=== PATIENT | male | born 1955 | race Asian ===

== ENCOUNTER → 2021-11-09 14:43 | Outpatient (BNVA) | payer MEDICARE, OTHER, SELFPAY | PROVIDERS: PCP Internal Medicine; Visit Provider Psychiatry & Neurology Neurology | DX: G20 Parkinson's disease (principal); I95.1 Orthostatic hypotension; Z79.899 Other long term (current) drug therapy | CPT/HCPCS: 99212 ==

== ENCOUNTER → 2022-01-12 08:25 | Outpatient (BNVA) | payer MEDICARE, OTHER, SELFPAY | PROVIDERS: PCP Internal Medicine; Visit Provider Psychiatry & Neurology Neurology | DX: G20 Parkinson's disease (principal); I95.1 Orthostatic hypotension; G47.00 Insomnia, unspecified; Z79.899 Other long term (current) drug therapy | CPT/HCPCS: Q3014 ==

== ENCOUNTER → 2022-02-22 11:18 | Outpatient (BNVA) | payer MEDICARE, OTHER, SELFPAY | PROVIDERS: PCP Internal Medicine; Visit Provider Psychiatry & Neurology Neurology | DX: G20 Parkinson's disease (principal); I95.1 Orthostatic hypotension; G47.00 Insomnia, unspecified; Z79.899 Other long term (current) drug therapy | CPT/HCPCS: 99212 ==

== ENCOUNTER → 2022-04-19 11:23 | Outpatient (BNVA) | payer MEDICARE, OTHER, SELFPAY | PROVIDERS: PCP Internal Medicine; Visit Provider Psychiatry & Neurology Neurology | DX: G20 Parkinson's disease (principal); I95.1 Orthostatic hypotension; G47.00 Insomnia, unspecified; Z79.899 Other long term (current) drug therapy | CPT/HCPCS: Q3014 ==

== ENCOUNTER → 2022-06-15 09:03 | Outpatient (BNVA) | payer MEDICARE, OTHER, SELFPAY | PROVIDERS: PCP Internal Medicine; Visit Provider Psychiatry & Neurology Neurology | DX: G20 Parkinson's disease (principal); I95.1 Orthostatic hypotension; G47.00 Insomnia, unspecified | CPT/HCPCS: 99212 ==

== ENCOUNTER → 2022-12-13 10:56 | Outpatient (BNVA) | payer MEDICARE, OTHER, SELFPAY | PROVIDERS: PCP Internal Medicine; Visit Provider Psychiatry & Neurology Neurology | DX: G20 Parkinson's disease (principal); G47.00 Insomnia, unspecified; I95.1 Orthostatic hypotension; K59.00 Constipation, unspecified | CPT/HCPCS: 99212 ==

== ENCOUNTER 2023-06-12 11:19 | Outpatient (AMB) | payer MEDICARE, OTHER, SELFPAY ==
[2023-06-12 11:21] VITALS: BP 114/74; PULSE 90; O2SAT 96; BMI 22.5
--- NOTE | 2023-06-12 11:21 | MHC.OFFVIS ---
Intake Vital Signs 06/12/23 11:21 Height 5 ft 11 in Weight 161 lb 4 oz BMI 22.5 BP 114/74 Blood Pressure Location Rt brachial Position Sitting Pulse 90 Pulse Source Pulse Oximeter Pulse Oximetry (%) 96 Oxygen Delivery Method Room Air Intake Visit Reasons: 6m follow up parkinson's Intake Note: Pt presents to the office today for a 6 month follow up for parkinsons. Pt states some days are good and others are bad. Pt states he has started to get some tremors in his legs once or twice so far. Pt states he has had 2 falls since his last visit. Allergies Penicillins Adverse Reaction (Mild, Verified 06/12/23 11:21) Hives Medication List - Last Reconciled 06/12/23 by Lidya Umanzor MD albuterol sulfate 90 mcg/actuation 2 puffs inhalation Q4H PRN budesonide-formoterol 160-4.5 mcg/actuation (Symbicort) 2 puffs inhalation BID carbidopa-levodopa 25-100 mg 1 tab PO .6 times a day cetirizine 5 mg PO DAILY PRN droxidopa 200 mg PO TID 90 days finasteride 5 mg PO DAILY fluticasone furoate 27.5 mcg/actuation (Children's Flonase Sensimist) 1 spray intranasal DAILY lactulose 10 grams (15 mL) PO BEDTIME PRN lovastatin 20 mg PO DAILY mirabegron ER (Myrbetriq) 50 mg PO DAILY mirtazapine 7.5 mg PO BEDTIME rasagiline 1 mg PO DAILY ropinirole ER 2 mg PO DAILY tamsulosin 0.4 mg PO DAILY trospium 20 mg PO BID HPI HPI Comments History of Present Illness Details 67-year-old male calls for follow-up of his Parkinson's disease orthostatic hypotension and insomnia. He is doing better , with [id number] tid. The BP still drops but he does not feel dizzy. he is able to exercise better. his mental fogginess, headaches improved significantly His main concern is constipation. he still has some freezing .He had 2 falls . 1 at his gym he tripped , 2 nd fall was when he was trying to stand up from a office chair with wheels. His describes REM behavior disorder. His BP is 120/80- 90/70 he is less symptomatic . sleep is better. Mybetriq is helping with nocturia Dizziness is better with drop in mirtazepine. He has urgency frequent urination and he sees a urologist for it. he denies any hallucinations he exercises regularly he takes Metamucil and MiraLax to manage his constipation. He drinks about 6 glasses of water and Gatorade daily and checks his blood pressure often. The changing Sinemet to 1 tablets 6 times a day has significantly improved his exercise tolerance. He did not tolerate midodrine . [facility] Medical History (Updated 06/12/23 @ 11:46 by Lidya Umanzor MD) REM behavioral disorder Constipation Orthostatic hypotension Parkinson's disease Bronchitis Asthma Hyperlipidemia HTN (hypertension) Family History Family/Other HTN (hypertension) Diabetes Mother Diabetes HTN (hypertension) Social History Household Members: Spouse Alcohol intake: never Patient Tobacco Use Status: Never used Tobacco Physical Exam Vital Signs: Last Vital Signs Pulse 90 06/12/23 11:21 BP 114/74 06/12/23 11:21 Pulse Ox 96 06/12/23 11:21 Oxygen Delivery Method Room Air 06/12/23 11:21 BMI result Body Mass Index 22.5 Assessment & Plan Assessment & Plan (1) Parkinson's disease: Code(s): G20 - Parkinson's disease (2) Orthostatic hypotension: Code(s): I95.1 - Orthostatic hypotension (3) Insomnia: Code(s): G47.00 - Insomnia, unspecified (4) Constipation: Code(s): K59.00 - Constipation, unspecified (5) REM behavioral disorder: Code(s): G47.52 - REM sleep behavior disorder Plan Continue Sinemet 25/100 tablet 6 times a day. Continue rasagiline 1 mg q.d.. Continue Requip ER 2 mg q.d.. Continue Sinemet 25/100 CR 1 tablet q.a.m.. Remeron 7.5mg qhs [id number] tid ( patient did not tolerate midodrine) Continue lactulose as needed for constipation , with miralax, metamucil Melatonin 1-6mg qhs for RBD Coding Level of Care Code Est Pt Level 4 (72536) Diagnoses Parkinson's disease G20 Orthostatic hypotension I95.1 Insomnia G47.00 Constipation K59.00 REM behavioral disorder G47.52
== END 2023-06-12 11:58 | disposition home or self-care (01) ==
PROVIDERS: Visit Provider Psychiatry & Neurology Neurology
DX: G20 Parkinson's disease (principal); I95.1 Orthostatic hypotension; G47.00 Insomnia, unspecified; K59.00 Constipation, unspecified; G47.52 REM sleep behavior disorder
CPT/HCPCS: 99214

== ENCOUNTER → 2023-06-12 11:19 | Outpatient (BNVA) | payer MEDICARE, OTHER, SELFPAY | PROVIDERS: Visit Provider Psychiatry & Neurology Neurology | DX: G20.C Parkinsonism, unspecified (principal); R29.6 Repeated falls; I95.1 Orthostatic hypotension; G47.00 Insomnia, unspecified; G47.52 REM sleep behavior disorder; K59.00 Constipation, unspecified | CPT/HCPCS: 99212 ==

== ENCOUNTER → 2023-10-12 14:00 | Outpatient (BNVA) | payer MEDICARE, OTHER, SELFPAY | PROVIDERS: PCP Internal Medicine; Visit Provider Psychiatry & Neurology Neurology ==

== ENCOUNTER 2024-01-10 10:57 | Outpatient (AMB) | payer MEDICARE, OTHER, SELFPAY ==
--- NOTE | 2024-01-10 11:00 | MHC.OFFVIS ---
Vital Signs 01/10/24 11:01 Height 5 ft 11 in Weight 168 lb 4 oz BMI 23.5 BP 128/80 Blood Pressure Location Rt brachial Position Sitting Respiration 16 Pulse 76 Pulse Source Palpation Intake Visit Reasons: 4 mnts after TELE f/u appt per IDA Intake Note: Pt presents to the office for 4 month follow up for Parkinson's. 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 Allergies Penicillins Adverse Reaction (Mild, Verified 01/10/24 11:01) Hives Medication List - Last Reconciled 01/10/24 by Lidya Umanzor MD albuterol sulfate 90 mcg/actuation 2 puffs inhalation Q4H PRN budesonide-formoterol 160-4.5 mcg/actuation (Symbicort) 2 puffs inhalation BID carbidopa-levodopa 25-100 mg 1 tab at7am,1pm, 6pm , 10.30 1.5 tabs at 10am and 3pm cetirizine 5 mg PO DAILY PRN droxidopa 200 mg PO TID 90 days finasteride 5 mg PO DAILY fluticasone furoate 27.5 mcg/actuation (Children's Flonase Sensimist) 1 spray intranasal DAILY lactulose 10 grams (15 mL) PO BEDTIME PRN lovastatin 20 mg PO DAILY mirabegron ER (Myrbetriq) 50 mg PO DAILY mirtazapine 7.5 mg PO BEDTIME rasagiline 1 mg PO DAILY ropinirole ER 2 mg PO DAILY tamsulosin 0.4 mg PO DAILY trospium 20 mg PO BID HPI Comments Details: 68-year-old male comes for follow-up of his Parkinson's disease orthostatic hypotension and insomnia. He is worse, especially his balance . He had 6 falls in the past year. On Oct 05 he woke up with severe left knee pain .He is seeing ortho. He has mild hallucinations - mouse running or a smalll animal running around the bed . Does not bother him He is doing better , with northera 200mg tid. The BP still drops but he does not feel dizzy. he is able to exercise better. his mental fogginess, headaches improved significantly His main concern is constipation. His describes REM behavior disorder.melatonin did not help. His BP is 120/80- 90/70 he is less symptomatic . sleep is better. Mybetriq is helping with nocturia Dizziness is better with drop in mirtazepine. He exercises regularly he takes Metamucil and MiraLax to manage his constipation. He drinks about 6 glasses of water and Gatorade daily and checks his blood pressure often. The changing Sinemet to 1 tablets 6 times a day has significantly improved his exercise tolerance. He did not tolerate midodrine . [facility] Medical History (Updated 01/10/24 @ 11:21 by Lidya Umanzor MD) Parkinson's disease with dyskinesia REM behavioral disorder Constipation Orthostatic hypotension Parkinson's disease Bronchitis Asthma Hyperlipidemia HTN (hypertension) Family History Family/Other HTN (hypertension) Diabetes Mother Diabetes HTN (hypertension) Social History Household Members: Spouse Alcohol intake: never Patient Tobacco Use Status: Never used Tobacco Physical Exam Vital Signs: Last Vital Signs Pulse 76 01/10/24 11:01 Resp 16 01/10/24 11:01 BP 128/80 01/10/24 11:01 BMI result Body Mass Index 23.5 Const General: cooperative, healthy appearing and no acute distress Orientation/consciousness: patient oriented x3 HEENT Head: Yes normal to inspection Neck Other: mild antecollis and restricted range of motion Neuro Other: Mild decreased blink and facial expression Voice- hypophonia, stuttering , dysprosody No tremors, mild dyskinesia Fine Finger movements - mild decreased mehran R>L Alternating hand movements - decreased mehran Hand movements - decreased mehran Foot taps- decreased mehran No cog wheel rigidity gait - mild slowness and decreased arm swing R>L General: patient oriented x3 and no focal motor deficits Cranial nerves: Yes CN's II-XII intact bilaterally, Yes Bilaterally intact EOM present, Yes Normal facial strength present and Yes Midline tongue present Motor exam (neuro): 5/5 motor strength present throughout Coordination: [id number] test normal Assessment & Plan Assessment & Plan (1) Parkinson's disease with dyskinesia: Code(s): G20.B1 - Parkinson's disease with dyskinesia, without mention of fluctuations Category: Medical (2) Orthostatic hypotension: Code(s): I95.1 - Orthostatic hypotension Category: Medical (3) Insomnia: Code(s): G47.00 - Insomnia, unspecified Category: Medical (4) Constipation: Code(s): K59.00 - Constipation, unspecified Category: Medical (5) REM behavioral disorder: Code(s): G47.52 - REM sleep behavior disorder Category: Medical Plan Sinemet 25/100 tablet 1 tab at 7am 1pm,6pm,10.30 pm 1.5tabs 10am and 3 pm Continue rasagiline 1 mg q.d.. Continue Requip ER 2 mg q.d.. Remeron 7.5mg qhs [id number] tid ( patient did not tolerate midodrine) Continue lactulose as needed for constipation , with miralax, metamucil Coding Level of Care Code Est Pt Level 4 (36256) Diagnoses Parkinson's disease with dyskinesia G20.B1 Orthostatic hypotension I95.1 Insomnia G47.00 Constipation K59.00 REM behavioral disorder G47.52
[2024-01-10 11:01] VITALS: BP 128/80; PULSE 76; RESP 16; BMI 23.5
== END 2024-01-10 11:33 | disposition home or self-care (01) ==
PROVIDERS: PCP Internal Medicine; Visit Provider Psychiatry & Neurology Neurology
DX: G20.B1 Parkinson's disease with dyskinesia, without mention of fluctuations (principal); I95.1 Orthostatic hypotension; G47.00 Insomnia, unspecified; K59.00 Constipation, unspecified; G47.52 REM sleep behavior disorder
CPT/HCPCS: 99214

== ENCOUNTER → 2024-01-10 10:57 | Outpatient (BNVA) | payer MEDICARE, OTHER, SELFPAY | PROVIDERS: PCP Internal Medicine; Visit Provider Psychiatry & Neurology Neurology | DX: G20.B1 Parkinson's disease with dyskinesia, without mention of fluctuations (principal); I95.1 Orthostatic hypotension; G47.00 Insomnia, unspecified; G47.52 REM sleep behavior disorder; K59.00 Constipation, unspecified | CPT/HCPCS: 99212 ==

== ENCOUNTER 2024-05-01 10:56 | Outpatient (AMB) | payer MEDICARE, OTHER, SELFPAY ==
--- NOTE | 2024-05-01 11:05 | MHC.OFFVIS ---
Vital Signs 05/01/24 11:08 Height 5 ft 11 in Weight 161 lb BMI 22.5 BP 112/78 Blood Pressure Location Rt brachial Position Sitting Respiration 16 Pulse 85 Pulse Source Pulse Oximeter Pulse Oximetry (%) 100 Oxygen Delivery Method Room Air Intake Visit Reasons: Follow up - Conf Intake Note: Pt presents to the office for 3 month follow up for Parkinson's. 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 Allergies Penicillins Adverse Reaction (Mild, Verified 05/01/24 11:06) Hives Medication List - Last Reconciled 05/01/24 by Lidya Umanzor MD albuterol sulfate 90 mcg/actuation 2 puffs inhalation Q4H PRN carbidopa-levodopa 25-100 mg 1 tab at7am,1pm, 6pm , 10.30 1.5 tabs at 10am and 3pm cetirizine 5 mg PO DAILY PRN droxidopa 300 mg PO TID 90 days finasteride 5 mg PO DAILY fluticasone furoate 27.5 mcg/actuation (Children's Flonase Sensimist) 1 spray intranasal DAILY fluticasone propion-salmeterol 100-50 mcg/dose (Wixela Inhub) 1 inh inhalation BID lactulose 10 grams (15 mL) PO BEDTIME PRN lovastatin 20 mg PO DAILY mirabegron ER (Myrbetriq) 50 mg PO DAILY mirtazapine 7.5 mg PO BEDTIME rasagiline 1 mg PO DAILY ropinirole ER 2 mg PO DAILY tamsulosin 0.4 mg PO DAILY trospium 20 mg PO BID HPI Comments Details: 68-year-old male comes for follow-up of his Parkinson's disease orthostatic hypotension and insomnia. He is worse in the morning - wakes up between 4am and 10 am - misses his & am dose when he wakes up at 10am. After his first dose,he usually sleeps for 1-2 hrs.He is fatigued till 3 pm . He is worse, especially his balance . He had 6 falls in the past year. He has mild hallucinations - mouse running or a smalll animal running around the bed . Does not bother him He is doing better , with northera 200mg tid. The BP still drops but he does not feel dizzy. he is able to exercise better. his mental fogginess, headaches improved significantly His main concern is constipation. His describes REM behavior disorder.melatonin did not help. His BP is 120/80- 90/70 he is less symptomatic . sleep is better. Mybetriq is helping with nocturia Dizziness is better with drop in mirtazepine. He exercises regularly he takes Metamucil and MiraLax to manage his constipation. He drinks about 6 glasses of water and Gatorade daily and checks his blood pressure often. The changing Sinemet to 1 tablets 6 times a day has significantly improved his exercise tolerance. He did not tolerate midodrine . [facility] Medical History (Updated 05/01/24 @ 11:25 by Lidya Umanzor MD) Knee pain, right Parkinson's disease with dyskinesia REM behavioral disorder Constipation Orthostatic hypotension Parkinson's disease Bronchitis Asthma Hyperlipidemia HTN (hypertension) Family History Family/Other HTN (hypertension) Diabetes Mother Diabetes HTN (hypertension) Social History Household Members: Spouse Alcohol intake: never Patient Tobacco Use Status: Never used Tobacco Physical Exam Vital Signs: Last Vital Signs Pulse 85 05/01/24 11:08 Resp 16 05/01/24 11:08 BP 112/78 05/01/24 11:08 Pulse Ox 100 05/01/24 11:08 Oxygen Delivery Method Room Air 05/01/24 11:08 BMI result Body Mass Index 22.5 Const General: cooperative, healthy appearing and no acute distress Orientation/consciousness: patient oriented x3 HEENT Head: Yes normal to inspection Neck Other: mild antecollis and restricted range of motion Neuro Other: Mild decreased blink and facial expression Voice- hypophonia, stuttering , dysprosody No tremors, mild dyskinesia Fine Finger movements - mild decreased mehran R>L Alternating hand movements - decreased mehran Hand movements - decreased mehran Foot taps- decreased mehran No cog wheel rigidity gait - mild slowness and decreased arm swing R>L General: patient oriented x3 and no focal motor deficits Cranial nerves: Yes CN's II-XII intact bilaterally, Yes Bilaterally intact EOM present, Yes Normal facial strength present and Yes Midline tongue present Motor exam (neuro): 5/5 motor strength present throughout Coordination: [id number] test normal Assessment & Plan Assessment & Plan (1) Parkinson's disease with dyskinesia: Code(s): G20.B1 - Parkinson's disease with dyskinesia, without mention of fluctuations Category: Medical (2) Orthostatic hypotension: Code(s): I95.1 - Orthostatic hypotension Category: Medical (3) Insomnia: Code(s): G47.00 - Insomnia, unspecified Category: Medical (4) Constipation: Code(s): K59.00 - Constipation, unspecified Category: Medical (5) REM behavioral disorder: Code(s): G47.52 - REM sleep behavior disorder Category: Medical Plan Sinemet 25/100 tablet 1 tab at 7am 1pm,6pm,10.30 pm 1.5tabs 10am and 3 pm Continue rasagiline 1 mg q.d.. Continue Requip ER 2 mg q.d.. Remeron 7.5mg qhs [id number] tid ( patient did not tolerate midodrine) Continue lactulose as needed for constipation , with miralax, metamucil Orders: Referrals Pain Management Referral M25.561 - Pain in right knee Medications: Changed From droxidopa give consistently with OR without food, upon rising, at midday, late PM/at least 5 hrs before bedtime 200 mg PO TID 90 days 270 caps 2RF To droxidopa give consistently with OR without food, upon rising, at midday, late PM/at least 5 hrs before bedtime 300 mg PO TID 90 days 270 caps 2RF Coding Level of Care Code Est Pt Level 4 (31092) Complex EM visit Add On G2211 Diagnoses Parkinson's disease with dyskinesia G20.B1 Orthostatic hypotension I95.1 Insomnia G47.00 Constipation K59.00 REM behavioral disorder G47.52
[2024-05-01 11:08] VITALS: BP 112/78; PULSE 85; RESP 16; O2SAT 100; BMI 22.5
== END 2024-05-01 11:30 | disposition home or self-care (01) ==
PROVIDERS: PCP Internal Medicine; Visit Provider Psychiatry & Neurology Neurology
DX: G20.B1 Parkinson's disease with dyskinesia, without mention of fluctuations (principal); I95.1 Orthostatic hypotension; G47.00 Insomnia, unspecified; K59.00 Constipation, unspecified; G47.52 REM sleep behavior disorder
CPT/HCPCS: 99214; G2211

== ENCOUNTER → 2024-05-01 10:56 | Outpatient (BNVA) | payer MEDICARE, OTHER, SELFPAY | PROVIDERS: PCP Internal Medicine; Visit Provider Psychiatry & Neurology Neurology | DX: G20.B1 Parkinson's disease with dyskinesia, without mention of fluctuations (principal); I95.1 Orthostatic hypotension; G47.00 Insomnia, unspecified; G47.52 REM sleep behavior disorder; K59.00 Constipation, unspecified | CPT/HCPCS: 99212 ==

== ENCOUNTER 2024-07-24 11:22 | Outpatient (AMB) | payer MEDICARE, OTHER, SELFPAY ==
--- NOTE | 2024-07-24 11:23 | A.OFFVIS_ITS ---
Intake Visit Reasons: Follow up Intake Note: patient following up Allergies Penicillins Adverse Reaction (Mild, Verified 07/24/24 11:23) Hives Medication List - Last Reconciled 07/24/24 by Lidya Umanzor MD albuterol sulfate 90 mcg/actuation 2 puffs inhalation Q4H PRN carbidopa-levodopa 25-100 mg 1 tab at7am,1pm, 6pm , 10.30 1.5 tabs at 10am and 3pm cetirizine 5 mg PO DAILY PRN droxidopa 300 mg PO TID 90 days droxidopa 100 mg PO TID finasteride 5 mg PO DAILY fluticasone furoate 27.5 mcg/actuation (Children's Flonase Sensimist) 1 spray intranasal DAILY fluticasone propion-salmeterol 100-50 mcg/dose (Wixela Inhub) 1 inh inhalation BID lactulose 10 grams (15 mL) PO BEDTIME PRN lovastatin 20 mg PO DAILY mirabegron ER (Myrbetriq) 50 mg PO DAILY mirtazapine 7.5 mg PO BEDTIME rasagiline 1 mg PO DAILY ropinirole ER 2 mg PO DAILY tamsulosin 0.4 mg PO DAILY trospium 20 mg PO BID HPI Comments Details: 69 year-old male calls for follow-up of his Parkinson's disease orthostatic hypotension and insomnia. He had a fall 1 week ago - when he got up from the chair and fell. his thinks he lost balance when he turned.but she is not sure if he passed out or fell and then passed out after he hit his head.He was seen at [facility] and transferred to [facility] - was kept for observation and was discharged . He is at home now and is doing ok. History form last visit-He is worse in the morning - wakes up between 4am and 10 am - misses his & am dose when he wakes up at 10am. After his first dose,he usually sleeps for 1-2 hrs.He is fatigued till 3 pm . He is worse, especially his balance . He had 6 falls in the past year. He has mild hallucinations - mouse running or a smalll animal running around the bed . Does not bother him He is doing better , with northera 200mg tid. The BP still drops but he does not feel dizzy. he is able to exercise better. his mental fogginess, headaches improved significantly His main concern is constipation. His describes REM behavior disorder.melatonin did not help. His BP is 120/80- 90/70 he is less symptomatic . sleep is better. Mybetriq is helping with nocturia Dizziness is better with drop in mirtazepine. He exercises regularly he takes Metamucil and MiraLax to manage his constipation. He drinks about 6 glasses of water and Gatorade daily and checks his blood pressure often. The changing Sinemet to 1 tablets 6 times a day has significantly improved his exercise tolerance. He did not tolerate midodrine . [facility] Medical History Knee pain, right Parkinson's disease with dyskinesia REM behavioral disorder Constipation Orthostatic hypotension Parkinson's disease Bronchitis Asthma Hyperlipidemia HTN (hypertension) Family History Family/Other HTN (hypertension) Diabetes Mother Diabetes HTN (hypertension) Social History Household Members: Spouse Alcohol intake: never Patient Tobacco Use Status: Never used Tobacco Physical Exam Const General: cooperative, alert and awake Telehealth Telehealth Telehealth Platform: Telephone Location of provider rendering services: practice address Location of patient: address on file Patient Identification confirmed using: Name, : Yes Telehealth method: video Patient verbally consented to treatment: Yes Patient verbally consented to billing insurance company: Yes Patient informed of any privacy concerns related to visit: Yes Assessment & Plan Assessment & Plan (1) Parkinson's disease with dyskinesia: Code(s): G20.B1 - Parkinson's disease with dyskinesia, without mention of fluctuations Category: Medical Qualifiers: Fluctuating manifestations: without fluctuating manifestations Qualified Code(s): G20.B1 - Parkinson's disease with dyskinesia, without mention of fluctuations (2) Orthostatic hypotension: Code(s): I95.1 - Orthostatic hypotension Category: Medical (3) Insomnia: Code(s): G47.00 - Insomnia, unspecified Category: Medical (4) Constipation: Code(s): K59.00 - Constipation, unspecified Category: Medical Qualifiers: Constipation type: other constipation type Qualified Code(s): K59.09 - Other constipation (5) REM behavioral disorder: Code(s): G47.52 - REM sleep behavior disorder Category: Medical Plan Sinemet 25/100 tablet 1 tab at 7am 1pm,6pm,10.30 pm 1.5tabs 10am and 3 pm Continue rasagiline 1 mg q.d.. Continue Requip ER 2 mg q.d.. Remeron 7.5mg qhs [id number] tid ( patient did not tolerate midodrine) Continue lactulose as needed for constipation , with miralax, metamucil Medications: Refilled droxidopa give consistently with OR without food, upon rising, at midday, late PM/at least 5 hrs before bedtime 300 mg PO TID 270 caps 2RF 90 days droxidopa give consistently with OR without food, upon rising, at midday, late PM/at least 3hrs before bedtime 100 mg PO TID 270 caps 6RF Coding Level of Care Code Tele Est Pt Level 4 (37769) Complex EM visit Add On G2211 Diagnoses Parkinson's disease with dyskinesia without fluctuating manifestations G20.B1 Fluctuating manifestations: without fluctuating manifestations Orthostatic hypotension I95.1 Insomnia G47.00 Other constipation K59.09 Constipation type: other constipation type REM behavioral disorder G47.52
== END 2024-07-24 11:49 | disposition home or self-care (01) ==
LOC: HO.HSMS 11:22
PROVIDERS: PCP Internal Medicine; Visit Provider Psychiatry & Neurology Neurology
DX: G20.B1 Parkinson's disease with dyskinesia, without mention of fluctuations (principal); I95.1 Orthostatic hypotension; G47.00 Insomnia, unspecified; K59.09 Other constipation; G47.52 REM sleep behavior disorder
CPT/HCPCS: 99214; G2211

== ENCOUNTER → 2024-07-24 11:22 | Outpatient (BNVA) | payer MEDICARE, OTHER, SELFPAY | PROVIDERS: PCP Internal Medicine; Visit Provider Psychiatry & Neurology Neurology ==

== ENCOUNTER 2024-08-26 13:34 | Outpatient (AMB) | payer MEDICARE, OTHER, SELFPAY ==
--- NOTE | 2024-08-26 13:29 | MHC.OFFVIS ---
Vital Signs 08/26/24 13:32 Height 5 ft 11 in Weight 165 lb BMI 23.0 Intake Visit Reasons: 1 mo F/U Intake Note: BP is fluctuating a lot. Order Packer Required: No Accompanied by: Self / Same As Patient Allergies Penicillins Adverse Reaction (Mild, Verified 08/26/24 13:30) Hives Medication List - Last Reconciled 08/26/24 by Lidya Umanzor MD albuterol sulfate 90 mcg/actuation 2 puffs inhalation Q4H PRN carbidopa-levodopa 25-100 mg 1 tab at7am,1pm, 6pm , 10.30 1.5 tabs at 10am and 3pm cetirizine 5 mg PO DAILY PRN droxidopa 100 mg PO TID droxidopa 300 mg PO TID 90 days finasteride 5 mg PO DAILY fluticasone furoate 27.5 mcg/actuation (Children's Flonase Sensimist) 1 spray intranasal DAILY fluticasone propion-salmeterol 100-50 mcg/dose (Wixela Inhub) 1 inh inhalation BID lactulose 10 grams (15 mL) PO BEDTIME PRN lovastatin 20 mg PO DAILY midodrine 2.5 mg PO TID mirabegron ER (Myrbetriq) 50 mg PO DAILY mirtazapine 7.5 mg PO BEDTIME rasagiline 1 mg PO DAILY ropinirole ER 2 mg PO DAILY tamsulosin 0.4 mg PO DAILY trospium 20 mg PO BID Do you need a note to return to daycare/school/sports/work: No HPI Comments Details: 69 year-old male calls for follow-up of his Parkinson's disease orthostatic hypotension and insomnia. He had a fall 4 week ago - when he got up from the chair and fell. his thinks he lost balance when he turned.but she is not sure if he passed out or fell and then passed out after he hit his head.He was seen at [facility] and transferred to [facility] - was kept for observation and was discharged I increased his Droxidopa to 400mg tid He had another fall 1 week after at the Dentist after cleaning when he stood up and came to the toy painter he passed out . He was admitted at [facility]. History form last visit-He is worse in the morning - wakes up between 4am and 10 am - misses his & am dose when he wakes up at 10am. After his first dose,he usually sleeps for 1-2 hrs.He is fatigued till 3 pm . He is worse, especially his balance . He had 6 falls in the past year. He has mild hallucinations - mouse running or a smalll animal running around the bed . Does not bother him He is doing better , with northera 200mg tid. The BP still drops but he does not feel dizzy. he is able to exercise better. his mental fogginess, headaches improved significantly His main concern is constipation. His describes REM behavior disorder.melatonin did not help. His BP is 120/80- 90/70 he is less symptomatic . sleep is better. Mybetriq is helping with nocturia Dizziness is better with drop in mirtazepine. He exercises regularly he takes Metamucil and MiraLax to manage his constipation. He drinks about 6 glasses of water and Gatorade daily and checks his blood pressure often. The changing Sinemet to 1 tablets 6 times a day has significantly improved his exercise tolerance. He did not tolerate midodrine . [facility] Medical History Knee pain, right Parkinson's disease with dyskinesia REM behavioral disorder Constipation Orthostatic hypotension Parkinson's disease Bronchitis Asthma Hyperlipidemia HTN (hypertension) Family History Family/Other HTN (hypertension) Diabetes Mother Diabetes HTN (hypertension) Social History Household Members: Spouse Alcohol intake: never Patient Tobacco Use Status: Never used Tobacco Physical Exam Vital Signs: BMI result Body Mass Index 23.0 Const General: cooperative Orientation/consciousness: patient oriented x3 Neuro Other: speech- slurred and hypophonia General: patient oriented x3 Telehealth Telehealth Telehealth Platform: Telephone Location of provider rendering services: practice address Location of patient: address on file Patient Identification confirmed using: Name, : Yes Telehealth method: voice only Patient verbally consented to treatment: Yes Patient verbally consented to billing insurance company: Yes Patient informed of any privacy concerns related to visit: Yes Minutes spent on Phone/Video with Pt.: 23 Assessment & Plan Assessment & Plan (1) Parkinson's disease with dyskinesia: Code(s): G20.B1 - Parkinson's disease with dyskinesia, without mention of fluctuations Category: Medical Qualifiers: Fluctuating manifestations: without fluctuating manifestations Qualified Code(s): G20.B1 - Parkinson's disease with dyskinesia, without mention of fluctuations (2) Orthostatic hypotension: Code(s): I95.1 - Orthostatic hypotension Category: Medical (3) Constipation: Code(s): K59.00 - Constipation, unspecified Category: Medical Qualifiers: Constipation type: other constipation type Qualified Code(s): K59.09 - Other constipation (4) REM behavioral disorder: Code(s): G47.52 - REM sleep behavior disorder Category: Medical Plan Decrease Sinemet 25/100 tablet 1 tab at 6 times a day D/C rasagiline 1 mg q.d.. Continue Requip ER 2 mg q.d.. Remeron 7.5mg qhs northera 400mg tid Retrial midodrine 2.5 mg tid Continue lactulose as needed for constipation , with miralax, metamucil Medications: New midodrine do not give last dose of day after 6PM or within 4 hrs of bedtime 2.5 mg PO TID 90 tabs 1RF Coding Level of Care Code Tele Est Pt Level 4 (89653) Complex EM visit Add On G2211 Diagnoses Parkinson's disease with dyskinesia without fluctuating manifestations G20.B1 Fluctuating manifestations: without fluctuating manifestations Orthostatic hypotension I95.1 Other constipation K59.09 Constipation type: other constipation type REM behavioral disorder G47.52 Time Spent (min) 23
[2024-08-26 13:32] VITALS: BMI 23.0
== END 2024-08-26 16:21 | disposition home or self-care (01) ==
LOC: HO.HSMS 13:34
PROVIDERS: PCP Internal Medicine; Visit Provider Psychiatry & Neurology Neurology
DX: G20.B1 Parkinson's disease with dyskinesia, without mention of fluctuations (principal); I95.1 Orthostatic hypotension; K59.09 Other constipation; G47.52 REM sleep behavior disorder
CPT/HCPCS: 99443; G2211

== ENCOUNTER 2024-10-02 13:21 | Outpatient (AMB) | payer MEDICARE, OTHER, SELFPAY ==
--- NOTE | 2024-10-02 13:21 | A.OFFVIS_ITS ---
Intake Visit Reasons: 1mo F/U, 061-1630 Intake Note: Patient presents for follow up Allergies Penicillins Adverse Reaction (Mild, Verified 10/02/24 13:22) Hives Medication List - Last Reconciled 10/02/24 by Lidya Umanzor MD albuterol sulfate 90 mcg/actuation 2 puffs inhalation Q4H PRN carbidopa-levodopa 25-100 mg 1 tab PO .6 times a day cetirizine 5 mg PO DAILY PRN droxidopa 400 mg (2 x 200 mg) PO TID finasteride 5 mg PO DAILY fluticasone furoate 27.5 mcg/actuation (Children's Flonase Sensimist) 1 spray intranasal DAILY fluticasone propion-salmeterol 100-50 mcg/dose (Wixela Inhub) 1 inh inhalation BID lactulose 10 grams (15 mL) PO BEDTIME PRN lovastatin 20 mg PO DAILY midodrine 2.5 mg PO TID mirabegron ER (Myrbetriq) 50 mg PO DAILY mirtazapine 7.5 mg PO BEDTIME rasagiline 1 mg PO DAILY ropinirole ER 2 mg PO DAILY tamsulosin 0.4 mg PO DAILY trospium 20 mg PO BID HPI Comments Details: 69 year-old male calls for follow-up of his Parkinson's disease orthostatic hypotension and insomnia.He had 1 near fall. No passing out episodes. He wants to decrease the sinemet 25/100 1 tab 6-7 times a day. He is on Droxidopa to 400mg tid ropinirole XR 2mg qd Rasagiline 1mg qd History form last visit- He had a fall 4 week ago - when he got up from the chair and fell. 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 He was admitted at [facility].He is worse in the morning - wakes up between 4am and 10 am - misses his & am dose when he wakes up . [facility] Medical History Knee pain, right Parkinson's disease with dyskinesia REM behavioral disorder Constipation Orthostatic hypotension Parkinson's disease Bronchitis Asthma Hyperlipidemia HTN (hypertension) Family History Family/Other HTN (hypertension) Diabetes Mother Diabetes HTN (hypertension) Social History Household Members: Spouse Alcohol intake: never Patient Tobacco Use Status: Never used Tobacco Physical Exam Const General: cooperative Orientation/consciousness: patient oriented x3 Neuro Other: speech- slurred and hypophonia General: patient oriented x3 Telehealth Telehealth Telehealth Platform: Telephone Location of provider rendering services: practice address Location of patient: address on file Patient Identification confirmed using: Name, : Yes Telehealth method: voice only Patient verbally consented to treatment: Yes Patient verbally consented to billing insurance company: Yes Patient informed of any privacy concerns related to visit: Yes Minutes spent on Phone/Video with Pt.: 23 Assessment & Plan Assessment & Plan (1) Parkinson's disease with dyskinesia: Code(s): G20.B1 - Parkinson's disease with dyskinesia, without mention of fluctuations Category: Medical Qualifiers: Fluctuating manifestations: without fluctuating manifestations Qualified Code(s): G20.B1 - Parkinson's disease with dyskinesia, without mention of fluctuations (2) Orthostatic hypotension: Code(s): I95.1 - Orthostatic hypotension Category: Medical (3) Constipation: Code(s): K59.00 - Constipation, unspecified Category: Medical Qualifiers: Constipation type: other constipation type Qualified Code(s): K59.09 - Other constipation (4) REM behavioral disorder: Code(s): G47.52 - REM sleep behavior disorder Category: Medical Plan Decrease Sinemet 25/100 tablet 1 tab at 6 times a day D/C rasagiline 1 mg q.d.. Continue Requip ER 2 mg q.d.. Remeron 7.5mg qhs northera 400mg tid midodrine 2.5 mg tid Continue lactulose as needed for constipation , with miralax, metamucil Medications: Changed From carbidopa-levodopa 25-100 mg 1 tab at7am,1pm, 6pm , 10.30 1.5 tabs at 10am and 3pm 620 tabs 2RF To carbidopa-levodopa 25-100 mg 1 tab PO .6 times a day 620 tabs 2RF Coding Level of Care Code Tele Est Pt Level 4 (26170) Complex EM visit Add On G2211 Diagnoses Parkinson's disease with dyskinesia without fluctuating manifestations G20.B1 Fluctuating manifestations: without fluctuating manifestations Orthostatic hypotension I95.1 Other constipation K59.09 Constipation type: other constipation type REM behavioral disorder G47.52
--- OUTSIDE RECORDS SUMMARY | 2024-10-02 15:29 | XMS_ITS | Referral Summary ---
Author Organization [facility] Address [address] [place] [address] Care Team Providers Care Money Laundering Investigator Name Role Phone Rae Torres Primary Care Provider Allergies Active Allergy Reactions Criticality Noted Date Comments Montelukast Hives 03/04/2019 Penicillins Hives,Rash Low 04/12/2017 Medications albuterol (PROAIR HFA,VENTOLIN HFA) 90 mcg inhaler SMARTSI Puff(s) By Mouth Every 4 Hours PRN 12/03/2022 Active Symbicort 160-4.5 mcg/actuation inhaler Active carbidopa-levodo pa (SINEMET) 25-100 mg per tablet Active cetirizine (ZyrTEC) 10 mg tablet Take 1 tablet by mouth. Active droxidopa (NORTHERA) 200 mg capsule 05/09/2022 Active finasteride (PROSCAR) 5 mg tablet 08/15/2021 Active lactulose 10 gram/15 mL solution SMARTSI Milliliter( s) By Mouth Every Night PRN 01/27/2023 Active lovastatin (MEVACOR) 20 mg tablet SMARTSI Tablet(s) By Mouth Daily 12/03/2022 Active Myrbetriq 50 mg tablet 04/14/2020 Active mirtazapine (REMERON) 7.5 mg tablet SMARTSI Tablet(s) By Mouth Daily 02/05/2023 Active RASAGILINE MESYLATE, BULK, MISC Active rOPINIRole (REQUIP) 2 mg tablet Active tamsulosin (FLOMAX) 0.4 mg capsule Active trospium (SANCTURA) 20 mg tablet 11/19/2021 Active Active Problems Problem Noted Date Diagnosed Date Urgency incontinence 02/27/2023 Benign prostatic hyperplasia with incomplete bladder emptying 01/17/2022 Uninhibited neurogenic bladder 01/17/2022 Social History Tobacco Use Types Packs/Day Years Used Date Smoking Tobacco: Former Smokeless Tobacco: Never Alcohol Use Standard Drinks/Week Comments Not Currently 0 (1 standard drink = 0.6 oz pur e alcohol) Sex and Gender Information Value Date Recorded Sex Assigned at Male 01/16/2022 7:03 PM EDT Legal Sex Male 1:00 PM EDT Gender Identity Male 01/16/2022 7:03 PM EDT Sexual Orientation Straight 01/16/2022 7: 03 PM EDT Last Filed Vital Signs Vital Sign Reading Time Taken Comments Blood Pressure 142/84 02/27/2023 10:59 AM EDT Pulse 83 02/27/2023 10:59 AM EDT Temperature - - Respiratory Rate - - Oxygen Saturation - - Inhaled Oxygen Concentration - - Weight - - Height - - Body Mass Index - - Plan of Treatment Not on file Insurance MEDICARE [facility] Care Teams Money Laundering Investigator Relationship Specialty Start Date [place] [address] PCP - General Internal Medicine 11/24/21
--- OUTSIDE RECORDS SUMMARY | 2024-10-02 15:29 | XMS_ITS | Clinical Summary ---
Author Organization [facility] Address [address] [place] [address] Care Team Providers Care Pediatric Cns Name Role Phone Rae Torres Primary Care [...] bladder emptying 01/17/2022 Uninhibited neurogenic bladder 01/17/2022 Family History Medical History Relation Name Comments Diabetes Father Hypertension Father Diabetes Mother Hypertension Mother Relation Name Status Comments Father Mother Social History Tobacco Use Types Packs/Day Years [...] Mass Index - - Plan of Treatment Health Maintenance Due Date Last Done Comments Cologuard 1955 Colon Cancer Screening 1955 Colonoscopy 1955 FOBT / Fit Test 1955 Hepatitis C Screening 1955 Sigmoidoscopy 1955 RSV Vaccine (60+ years old and patients) (1 - Risk 60-74 years 1-dose series) 2013 Pneumococcal Vaccine: 65+ Years (3 of 3 - PPSV23 or PCV20) 09/16/2020 09/16/2019, 06/05/2014 CT Lung Cancer Screening (Baseline) 12/08/2023 12/07/2022 COVID-19 Vaccine ( season) 2024 06/30/2022, 07/08/2021, 12/01/2020, Additional history exists Influenza Vaccine (#1) 2024 , 07/16/2021, 05/07/2020, Additional history exists Alcohol/Substance Use Screening 09/11/2024 Depression Screening and Follow-Up 09/11/2024 Health Care Proxy Review 09/11/2024 Social Drivers of Health Annual Screening 09/11/2024 DTaP,Tdap,and Td Vaccines (3 - Td or Tdap) 05/20/2032 05/20/2022, 12/13/2013, 03/30/2005 Zoster Vaccines Completed 06/11/2021, 02/09, 07/08/2014 Hepatitis B Vaccines Aged Out No long er eligible based on patient's age to complete this topic Insurance MEDICARE [facility] Care Teams Pediatric Cns Relationship Specialty Start Date End Date Rae Torres [address] [facility] [place] [address] PCP - General Internal Medicine 11/24/21
== END 2024-10-02 15:51 | disposition home or self-care (01) ==
LOC: HO.HSMS 13:21
PROVIDERS: PCP Internal Medicine; Visit Provider Psychiatry & Neurology Neurology
DX: G20.B1 Parkinson's disease with dyskinesia, without mention of fluctuations (principal); I95.1 Orthostatic hypotension; K59.09 Other constipation; G47.52 REM sleep behavior disorder
CPT/HCPCS: 98016; G2211

== ENCOUNTER → 2024-10-02 13:21 | Outpatient (BNVA) | payer MEDICARE, OTHER, SELFPAY | PROVIDERS: PCP Internal Medicine; Visit Provider Psychiatry & Neurology Neurology ==

== ENCOUNTER 2024-10-17 12:40 | Outpatient (AMB) | payer MEDICARE, OTHER, SELFPAY ==
--- NOTE | 2024-10-17 12:40 | A.OFFVIS_ITS ---
Intake Visit Reasons: Follow up - He c/b to confirm Intake Note: patient presents for follow up Allergies Penicillins Adverse Reaction (Mild, Verified 10/17/24 12:41) Hives Medication List - Last Reconciled 10/17/24 by Lidya Umanzor MD albuterol sulfate 90 mcg/actuation 2 puffs inhalation Q4H PRN carbidopa-levodopa 25-100 mg 1 tab PO .6 times a day cetirizine 5 mg PO DAILY PRN droxidopa 400 mg (2 x 200 mg) PO TID finasteride 5 mg PO DAILY fluticasone furoate 27.5 mcg/actuation (Children's Flonase Sensimist) 1 spray intranasal DAILY fluticasone propion-salmeterol 100-50 mcg/dose (Wixela Inhub) 1 inh inhalation BID lactulose 10 grams (15 mL) PO BEDTIME PRN lovastatin 20 mg PO DAILY mirabegron ER (Myrbetriq) 50 mg PO DAILY mirtazapine 7.5 mg PO BEDTIME rasagiline 1 mg PO DAILY ropinirole ER 2 mg PO DAILY tamsulosin 0.4 mg PO DAILY trospium 20 mg PO BID HPI Comments Details: 69 year-old male calls for follow-up of his Parkinson's disease orthostatic hypotension and insomnia.He had 1 near fall. It was in the same place in his house, when he gets up form his computer chair and turns he falls.No passing out episodes. He is on sinemet 25/100 1 tab 6-7 times a day. He is on Droxidopa to 400mg tid ropinirole XR 2mg qd Rasagiline 1mg qd History form last visit- He had a fall 4 week ago - when he got up from the chair and fell. 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 He was admitted at [facility].He is worse in the morning - wakes up between 4am and 10 am - misses his & am dose when he wakes up . [facility] Medical History Knee pain, right Parkinson's disease with dyskinesia REM behavioral disorder Constipation Orthostatic hypotension Parkinson's disease Bronchitis Asthma Hyperlipidemia HTN (hypertension) Family History Family/Other HTN (hypertension) Diabetes Mother Diabetes HTN (hypertension) Social History Household Members: Spouse Alcohol intake: never Patient Tobacco Use Status: Never used Tobacco Physical Exam Const General: cooperative Orientation/consciousness: patient oriented x3 Neuro Other: speech- slurred and hypophonia General: patient oriented x3 Telehealth Telehealth Telehealth Platform: Telephone Location of provider rendering services: practice address Location of patient: address on file Patient Identification confirmed using: Name, : Yes Telehealth method: voice only Patient verbally consented to treatment: Yes Patient verbally consented to billing insurance company: Yes Patient informed of any privacy concerns related to visit: Yes Assessment & Plan Assessment & Plan (1) Parkinson's disease with dyskinesia: Code(s): G20.B1 - Parkinson's disease with dyskinesia, without mention of fluctuations Category: Medical Qualifiers: Fluctuating manifestations: without fluctuating manifestations Qualified Code(s): G20.B1 - Parkinson's disease with dyskinesia, without mention of fluctuations (2) Orthostatic hypotension: Code(s): I95.1 - Orthostatic hypotension Category: Medical (3) Constipation: Code(s): K59.00 - Constipation, unspecified Category: Medical Qualifiers: Constipation type: other constipation type Qualified Code(s): K59.09 - Other constipation (4) REM behavioral disorder: Code(s): G47.52 - REM sleep behavior disorder Category: Medical Plan Change his chair position in his home office to prevent falls. Sinemet 25/100 tablet 1 tab at 7 times a day rasagiline 1 mg q.d.. Continue Requip ER 2 mg q.d.. Remeron 7.5mg qhs northera 400mg tid Continue lactulose as needed for constipation , with miralax, metamucil Medications: Changed From carbidopa-levodopa 25-100 mg 1 tab PO .6 times a day 620 tabs 2RF To carbidopa-levodopa 25-100 mg extra 1 tab 1 tab PO .6 times a day 620 tabs 2RF Discontinued midodrine do not give last dose of day after 6PM or within 4 hrs of bedtime Discontinued Reason: Patient no longer taking 2.5 mg PO TID 90 tabs 1RF Coding Level of Care Code Tele Est Pt Level 4 (66924) Diagnoses Parkinson's disease with dyskinesia without fluctuating manifestations G20.B1 Fluctuating manifestations: without fluctuating manifestations Orthostatic hypotension I95.1 Other constipation K59.09 Constipation type: other constipation type REM behavioral disorder G47.52
--- OUTSIDE RECORDS SUMMARY | 2024-10-17 12:42 | XMS_ITS | Clinical Summary ---
Author Organization [facility] Address [address] [place] [address] Care Team Providers Care Computational Theory Scientist Name Role Phone Rae Torres Primary Care [...] age to complete this topic Insurance MEDICARE [facility] Care Teams Computational Theory Scientist Relationship Specialty Start Date End Date Rae Torres [address] [facility] [place] [address] PCP - General Internal Medicine 11/24/21
--- OUTSIDE RECORDS SUMMARY | 2024-10-17 12:42 | XMS_ITS | Referral Summary ---
Author Organization [facility] Address [address] [place] [address] Care Team Providers Care X Ray Service Technician Name Role Phone Rae Torres Primary Care [...] of Treatment Not on file Insurance MEDICARE [facility] Care Teams X Ray Service Technician Relationship Specialty Start [place] [address] PCP - General Internal Medicine 11/24/21
== END 2024-10-17 13:00 | disposition home or self-care (01) ==
LOC: HO.HSMS 12:40
PROVIDERS: PCP Internal Medicine; Visit Provider Psychiatry & Neurology Neurology
DX: G20.B1 Parkinson's disease with dyskinesia, without mention of fluctuations (principal); I95.1 Orthostatic hypotension; K59.09 Other constipation; G47.52 REM sleep behavior disorder
CPT/HCPCS: 98016

== ENCOUNTER → 2024-10-17 12:40 | Outpatient (BNVA) | payer MEDICARE, OTHER, SELFPAY | PROVIDERS: PCP Internal Medicine; Visit Provider Psychiatry & Neurology Neurology ==

== ENCOUNTER 2024-11-13 15:24 | Outpatient (AMB) | payer MEDICARE, OTHER, SELFPAY ==
[2024-11-13 15:25] VITALS: BP 128/78; PULSE 53; O2SAT 99; BMI 21.6
--- NOTE | 2024-11-13 15:25 | A.OFFVIS_ITS ---
Vital Signs 11/13/24 15:25 Height 5 ft 11 in Weight 155 lb BMI 21.6 BP 128/78 Blood Pressure Location Rt brachial Position Sitting Pulse 53 Pulse Source Pulse Oximeter Pulse Oximetry (%) 99 Oxygen Delivery Method Room Air Intake Visit Reasons: November f/u per MD Intake Note: Pt presents to the office today for a 1 month follow up for Parkinson's Disease. Allergies Penicillins Adverse Reaction (Mild, Verified 11/13/24 15:27) Hives Medication List - Last Reconciled 11/13/24 by Lidya Umanzor MD albuterol sulfate 90 mcg/actuation 2 puffs inhalation Q4H PRN carbidopa-levodopa 25-100 mg 1 tab PO .6 times a day cetirizine 5 mg PO DAILY PRN droxidopa 400 mg (2 x 200 mg) PO TID finasteride 5 mg PO DAILY fluticasone furoate 27.5 mcg/actuation (Children's Flonase Sensimist) 1 spray intranasal DAILY fluticasone propion-salmeterol 100-50 mcg/dose (Wixela Inhub) 1 inh inhalation BID lactulose 10 grams (15 mL) PO BEDTIME PRN lovastatin 20 mg PO DAILY mirtazapine 7.5 mg PO BEDTIME rasagiline 1 mg PO DAILY ropinirole ER 2 mg PO DAILY tamsulosin 0.4 mg PO DAILY trospium 20 mg PO BID HPI Comments Details: 69 year-old male comes for follow-up of his Parkinson's disease orthostatic hypotension and insomnia.He had 2 falls sicn elast visit. It. It was in the same place in his house, when he gets up form his computer chair and turns he falls.No passing out episodes. He is on sinemet 25/100 1 tab 6-7 times a day. He is on Droxidopa to 400mg tid ropinirole XR 2mg qd Rasagiline 1mg qd History form last visit- He had a fall 4 week ago - when he got up from the chair and fell. his thinks he lost balance when he turned.but she is not sure if he passed out or fell and then passed out after he hit his head.He was seen at [facility] and transferred to [facility] - was kept for observation and was discharged I increased his Droxidopa to 400mg tid He had another fall 1 week after at the Dentist after cleaning when he stood up and came to the law firm receptionist he passed out . He was admitted at [facility].He is worse in the morning - wakes up between 4am and 10 am - misses his & am dose when he wakes up . [facility] Medical History Knee pain, right Parkinson's disease with dyskinesia REM behavioral disorder Constipation Orthostatic hypotension Parkinson's disease Bronchitis Asthma Hyperlipidemia HTN (hypertension) Family History Family/Other HTN (hypertension) Diabetes Mother Diabetes HTN (hypertension) Social History Household Members: Spouse Alcohol intake: never Patient Tobacco Use Status: Never used Tobacco Physical Exam Vital Signs: Last Vital Signs Pulse 53 11/13/24 15:25 BP 128/78 11/13/24 15:25 Pulse Ox 99 11/13/24 15:25 Oxygen Delivery Method Room Air 11/13/24 15:25 BMI result Body Mass Index 21.6 Const General: cooperative, healthy appearing and no acute distress Orientation/consciousness: patient oriented x3 HEENT Head: Yes normal to inspection Neck Other: mild antecollis and restricted range of motion Neuro Other: Mild decreased blink and facial expression Voice- hypophonia, stuttering , dysprosody No tremors, mild dyskinesia Fine Finger movements - mild decreased mehran R>L Alternating hand movements - decreased mehran Hand movements - decreased mehran Foot taps- decreased mehran No cog wheel rigidity gait - mild slowness and decreased arm swing R>L General: patient oriented x3 and no focal motor deficits Cranial nerves: Yes CN's II-XII intact bilaterally, Yes Bilaterally intact EOM present, Yes Normal facial strength present and Yes Midline tongue present Motor exam (neuro): 5/5 motor strength present throughout Coordination: [id number] test normal Assessment & Plan Assessment & Plan (1) Parkinson's disease with dyskinesia: Code(s): G20.B1 - Parkinson's disease with dyskinesia, without mention of fluctuations Category: Medical Qualifiers: Fluctuating manifestations: without fluctuating manifestations Qualified Code(s): G20.B1 - Parkinson's disease with dyskinesia, without mention of fluctuations (2) Orthostatic hypotension: Code(s): I95.1 - Orthostatic hypotension Category: Medical (3) Constipation: Code(s): K59.00 - Constipation, unspecified Category: Medical Qualifiers: Constipation type: other constipation type Qualified Code(s): K59.09 - Other constipation (4) REM behavioral disorder: Code(s): G47.52 - REM sleep behavior disorder Category: Medical Plan Change his chair position in his home office to prevent falls. Sinemet 25/100 tablet 1 tab at 7 times a day rasagiline 1 mg q.d.. Requip ER 4 mg q.d.. Remeron 7.5mg qhs northera 600mg tid Florinef 0.1mg qam Home PT OT for home safety evaluation an dPT Continue lactulose as needed for constipation , with miralax, metamucil Orders: [facility]errals [facility] Referral G20.B1 - Parkinson's disease with dyskinesia, without mention of fluctuations, G47.52 - REM sleep behavior disorder, I95.1 - Orthostatic hypotension Medications: New fludrocortisone 0.1 mg PO DAILY 30 tabs 3RF Changed From droxidopa give consistently with OR without food, upon rising, at midday, late PM/at least 3hrs before bedtime 400 mg (2 x 200 mg) PO TID 180 caps 6RF To droxidopa give consistently with OR without food, upon rising, at midday, late PM/at least 3hrs before bedtime 600 mg (3 x 200 mg) PO TID 270 caps 6RF From ropinirole ER 2 mg PO DAILY 90 tabs 2RF To ropinirole ER 4 mg (2 x 2 mg) PO DAILY 180 tabs 2RF Coding Level of Care Code Est Pt Level 4 (14566) Complex EM visit Add On G2211 Diagnoses Parkinson's disease with dyskinesia without fluctuating manifestations G20.B1 Fluctuating manifestations: without fluctuating manifestations Orthostatic hypotension I95.1 Other constipation K59.09 Constipation type: other constipation type REM behavioral disorder G47.52
--- OUTSIDE RECORDS SUMMARY | 2024-11-13 18:39 | XMS_ITS | Clinical Summary ---
Author Organization [facility] Address [address] [place] [address] Care Team Providers Care Hoop Maker Helper Machine Name Role Phone Rae Torres Primary Care Provider [phone] Allergies Active Allergy Reactions Criticality Noted Date [...] - Risk 60-74 years 1-dose series) 2013 CT Lung Cancer Screening (Baseline) 12/08/2023 12/07/2022 COVID-19 Vaccine ( season) 2024 06/30/2022, 07/08/2021, 12/01/2020, Additional history exists Influenza Vaccine (#1) 2024 2, 07/16/2021, 05/07/2020, Additional history exists Alcohol/Substance Use Screening 09/11/2024 Depression Screening and Follow-Up 09/11/2024 Health Care Proxy Review 09/11/2024 Social Drivers of Health Annual Screening 09/11/2024 Pneumococcal Vaccine: 50+ Years (3 of 3 - PCV20 or PCV21) 09/16/2024 09/16/2019, 06/05/2014 DTaP,Tdap,and Td Vaccines (3 - Td or Tdap) 05/20/2032 05/20/2022, 12/13/2013, 03/30/2005 Zoster Vaccines Completed 06/11/2021, 02/09, 07/08/2014 Hepatitis B Vaccines Aged Out No long er eligible based on patient's age to complete this topic Insurance MEDICARE [facility] Care Teams Hoop Maker Helper Machine Relationship Specialty Start Date End Date Rae Torres [address] [place] [address] PCP - General Internal Medicine 11/24/21
--- OUTSIDE RECORDS SUMMARY | 2024-11-13 18:39 | XMS_ITS | Referral Summary ---
Author Organization [facility] Address [address] [place] [address] Care Team Providers Care Sports Umpire Name Role Phone Rae Torres Primary Care Provider [phone] Allergies Active Allergy Reactions Criticality Noted Date [...] [facility] Care Teams Sports Umpire Relationship Specialty Start Date End Date Rae Torres [address] [place] [address] PCP - General Internal Medicine 11/24/21
== END 2024-11-13 16:22 | disposition home or self-care (01) ==
PROVIDERS: PCP Internal Medicine; Visit Provider Psychiatry & Neurology Neurology
DX: G20.B1 Parkinson's disease with dyskinesia, without mention of fluctuations (principal); I95.1 Orthostatic hypotension; K59.09 Other constipation; G47.52 REM sleep behavior disorder
CPT/HCPCS: 99214; G2211

== ENCOUNTER → 2024-11-13 15:24 | Outpatient (BNVA) | payer MEDICARE, OTHER, SELFPAY | PROVIDERS: PCP Internal Medicine; Visit Provider Psychiatry & Neurology Neurology | DX: G20.B1 Parkinson's disease with dyskinesia, without mention of fluctuations (principal); G47.52 REM sleep behavior disorder; I95.1 Orthostatic hypotension; K59.09 Other constipation; Z91.81 History of falling | CPT/HCPCS: 99212 ==

== ENCOUNTER 2025-01-17 09:48 | Outpatient (AMB) | payer MEDICARE, OTHER, SELFPAY ==
[2025-01-17 09:49] VITALS: BP 118/74; PULSE 71; O2SAT 100; BMI 21.6
--- NOTE | 2025-01-17 09:49 | A.OFFVIS_ITS ---
Vital Signs 01/17/25 09:49 Height 5 ft 11 in Weight 155 lb BMI 21.6 BP 118/74 Blood Pressure Location Rt brachial Position Sitting Pulse 71 Pulse Source Pulse Oximeter Pulse Oximetry (%) 100 Oxygen Delivery Method Room Air Intake Visit Reasons: Follow up-LVM Intake Note: Patient presents for med adjustment called [facility] for PT notes Allergies Penicillins Adverse Reaction (Mild, Verified 01/17/25 09:53) Hives Medication List - Last Reconciled 01/17/25 by Lidya Umanzor MD albuterol sulfate 90 mcg/actuation 2 puffs inhalation Q4H PRN carbidopa-levodopa 25-100 mg 1 tab PO .6 times a day cetirizine 5 mg PO DAILY PRN droxidopa 600 mg (3 x 200 mg) PO TID finasteride 5 mg PO DAILY fludrocortisone 0.1 mg PO DAILY fluticasone furoate 27.5 mcg/actuation (Children's Flonase Sensimist) 1 spray intranasal DAILY fluticasone propion-salmeterol 100-50 mcg/dose (Wixela Inhub) 1 inh inhalation BID lactulose 10 grams (15 mL) PO BEDTIME PRN lovastatin 20 mg PO DAILY mirtazapine 7.5 mg PO BEDTIME rasagiline 1 mg PO DAILY ropinirole ER 4 mg (2 x 2 mg) PO DAILY tamsulosin 0.4 mg PO DAILY trospium 20 mg PO BID HPI Comments Details: 69 year-old male comes for follow-up of his Parkinson's disease orthostatic hypotension and insomnia.No major falls from last visit. .No passing out episodes. He is on sinemet 25/100 1 tab 6-7 times a day. He is on Droxidopa to 600mg tid ropinirole XR 2mg bid Rasagiline 1mg qd he is independent in most ADLs.His keeps an eye on him he reports cognitive issues- some confusion usually in the mornings.( he feels like he continues his dreams) The rest of the day he is good History form last visit- He had a fall 4 week ago - when he got up from the chair and fell. his thinks he lost balance when he turned.but she is not sure if he passed out or fell and then passed out after he hit his head.He was seen at [facility] and transferred to [facility] - was kept for observation and was discharged I increased his Droxidopa to 400mg tid He had another fall 1 week after at the Dentist after cleaning when he stood up and came to the executive receptionist he passed out . He was admitted at [facility].He is worse in the morning - wakes up between 4am and 10 am - misses his & am dose when he wakes up . [facility] Medical History Knee pain, right Parkinson's disease with dyskinesia REM behavioral disorder Constipation Orthostatic hypotension Parkinson's disease Bronchitis Asthma Hyperlipidemia HTN (hypertension) Family History Family/Other HTN (hypertension) Diabetes Mother Diabetes HTN (hypertension) Social History Household Members: Spouse Alcohol intake: never Patient Tobacco Use Status: Never used Tobacco Physical Exam Vital Signs: Last Vital Signs Pulse 71 01/17/25 09:49 BP 118/74 01/17/25 09:49 Pulse Ox 100 01/17/25 09:49 Oxygen Delivery Method Room Air 01/17/25 09:49 BMI result Body Mass Index 21.6 Const General: cooperative, healthy appearing and no acute distress Orientation/consciousness: patient oriented x3 HEENT Head: Yes normal to inspection Neck Other: mild antecollis and restricted range of motion Neuro Other: Mild decreased blink and facial expression Voice- hypophonia, stuttering , dysprosody No tremors, mild dyskinesia Fine Finger movements - mild decreased mehran R>L Alternating hand movements - decreased mehran Hand movements - decreased mehran Foot taps- decreased mehran No cog wheel rigidity gait - stooped, smaller stride , walks fast turns using 6 steps . General: patient oriented x3 and no focal motor deficits Cranial nerves: Yes CN's II-XII intact bilaterally, Yes Bilaterally intact EOM present, Yes Normal facial strength present and Yes Midline tongue present Motor exam (neuro): 5/5 motor strength present throughout Coordination: [id number] test normal Assessment & Plan Assessment & Plan (1) Parkinson's disease with dyskinesia: Code(s): G20.B1 - Parkinson's disease with dyskinesia, without mention of fluctuations Category: Medical Qualifiers: Fluctuating manifestations: without fluctuating manifestations Qualified Code(s): G20.B1 - Parkinson's disease with dyskinesia, without mention of fluctuations (2) Orthostatic hypotension: Code(s): I95.1 - Orthostatic hypotension Category: Medical (3) Constipation: Code(s): K59.00 - Constipation, unspecified Category: Medical Qualifiers: Constipation type: other constipation type Qualified Code(s): K59.09 - Other constipation (4) REM behavioral disorder: Code(s): G47.52 - REM sleep behavior disorder Category: Medical Plan Change his chair position in his home office to prevent falls. Sinemet 25/100 tablet 1 tab at 7 times a day rasagiline 1 mg q.d.. Requip ER 2 mg bid. Remeron 7.5mg qhs northera 600mg tid Florinef 0.1mg qam Home PT OT for home safety evaluation an dPT Continue lactulose as needed for constipation , with miralax, metamucil Discussed about DBS MRI guided ultarsound an ddopamine pump - he will discuss with family and send me a message suggested compression stockings Coding Level of Care Code Est Pt Level 4 (60938) Complex EM visit Add On G2211 Diagnoses Parkinson's disease with dyskinesia without fluctuating manifestations G20.B1 Fluctuating manifestations: without fluctuating manifestations Orthostatic hypotension I95.1 Other constipation K59.09 Constipation type: other constipation type REM behavioral disorder G47.52
--- OUTSIDE RECORDS SUMMARY | 2025-01-17 10:12 | XMS_ITS | Referral Summary ---
Author Organization [facility] Address [address] [place] [address] Care Team Providers Care Cdl Team Truck Driver Name Role Phone Rae Torres Primary Care [...] of Treatment Not on file Insurance MEDICARE [facility] Care Teams Cdl Team Truck Driver Relationship Specialty Start Date End Date Rae Torres [address] [place] [phone] PCP - General Internal Medicine 11/24/21
--- OUTSIDE RECORDS SUMMARY | 2025-01-17 10:12 | XMS_ITS | Clinical Summary ---
Author Organization [facility] Address [address] [place] [address] Care Team Providers Care Parking Attendant Name Role Phone Rae Torres Primary Care [...] 1955 Hepatitis C Screening 1955 Sigmoidoscopy 1955 Medicare AWV 1956 RSV Vaccine (60+ years old and patients) (1 - Risk 60-74 years 1-dose series) 2013 CT Lung Cancer Screening (Baseline) 12/08/2023 12/07/2022 COVID-19 Vaccine ( season) 2024 06/30/2022, 07/08/2021, 12/01/2020, Additional history exists Alcohol/Substance Use Screening 09/11/2024 Depression Screening and Follow-Up 09/11/2024 Health Care Proxy Review 09/11/2024 Social Drivers of Health Annual Screening 09/11/2024 Pneumococcal Vaccine: 50+ Years (3 of 3 - PCV20 or PCV21) 09/16/2024 09/16/2019, 06/05/2014 Influenza Vaccine (Season Ended) 2025 07/07/2022, 07/16/2021, 05/07/2020, Additional history exists DTaP,Tdap,and Td Vaccines (3 - Td or Tdap) 05/20/2032 05/20/2022, 12/13/2013, 03/30/2005 Zoster Vaccines Completed 06/11/2021, 02/09, 07/08/2014 Hepatitis B Vaccines Aged Out No long er eligible based on patient's age to complete this topic Insurance MEDICARE [facility] Care Teams Parking Attendant Relationship Specialty Start Date End Date Rae Torres [address] [place] [address] PCP - General Internal Medicine 11/24/21
--- OUTSIDE RECORDS SUMMARY | 2025-01-17 10:12 | XMS_ITS | Clinical Summary ---
Author Organization Unknown Care Team Providers Care Certified Green Building Engineer Name Role Phone KELLEN ALLEN, JAIME Unavailable Unavailable HUGHES PT, KRISTAL Unavailable Unavail able MICHAEL SECURITY INTELLIGENCE ANALYST, DAISY Unavailable Unavailable MALISSA OT, DEANNE Unavailable Unavailabl e Payers Payer Name Policy Type Policy Number Effective Date Expira tion Date MEDICARE.NGS.PDGM [id number] Problems Condition Name Condition Details Condition Category Status Onset Date Resolution Date Last Treatment Date Treating Clinician Comments PARKINSON'S DIS WITH DYSKINESIA, W/O MENTION OF FLUCTUATIONS Active 12-24 00:00: 00 ORTHOSTATIC HYPOTENSION Active 12-24 00:00: 00 REM SLEEP BEHAVIOR DISORDER Active 12-24 00:00: 00 INSOMNIA, UNSPECIFIED Active 12-24 00:00: 00 ESSENTIAL (PRIMARY) HYPERTENSION Active 12-24 00:00: 00 UNSPECIFIED ASTHMA, UNCOMPLICATE D Active 12-24 00:00: 00 CONSTIPATION , UNSPECIFIED Active 12-24 00:00: 00 HYPERLIPIDEM IA, UNSPECIFIED Active 12-24 00:00: 00 ASSISTED (CURRENT) USE OF INHALED STEROIDS Active 12-24 00:00: 00 HISTORY OF FALLING Active 12-24 00:00: 00 Allergies, Adverse Reactions, Alerts Allergy Name Allergy Type Status Severity Reaction(s) Onset Date Inactive Date Treating Clinician Comments NO KNOWN ALLERGIES Propensity to adverse reactions Active 12-25 13:44: 58 Medications Ordered Medication Name Filled Medication Name Start Date Stop Date Current Medication? Ordering Clinician Indication Dosage Frequency Signature (SIG) Comments Components droxidopa 200 mg capsule 12-18 00:00: 00 12-25 16:06 :50.4 7 No [id number] Per instruc tions Per instructio ns (route: oral) Med Classific ation: Cardiovas cular Therapy Agents Wixela Inhub 250 mcg-50 mcg/dose powder for inhalation 12-17 00:00: 00 12-25 16:07 :03.1 23 No [id number] Per instruc tions Per instructio ns (route: inhalation ) Med Classific ation: Respirato ry Therapy Agents finasteride 5 mg tablet -24 00:00: 00 12-25 16:07 :00.2 57 No [id number] Per instruc tions EVERY DAY Per instructio ns EVERY DAY (route: oral) Med Classific ation: Genitouri nary Therapy albuterol sulfate HFA 90 mcg/actuati on aerosol inhaler 12-25 00:00: 00 Yes [id number] sob/wheezin g 2 puff EVERY 4 HOURS 2 puff EVERY 4 HOURS (route: inhalation ) Med Classific ation: Respirato ry Therapy Agents carbidopa 25 mg-levodopa 100 mg tablet 12-25 00:00: 00 Yes [id number] parkinsons 1 tablet DIRECTED 1 tablet DIRECTED (route: oral) Med Classific ation: Central Nervous System Agents cetirizine 5 mg tablet 16 00:00: 00 Yes [id number] allergies 1 tablet DAILY 1 tablet DAILY (route: oral) Med Classific ation: Respirato ry Therapy Agents droxidopa 200 mg capsule -16 00:00: 00 Yes [id number] parkinsons 2 capsule 3 TIMES DAILY 2 capsule 3 TIMES DAILY (route: oral) Med Classific ation: Cardiovas cular Therapy Agents finasteride 5 mg tablet 16 00:00: 00 Yes [id number] enlarged prostate 1 tablet DAILY 1 tablet DAILY (route: oral) Med Classific ation: Genitouri nary Therapy Children's Flonase Sensimist 27.5 mcg/actuati on nasal spray,suspe nsion -16 00:00: 00 Yes [id number] allergies 1 spray DAILY 1 spray DAILY (route: nasal) Med Classific ation: Respirato ry Therapy Agents Wixela Inhub 100 mcg-50 mcg/dose powder for inhalation 12-25 00:00: 00 Yes [id number] asthma 1 inhalat ion 2 TIMES DAILY 1 inhalation 2 TIMES DAILY (route: inhalation ) Med Classific ation: Respirato ry Therapy Agents lactulose 10 gram/15 mL oral solution 12-25 00:00: 00 Yes [id number] constipatio n 15 mL DAILY 15 mL DAILY (route: oral) Med Classific ation: Gastroint estinal Therapy Agents lovastatin 20 mg tablet 12-25 00:00: 00 Yes [id number] cholesterol 1 tablet DAILY 1 tablet DAILY (route: oral) Med Classific ation: Cardiovas cular Therapy Agents mirtazapine 15 mg tablet 12-25 00:00: 00 Yes [id number] sleep 0.5 tablet BEDTIME 0.5 tablet BEDTIME (route: oral) Med Classific ation: Central Nervous System Agents rasagiline 1 mg tablet 12-25 00:00: 00 Yes [id number] parkinsons 1 tablet DAILY 1 tablet DAILY (route: oral) Med Classific ation: Central Nervous System Agents ropinirole 2 mg tablet 12-25 00:00: 00 Yes [id number] restless legs 1 tablet DAILY 1 tablet DAILY (route: oral) Med Classific ation: Central Nervous System Agents tamsulosin 0.4 mg capsule 12-25 00:00: 00 Yes [id number] bph 1 capsule DAILY 1 capsule DAILY (route: oral) Med Classific ation: Genitouri nary Therapy Vital Signs Vital Name Observation Time Observation Value Commen ts Temperature 2025-01-16 12:34:00.000 97 [degF] Temperature 2025-01-08 14:48:00.000 98.1 [degF] Temperature 2025-01-08 13:13:00.000 97 [degF] Temperature 2025-01-04 12:46:00.000 97.1 [degF] Temperature 2025-01-01 14:20:00.000 97.2 [degF] Temperature 2025-01-01 12:43:00.000 98.1 [degF] Temperature 2024-12-24 15:43:00.000 97.4 [degF] BMI (%) 2024-12-24 15:43:00.000 21 kg/m2 Height 2024-12-24 15:43:00.000 71 [in_us] Pulse 2025-01-16 12:34:00.000 80 /min Pulse 2025-01-08 14:48:00.000 72 /min Pulse 2025-01-08 13:13:00.000 80 /min Pulse 2025-01-04 12:46:00.000 75 /min Pulse 2025-01-01 14:20:00.000 65 /min Pulse 2025-01-01 12:43:00.000 92 /min Pulse 2024-12-24 15:43:00.000 80 /min O2 Saturation (%) 2025-01-08 14:48:00.000 98 % O2 Saturation (%) 2025-01-04 12:46:00.000 99 % O2 Saturation (%) 2025-01-01 14:20:00.000 98 % O2 Saturation (%) 2025-01-01 12:43:00.000 98 % O2 Saturation (%) 2024-12-24 15:43:00.000 94 % Respirations 2025-01-16 12:34:00.000 18 /min Respirations 2025-01-08 14:48:00.000 16 /min Respirations 2025-01-08 13:13:00.000 18 /min Respirations 2025-01-04 12:46:00.000 18 /min Respirations 2025-01-01 14:20:00.000 18 /min Respirations 2025-01-01 12:43:00.000 16 /min Respirations 2024-12-24 15:43:00.000 18 /min Weight (lbs) 2024-12-24 15:43:00.000 155 [lb_av] Systolic Blood Pressure 2025-01-16 12:34:00.000 102 mm [Hg] Systolic Blood Pressure 2025-01-08 14:48:00.000 150 mm [Hg] Systolic Blood Pressure 2025-01-08 13:13:00.000 130 mm [Hg] Systolic Blood Pressure 2025-01-04 12:46:00.000 142 mm [Hg] Systolic Blood Pressure 2025-01-01 14:20:00.000 126 mm [Hg] Systolic Blood Pressure 2025-01-01 12:43:00.000 140 mm [Hg] Systolic Blood Pressure 2024-12-24 15:43:00.000 138 mm [Hg] Diastolic Blood Pressure 2025-01-16 12:34:00.000 74 mm [Hg] Diastolic Blood Pressure 2025-01-08 14:48:00.000 95 mm [Hg] Diastolic Blood Pressure 2025-01-08 13:13:00.000 72 mm [Hg] Diastolic Blood Pressure 2025-01-04 12:46:00.000 90 mm [Hg] Diastolic Blood Pressure 2025-01-01 14:20:00.000 78 mm [Hg] Diastolic Blood Pressure 2025-01-01 12:43:00.000 72 mm [Hg] Diastolic Blood Pressure 2024-12-24 15:43:00.000 72 mm [Hg] Plan of Treatment Planned Activity Planned Date Details Comments Future Scheduled Test PT/SECURITY INTELLIGENCE ANALYST TO PROVIDE GAIT TRAINING FOR IMPROVED MOBILITY AND /OR TO NORMALIZE GAIT PATTERN [code = PT/SECURITY INTELLIGENCE ANALYST TO PROVIDE GAIT TRAINING FOR IMPROVED MOBILITY AND /OR TO NORMALIZE GAIT PATTERN] Future Scheduled Test THERAPEUTI C EXERCISES AND ESTABLISHING A HOME EXERCISE PROGRAM (PT/SECURITY INTELLIGENCE ANALYST) [code = THERAPEUTIC EXERCISES AND ESTABLISHING A HOME EXERCISE PROGRAM (PT/SECURITY INTELLIGENCE ANALYST)] Future Scheduled Test PT/SECURITY INTELLIGENCE ANALYST TO IDENTIFY FALL RISK FACTORS; EDUCATE THE PATIENT/CAREGIVER ON WAYS TO REDUCE FALL RISK FACTORS AND ESTABLISH HOME EXERCISE PROGRAM TO MINIMIZE FALL RISK. MAY TEACH THE PATIENT FLOOR RECOVERY WHEN CLINICALLY APPROPRIATE [code = PT/SECURITY INTELLIGENCE ANALYST TO IDENTIFY FALL RISK FACTORS; EDUCATE THE PATIENT/CAREGIVER ON WAYS TO REDUCE FALL RISK FACTORS AND ESTABLISH HOME EXERCISE PROGRAM TO MINIMIZE FALL RISK. MAY TEACH THE PATIENT FLOOR RECOVERY WHEN CLINICALLY APPROPRIATE] Future Scheduled Test PT/SECURITY INTELLIGENCE ANALYST TO PROVIDE STAIR TRAINING [code = PT/SECURITY INTELLIGENCE ANALYST TO PROVIDE STAIR TRAINING] Future Scheduled Test SIT TO/FRO M STAND TRANSFERS (PT/SECURITY INTELLIGENCE ANALYST) [code = SIT TO/FROM STAND TRANSFERS (PT/SECURITY INTELLIGENCE ANALYST)] Future Scheduled Test FLOOR FOIR VERY (PT/SECURITY INTELLIGENCE ANALYST) [code = FLOOR RECOVERY (PT/SECURITY INTELLIGENCE ANALYST)] Future Scheduled Test PT / SECURITY INTELLIGENCE ANALYST T O MONITOR AND EDUCATE ON OXYGEN SATURATION DURING ADLS/IADLS, NOTIFY PHYSICIAN AND/OR THE RN CLINICAL SOFT TILE SETTER FOR PHYSICIAN NOTIFICATION AND IF O2 SATS BELOW PHYSICIAN ORDERED PARAMETERS AFTER 10 MIN OF REST [code = PT / SECURITY INTELLIGENCE ANALYST TO MONITOR AND EDUCATE ON OXYGEN SATURATION DURING ADLS/IADLS, NOTIFY PHYSICIAN AND/OR THE RN CLINICAL SOFT TILE SETTER FOR PHYSICIAN NOTIFICATION AND IF O2 SATS BELOW PHYSICIAN ORDERED PARAMETERS AFTER 10 MIN OF REST] Future Scheduled Test PT / SECURITY INTELLIGENCE ANALYST M AY EDUCATE ON PAIN MANAGEMENT CLINICALLY INDICATED, INCLUDING NON-PHARMACOLOGICAL PAIN REDUCTION TECHNIQUES S APPROPRIATE. [code = PT / SECURITY INTELLIGENCE ANALYST MAY EDUCATE ON PAIN MANAGEMENT CLINICALLY INDICATED, INCLUDING NON-PHARMACOLOGICAL PAIN REDUCTION TECHNIQUES S APPROPRIATE.] Future Scheduled Test AGENCY MAY PERFORM A RESUMPTION OF CARE VISIT FOLLOWING ANY HOSPITAL ADMISSION. PT TO EVALUATE, OBSERVE / ASSESS, AND MONITOR, SECURITY INTELLIGENCE ANALYST TO OBSERVE AND MONITOR, PROVIDE SKILLED THERAPEUTIC INTERVENTION, ACTIVITY, EDUCATION, AND TRAINING TO ADDRESS; [code = AGENCY MAY PERFORM A RESUMPTION OF CARE VISIT FOLLOWING ANY HOSPITAL ADMISSION. PT TO EVALUATE, OBSERVE / ASSESS, AND MONITOR, SECURITY INTELLIGENCE ANALYST TO OBSERVE AND MONITOR, PROVIDE SKILLED THERAPEUTIC INTERVENTION, ACTIVITY, EDUCATION, AND TRAINING TO ADDRESS;] Future Scheduled Test NEUROMUSCU LAR RE-EDUCATION / BALANCE / POSTURAL CONTROL (PT) [code = NEUROMUSCULAR RE-EDUCATION / BALANCE / POSTURAL CONTROL (PT)] Future Scheduled Test PT / SECURITY INTELLIGENCE ANALYST T O EDUCATE ON PARKINSONS SELF-MANAGEMENT [code = PT / SECURITY INTELLIGENCE ANALYST TO EDUCATE ON PARKINSONS SELF-MANAGEMENT] Goal Patient Goal - D ECREASE RISK OF FALLING INCREASE INDEPNDENCE Goal Provider Goal - PT STG: PATIENT WILL DETERMINE MOST APPROPRIATE ASSISTIVE DEVICE FOR INDOOR/OUTDOOR AMBULATION IN ORDER TO DECREASE RISK FALLING WITHING 4 WEEKS PT STG: PATIENT WILL DEMONSTRATE IMPROVED POSTURE DEMONSTRATED BY LOOKING FORWARD 50% OF THE TIME WHEN WALKING WITH CUEING WITHING 4 WEEKS, IN ORDER TO DECREASE RISK OF FALLING. PT LTG: PATIENT WILL DEMONSTRATE REDUCED GAIT DEVIATIONS TO REDUCE THE RISK FOR FALLING AND MINIMIZE STRAIN ON KNEES/HIPS AND BACK EVIDENCED BY IMPROVED (HEEL STRIKE / STANCE PHASE / SWING PHASE ) USING LRAD TO WALK INDEPENDENTLY IN ORDER TO ACCESS ALL AREAS OF HOME AND TRANSPORTATION WITHIN 9 WEEKS Goal Provider Goal - PT LTG: PATIENT WILL DEMONSTRATE IMPROVED FUNCTIONAL STRENGTH EVIDENCED BY FIVE TIMES SIT TO STAND TEST (CUT SCORE >12 SECONDS INDICATES AN INCREASED FALL RISK) IMPROVING FROM NOT TESTED TO 15 SECONDS WITHIN 9 WEEKS. Goal Provider Goal - PT LTG: PATIENT/CAREGIVER WILL DEMONSTRATE ADHERENCE TO FALL REDUCTION SELF-MANAGEMENT AND REDUCING FALL RISK FACTORS TO MINIMIZE FALL RISK BY END OF EPISODE . Goal Provider Goal - PT LTG: PATIENT WILL DEMONSTRATE IMPROVED ABILITY TO SAFELY NEGOTIATE STAIRS FROM 1ST TO 2ND FLOOR INDEPENDENTLY USING RAILING(S) IN ORDER TO ACCESS BEDROOM WITHIN 9 WEEKS Goal Provider Goal - PT STG: PATIENT WILL DEMONSTRATE IMPROVED ABILITY TO PERFORM SIT TO/FROM STAND TRANSFERS TO REDUCE THE RISK OF SKIN BREAKDOWN AND REDUCE FALL RISK FROM CGA TO INDEPENDENT WITHIN 9 WEEKS Goal Provider Goal - PT LTG: PATIENT WILL DEMONSTRATE IMPROVED ABILITY TO PERFORM FLOOR RECOVERY TO DECREASE THE RISK OF SKIN BREAKDOWN AND ADVERSE HEALTH OUTCOMES FROM NOT TESTED TO INDEPENDENT WITHIN 9 WEEKS Goal Provider Goal - PT LTG: PATIENT WILL MAINTAIN OXYGEN SATURATION WITHIN PHYSICIAN ORDERED PARAMETERS THROUGHOUT EPISODE OF CARE. Goal Provider Goal - PT GOAL: PATIENT WILL DEMONSTRATE UNDERSTANDING OF PAIN MANAGEMENT TECHNIQUES EVIDENCED BY REDUCED PAIN WITHIN 30 MIN WHEN PRESENT. Goal Provider Goal - Goal Provider Goal - PT LTG: PATIENT WILL DEMONSTRATE REDUCED FALL RISK EVIDENCED BY TUG TEST (CUT SCORE >11 SECONDS INDICATES INCREASED FALL RISK) IMPROVING FROM NOT TESTED TO 15 SECONDS WITHIN 9 WEEKS Goal Provider Goal - PT GOAL: PATIENT/CAREGIVER WILL VERBALIZE UNDERSTANDING OF A PARKINSON'S SELF-MANAGEMENT AND LIFE-STYLE CHANGES BY END OF EPISODE. Encounters Start Date/Time End Date/Time Encounter Type Admission Type [facility] Department Encounter ID Discharge Date Discharge Status Discharge Condition Discharge Reason Percent Goals Met 2024-12-24 00:00:00 2025-02-21 00:00:00 Outpatient NEW ADMISSION KRISTAL HUGHES [facility] [id number] .00
== END 2025-01-17 10:26 | disposition home or self-care (01) ==
LOC: HO.HSMS 09:49
PROVIDERS: PCP Internal Medicine; Visit Provider Psychiatry & Neurology Neurology
DX: G20.B1 Parkinson's disease with dyskinesia, without mention of fluctuations (principal); I95.1 Orthostatic hypotension; K59.09 Other constipation; G47.52 REM sleep behavior disorder
CPT/HCPCS: 99214; G2211

== ENCOUNTER → 2025-01-17 09:48 | Outpatient (BNVA) | payer MEDICARE, OTHER, SELFPAY | PROVIDERS: PCP Internal Medicine; Visit Provider Psychiatry & Neurology Neurology | DX: G20.B1 Parkinson's disease with dyskinesia, without mention of fluctuations (principal); I95.1 Orthostatic hypotension; K59.09 Other constipation; G47.52 REM sleep behavior disorder | CPT/HCPCS: 99212 ==

== ENCOUNTER 2025-03-18 09:35 | Outpatient (AMB) | payer MEDICARE, OTHER, SELFPAY ==
[2025-03-18 09:36] VITALS: BP 122/84; PULSE 82; O2SAT 98
--- NOTE | 2025-03-18 09:36 | A.OFFVIS_ITS ---
Vital Signs 03/18/25 09:36 Height 5 ft 11 in BP 122/84 Blood Pressure Location Rt brachial Position Sitting Pulse 82 Pulse Source Pulse Oximeter Pulse Oximetry (%) 98 Oxygen Delivery Method Room Air Intake Visit Reasons: f/u appt Intake Note: Patient following up on Parkinson's disease with dyskinesia without fluctuating manifestations Allergies Penicillins Adverse Reaction (Mild, Verified 03/18/25 09:39) Hives HPI Comments Details: 69 year-old male comes for follow-up of his Parkinson's disease orthostatic hypotension and insomnia, halluicnations. He was started on nuplazid 34 mg qd 2 weeks ago . He still has hallucinations worse at night- unclear if it is RBD He also decreased the ropinirole to 2mg qd from 4mg qd He had an episode of passing out 1 week ago and was taken to ER. He is on sinemet 25/100 1 tab 6-7 times a day. He is on Droxidopa to 600mg tid ropinirole XR 2mg qd Rasagiline 1mg qd he is independent in most ADLs.His keeps an eye on him he reports cognitive issues- some confusion usually in the mornings.( he feels like he continues his dreams) History form last visit- He had a fall 4 week ago - when he got up from the chair and fell. his thinks he lost balance when he turned.but she is not sure if he passed out or fell and then passed out after he hit his head.He was seen at [facility] and transferred to [facility] - was kept for observation and was discharged I increased his Droxidopa to 400mg tid He had another fall 1 week after at the Dentist after cleaning when he stood up and came to the filler shredder machine he passed out . He was admitted at [facility].He is worse in the morning - wakes up between 4am and 10 am - misses his & am dose when he wakes up . [facility] Medical History Knee pain, right Parkinson's disease with dyskinesia REM behavioral disorder Constipation Orthostatic hypotension Parkinson's disease Bronchitis Asthma Hyperlipidemia HTN (hypertension) Family History Family/Other HTN (hypertension) Diabetes Mother Diabetes HTN (hypertension) Social History Household Members: Spouse Alcohol intake: never Patient Tobacco Use Status: Never used Tobacco Physical Exam Vital Signs: Last Vital Signs Pulse 82 03/18/25 09:36 BP 122/84 03/18/25 09:36 Pulse Ox 98 03/18/25 09:36 Oxygen Delivery Method Room Air 03/18/25 09:36 Const General: cooperative, healthy appearing and no acute distress Orientation/consciousness: patient oriented x3 HEENT Head: Yes normal to inspection Neck Other: mild antecollis and restricted range of motion Neuro Other: Mild decreased blink and facial expression Voice- hypophonia, stuttering , dysprosody No tremors, mild dyskinesia Fine Finger movements - mild decreased mehran R>L Alternating hand movements - decreased mehran Hand movements - decreased mehran Foot taps- decreased mehran No cog wheel rigidity gait - stooped, smaller stride General: patient oriented x3 and no focal motor deficits Cranial nerves: Yes CN's II-XII intact bilaterally, Yes Bilaterally intact EOM present, Yes Normal facial strength present and Yes Midline tongue present Motor exam (neuro): 5/5 motor strength present throughout Coordination: [id number] test normal Assessment & Plan Assessment & Plan (1) Parkinson's disease with dyskinesia: Code(s): G20.B1 - Parkinson's disease with dyskinesia, without mention of fluctuations Category: Medical Qualifiers: Fluctuating manifestations: without fluctuating manifestations Qualified Code(s): G20.B1 - Parkinson's disease with dyskinesia, without mention of fluctuations (2) Orthostatic hypotension: Code(s): I95.1 - Orthostatic hypotension Category: Medical (3) Constipation: Code(s): K59.00 - Constipation, unspecified Category: Medical Qualifiers: Constipation type: other constipation type Qualified Code(s): K59.09 - Other constipation (4) REM behavioral disorder: Code(s): G47.52 - REM sleep behavior disorder Category: Medical Plan Continue Nuplazid 34mg qd Change his chair position in his home office to prevent falls. Sinemet 25/100 tablet 1 tab at 7 times a day rasagiline 1 mg q.d.. D/c Requip ER 2 mg bid. Remeron 7.5mg qhs northera 600mg tid Florinef 0.1mg qam Continue lactulose as needed for constipation , with miralax, metamucil Bed side commode and hospital bed can help to prevent falls at night Medications: New commode (bedside commode) As directed 1 ea 0RF hospital bed (bed,hospital) As directed 1 ea 0RF Coding Level of Care Code Est Pt Level 4 (94987) Complex EM visit Add On G2211 Diagnoses Parkinson's disease with dyskinesia without fluctuating manifestations G20.B1 Fluctuating manifestations: without fluctuating manifestations Orthostatic hypotension I95.1 Other constipation K59.09 Constipation type: other constipation type REM behavioral disorder G47.52
--- OUTSIDE RECORDS SUMMARY | 2025-03-18 10:05 | XMS_ITS | Clinical Summary ---
Author Organization [facility] Address [address] [place] [address] Care Team Providers Care Breaker Engineer Name Role Phone Rae Torres Primary Care [...] or PCV21) 09/16/2024 09/16/2019, 06/05/2014 Influenza Vaccine (#1) 2025 2, 07/16/2021, 05/07/2020, Additional history exists DTaP,Tdap,and Td Vaccines (3 - Td or Tdap) 05/20/2032 05/20/2022, 12/13/2013, 03/30/2005 Zoster Vaccines Completed 06/11/2021, 02/09, 07/08/2014 Hepatitis B Vaccines Aged Out No long er eligible based on patient's age to complete this topic Insurance MEDICARE [facility] Care Teams Breaker Engineer Relationship Specialty Start Date End Date Rae Torres [address] [place] [address] PCP - General Internal Medicine 11/24/21
== END 2025-03-18 10:20 | disposition home or self-care (01) ==
LOC: HO.HSMS 09:35
PROVIDERS: PCP Internal Medicine; Visit Provider Psychiatry & Neurology Neurology
DX: G20.B1 Parkinson's disease with dyskinesia, without mention of fluctuations (principal); I95.1 Orthostatic hypotension; K59.09 Other constipation; G47.52 REM sleep behavior disorder
CPT/HCPCS: 99214; G2211

== ENCOUNTER → 2025-03-18 09:35 | Outpatient (BNVA) | payer MEDICARE, OTHER, SELFPAY | PROVIDERS: PCP Internal Medicine; Visit Provider Psychiatry & Neurology Neurology | DX: G20.B1 Parkinson's disease with dyskinesia, without mention of fluctuations (principal); I95.1 Orthostatic hypotension; K59.09 Other constipation; G47.52 REM sleep behavior disorder; Z79.899 Other long term (current) drug therapy | CPT/HCPCS: 99212 ==

== ENCOUNTER → 2025-03-18 23:59 | Outpatient (BNV) | payer MEDICARE, OTHER, SELFPAY | PROVIDERS: PCP Internal Medicine; Visit Provider Psychiatry & Neurology Neurology | DX: G20.B1 Parkinson's disease with dyskinesia, without mention of fluctuations (principal); I95.1 Orthostatic hypotension; G47.52 REM sleep behavior disorder | CPT/HCPCS: G0179 ==

== ENCOUNTER 2025-04-14 15:34 | Outpatient (AMB) | payer MEDICARE, OTHER, SELFPAY ==
--- OUTSIDE RECORDS SUMMARY | 2025-04-14 15:37 | XMS_ITS | Encounter Summary ---
Author Organization [facility] Address [address] [place] [address] Phone Care Team Providers Care Salon Coordinator Name Role Phone Anderson Rachel MD Unavailable [phone] Pat Almodovar MD Unavailable [phone] Christen Wheeler NP Unavailable Addie Correia DPM Unavailable Unavailable Michael Schofield MD Unavailable [phone] Mo Hernandez MD Unavailable [phone] Ryne Diaz MD Unavailable [phone] Sallie Uriostegui DO Primary Care Provider + [phone] Harrison Lew MD Primary Care Provider [phone] Rae Torres MD Primary Care Provider [phone] Reason for Referral * Physical Therapy (Elective) - Closed Specialty Diagnoses / Procedures Referred By Contac t Referred To Contact Physical Therapy Diagnoses Encounter for rehabilitation Parkinsons/ Low Back - Les Weakness Procedures Evaluate & Treat Lidya Umanzor MD Phone: tel: fax: [address] [address] Phone: tel: Referral ID Status Reason Start Date Expiration Date Visits Re quested Visits Authorized [id number] Closed 07/03/2019 09/10/2019 16 16 Encounter Details Date Type Department Care Team (Latest Contact Info) Description 06/27/2019 Transcribe Orders [facility] [address] [place] [address] Lidya Umanzor MD [address] [place] [id number] Encounter for rehabilitation (Primary Dx) Social History Tobacco Use Types Packs/Day Years Used Date Smoking Tobacco: Never Smokeless Tobacco: Never Alcohol Use Standard Drinks/Week Comments Yes 0 (1 standard drink = 0.6 oz pur e alcohol) socially Sex and Gender Information Value Date Recorded Sex Assigned at Male 03/16/2020 8:36 AM EDT Legal Sex Male 9:58 PM EDT Gender Identity Male 03/16/2020 8:36 AM EDT Sexual Orientation Straight 02/14/2025 5: 32 AM EDT documented as of this encounter Plan of Treatment Not on file documented as of this encounter Procedures Procedure Name Priority Date/Time Associated Diagnosis Comments AMB REFERRAL TO [facility] PHYSICAL THERAPY Routine 07/03/2019 5:23 PM EDT Encounter for rehabilitation documented in this encounter Results * Ambulatory referral to [facility] Physical Therapy (07/03/2019 5:23 PM EDT) Lidya Umanzor MD AMB [facility] REFERRALS Final Result documented in this encounter Visit Diagnoses Diagnosis Encounter for rehabilitation- Primary documented in this encounter Additional Health Concerns Infection Onset Date Last Indicated Resolved Time CoV-Risk 12/14/2021 12/15/2021 12/26/2021 1:21 AM EDT CoV-Risk 03/02/2022 03/02/2022 03/03/2022 8:22 AM EDT COVID-19 03/02/2022 03/02/2022 03/23/2022 1:23 AM EDT Assessment Noted Time PHQ-2 Depression Total Score: 0 08/31/20 18 1:35 PM EST documented as of this encounter Care Teams Salon Coordinator Relationship Specialty Start Date End Date Sallie Uriostegui DO [address] [place] [address] [email or web address] PCP - General 09/14/18 01/14/21 Harrison Lew MD [address] [place] [address], [address] [place] [address] [email or web address] PCP - General Internal Medicine 01/15/21 04/29/21 Rae Torres MD [address] [place] [id number] [email or web address] PCP - General Internal Medicine 04/30/21 Anderson Racehl MD [address] [place] [address], [address] [place] [address] [email or web address] Historical LMR Provider 07/02/17 09/18/21 Pat Almodovar MD [address] [place] [phone] [email or web address] Historical LMR Provider 07/02/17 09/18/21 Christen Wheeler NP [address] [place] [address] [address] [address] [email or web address] Historical LMR Provider 07/02/17 09/18/21 Addie Correia DPM [address] [place] [address] [place] [address] Historical LMR Provider 07/02/1709/18/21 Michael Schofield MD [address] [place] [address], [address] [place] [address] [email or web address] Historical LMR Provider 07/02/17 Mo Hernandez MD [address] [place] [address] [email or web address] Historical LMR Provider 07/02/17 Ryne Diaz MD [address] [place] [id number] Historical LMR Provider 07/02/17 2 documented as of this encounter Additional Source Comments The information contained in this document represents components of the legal health record. It is not the complete legal health record.[facility]
--- OUTSIDE RECORDS SUMMARY | 2025-04-14 15:38 | XMS_ITS | Clinical Summary ---
Author Organization [facility] Address [address] [place] [address] Care Team Providers Care Microsoft Exchange Administrator Name Role Phone Rae Torres Primary Care [...] age to complete this topic Insurance MEDICARE [facility] Care Teams Microsoft Exchange Administrator Relationship Specialty Start Date End Date Rae Torres [address] [place] [address] PCP - General Internal Medicine 11/24/21
--- NOTE | 2025-04-14 15:42 | MHC.OFFVIS ---
Vital Signs 04/14/25 15:44 Height 5 ft 11 in Weight 162 lb BMI 22.6 BP 140/100 H Blood Pressure Location Rt brachial Position Sitting Pulse 87 Pulse Source Pulse Oximeter Pulse Oximetry (%) 99 Oxygen Delivery Method Room Air Intake Visit Reasons: Follow up Clinic Nurse Required: No Accompanied by: Spouse Allergies Penicillins Adverse Reaction (Mild, Verified 04/14/25 15:44) Hives HPI Comments Details: 69 year-old male comes for follow-up of his Parkinson's disease orthostatic hypotension and insomnia, halluicnations. He still has hallucinations milder than before since nuplazid was started .He has insight and does not agitate him . He denies any syncope. He is on sinemet 25/100 1 tab 6- times a day. He is on Droxidopa to 600mg tid Rasagiline 1mg qd he is dependent in most ADLs.His keeps an eye on himHe has a HAND TAPPER - 3 hrs in the morning and 3 nights a week.No recent falls He has slowed down a lot now. he reports cognitive issues- some confusion usually in the mornings. History form last visit- He had a fall 4 week ago - when he got up from the chair and fell. his thinks he lost balance when he turned.but she is not sure if he passed out or fell and then passed out after he hit his head.He was seen at [facility] and transferred to [facility] - was kept for observation and was discharged I increased his Droxidopa to 400mg tid He had another fall 1 week after at the Dentist after cleaning when he stood up and came to the milk condenser he passed out . He was admitted at [facility].He is worse in the morning - wakes up between 4am and 10 am - misses his & am dose when he wakes up . [facility] Medical History Knee pain, right Parkinson's disease with dyskinesia REM behavioral disorder Constipation Orthostatic hypotension Parkinson's disease Bronchitis Asthma Hyperlipidemia HTN (hypertension) Family History Family/Other HTN (hypertension) Diabetes Mother Diabetes HTN (hypertension) Social History Household Members: Spouse Alcohol intake: never Patient Tobacco Use Status: Never used Tobacco Physical Exam Vital Signs: Last Vital Signs Pulse 87 04/14/25 15:44 BP 140/100 H 04/14/25 15:44 Pulse Ox 99 04/14/25 15:44 Oxygen Delivery Method Room Air 04/14/25 15:44 BMI result Body Mass Index 22.6 Const General: cooperative, healthy appearing and no acute distress Orientation/consciousness: patient oriented x3 HEENT Head: Yes normal to inspection Neck Other: mild antecollis and restricted range of motion Neuro Other: Mild decreased blink and facial expression Voice- hypophonia, stuttering , dysprosody No tremors, mild dyskinesia Fine Finger movements - mild decreased mehran R>L Alternating hand movements - decreased mehran Hand movements - decreased mehran Foot taps- decreased mehran No cog wheel rigidity gait - stooped, smaller stride General: patient oriented x3 and no focal motor deficits Cranial nerves: Yes CN's II-XII intact bilaterally, Yes Bilaterally intact EOM present, Yes Normal facial strength present and Yes Midline tongue present Motor exam (neuro): 5/5 motor strength present throughout Coordination: [id number] test normal Assessment & Plan Assessment & Plan (1) Parkinson's disease with dyskinesia: Code(s): G20.B1 - Parkinson's disease with dyskinesia, without mention of fluctuations Category: Medical Qualifiers: Fluctuating manifestations: without fluctuating manifestations Qualified Code(s): G20.B1 - Parkinson's disease with dyskinesia, without mention of fluctuations (2) Orthostatic hypotension: Code(s): I95.1 - Orthostatic hypotension Category: Medical (3) Constipation: Code(s): K59.00 - Constipation, unspecified Category: Medical Qualifiers: Constipation type: other constipation type Qualified Code(s): K59.09 - Other constipation (4) REM behavioral disorder: Code(s): G47.52 - REM sleep behavior disorder Category: Medical Plan Continue Nuplazid 34mg qd Change his chair position in his home office to prevent falls. Sinemet 25/100 tablet 1 tab at 6 times a day rasagiline 1 mg q.d.. Remeron 7.5mg qhs northera 600mg tid Florinef 0.1mg qam Continue lactulose as needed for constipation , with miralax, metamucil , dulcolax Bed side commode and hospital bed can help to prevent falls at night.- ashley Abreu - needs more info Coding Level of Care Code Est Pt Level 4 (79388) Complex EM visit Add On G2211 Diagnoses Parkinson's disease with dyskinesia without fluctuating manifestations G20.B1 Fluctuating manifestations: without fluctuating manifestations Orthostatic hypotension I95.1 Other constipation K59.09 Constipation type: other constipation type REM behavioral disorder G47.52
[2025-04-14 15:44] VITALS: BP 140/100; PULSE 87; O2SAT 99; BMI 22.6
--- OUTSIDE RECORDS SUMMARY | 2025-04-21 20:00 | XMS_ITS | Clinical Summary ---
Author Organization Unknown Care Team Providers Care Nuclear Spectroscopist Name Role Phone KELLEN ALLEN, JAIME Unavailable Unavailable STARSIAK OT, DEANNE Unavailable Unavailabl gabriela RODRIGUEZ POLICYHOLDER INFORMATION CLERK, DAISY Unavailable Unavailable SAUL PT, KRISTAL Unavailable Unavail able READING OT, FELICITA Unavailable Unavailable LUZ ELENA ARCHER ST, PILAR Unavailable Unavailable Payers Payer Name Policy Type Policy Number Effective Date Expira tion Date MEDICARE.NGS.PDGM [id number] Problems Condition Name Condition Details Condition Category [...] HYPERLIPIDEM IA, UNSPECIFIED Active 12-24 00:00: 00 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 .. Propensity to adverse reactions Active 02-21 16:20: 42 Medications Ordered Medication Name Filled Medication Name Start Date Stop Date Current Medication? Ordering Clinician Indication Dosage Frequency Signature (SIG) Comments Components droxidopa 200 mg capsule 12-18 00:00: 00 12-25 16:06 :50.4 7 No [id number] Per instruc tions Per instructio ns (route: oral) Med Classific ation: Cardiovas cular Therapy Agents Wixela Inhub 250 mcg-50 mcg/dose powder for inhalation 12-17 00:00: 00 12-25 16:07 :03.1 23 No [id number] Per instruc tions Per instructio ns (route: inhalation ) Med Classific ation: Respirato ry Therapy Agents finasteride 5 mg tablet 24 00:00: 00 12-25 16:07 :00.2 57 No [id number] Per instruc tions EVERY DAY Per instructio ns EVERY DAY (route: oral) Med Classific ation: Genitouri nary Therapy albuterol sulfate HFA 90 mcg/actuati on aerosol inhaler 12-25 00:00: 00 Yes [id number] sob/wheezin g 2 puff EVERY 4 HOURS 2 puff EVERY 4 HOURS (route: inhalation ) Med Classific ation: Respirato ry Therapy Agents carbidopa 25 mg-levodopa 100 mg tablet 12-25 00:00: 00 Yes [id number] parkinsons 1 tablet DIRECTED 1 tablet DIRECTED (route: oral) Med Classific ation: Central Nervous System Agents cetirizine 5 mg tablet 12-25 00:00: 00 Yes [id number] allergies 1 tablet DAILY 1 tablet DAILY (route: oral) Med Classific ation: Respirato ry Therapy Agents droxidopa 200 mg capsule 12-25 00:00: 00 Yes [id number] parkinsons 2 capsule 3 TIMES DAILY 2 capsule 3 TIMES DAILY (route: oral) Med Classific ation: Cardiovas cular Therapy Agents finasteride 5 mg tablet 16 00:00: 00 Yes [id number] enlarged prostate 1 tablet DAILY 1 tablet DAILY (route: oral) Med Classific ation: Genitouri nary Therapy Children's Flonase Sensimist 27.5 mcg/actuati on nasal spray,suspe nsion 12-25 00:00: 00 Yes [id number] allergies 1 spray DAILY 1 spray DAILY (route: nasal) Med Classific ation: Respirato ry Therapy Agents Wixela Inhub 100 mcg-50 mcg/dose powder for inhalation 12-25 00:00: 00 Yes [id number] asthma 1 inhalat ion 2 TIMES DAILY 1 inhalation 2 TIMES DAILY (route: inhalation ) Med Classific ation: Respirato ry Therapy Agents lactulose 10 gram/15 mL oral solution 12-25 00:00: 00 Yes [id number] constipatio n 15 mL DAILY 15 mL DAILY (route: oral) Med Classific ation: Gastroint estinal Therapy Agents lovastatin 20 mg tablet 12-25 00:00: 00 Yes [id number] cholesterol 1 tablet DAILY 1 tablet DAILY (route: oral) Med Classific ation: Cardiovas cular Therapy Agents mirtazapine 15 mg tablet 12-25 00:00: 00 Yes [id number] sleep 0.5 tablet BEDTIME 0.5 tablet BEDTIME (route: oral) Med Classific ation: Central Nervous System Agents rasagiline 1 mg tablet 12-25 00:00: 00 Yes [id number] parkinsons 1 tablet DAILY 1 tablet DAILY (route: oral) Med Classific ation: Central Nervous System Agents ropinirole 2 mg tablet 12-25 00:00: 00 03-20 23:59 :00 No [id number] restless legs 1 tablet DAILY 1 tablet DAILY (route: oral) Med Classific ation: Central Nervous System Agents tamsulosin 0.4 mg capsule 12-25 00:00: 00 Yes [id number] bph 1 capsule DAILY 1 capsule DAILY (route: oral) Med Classific ation: Genitouri nary Therapy clonazepam 0.125 mg disintegrat ing tablet 03-20 00:00: 00 Yes [id number] SLEEP 1 tablet BEDTIME 1 tablet BEDTIME (route: oral) Med Classific ation: Central Nervous System Agents Nuplazid 34 mg capsule 03-20 00:00: 00 Yes [id number] PD 1 mg DAILY 1 mg MICHELLE Y (route: oral) Med Classific ation: Central Nervous System Agents Vital Signs Vital Name Observation Time Observation Value Commen ts Temperature 2025-04-10 15:20:00.000 97.6 [degF] Temperature 2025-04-03 12:12:00.000 97.4 [degF] Temperature 2025-03-30 18:46:00.000 97 [degF] Temperature 2025-03-22 14:07:00.000 97.9 [degF] Temperature 2025-03-21 14:00:00.000 97.6 [degF] Temperature 2025-03-18 14:56:00.000 97.3 [degF] Temperature 2025-03-11 14:50:00.000 97.6 [degF] Temperature 2025-03-07 15:35:00.000 98.2 [degF] Temperature 2025-03-06 13:07:00.000 97.4 [degF] Pulse 2025-04-10 15:20:00.000 74 /min Pulse 2025-04-03 12:12:00.000 61 /min Pulse 2025-03-30 18:46:00.000 78 /min Pulse 2025-03-22 14:07:00.000 79 /min Pulse 2025-03-21 14:00:00.000 68 /min Pulse 2025-03-18 14:56:00.000 77 /min Pulse 2025-03-11 14:50:00.000 65 /min Pulse 2025-03-07 15:35:00.000 81 /min Pulse 2025-03-06 13:07:00.000 92 /min O2 Saturation (%) 2025-04-10 15:20:00.000 98 % O2 Saturation (%) 2025-04-03 12:17:00.000 98 % O2 Saturation (%) 2025-03-30 18:47:00.000 98 % O2 Saturation (%) 2025-03-22 14:07:00.000 100 % O2 Saturation (%) 2025-03-21 14:00:00.000 97 % O2 Saturation (%) 2025-03-18 14:56:00.000 98 % O2 Saturation (%) 2025-03-11 14:50:00.000 97 % O2 Saturation (%) 2025-03-07 15:35:00.000 96 % O2 Saturation (%) 2025-03-06 13:07:00.000 96 % Respirations 2025-04-10 15:20:00.000 18 /min Respirations 2025-04-03 12:12:00.000 18 /min Respirations 2025-03-30 18:46:00.000 18 /min Respirations 2025-03-22 14:07:00.000 18 /min Respirations 2025-03-21 14:00:00.000 18 /min Respirations 2025-03-18 14:56:00.000 18 /min Respirations 2025-03-11 14:50:00.000 18 /min Respirations 2025-03-07 15:35:00.000 19 /min Respirations 2025-03-06 13:07:00.000 18 /min Systolic Blood Pressure 2025-04-10 15:20:00.000 118 mm [Hg] Systolic Blood Pressure 2025-04-03 12:12:00.000 130 mm [Hg] Systolic Blood Pressure 2025-03-30 18:46:00.000 106 mm [Hg] Systolic Blood Pressure 2025-03-22 14:07:00.000 124 mm [Hg] Systolic Blood Pressure 2025-03-21 14:00:00.000 120 mm [Hg] Systolic Blood Pressure 2025-03-18 14:56:00.000 124 mm [Hg] Systolic Blood Pressure 2025-03-11 14:50:00.000 110 mm [Hg] Systolic Blood Pressure 2025-03-07 15:35:00.000 112 mm [Hg] Systolic Blood Pressure 2025-03-06 13:07:00.000 104 mm [Hg] Diastolic Blood Pressure 2025-04-10 15:20:00.000 74 mm [Hg] Diastolic Blood Pressure 2025-04-03 12:12:00.000 62 mm [Hg] Diastolic Blood Pressure 2025-03-30 18:46:00.000 62 mm [Hg] Diastolic Blood Pressure 2025-03-22 14:07:00.000 70 mm [Hg] Diastolic Blood Pressure 2025-03-21 14:00:00.000 78 mm [Hg] Diastolic Blood Pressure 2025-03-18 14:56:00.000 82 mm [Hg] Diastolic Blood Pressure 2025-03-11 14:50:00.000 74 mm [Hg] Diastolic Blood Pressure 2025-03-07 15:35:00.000 60 mm [Hg] Diastolic Blood Pressure 2025-03-06 13:07:00.000 58 mm [Hg] Plan of Treatment Planned Activity Planned Date Details Comments Future Scheduled Test AGENCY MAY PERFORM A RESUMPTION OF CARE VISIT FOLLOWING ANY HOSPITAL ADMISSION. PT TO EVALUATE, OBSERVE / ASSESS, AND MONITOR, POLICYHOLDER INFORMATION CLERK TO OBSERVE AND MONITOR, PROVIDE SKILLED THERAPEUTIC INTERVENTION, ACTIVITY, EDUCATION, AND TRAINING TO ADDRESS; [code = AGENCY MAY PERFORM A RESUMPTION OF CARE VISIT FOLLOWING ANY HOSPITAL ADMISSION. PT TO EVALUATE, OBSERVE / ASSESS, AND MONITOR, POLICYHOLDER INFORMATION CLERK TO OBSERVE AND MONITOR, PROVIDE SKILLED THERAPEUTIC INTERVENTION, ACTIVITY, EDUCATION, AND TRAINING TO ADDRESS;] Future Scheduled Test PT/POLICYHOLDER INFORMATION CLERK TO PROVIDE STAIR TRAINING [code = PT/POLICYHOLDER INFORMATION CLERK TO PROVIDE STAIR TRAINING] Future Scheduled Test NEUROMUSCU LAR RE-EDUCATION / BALANCE / POSTURAL CONTROL (PT) [code = NEUROMUSCULAR RE-EDUCATION / BALANCE / POSTURAL CONTROL (PT)] Future Scheduled Test THERAPEUTI C EXERCISES AND ESTABLISHING A HOME EXERCISE PROGRAM (PT/POLICYHOLDER INFORMATION CLERK) [code = THERAPEUTIC EXERCISES AND ESTABLISHING A HOME EXERCISE PROGRAM (PT/POLICYHOLDER INFORMATION CLERK)] Future Scheduled Test PT/POLICYHOLDER INFORMATION CLERK TO IDENTIFY FALL RISK FACTORS; EDUCATE THE PATIENT/CAREGIVER ON WAYS TO REDUCE FALL RISK FACTORS AND ESTABLISH HOME EXERCISE PROGRAM TO MINIMIZE FALL RISK. MAY TEACH THE PATIENT FLOOR RECOVERY WHEN CLINICALLY APPROPRIATE [code = PT/POLICYHOLDER INFORMATION CLERK TO IDENTIFY FALL RISK FACTORS; EDUCATE THE PATIENT/CAREGIVER ON WAYS TO REDUCE FALL RISK FACTORS AND ESTABLISH HOME EXERCISE PROGRAM TO MINIMIZE FALL RISK. MAY TEACH THE PATIENT FLOOR RECOVERY WHEN CLINICALLY APPROPRIATE] Future Scheduled Test PT / POLICYHOLDER INFORMATION CLERK T O MONITOR AND EDUCATE ON OXYGEN SATURATION DURING ADLS/IADLS, NOTIFY PHYSICIAN AND/OR THE RN CLINICAL RESTORATIVE AIDE FOR PHYSICIAN NOTIFICATION AND IF O2 SATS BELOW PHYSICIAN ORDERED PARAMETERS AFTER 10 MIN OF REST [code = PT / POLICYHOLDER INFORMATION CLERK TO MONITOR AND EDUCATE ON OXYGEN SATURATION DURING ADLS/IADLS, NOTIFY PHYSICIAN AND/OR THE RN CLINICAL RESTORATIVE AIDE FOR PHYSICIAN NOTIFICATION AND IF O2 SATS BELOW PHYSICIAN ORDERED PARAMETERS AFTER 10 MIN OF REST] Future Scheduled Test PT / POLICYHOLDER INFORMATION CLERK M AY EDUCATE ON PAIN MANAGEMENT CLINICALLY INDICATED, INCLUDING NON-PHARMACOLOGICAL PAIN REDUCTION TECHNIQUES AND USE OF CRYOTHERAPY, HEAT AND/OR FOAM-ROLLING UP TO 20 MIN AT A TIME FOR PAIN MANAGEMENT 3-5 TIMES PER DAY TO PAINFUL AREAS [code = PT / POLICYHOLDER INFORMATION CLERK MAY EDUCATE ON PAIN MANAGEMENT CLINICALLY INDICATED, INCLUDING NON-PHARMACOLOGICAL PAIN REDUCTION TECHNIQUES AND USE OF CRYOTHERAPY, HEAT AND/OR FOAM-ROLLING UP TO 20 MIN AT A TIME FOR PAIN MANAGEMENT 3-5 TIMES PER DAY TO PAINFUL AREAS] Future Scheduled Test SIT TO/FRO M STAND TRANSFERS (PT/POLICYHOLDER INFORMATION CLERK) [code = SIT TO/FROM STAND TRANSFERS (PT/POLICYHOLDER INFORMATION CLERK)] Future Scheduled Test AGENCY MAY PERFORM A RESUMPTION OF CARE VISIT FOLLOWING ANY HOSPITAL ADMISSION. OT TO EVALUATE, OBSERVE / ASSESS, AND MONITOR, BLANKET CUTTING MACHINE OPERATOR TO OBSERVE AND MONITOR, PROVIDE SKILLED THERAPEUTIC INTERVENTION, ACTIVITY, EDUCATION, AND TRAINING TO ADDRESS; HOME ACTIVITY / EXERCISE PROGRAM (OT/BLANKET CUTTING MACHINE OPERATOR) FINE MOTOR COORDINATION (OT/MAYRA) OT/MAYRA TO MONITOR AND EDUCATE ON OXYGEN SATURATION DURING ADLS/IADLS, NOTIFY PHYSICIAN AND/OR THE RN CLINICAL RESTORATIVE AIDE FOR PHYSICIAN NOTIFICATION AND IF O2 SATS BELOW 90% AFTER 10 MIN OF REST. OT/MAYRA MAY EDUCATE ON PAIN MANAGEMENT CLINICALLY INDICATED, INCLUDING NON-PHARMACOLOGICAL PAIN REDUCTION TECHNIQUES AND USE OF CRYOTHERAPY OR HEAT UP TO 20 MIN AT A TIME FOR PAIN MANAGEMENT GENERAL OT / MAYRA TO IDENTIFY FALL RISK FACTORS; EDUCATE THE PATIENT/CAREGIVER ON WAYS TO REDUCE FALL RISK FACTORS AND ESTABLISH HOME EXERCISE PROGRAM TO MINIMIZE FALL RISK. MAY TEACH THE PATIENT FLOOR RECOVERY WHEN CLINICALLY APPROPRIATE. [code = AGENCY MAY PERFORM A RESUMPTION OF CARE VISIT FOLLOWING ANY HOSPITAL ADMISSION. OT TO EVALUATE, OBSERVE / ASSESS, AND MONITOR, MAYRA TO OBSERVE AND MONITOR, PROVIDE SKILLED THERAPEUTIC INTERVENTION, ACTIVITY, EDUCATION, AND TRAINING TO ADDRESS; HOME ACTIVITY / EXERCISE PROGRAM (OT/MAYRA) FINE MOTOR COORDINATION (OT/BLANKET CUTTING MACHINE OPERATOR) OT/MAYRA TO MONITOR AND EDUCATE ON OXYGEN SATURATION DURING ADLS/IADLS, NOTIFY PHYSICIAN AND/OR THE RN CLINICAL RESTORATIVE AIDE FOR PHYSICIAN NOTIFICATION AND IF O2 SATS BELOW 90% AFTER 10 MIN OF REST. OT/MAYRA MAY EDUCATE ON PAIN MANAGEMENT CLINICALLY INDICATED, INCLUDING NON-PHARMACOLOGICAL PAIN REDUCTION TECHNIQUES AND USE OF CRYOTHERAPY OR HEAT UP TO 20 MIN AT A TIME FOR PAIN MANAGEMENT GENERAL OT / MAYRA TO IDENTIFY FALL RISK FACTORS; EDUCATE THE PATIENT/CAREGIVER ON WAYS TO REDUCE FALL RISK FACTORS AND ESTABLISH HOME EXERCISE PROGRAM TO MINIMIZE FALL RISK. MAY TEACH THE PATIENT FLOOR RECOVERY WHEN CLINICALLY APPROPRIATE.] Future Scheduled Test AGENCY MAY PERFORM A RESUMPTION OF CARE VISIT FOLLOWING ANY HOSPITAL ADMISSION. ST TO EVALUATE, ASSESS AND MONITOR, PROVIDE SKILLED THERAPEUTIC INTERVENTION, ACTIVITY, EDUCATION, AND TRAINING TO ADDRESS: ST TO ASSESS AND PROVIDE DIET MODIFICATION AND DIET TOLERANCE/TRIALS ST TO EDUCATE ON COMPENSATORY STRATEGIES FOR SAFE ORAL INTAKE ST TO EDUCATE ON ORAL HYGIENE ST TO PROVIDE EDUCATION FOR IMPAIRMENT OF VOICE ST TO EDUCATE ON PARKINSONS SELF-MANAGEMENT ST TO IDENTIFY FALL RISK FACTORS; EDUCATE THE PATIENT/CAREGIVER ON WAYS TO REDUCE FALL RISK FACTORS. ST MAY EDUCATE ON PAIN MANAGEMENT CLINICALLY INDICATED, INCLUDING NON-PHARMACOLOGICAL PAIN REDUCTION TECHNIQUES (RELAXATION/DISTRACTION/REPOSITIONING/BIO FEEDBACK) FOR PAIN MANAGEMENT [code = AGENCY MAY PERFORM A RESUMPTION OF CARE VISIT FOLLOWING ANY HOSPITAL ADMISSION. ST TO EVALUATE, ASSESS AND MONITOR, PROVIDE SKILLED THERAPEUTIC INTERVENTION, ACTIVITY, EDUCATION, AND TRAINING TO ADDRESS: ST TO ASSESS AND PROVIDE DIET MODIFICATION AND DIET TOLERANCE/TRIALS ST TO EDUCATE ON COMPENSATORY STRATEGIES FOR SAFE ORAL INTAKE ST TO EDUCATE ON ORAL HYGIENE ST TO PROVIDE EDUCATION FOR IMPAIRMENT OF VOICE ST TO EDUCATE ON PARKINSONS SELF-MANAGEMENT ST TO IDENTIFY FALL RISK FACTORS; EDUCATE THE PATIENT/CAREGIVER ON WAYS TO REDUCE FALL RISK FACTORS. ST MAY EDUCATE ON PAIN MANAGEMENT CLINICALLY INDICATED, INCLUDING NON-PHARMACOLOGICAL PAIN REDUCTION TECHNIQUES (RELAXATION/DISTRACTION/REPOSITIONING/BIO FEEDBACK) FOR PAIN MANAGEMENT] Goal 2025-02-21 Patient Goal - D ECREASE RISK OF FALLING INCREASE INDEPNDENCE Goal Patient Goal - D ECREASE RISK OF FALLING INCREASE INDEPNDENCE Goal Provider Goal - Goal Provider Goal - PT LTG: PATIENT WILL DEMONSTRATE IMPROVED ABILITY TO SAFELY NEGOTIATE STAIRS FROM INSIDE TO OUTSIDE WITH SUPERVISION USING RAILINGS IN ORDER TO EXIT HOME WITHIN 9 WEEKS Goal Provider Goal - PT LTG: PATIENT WILL DEMONSTRATE IMPROVED POSTURAL CONTROL AND SENSORY INTEGRATION OF THEIR BALANCE SYSTEMS EVIDENCED BY MCTSIB IMPROVING FROM NOT TESTED TO 30 SEC/30 SEC/30 SEC/30 SEC WITHIN 9 WEEKS. Goal Provider Goal - PT STG: PT LTG: PATIENT WILL DEMONSTRATE IMPROVED FUNCTIONAL STRENGTH EVIDENCED BY FIVE TIMES SIT TO STAND TEST (CUT SCORE >12 SECONDS INDICATES AN INCREASED FALL RISK) IMPROVING FROM O Goal Provider Goal - PT LTG: PATIENT/CAREGIVER WILL DEMONSTRATE ADHERENCE TO FALL REDUCTION SELF-MANAGEMENT AND REDUCING FALL RISK FACTORS TO MINIMIZE FALL RISK BY END OF EPISODE . Goal Provider Goal - PT LTG: PATIENT WILL MAINTAIN OXYGEN SATURATION WITHIN PHYSICIAN ORDERED PARAMETERS THROUGHOUT EPISODE OF CARE. Goal Provider Goal - PT GOAL: PATIENT WILL DEMONSTRATE UNDERSTANDING OF PAIN MANAGEMENT TECHNIQUES EVIDENCED BY DECREASE IN PAIN BY 50% WITHIN 30 MINUTES OF ONSET. Goal Provider Goal - PT STG: PATIENT WILL DEMONSTRATE IMPROVED ABILITY TO PERFORM SIT TO/FROM STAND TRANSFERS TO REDUCE THE RISK OF SKIN BREAKDOWN AND REDUCE FALL RISK FROM SUPERVISION TO INDEPENDENT WITHIN 9 WEEKS Goal Provider Goal - OT STG: PATIENT WILL DEMONSTRATE BUE HEP TO SUPERVISION WITHIN 4 WEEKS OT LTG: PATIENT WILL DEMONSTRATE IMPROVED STRENGTH/COORDINATION AND/OR DEXTERITY BUE FOR IMPROVED PARTICIPATION IN ADLS EVIDENCED BY IMPROVED INDEPENDENCE FROM CGA TO INDEPENDENT WITHIN 8 WEEKS OT LTG: FINE MOTOR COORDINATION WILL IMPROVE EVIDENCED BY UTENSILS MANIPULATION/MANAGEMENT IMPROVING FROM MIN A TO INDEPENDENT WITHIN 4 WEEKS OT LTG: PATIENT WILL MAINTAIN OXYGEN SATURATION WITHIN PHYSICIAN ORDERED PARAMETERS THROUGHOUT THE EPISODE OF CARE. OT LTG: PATIENT WILL DEMONSTRATE UNDERSTANDING OF PAIN MANAGEMENT TECHNIQUES EVIDENCED BY REDUCED 0/10 GENERAL PAIN WITHIN 8 WEEKS OT LTG: PATIENT/CAREGIVER WILL BE ABLE TO IMPLEMENT RECOMMENDATIONS SPECIFIC TO FALL REDUCTION FOR IMPROVED ADL/IADL COMPLETION AND HOME SAFETY BY END OF EPISODE. Goal Provider Goal - ST LTG: PATIENT WILL HAVE IMPROVED SAFE ORAL INTAKE EVIDENCED BY INCREASE IDDSI FOOD LEVEL FROM SB6 TO EC7 WITHIN [address] LTG: PATIENT WILL DEMONSTRATE INCREASED USE OF COMPENSATORY STRATEGIES FROM 0% TO 50% IN ORDER TO IMPROVE SWALLOW SAFETY WITHIN [address] LTG: PATIENT WILL DEMONSTRATE INCREASED USE OF COMPENSATORY STRATEGIES FROM 0% TO 100% IN ORDER TO IMPROVE SWALLOW SAFETY WITHIN [address] LTG: PATIENT/CAREGIVER WILL BE ABLE TO RETURN DEMONSTRATE ABILITY TO PERFORM ORAL HYGIENE TO MINIMIZE THE RISK OF ASPIRATION PNEUMONIA / HEART DISEASE / DM FROM MOD TO MIN WITHIN [address] STG: PT WILL DEMONSTRATE IMPROVED LOUDNESS AND IMPROVED INTELLIGIBILITY IN ORDER TO IMPROVE COMMUNICATION AND MAKE THEIR NEEDS KNOW DURING CONVERSATIONAL SPEECH EVIDENCED BY DECIBEL READING (NORMAL CONVERSATION 60D DB) IMPROVING FROM 40DB TO 50DB WIWITHIN [address] LTG: PT WILL DEMONSTRATE IMPROVED LOUDNESS AND IMPROVED INTELLIGIBILITY IN ORDER TO IMPROVE COMMUNICATION AND MAKE THEIR NEEDS KNOW DURING CONVERSATIONAL SPEECH EVIDENCED BY DECIBEL READING (NORMAL CONVERSATION 60D DB) IMPROVING FROM 40DB TO 60DB WITHIN [address] GOAL: PATIENT/CAREGIVER WILL BE VERBALIZE UNDERSTANDING OF PARKINSON'S AND SELF-MANAGEMENT AND LIFE-STYLE CHANGES BY END OF EPISODE. ST LTG: PATIENT/CAREGIVER WILL DEMONSTRATE ADHERENCE TO FALL REDUCTION SELF-MANAGEMENT AND REDUCING FALL RISK FACTORS TO MINIMIZE FALL RISK BY END OF EPISODE. ST LTG: PATIENT WILL DEMONSTRATE UNDERSTANDING OF PAIN MANAGEMENT TECHNIQUES EVIDENCED BY REDUCED PAIN. Encounters Start Date/Time End Date/Time Encounter Type Admission Type Attending Clinicians Care Facility Care Department Encounter ID Discharge Date Discharge Status Discharge Condition Discharge Reason Percent Goals Met 2025-02-22 00:00:00 2025-04-22 00:00:00 Outpatient RECERTIFIC KRISTAL [facility] [id number] 20.59
== END 2025-04-14 16:20 | disposition home or self-care (01) ==
LOC: HO.HSMS 15:34
PROVIDERS: PCP Internal Medicine; Visit Provider Psychiatry & Neurology Neurology
DX: G20.B1 Parkinson's disease with dyskinesia, without mention of fluctuations (principal); I95.1 Orthostatic hypotension; K59.09 Other constipation; G47.52 REM sleep behavior disorder
CPT/HCPCS: 99214; G2211

== ENCOUNTER → 2025-04-14 15:34 | Outpatient (BNVA) | payer MEDICARE, OTHER, SELFPAY | PROVIDERS: PCP Internal Medicine; Visit Provider Psychiatry & Neurology Neurology | DX: G20.B1 Parkinson's disease with dyskinesia, without mention of fluctuations (principal); G47.52 REM sleep behavior disorder; K59.09 Other constipation; I95.1 Orthostatic hypotension; Z79.899 Other long term (current) drug therapy | CPT/HCPCS: 99212 ==

== ENCOUNTER 2025-05-27 10:34 | Outpatient (AMB) | payer MEDICARE, OTHER, SELFPAY ==
--- NOTE | 2025-05-27 10:26 | A.OFFVIS_ITS ---
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: No Accompanied by: Spouse Allergies Penicillins Adverse Reaction (Mild, Verified 04/14/25 15:44) Hives Medication List - Last Reconciled 05/27/25 by Lidya Umanzor MD albuterol sulfate 90 mcg/actuation 2 puffs inhalation Q4H PRN carbidopa-levodopa 25-100 mg 1 tab PO .6 times a day cetirizine 5 mg PO DAILY PRN clonazepam 0.125 mg PO BEDTIME [commode As directed] droxidopa 600 mg (3 x 200 mg) PO TID finasteride 5 mg PO DAILY fludrocortisone 0.1 mg PO DAILY fluticasone furoate 27.5 mcg/actuation (Children's Flonase Sensimist) 1 spray intranasal DAILY fluticasone propion-salmeterol 100-50 mcg/dose (Wixela Inhub) 1 inh inhalation BID hospital bed (bed,hospital) As directed lactulose 10 grams (15 mL) PO BEDTIME PRN lovastatin 20 mg PO DAILY mirtazapine 7.5 mg PO BEDTIME pimavanserin (Nuplazid) 34 mg PO DAILY rasagiline 1 mg PO DAILY tamsulosin 0.4 mg PO DAILY trospium 20 mg PO BID vibegron (Gemtesa) 75 mg PO DAILY HPI Comments Details: 69 year-old male calls for follow-up of his Parkinson's disease orthostatic hypotension and insomnia, halluicnations. He still has hallucinations when he wakes up at night milder than before since nuplazid was started .He has insight and does not agitate him His urologist has started on med to help with urinary frequency and urgency. He denies any syncope. He is on sinemet 25/100 1 tab 6- times a day. He is on Droxidopa to 600mg tid Rasagiline 1mg qd he is dependent in most ADLs.His keeps an eye on himHe has a CAREER CENTER ADVISOR - 3 hrs in the morning and 3 nights a week.No recent falls He has slowed down a lot now. he reports cognitive issues- some confusion usually in the mornings. History form last visit- He had a fall 4 week ago - when he got up from the chair and fell. his thinks he lost balance when he turned.but she is not sure if he passed out or fell and then passed out after he hit his head.He was seen at [facility] and transferred to [facility] - was kept for observation and was discharged I increased his Droxidopa to 400mg tid He had another fall 1 week after at the Dentist after cleaning when he stood up and came to the telecom assistant he passed out . He was admitted at [facility].He is worse in the morning - wakes up between 4am and 10 am - misses his & am dose when he wakes up . REPLACED BY [facility] Medical History Knee pain, right Parkinson's disease with dyskinesia REM behavioral disorder Constipation Orthostatic hypotension Parkinson's disease Bronchitis Asthma Hyperlipidemia HTN (hypertension) Family History Family/Other HTN (hypertension) Diabetes Mother Diabetes HTN (hypertension) Social History Household Members: Spouse Alcohol intake: never Patient Tobacco Use Status: Never used Tobacco Telehealth Telehealth Telehealth Platform: [employer] Location of provider rendering services: practice address Location of patient: address on file Patient Identification confirmed using: Name, : Yes Telehealth method: video Patient verbally consented to treatment: Yes Patient verbally consented to billing insurance company: Yes Patient informed of any privacy concerns related to visit: Yes Assessment & Plan Assessment & Plan (1) Parkinson's disease with dyskinesia: Code(s): G20.B1 - Parkinson's disease with dyskinesia, without mention of fluctuations Category: Medical Qualifiers: Fluctuating manifestations: without fluctuating manifestations Qualified Code(s): G20.B1 - Parkinson's disease with dyskinesia, without mention of fluctuations (2) Orthostatic hypotension: Code(s): I95.1 - Orthostatic hypotension Category: Medical (3) Constipation: Code(s): K59.00 - Constipation, unspecified Category: Medical Qualifiers: Constipation type: other constipation type Qualified Code(s): K59.09 - Other constipation (4) REM behavioral disorder: Code(s): G47.52 - REM sleep behavior disorder Category: Medical Plan Continue Nuplazid 34mg qd Sinemet 25/100 tablet 1 tab at 6 times a day rasagiline 1 mg q.d.. Remeron 7.5mg qhs northera 600mg tid Florinef 0.1mg qam Continue lactulose as needed for constipation , with miralax, metamucil , dulcolax consider adding quetiapine Coding Level of Care Code Tele Est Pt Level 4 (85026) Diagnoses Parkinson's disease with dyskinesia without fluctuating manifestations G20.B1 Fluctuating manifestations: without fluctuating manifestations Orthostatic hypotension I95.1 Other constipation K59.09 Constipation type: other constipation type REM behavioral disorder G47.52
--- OUTSIDE RECORDS SUMMARY | 2025-05-27 13:58 | XMS_ITS | Encounter Summary ---
Author Organization [facility] Address [address] [place] [address] Phone Care Team Providers Care Color Drum Worker Name Role Phone Michael Schofield MD Unavailable [phone] Mo Hernandez MD Unavailable Rae Torres MD Primary Care Provider Encounter Details Date Type Department Care Team (Late st Contact Info) Description 05/28/2024 Procedure Pass [facility], Ct Scan - [address] [address] Social History Tobacco Use Types Packs/Day Years Used Date Smoking Tobacco: Former Cigarettes Q uit: 1980 Smokeless Tobacco: Never Alcohol Use Standard Drinks/Week Comments Yes 1 (1 standard drink = 0.6 oz pur e alcohol) socially Education Answer Date Recorded Are you interested in more education? Not on edel e 01/06/2023 Are you concerned about learning? Not on file 01/06/2023 No 01/06/2023 No 01/06/2023 Digital Access Answer Date Recorded No 02/04/2023 No 02/04/2023 Reliable internet access at home? Not on file 02/04/2023 Device with a working camera? Not on file Sex and Gender Information Value Date Recorded Sex Assigned at Male 03/16/2020 8:36 AM EDT Legal Sex Male 9:58 PM EDT Gender Identity Male 03/16/2020 8:36 AM EDT Sexual Orientation Straight 02/14/2025 5: 32 AM EDT documented as of this encounter Plan of Treatment Not on file documented as of this encounter Visit Diagnoses Not on filedocumented in this encounter Additional Health Concerns Assessment Noted Time PHQ-2 Depression Total Score: 0 09/21/19 21 9:01 AM EST documented as of this encounter Care Teams Color Drum Worker Relationship Specialty Start Date End Date Rae Torres MD [address] [place] [address] [email or web address] PCP - General Internal Medicine 04/30/21 Michael Schofield MD [address] [facility] [place] [address] [email or web address] Historical LMR Provider 07/02/17 Mo Hernandez MD [address] [facility] Floor 1 [place] [address] [email or web address] Historical LMR Provider 07/02/17 documented as of this encounter Additional Source Comments The information contained in this document represents components of the legal health record. It is not the complete legal health record.[facility]
--- OUTSIDE RECORDS SUMMARY | 2025-05-27 13:58 | XMS_ITS | Encounter Summary ---
Author Organization [facility] Address [address] [place] [address] Phone Care Team Providers Care Fuse Cup Expander Name Role Phone Anderson Rachel MD Unavailable [phone] Pat Almodovar MD Unavailable [phone] Christen Wheeler NP Unavailable Addie Correia DPM Unavailable Unavailable Michael Schofield MD Unavailable [phone] Mo Hernandez MD Unavailable [phone] Ryne Diaz MD Unavailable [phone] Sallie Uriostegui DO Primary Care Provider [phone] Harrison Lew MD Primary Care Provider [phone] Rae Torres MD Primary Care Provider [phone] Reason for Referral * Physical Therapy (Elective) - Closed Specialty Diagnoses / Procedures Referred By Contac t Referred To Contact Physical Therapy Diagnoses Encounter for rehabilitation Parkinsons/ Low Back - Les Weakness Procedures Evaluate & Treat Lidya Umanzor MD Phone: tel: fax: [address] [address] Phone: tel: Referral ID Status Reason Start Date Expiration Date Visits Re quested Visits Authorized [id number] Closed 07/03/2019 09/10/2019 16 16 Encounter Details Date Type Department Care Team (Latest Contact Info) Description 06/27/2019 Transcribe Orders [facility] [address] [place] [address] Lidya Umanzor MD [address] [place] [address] Encounter for rehabilitation (Primary Dx) Social History [...] Date/Time Associated Diagnosis Comments AMB REFERRAL TO [facility] PHYSICAL THERAPY Routine 07/03/2019 5:23 PM EDT Encounter for rehabilitation documented in this encounter Results * Ambulatory referral to [facility] Physical Therapy (07/03/2019 5:23 PM EDT) Lidya Umanzor MD AMB [facility] REFERRALS Final Result documented in [...] documented as of this encounter Care Teams Fuse Cup Expander Relationship Specialty Start Date End Date Sallie Uriostegui DO [address] [place] [address] [email or web address] PCP - General 09/14/18 01/14/21 Hrarison Lew MD [address] [place] [address], [address] [place] [address] [email or web address] PCP - General Internal Medicine 01/15/21 04/29/21 Rae Torres MD [address] [place] [email or web address] PCP - General Internal Medicine 04/30/21 Anderson Rachel MD [address] [place] [address], [address] [place] [address] [email or web address] Historical LMR Provider 07/02/17 09/18/21 Pat Almodovar MD [address] [place] [address] [email or web address] Historical LMR Provider 07/02/17 09/18/21 Christen Wheeler NP [address] [place] [address] [facility] [address] Historical LMR Provider 07/02/17 09/18/21 Addie Correia DPM [address] [place] [address] [place] [address] Historical LMR Provider 07/02/1709/18/21 Michael Schofield MD [address] [place] [address], [address] [place] [address] [email or web address] Historical LMR Provider 07/02/17 Mo Hernandez MD [address] [facility] 1 [place] [address] [email or web address] Historical LMR Provider 07/02/17 Ryne Diaz MD [address] [place] [address] Historical LMR Provider 07/02/17 2 documented as of this encounter Additional Source Comments The information contained in this document represents components of the legal health record. It is not the complete legal health record.[facility]
--- OUTSIDE RECORDS SUMMARY | 2025-05-27 13:59 | XMS_ITS | Encounter Summary ---
Author Organization [facility] Address [address] [place] [address] Phone Care Team Providers Care Hot Mill Operator Name Role Phone Michael Schofield MD Unavailable [phone] Mo Hernandez MD Unavailable [phone] Rae Torres MD Primary Care Provider Encounter Details Date Type Department Care Team (Late st Contact Info) Description 03/12/2025 Procedure Pass [facility], Ct Scan - [address] [address] Social History Tobacco Use Types Packs/Day Years [...] on file 01/06/2023 No 01/06/2023 No 01/06/2023 Food Answer Date Recorded Within the past 6 months we worried whether our food would run out before we got money to buy more. Unable to assess 025 Within the past 6 months the food we bought just didn't last and we didn't have enough money to get more. Unable to assess 03/12/2025 Residential Stability Answer Date Recor ded What is your housing situation today? Unable to assess 03/12/2025 How many times have you moved in the past 12 mon ths? Unable to assess 03/12/2025 Paying for Meds Answer Date Recorded Do you have trouble paying for medicines? Unable to assess 03/12/2025 Paying Utility Bills Answer Date Record ed Do you have trouble paying y our heating or electricity bill? Unable to assess 03/12/2025 Transportation Answer Date Recorded Has the lack of transportati on kept you from medical appointments or from getting medications? Unable to assess 03/12/2025 Digital Access Answer Date Recorded No 03/12/2025 No 03/12/2025 Do you have reliable internet access at home? Un able to assess 03/12/2025 Do you have a device (e.g., phone, tablet, computer) with a working camera? Unable to assess 03/12/2025 Intimate Partner Violence Answer Date R ecorded Are you denied basic needs s uch as food, clothing, or medical care? Patient unable to respond 03/12/2025 In the past 12 months have y ou been in a relationship with a person who hurts, threatens, or tries to control you? Patient unable to respond 03/12/2025 Are you denied basic needs s uch as food, clothing, or medical care? Patient unable to respond 03/12/2025 In the past 12 months have y ou been in a relationship with a person who hurts, threatens, or tries to control you? Patient unable to respond 03/12/2025 Sex and Gender Information Value Date Recorded Sex Assigned at Male 03/16/2020 8:36 AM EDT Legal Sex Male 9:58 PM EDT Gender Identity Male 03/16/2020 8:36 AM EDT Sexual Orientation Straight 02/14/2025 5: 32 AM EDT documented as of this encounter Functional Status * Calculated C-SSRS Risk Score (Lifetime/Recent) Answer Date of Assessment Author No Risk Indicated 03/12/2025 4:31 PM EDT Venus Anne RN * [place] Suicide Severity Rating Scale (Screener/Recent Self-Report) Question Answer Date of Assessment Author 1. Wish to be (Past 1 Month) No 03/12/2025 4:31 PM EDT Azul Austin RN 2. Non-Specific Active Suici santiago Thoughts (Past 1 Month) No 03/12/2025 4:31 PM EDT Ruby Austin RN 6. Suicidal Behavior (Lifetime) No 4:31 PM EDT Venus Austin RN documented as of this encounter Plan of Treatment Not on file documented as of this encounter Visit Diagnoses Not on filedocumented in this encounter Additional Health Concerns Assessment Noted Time PHQ-2 Depression Total Score: 0 09/21/19 21 9:01 AM EST documented as of this encounter Care Teams Hot Mill Operator Relationship Specialty Start Date End Date Rae Torres MD [address] [place] [address] [email or web address] PCP - General Internal Medicine 04/30/21 Michael Schofield MD [address] [facility] [place] [address] [email or web address] Historical LMR Provider 07/02/17 Mo Hernandez MD [address] [facility] Floor 1 [place] [address] [email or web address] Historical LMR Provider 07/02/17 documented as of this encounter Additional Source Comments The information contained in this document represents components of the legal health record. It is not the complete legal health record.[facility]
--- OUTSIDE RECORDS SUMMARY | 2025-05-27 13:59 | XMS_ITS | Encounter Summary ---
Author Organization [facility] Address [address] [place] [address] Phone Care Team Providers Care Strawberry Grower Name Role Phone Michael Schofield MD Unavailable [phone] Mo Hernandez MD Unavailable Rae Torres MD Primary Care Provider Encounter Details Date Type Department Care Team (Late st Contact Info) Description 11/15/2022 Ancillary Orders [facility], -[place] - [address] [address] Samantha Galarza PA [address] [place] [address] [email or web address] Acute cough Social History Tobacco Use Types Packs/Day Years [...] on file documented as of this encounter Results * XR CHEST PA AND LATERAL 2 VIEWS (11/15/2022 12:03 PM EST) Anatomical Region Laterality Modality Chest Computed Radiogr aphy 11/15/2022 12:0 8 PM EST Impressions 11/15/2022 12:08 PM EST No pneumonia or pulmonary edema. 4 mm nodular density in the left lung base could be a vessel on end or a pulmonary nodule. RECOMMENDATIONS: Consider a follow-up radiograph in 6-8 weeks as the initial examination. Narrative 11/15/2022 12:08 PM EST XR CHEST PA AND LATERAL 2 VIEWS COMPARISON: None FINDINGS: Lungs: No pneumonia or pulmonary edema. 4 mm nodular density in the left lung base could be a vessel on end or a pulmonary nodule. Pleura: No pleural effusion. No pneumothorax Heart/Mediastinum: Heart size normal. Atherosclerotic calcifications in aorta. Bones/Soft Tissues: No acute finding Procedure Note Paddy Giron MD, JANEY - 11/15/2022 XR CHEST PA AND LATERAL 2 VIEWS COMPARISON: None FINDINGS: Lungs: No pneumonia or pulmonary edema. 4 mm nodular density in the leftlung base could be a vessel on end or a pulmonary nodule. Pleura: No pleural effusion. No pneumothorax Heart/Mediastinum: Heart size normal. Atherosclerotic calcifications inaorta. Bones/Soft Tissues: No acute finding IMPRESSION: No pneumonia or pulmonary edema. 4 mm nodular density in the left lungbase could be a vessel on end or a pulmonary nodule. RECOMMENDATIONS: Consider a follow-up radiograph in 6-8 weeks as the initial examination. Samantha WATERS IMG XR CHEST Final Result documented in this encounter Visit Diagnoses Diagnosis Acute cough Acute cough documented in this encounter Additional Health Concerns Assessment Noted Time PHQ-2 Depression Total Score: 0 09/21/19 21 9:01 AM EST documented as of this encounter Care Teams Strawberry Grower Relationship Specialty Start Date End Date Rae Torres MD [address] [place] [id number] [email or web address] PCP - General Internal Medicine 04/30/21 Michael Schofield MD [address] [place] [address], [address] [place] [address] [email or web address] Historical LMR Provider 07/02/17 Mo Hernandez MD [address] [facility] Floor 1 [place] [address] [email or web address] Historical LMR Provider 07/02/17 documented as of this encounter Additional Source Comments The information contained in this document represents components of the legal health record. It is not the complete legal health record.[facility]
--- OUTSIDE RECORDS SUMMARY | 2025-05-27 13:59 | XMS_ITS | Encounter Summary ---
Author Organization [facility] Address [address] [address] [place] [address] Phone Care Team Providers Care Media Supervisor Name Role Phone Michael Schofield MD Unavailable [phone] Mo Hernandez MD Unavailable Rae Torres MD Primary Care Provider [phone] Encounter Details Date Type Department Care Team (Late st Contact Info) Description 07/18/2023 Procedure Pass [facility] Endoscopy Admitting Dept Virtual Department [address] [place], [place] [id number] Social History Tobacco Use Types Packs/Day Years [...] Time PHQ-2 Depression Total Score: 0 09/21/19 9:01 AM EST documented as of this encounter Care Teams Media Supervisor Relationship Specialty Start Date End Date Rae Torres MD [address] [place] [email or web address] PCP - General Internal Medicine 04/30/21 Michael Schofield MD [address] [facility] [place] [address] [email or web address] Historical LMR Provider 07/02/17 Mo Hernandez MD [address] [facility] Floor 1 [place] [address] [email or web address] Historical LMR Provider 07/02/17 documented as of this encounter Additional Source Comments The information contained in this document represents components of the legal health record. It is not the complete legal health record.[facility]
--- OUTSIDE RECORDS SUMMARY | 2025-05-27 13:59 | XMS_ITS | Encounter Summary ---
Author Organization [facility] Address [address] [facility] [address] [place] [address] Phone Care Team Providers Care Direct Casting Operator Name Role Phone Michael Schofield MD Unavailable [phone] Mo Hernandez MD Unavailable Rae Torres MD Primary Care Provider Encounter Details Date Type Department Care Team (Late st Contact Info) Description 11/09/2024 Procedure Pass [facility], Ct Scan - [address] [address] Social History Tobacco Use Types Packs/Day Years [...] with a working camera? Not on file Intimate Partner Violence Answer Date R ecorded Are you denied basic needs s uch as food, clothing, or medical care? No 11/09/2024 In the past 12 months have y ou been in a relationship with a person who hurts, threatens, or tries to control you? No 11/09/2024 Are you denied basic needs s uch as food, clothing, or medical care? No 11/09/2024 In the past 12 months have y ou been in a relationship with a person who hurts, threatens, or tries to control you? No 11/09/2024 Sex and Gender Information Value Date Recorded Sex Assigned at Male 03/16/2020 8:36 AM EDT Legal Sex Male 9:58 PM EDT Gender Identity Male 03/16/2020 8:36 AM EDT Sexual Orientation Straight 02/14/2025 5: 32 AM EDT documented as of this encounter Functional Status * Calculated C-SSRS Risk Score (Lifetime/Recent) Answer Date of Assessment Author No Risk Indicated 11/09/2024 8:23 PM Samira Sanchez RN * [place] Suicide Severity Rating Scale (Screener/Recent Self-Report) Question Answer Date of Assessment Author 1. Wish to be (Past 1 Month) No 025 8:23 PM Samira Sanchez RN 2. Non-Specific Active Suici santiago Thoughts (Past 1 Month) No 11/09/2024 8:23 PM Rona Sanchez RN 6. Suicidal Behavior (Lifetime) No 8:23 PM Samira Sanchez RN documented as of this encounter Plan of Treatment Not on file documented as of this encounter Visit Diagnoses Not on filedocumented in this encounter Additional Health Concerns Assessment Noted Time PHQ-2 Depression Total Score: 0 09/21/19 9:01 AM EST documented as of this encounter Care Teams Direct Casting Operator Relationship Specialty Start Date End Date Rae Torres MD [address] [place] [address] PCP - General Internal Medicine 04/30/21 Michael Schofield MD [address] [place] [address], [address] [place] [address] Historical LMR Provider 07/02/17 Mo Hernandez MD [address] [facility] 1 [place] [address] [email or web address] Historical LMR Provider 07/02/17 documented as of this encounter Additional Source Comments The information contained in this document represents components of the legal health record. It is not the complete legal health record.[facility]
--- OUTSIDE RECORDS SUMMARY | 2025-05-27 13:59 | XMS_ITS | Encounter Summary ---
Author Organization [facility] Address [address] [place] [address] Phone Care Team Providers Care Real Estate Manager Name Role Phone Michael Schofield MD Unavailable [phone] Mo Hernandez MD Unavailable [phone] Rae Torres MD Primary Care Provider Encounter Details Date Type Department Care Team (Late st Contact Info) Description 12/14/2021 Transcribe Orders Virtual Department 30 [place], [place] [phone] Rae Torres MD [address] [place] [address] [id number] [email or web address] Cough (Primary Dx) Social History Tobacco Use Types [...] documented as of this encounter Results * COVID-19 PCR Order (12/15/2021 12:38 PM EDT) COVID Testing Status Specimen received in analyzing lab. Results should be available within 24 to 48 hrs. [facility] Symptomatic? YES [facility] Other 12/15/2021 12:3 8 PM EDT 12/15/2021 2:07 PM EDT us Rae Torres MD BODY FLUIDS AND STOOLS GLENN LEVINE Final Result [facility] [address] [place] [address] [facility] [address] [place] [address] documented in this encounter Visit Diagnoses Diagnosis Cough- Primary documented in this encounter Additional Health Concerns Infection Onset Date Last Indicated Resolved Time CoV-Risk 12/14/2021 12/15/2021 12/26/2021 1:21 AM EDT CoV-Risk 03/02/2022 03/02/2022 03/03/2022 8:22 AM EDT COVID-19 03/02/2022 03/02/2022 03/23/2022 1:23 AM EDT Assessment Noted Time PHQ-2 Depression Total Score: 0 09/21/19 21 9:01 AM EST documented as of this encounter Care Teams Real Estate Manager Relationship Specialty Start Date End Date Rae Torres MD [address] [place] [address] [email or web address] PCP - General Internal Medicine 04/30/21 Michael Schofield MD [address] [facility] [place] [address] [email or web address] Historical LMR Provider 07/02/17 Mo Hernandez MD [address] [facility] Floor 1 [place] [address] [email or web address] Historical LMR Provider 07/02/17 documented as of this encounter Additional Source Comments The information contained in this document represents components of the legal health record. It is not the complete legal health record.[facility]
--- OUTSIDE RECORDS SUMMARY | 2025-05-27 13:59 | XMS_ITS | Encounter Summary ---
Author Organization [facility] Address [address] [place] [address] Phone Care Team Providers Care Credit Assessment Analyst Name Role Phone Michael Schofield MD Unavailable [phone] Mo Hernandez MD Unavailable Rae Torres MD Primary Care Provider Encounter Details Date Type Department Care Team (Late st Contact Info) Description 11/09/2024 Procedure Pass [facility], Ct Scan - [address] [address] Social History Tobacco Use Types Packs/Day Years [...] 11/09/2024 8:23 PM Samira Sanchez RN * [place] Suicide Severity Rating Scale (Screener/Recent Self-Report) Question [...] documented as of this encounter Care Teams Credit Assessment Analyst Relationship Specialty Start Date End Date Rae Torres MD [address] [place] [address] PCP - General Internal Medicine 04/30/21 Michael Schofield MD [address] [place] [address], [address] [place] [address] Historical LMR Provider 07/02/17 Mo Hernandez MD [address] [facility] 1 [place] [address] [email or web address] Historical LMR Provider 07/02/17 documented as of this encounter Additional Source Comments The information contained in this document represents components of the legal health record. It is not the complete legal health record.[facility]
--- OUTSIDE RECORDS SUMMARY | 2025-05-27 13:59 | XMS_ITS | Encounter Summary ---
Author Organization [facility] Address [address] [facility] [address] [place] [address] Phone Care Team Providers Care Explosive Expert Name Role Phone Michael Schofield MD Unavailable [phone] Mo Hernandez MD Unavailable Rae Torres MD Primary Care Provider [phone] Encounter Details Date Type Department Care Team (Late st Contact Info) Description 11/15/2022 Ancillary Orders [facility] [address] [place] [address] Samantha Galarza PA [address] [place] [address] [email or web address] Social History Tobacco Use Types Packs/Day Years [...] Noted Time PHQ-2 Depression Total Score: 0 01/11/20 21 9:01 AM EST documented as of this encounter Care Teams Explosive Expert Relationship Specialty Start Date End Date Rae Torres MD [address] [place] [address] [email or web address] PCP - General Internal Medicine 04/30/21 Michael Schofield MD [address] [facility] [place] [address] [email or web address] Historical LMR Provider 07/02/17 Mo Hernandez MD [address] [facility] Floor 1 [place] [address] [email or web address] Historical LMR Provider 07/02/17 documented as of this encounter Additional Source Comments The information contained in this document represents components of the legal health record. It is not the complete legal health record.[facility]
--- OUTSIDE RECORDS SUMMARY | 2025-05-27 13:59 | XMS_ITS | Encounter Summary ---
Author Organization [facility] Address [address] [place] [address] Phone Care Team Providers Care Predictive Maintenance Technician Name Role Phone Anderson Rachel MD Unavailable [phone] Pat Almodovar MD Unavailable [phone] Christen Wheeler NP Unavailable Addie Correia DPM Unavailable Unavailable Michael Schofield MD Unavailable [phone] Mo Hernandez MD Unavailable [phone] Ryne Diaz MD Unavailable [phone] Sallie Uriostegui DO Primary Care Provider + [phone] Harrison Lew MD Primary Care Provider [phone] Rae Torres MD Primary Care Provider [phone] Encounter Details Date Type Department Care Team (Late st Contact Info) Description 03/26/2020 Procedure Pass [facility] Admitting Dept Virtual Department 30 [place], [place] [phone] Social History Tobacco Use Types Packs/Day Years Used Date Smoking Tobacco: Former Cigarettes Q uit: 1979 Smokeless Tobacco: Never Alcohol Use Standard Drinks/Week [...] filedocumented in this encounter Additional Health Concerns Infection Onset Date Last Indicated Resolved Time CoV-Risk 12/14/2021 12/15/2021 12/26/2021 1:21 AM EDT CoV-Risk 03/02/2022 03/02/2022 03/03/2022 8:22 AM EDT COVID-19 03/02/2022 03/02/2022 03/23/2022 1:23 AM EDT Assessment Noted Time PHQ-2 Depression Total Score: 0 09/16/19 11:11 AM EST documented as of this encounter Care Teams Predictive Maintenance Technician Relationship Specialty Start Date End Date Sallie Uriostegui DO [address] [place] [address] [email or web address] PCP - General 09/14/18 01/14/21 Harrison Lew MD [address] [place] [address], [address] [address] PCP - General Internal Medicine 01/15/21 04/29/21 Rae Torres MD [address] [place] [email or web address] PCP - General Internal Medicine 04/30/21 Anderson Rachel MD [address] [place] [address], [address] [address] [email or web address] Historical LMR Provider 07/02/17 09/18/21 Pat Almodovar MD [address] [place] [address] Historical LMR Provider 07/02/17 09/18/21 Christen Wheeler NP [address] [place] [address] [address] [address] [email or web address] Historical LMR Provider 07/02/17 09/18/21 Addie Correia DPM [address] [place] [address] Historical LMR Provider 07/02/1709/18/21 Michael Schofield MD [address] [place] [address], [address] [place] [address] [email or web address] Historical LMR Provider 07/02/17 Mo Hernandez MD [address] [facility] Floor 1 [place] [address] [email or web address] Historical LMR Provider 07/02/17 Ryne Diaz MD [address] [place] [address] Historical LMR Provider 07/02/17 2 documented as of this encounter Additional Source Comments The information contained in this document represents components of the legal health record. It is not the complete legal health record.[facility]
--- OUTSIDE RECORDS SUMMARY | 2025-05-27 13:59 | XMS_ITS | Encounter Summary ---
Author Organization [facility] Address [address] [facility] [address] [place] [address] Phone Care Team Providers Care Groundskeeping Maintenance Name Role Phone Michael Schofield MD Unavailable [phone] Mo Hernandez MD Unavailable Rae Torres MD Primary Care Provider Encounter Details Date Type Department Care Team (Late st Contact Info) Description 08/01/2024 Procedure Pass [facility], Ct Scan - [address] [address] Social History Tobacco Use Types Packs/Day Years [...] as food, clothing, or medical care? No 08/01/2024 In the past 12 months have y ou been in a relationship with a person who hurts, threatens, or tries to control you? No 08/01/2024 Are you denied basic needs s uch as food, clothing, or medical care? No 08/01/2024 In the past 12 months have y ou been in a relationship with a person who hurts, threatens, or tries to control you? No 08/01/2024 Sex and Gender Information Value Date Recorded Sex Assigned at Male 03/16/2020 8:36 AM EDT Legal Sex Male 9:58 PM EDT Gender Identity Male 03/16/2020 8:36 AM EDT Sexual Orientation Straight 02/14/2025 5: 32 AM EDT documented as of this encounter Functional Status * Calculated C-SSRS Risk Score (Lifetime/Recent) Answer Date of Assessment Author No Risk Indicated 08/01/2024 12:36 PM Ashlie Salazar RN * [place] Suicide Severity Rating Scale (Screener/Recent Self-Report) Question Answer Date of Assessment Author 1. Wish to be (Past 1 Month) No 024 12:36 PM Ashlie Salazar RN 2. Non-Specific Active Suici santiago Thoughts (Past 1 Month) No 08/01/2024 12:36 PM Claudia Salazar RN 6. Suicidal Behavior (Lifetime) No 12:36 PM Ashlie Salazar RN documented as of this encounter Plan of Treatment Not on file documented as of this encounter Visit Diagnoses Not on filedocumented in this encounter Additional Health Concerns Assessment Noted Time PHQ-2 Depression Total Score: 0 09/21/19 9:01 AM EST documented as of this encounter Care Teams Groundskeeping Maintenance Relationship Specialty Start Date End Date Rae Torres MD [address] [place] [address] PCP - General Internal Medicine 04/30/21 Michael Schofield MD [address] [place] [address], [address] [place] [address] Historical LMR Provider 07/02/17 Mo Hernandez MD [address] [facility] Floor 1 [place] [address] [email or web address] Historical LMR Provider 07/02/17 documented as of this encounter Additional Source Comments The information contained in this document represents components of the legal health record. It is not the complete legal health record.[facility]
--- OUTSIDE RECORDS SUMMARY | 2025-05-27 13:59 | XMS_ITS | Encounter Summary ---
Author Organization [facility] Address [address] [facility] [address] [place] [address] Phone Care Team Providers Care General Magistrate Name Role Phone Michael Schofield MD Unavailable [phone] Mo Hernandez MD Unavailable Rae Torres MD Primary Care Provider [phone] Encounter Details Date Type Department Care Team (Latest Contact Info) Description 03/02/2022 Transcribe Orders Virtual Department 30 [place] [address] Samantha Galarza PA [address] [place] [address] [email or web address] Encounter for laboratory testing for COVID-19 virus (Primary Dx) Social History Tobacco Use Types [...] this encounter Results * COVID-19 PCR Order (03/02/2022 1:02 PM EDT) COVID Testing Status Specimen received in analyzing lab. Results should be available within 24 to 48 hrs. [facility] Symptomatic? YES [facility] Other 03/02/2022 1:02 PM EDT 03/02/2022 1:53 PM EDT us Samantha WATERS BODY FLUIDS AND STOOLS ORDERABL ES Final Result [facility] [address] [place] [address] [facility] [address] [place] [address] documented in this encounter Visit Diagnoses Diagnosis Encounter for laboratory testing for COVID-19 virus- Primary documented in this encounter Additional Health Concerns Infection Onset Date Last Indicated Resolved Time CoV-Risk 03/02/2022 03/02/2022 03/03/2022 8:22 AM EDT COVID-19 03/02/2022 03/02/2022 03/23/2022 1:23 AM EDT Assessment Noted Time PHQ-2 Depression Total Score: 0 09/21/19 21 9:01 AM EST documented as of this encounter Care Teams General Magistrate Relationship Specialty Start Date End Date Rae Torres MD [address] [place] [address] [email or web address] PCP - General Internal Medicine 04/30/21 Michael Schofield MD [address] [facility] [place] [address] [email or web address] Historical LMR Provider 07/02/17 Mo Hernandez MD [address] [facility] Floor 1 [place] [address] [email or web address] Historical LMR Provider 07/02/17 documented as of this encounter Additional Source Comments The information contained in this document represents components of the legal health record. It is not the complete legal health record.[facility]
--- OUTSIDE RECORDS SUMMARY | 2025-05-27 13:59 | XMS_ITS | Clinical Summary ---
Author Organization [facility] Address [address] [place] [address] Phone Care Team Providers Care Plastic Technician Name Role Phone Michael Schofield MD Unavailable [phone] Mo Hernandez MD Unavailable Rae Torres MD Primary Care Provider Allergies Active Allergy Reactions Criticality Noted Date Comments Montelukast Hives 03/04/2019 Penicillin Rash Low 04/12/2017 Medications rOPINIRole (REQUIP XL) 2 MG 24 hr tablet 1 tablet 7 Active cetirizine (ZYRTEC) 10 MG tablet 1 tablet Active rasagiline (AZILECT) 1 mg Take 1 mg by mouth daily. Active carbidopa-levodo pa (SINEMET CR) 25-100 mg per CR tablet Take 2 tablets by mouth 3 (three) times a day. Active assist device for inhaler DeviIndications: Mild intermittent asthma with acute exacerbation Use as directed with inhaler for asthma 1 Device 9 Active traZODone (DESYREL) 50 MG tablet Take 25 mg by mouth nightly at bedtime. Active tamsulosin (FLOMAX) 0.4 mg Cap TAKE 1 CAPSULE BY MOUTH EVERY DAY 90 capsule 3 0 Active MYRBETRIQ 50 mg Tb24 Take 50 mg by mouth daily. 0 Active psyllium (KONSYL-D) powder Take by mouth daily as needed. Active mirtazapine (REMERON) 7.5 MG tablet Take 7.5 mg by mouth nightly at bedtime. 0 Active SYMBICORT 160-4.5 mcg/actuation inhalerIndicatio ns:Mild intermittent asthma without complication Inhale 2 puffs into the lungs 2 (two) times a day. 3 Inhaler 6 1 Active Additional Information Patient not taking.Reported on 03/10/2025 lovastatin (MEVACOR) 20 MG tabletIndication s:Hyperlipidemia Take 1 tablet (20 mg total) by mouth daily with breakfast. 90 tablet 1 1 Active ID-droxidopa ([id number]) 200 mg Cap capsule Take 200 mg by mouth. Active fludrocortisone (FLORINEF) 0.1 mg tablet Take 0.1 mg by mouth daily. Active pimavanserin (NUPLAZID) 34 mg capsule Take 34 mg by mouth daily. Active finasteride (PROSCAR) 5 mg tablet Take 5 mg by mouth daily. Active trospium (SANCTURA) 20 mg tablet Take 20 mg by mouth 2 (two) times a day. Active Active Problems Problem Noted Date Diagnosed Date Primary insomnia 03/16/2020 Overview (03/16/2020): Currently on trazodone 25 mg at bedtime which does help him however he is getting approximately 4 to 5 hours of sleep per night. He has concerns about increasing the trazodone to 50 mg at bedtime as many medications can make him dizzy. Will trial at bedtime if he has dizziness to go back to the 25 mg dose. Hyperlipidemia 08/07/2017 Overview (03/16/2020): Chronic. Stable. Well-controlled on lovastatin 20 mg daily. Denies any myalgias. LFTs within normal limits. Sleep deprivation 08/07/2017 Chronic hypertension 08/07/2017 Overview (05/12/2020): Initially was on valsartan 80 mg daily however due to orthostatic dizziness and low BP secondary to intentional 10 pound weight loss we recently discontinued the valsartan completely. Dizziness is now resolved blood pressure is well controlled is 118/84 today. Patient to monitor blood pressure daily and report back. If consistently greater than 140/85 we will put him back on the valsartan. Hyperglycemia 08/07/2017 Intermittent asthma 08/07/2017 Overweight 08/07/2017 Parkinson disease 08/07/2017 Chronic fatigue 08/07/2017 BPH (benign prostatic hyperplasia) 08/07/2017 Allergic rhinitis 08/07/2017 Encounters Date Type Department Care Team Description 03/12/2025 5:39 AM EDT - 03/12/2025 9:43 PM EDT Emergency [facility] Emergency [address] [place] [id number] Michael Espinosa MD Discharge Disposition: Home or Self Care 03/12/[address] [address] 03/12/[address] [address] 03/11/2025 4:35 PM EDT - 03/11/2025 9:30 PM EDT Emergency [facility] Emergency [address] [place] [id number] Discharge Disposition: Home or Self Care 03/11/[address] [address] 03/10/2025 3:48 AM EDT - 03/10/2025 10:25 AM EDT Emergency [facility] Emergency [address] [place] [id number] Arnol Mesa, Jadiel Leon MD Discharge Disposition: Home or Self Care from Last 3 Months Immunizations Immunization Administration Dates Next Due COVID-19 (Pre-07/03) Pfizer Vaccine, mRNA, PF 12/01/2020,11/10/2020 Hepatitis A, Adult 09/19/2005 INFLUENZA, SPLIT VIRUS, TRIV ALENT W/ PRESERVATIVE IM 07/12/2016,06/05/2014,05/19/2013,06/10 Influenza High-Dose Quadriva lent Preservative Free IM 05/07/2020 Influenza High-Dose Trivalen t Preservative Free IM 06/14/2019 Influenza Quadrivalent Prese rvative Free IM 06/09/2015 Influenza Recombinant Annmarie valent Preservative Free IM 05/29/2018 Influenza, Intradermal, Quad rivalent, Preservative Free 08/10/2012 Influenza, Unspecified Formulation 06/22/2010 Pneumococcal conjugate PCV13 09/16/2019 Pneumococcal polysaccharide PPSV23 06/05/2014 Td, unspecified formulation 03/30/2005 Tdap 12/13/2013 Zoster live 07/08/2014 Zoster recombinant 02/20/2021 Family History Medical History Relation Comments Diabetes mellitus Father 2 Relation Status Comments Father 1 Father 2 Social History Tobacco Use Types Packs/Day Years [...] Orientation Straight 02/14/2025 5: 32 AM EDT Last Filed Vital Signs Vital Sign Reading Time Taken Comments Blood Pressure 143/81 03/12/2025 5:02 PM EDT Pulse 93 03/12/2025 5:02 PM EDT Temperature 36.6 C (97.9 F) 03/12/2025 7:28 AM EDT Respiratory Rate 14 03/12/2025 5:02 PM EDT Oxygen Saturation 100% 03/12/2025 5:02 PM EDT Inhaled Oxygen Concentration - - Weight 70.3 kg (155 lb) 03/11/2025 4:32 PM EDT Height 180.3 cm (5' 11 ) 03/11/2025 4:32 PM EDT Body Mass Index 21.62 03/11/2025 4:32 PM EDT Plan of Treatment Health Maintenance Due Date Last Done Comments BLOOD PRESSURE 1953 HEPATITIS C SCREENING 1971 COLOGUARD 1998 FIT TEST 1998 FOBT 1998 SIGMOIDOSCOPY 1998 VIRTUAL COLONOSCOPY 1998 ABDOMINAL AORTIC ANEURYSM (AAA) SCREENING 2018 DEPRESSION SCREENING 09/21/2021 09/21/2020 PNEUMOCOCCAL VACCINES (50+ years) (3 of 3 - PCV20 or PCV21) 09/16/2024 09/16/2019, 06/05/2014 INFLUENZA VACCINE (#1) 2025 , 07/07/2022, 07/16/2021, Additional history exists COVID-19 VACCINE ( season) 2025 06/23/2023, 06/30/2022, 07/08/2021, Additional history exists SMOKING Hx and SMOKELESS TOBACCO SCREENING 03/10/2026 03/10/2025 LIPID PANEL 05/21/2029 05/21/2024, 04/0 10/2023, 05/22/2023, Additional history exists COLONOSCOPY 03/26/2030 03/26/2020 COLORECTAL CANCER SCREENING 03/26/2030 Adult Td,Tdap Booster 05/20/2032 05/20/2022 , 12/13/2013, 03/30/2005 HEPATITIS A VACCINES Aged Out 09/19/2005 No long er eligible based on patient's age to complete this topic ZOSTER VACCINES Completed 06/11/2021, 02/09, 07/08/2014 RSV VACCINE Completed 07/28/2023 HIB VACCINES Aged Out No longer eligi ble based on patient's age to complete this topic MENINGOCOCCAL VACCINES (ACWY) Aged Out No longer eligible based on patient's age to complete this topic MENINGOCOCCAL VACCINES (B) Aged Out N o longer eligible based on patient's age to complete this topic Medical Devices Not on file Procedures Procedure Name Priority Date/Time Associated Diagnosis Comments URINE SEDIMENT STAT 03/12/2025 6:30 AM EDT URINALYSIS W/REFLEX URINE CULTURE STAT 03/12/2025 6:30 AM EDT POCT GLUCOSE Routine 03/12/2025 6:11 AM EDT MAGNESIUM STAT 03/12/2025 6:02 AM EDT LFTS (HEPATIC PANEL) STAT 03/12/2025 6:02 AM EDT BASIC METABOLIC PANEL STAT 03/12/2025 6:02 AM EDT CBC AND DIFFERENTIAL STAT 03/12/2025 6:02 AM EDT ECG 12-LEAD STAT 03/12/2025 5:54 AM EDT POCT GLUCOSE Routine 03/12/2025 5:[address] HEAD WITHOUT CONTRAST Routine 03/12/2025 5:[address] CERVICAL SPINE WITHOUT CONTRAST Routine 03/12/2025 5:[address] HEAD WITHOUT CONTRAST Routine 03/11/2025 7:35 PM EDT ECG 12-LEAD STAT 03/10/2025 5:05 AM EDT URINALYSIS W/REFLEX URINE CULTURE STAT 03/10/2025 4:49 AM EDT MAGNESIUM STAT 03/10/2025 4:27 AM EDT LFTS (HEPATIC PANEL) STAT 03/10/2025 4:27 AM EDT BASIC METABOLIC PANEL STAT 03/10/2025 4:27 AM EDT CBC AND DIFFERENTIAL STAT 03/10/2025 4:27 AM EDT LIPID PANEL Routine 05/21/2024 7:24 AM EDT Hyperlipidemia, unspecified hyperlipidemia type ENDOSCOPY, COLON 03/26/2020 7:20 AM EDT from Last 3 Months or Most Recently Relevant to Health Maintenance Results * (ABNORMAL) Urinalysis w/reflex Urine Culture (03/12/2025 6:30 AM EDT) Only the most recent of2 resultswithin the time period is included. COLOR Yellow Yellow [facility] CLARITY Clear [facility] GLUCOSE 1+(A) Negative [facility] BILI Negative Negative [facility] KETONES Negative Negative [facility] SPECIFIC GRAVITY <1.005 1.005 - 1.030 [facility] BLOOD 2+(A) Negative [facility] PH 6.0 5.0 - 8.0 [facility] Protein-UA Negative Negative [facility] NITRITE Negative Negative [facility] Leukocyte esterase, ur Negative Negative [facility] Urine (Urine) 03/12/2025 6:3 0 AM EDT 03/12/2025 6:48 AM EDT us Ivett Lin MD URINE ORDERABLES Final Re sult Performing Organization Address City/[facility]/ZIP Co de Phone Number [address] [address] * (ABNORMAL) Urine sediment (03/12/2025 6:30 AM EDT) WBC 0-4(A) NONE SEEN /hpf [facility] RBC 11-20(A) NONE SEEN /hpf [facility] URINE EPITHELIAL 0-4(A) NONE SEEN [facility] MUCUS NONE SEEN NONE SEEN /hpf [facility] BACTERIA Trace(A) NONE SEEN /hpf [facility] 03/12/2025 6:30 AM EDT 03/12/2025 6:48 AM EDT us Ivett Lin MD URINE ORDERABLES Final Re sult Performing Organization Address City/[facility]/ZIP Co de Phone Number [address] [address] * (ABNORMAL) POCT Glucose (03/12/2025 6:11 AM EDT) Only the most recent of2 resultswithin the time period is included. Glucose, POCT 150(H) 70 - 100 mg/dL [facility] 03/12/2025 6:11 AM EDT 03/12/2025 6:14 AM EDT us Unknown Unknown POINT OF CARE TEST ORDERABLES Final Result Performing Organization Address [facility] Co de Phone Number [address] [address] * (ABNORMAL) LFTs (hepatic panel) (03/12/2025 6:02 AM EDT) Only the most recent of2 resultswithin the time period is included. ALKALINE PHOSPHATASE 99 39 - 117 U/L [facility] TOTAL BILIRUBIN 1.1 0.0 - 1.2 mg/dL [facility] DIRECT BILIRUBIN 0.3(H) 0.0 - 0.2 mg/dL [facility] Bilirubin (Indirect) 0.8 0 - 1.5 mg/dL [facility] AST 16 0 - 37 U/L [facility] ALT 7 0 - 40 U/L [facility] TOTAL PROTEIN 6.6 6.5 - 8.0 g/dL [facility] ALBUMIN 4.0 3.9 - 4.8 g/dL [facility] GLOBULIN 2.6 1 - 4.8 g/dL [facility] A/G Ratio 1.54 1.00 - 4.80 RATIO [facility] Blood 03/12/2025 6:02 AM EDT 03/12/2025 6:06 AM EDT us Ivett Lin MD LAB BLOOD ORDERABLES Marie l Result Performing Organization Address [facility] Co de Phone Number [address] [address] * (ABNORMAL) CBC and differential (03/12/2025 6:02 AM EDT) Only the most recent of2 resultswithin the time period is included. WBC 5.42 4.00 - 11.00 K/uL [facility] RBC 4.89 4.50 - 5.90 M/uL [facility] HGB 14.2 13.5 - 17.5 g/dL [facility] HCT 42.9 41.0 - 53.0 % [facility] PLT 226 150 - 450 K/uL [facility] MCV 87.7 80.0 - 100.0 fL [facility] MCH 29.0 27.0 - 31.0 pg [facility] MCHC 33.1 32.0 - 36.0 g/dL [facility] RDW 12.5 11.5 - 14.5 % [facility] MPV 9.4 8.4 - 12.0 fL [facility] NRBC 0.00 0.00 /100 WBCs [facility] ABSOLUTE NRBC 0.00 0.00 K/uL [facility] DIFF METHOD Auto [facility] NEUTS 61.4 48.0 - 76.0 % [facility] LYMPHS 23.4 18.0 - 41.0 % [facility] MONOS 12.2(H) 4.0 - 11.0 % [facility] EOS 2.0 0.0 - 5.0 % [facility] BASOS 0.6 0.0 - 1.5 % [facility] Granulocytes, immature (%) 0.4 0.0 - 0.9 % [facility] ABSOLUTE NEUTS 3.33 1.92 - 7.60 K/uL [facility] ABSOLUTE LYMPHS 1.27 0.72 - 4.10 K/uL [facility] ABSOLUTE MONOS 0.66 0.16 - 1.10 K/uL [facility] ABSOLUTE EOS 0.11 0.00 - 0.50 K/uL [facility] ABSOLUTE BASOS 0.03 0.00 - 0.15 K/uL [facility] Granulocytes, immature 0.02 0.00 - 0.09 K/uL [facility] Blood 03/12/2025 6:02 AM EDT 03/12/2025 6:06 AM EDT us Ivett Lin MD LAB BLOOD ORDERABLES Marie manriquez Result [address] [address] * Magnesium (03/12/2025 6:02 AM EDT) Only the most recent of2 resultswithin the time period is included. MAGNESIUM 2.1 1.6 - 2.6 mg/dL [facility] Blood 03/12/2025 6:02 AM EDT 03/12/2025 6:06 AM EDT Ivett Lin MD LAB BLOOD ORDERABLES Marie l Result Performing Organization Address [facility]/ZIP Co de Phone Number [address] [address] * (ABNORMAL) Basic metabolic panel (03/12/2025 6:02 AM EDT) Only the most recent of2 resultswithin the time period is included. SODIUM 140 133 - 146 mmol/L [facility] CHLORIDE 102 96 - 108 mmol/L [facility] POTASSIUM 3.6 3.3 - 5.1 mmol/L [facility] CO2 31 21 - 35 mmol/L [facility] BUN 14 6 - 19 mg/dL [facility] CREATININE 0.70 0.5 - 1.5 mg/dL [facility] GLUCOSE 174(H) 70 - 99 mg/dL [facility] CALCIUM 8.8 8.4 - 10.3 mg/dL [facility] EGFR 99 >59 mL/min/1.7 3m2 [facility] Comment:Estimated glomerular filtration rate calculated using the CKD-EPI refit equation. ANION GAP 11 10 - 20 mmol/L [facility] Blood 03/12/2025 6:02 AM EDT 03/12/2025 6:06 AM EDT us Ivett Lin MD LAB BLOOD ORDERABLES Marie l Result Performing Organization Address City/[facility]/ZIP Co de Phone Number [address] [address] * ECG 12-LEAD (03/12/2025 5:54 AM EDT) Only the most recent of2 resultswithin the time period is included. Ventricular Rate EKG/MIN 76 BPM [facility] Atrial Rate 76 BPM [facility] NH Interval 168 ms [facility] QRS Duration 82 ms [facility] QT Interval 390 ms [facility] QTC Interval 438 ms [facility] P Anthon 48 degrees [facility] R Wave Anthon -8 degrees [facility] T Wave Anthon 41 degrees [facility] 03/12/2025 5:54 AM EDT 03/12/2025 10:12 AM EDT Narrative [facility] - 03/12/2025 10:12 AM EDT Sinus rhythm with Premature atrial complexes Otherwise normal ECG When compared with ECG of 10-Mar-2025 05:05, No significant change was found Confirmed by Jonathan FERRER ([id number]) on 03/12/2025 10:12:36 AM us Joey Lebron MD ECG ORDERABLES Final Result [facility] * CT HEAD WITHOUT CONTRAST (03/12/2025 5:47 AM EDT) Anatomical Region Laterality Modality Head Computed Tomogra phy 03/12/2025 7:04 AM EDT Impressions 03/12/2025 7:35 AM EDT 1. No acute intracranial findings. 2. No acute fracture or traumatic malalignment of the cervical spine. Narrative 03/12/2025 7:[address] CERVICAL SPINE WITHOUT CONTRAST, CT HEAD WITHOUT CONTRAST Referring clinician's provided indication for this examination in Epic: * Neck trauma (Age >= 65y); fall this morning TECHNIQUE: CTs of the head and cervical spine were performed without intravenous contrast using tailored dose modulation techniques. Images were reconstructed in the axial, coronal, and sagittal planes. COMPARISON: 02/14/2025 FINDINGS: HEAD: Brain Parenchyma: No midline shift, mass effect, parenchymal hemorrhage, or evidence of acute territorial infarct. Hypodensities in the periventricular white matter, likely a manifestation of chronic small vessel disease. Ventricular System and Extra-Axial Spaces: Normal. No extra-axial fluid collections. Basal cisterns are patent. No hydrocephalus. Osseous and Extracranial Structures: No calvarial fracture. Right soft tissue hematoma. No significant paranasal sinus disease. No orbital abnormality. CERVICAL SPINE: Alignment and Vertebrae: Alignment is normal. Vertebral bodies and posterior elements are intact. Discs and Endplates: Multilevel degenerative changes. Other Findings: Heterogeneous thyroid. Vascular calcifications. Degenerative changes hilar complaining of the abdomen adjacent worse with a 03/11/2025 multiplanar, abdomen and blunting of the evaluation. The teaching GI CT Proc Adrenal Bx: In the lateral Procedure Note Eileen Beasley MD, JANEY - 03/12/2025 CT CERVICAL SPINE WITHOUT CONTRAST, CT HEAD WITHOUT CONTRAST Referring clinician's provided indication for this examination in Epic: *Neck trauma (Age >= 65y); fall this morning TECHNIQUE: CTs of the head and cervical spine were performed withoutintravenous contrast using tailored dose modulation techniques. Imageswere reconstructed in the axial, coronal, and sagittal planes. COMPARISON: 02/14/2025 FINDINGS: HEAD: Brain Parenchyma: No midline shift, mass effect, parenchymal hemorrhage,or evidence of acute territorial infarct. Hypodensities in theperiventricular white matter, likely a manifestation of chronic smallvessel disease. Ventricular System and Extra-Axial Spaces: Normal. No extra-axial fluidcollections. Basal cisterns are patent. No hydrocephalus. Osseous and Extracranial Structures: No calvarial fracture. Right softtissue hematoma. No significant paranasal sinus disease. No orbitalabnormality. CERVICAL SPINE: Alignment and Vertebrae: Alignment is normal. Vertebral bodies andposterior elements are intact. Discs and Endplates: Multilevel degenerative changes. Other Findings: Heterogeneous thyroid. Vascular calcifications.Degenerative changes hilar complaining of the abdomen adjacent worse witha 03/11/2025 multiplanar, abdomen and blunting of the evaluation. Theteaching GI CT Proc Adrenal Bx: In the lateral IMPRESSION: 1. No acute intracranial findings. 2. No acute fracture or traumatic malalignment of the cervical spine. Ivett Lin MD IMG CT HEAD/NECK Final Re sult * CT CERVICAL SPINE WITHOUT CONTRAST (03/12/2025 5:47 AM EDT) Anatomical Region Laterality Modality C-spine Computed Tomogra phy 03/12/2025 7:04 AM EDT Impressions 03/12/2025 7:35 AM EDT 1. No acute intracranial findings. 2. No acute fracture or traumatic malalignment of the cervical spine. Narrative 03/12/2025 7:[address] CERVICAL SPINE WITHOUT CONTRAST, CT HEAD WITHOUT CONTRAST Referring clinician's provided indication for this examination in [facility]: * Neck trauma (Age >= 65y); fall this morning TECHNIQUE: CTs of the head and cervical spine were performed without intravenous contrast using tailored dose modulation techniques. Images were reconstructed in the axial, coronal, and sagittal planes. COMPARISON: 02/14/2025 FINDINGS: HEAD: Brain Parenchyma: No midline shift, mass effect, parenchymal hemorrhage, or evidence of acute territorial infarct. Hypodensities in the periventricular white matter, likely a manifestation of chronic small vessel disease. Ventricular System and Extra-Axial Spaces: Normal. No extra-axial fluid collections. Basal cisterns are patent. No hydrocephalus. Osseous and Extracranial Structures: No calvarial fracture. Right soft tissue hematoma. No significant paranasal sinus disease. No orbital abnormality. CERVICAL SPINE: Alignment and Vertebrae: Alignment is normal. Vertebral bodies and posterior elements are intact. Discs and Endplates: Multilevel degenerative changes. Other Findings: Heterogeneous thyroid. Vascular calcifications. Degenerative changes hilar complaining of the abdomen adjacent worse with a 03/11/2025 multiplanar, abdomen and blunting of the evaluation. The teaching GI CT Proc Adrenal Bx: In the lateral Procedure Note Eileen Beasley MD, JANEY - 03/12/2025 CT CERVICAL SPINE WITHOUT CONTRAST, CT HEAD WITHOUT CONTRAST Referring clinician's provided indication for this examination in [facility]: *Neck trauma (Age >= 65y); fall this morning TECHNIQUE: CTs of the head and cervical spine were performed withoutintravenous contrast using tailored dose modulation techniques. Imageswere reconstructed in the axial, coronal, and sagittal planes. COMPARISON: 02/14/2025 FINDINGS: HEAD: Brain Parenchyma: No midline shift, mass effect, parenchymal hemorrhage,or evidence of acute territorial infarct. Hypodensities in theperiventricular white matter, likely a manifestation of chronic smallvessel disease. Ventricular System and Extra-Axial Spaces: Normal. No extra-axial fluidcollections. Basal cisterns are patent. No hydrocephalus. Osseous and Extracranial Structures: No calvarial fracture. Right softtissue hematoma. No significant paranasal sinus disease. No orbitalabnormality. CERVICAL SPINE: Alignment and Vertebrae: Alignment is normal. Vertebral bodies andposterior elements are intact. Discs and Endplates: Multilevel degenerative changes. Other Findings: Heterogeneous thyroid. Vascular calcifications.Degenerative changes hilar complaining of the abdomen adjacent worse witha 03/11/2025 multiplanar, abdomen and blunting of the evaluation. Theteaching GI CT Proc Adrenal Bx: In the lateral IMPRESSION: 1. No acute intracranial findings. 2. No acute fracture or traumatic malalignment of the cervical spine. Ivett Lin MD IMG CT XSPECIALTY ORDERAB LES Final Result * CT HEAD WITHOUT CONTRAST (03/11/2025 7:35 PM EDT) Anatomical Region Laterality Modality Head Computed Tomogra phy 03/11/2025 8:47 PM EDT Impressions 03/11/2025 9:16 PM EDT 1. No acute intracranial findings. 2. Left periorbital swelling/small hematoma without underlying fracture. ATTESTATION: I, Memo Martins as teaching physician, have reviewed the images for this case and if necessary edited the report originally created by Aparna Hall MD. Narrative 03/11/2025 9:[address] HEAD WITHOUT CONTRAST Referring clinician's provided indication for this examination in Epic: * Head trauma, minor (Age >= 65y) TECHNIQUE: CT of the head was performed without intravenous contrast using tailored dose modulation techniques. Images were reconstructed in the axial, coronal, and sagittal planes. COMPARISON: CT HEAD WITHOUT CONTRAST FINDINGS: Brain Parenchyma: No midline shift, mass effect, parenchymal hemorrhage, or evidence of acute territorial infarct. Ventricular System and Extra-Axial Spaces: Similar prominent ventricles. No extra-axial fluid collections. Basal cisterns are patent. No hydrocephalus. Osseous and Extracranial Structures: No calvarial fracture. No significant paranasal sinus disease. Right supraorbital/palpebral swelling without underlying fracture. No intraorbital hematoma. Procedure Note Memo Martins MD - 03/11/2025 CT HEAD WITHOUT CONTRAST Referring clinician's provided indication for this examination in Epic: *Head trauma, minor (Age >= 65y) TECHNIQUE: CT of the head was performed without intravenous contrast usingtailored dose modulation techniques. Images were reconstructed in theaxial, coronal, and sagittal planes. COMPARISON: CT HEAD WITHOUT CONTRAST FINDINGS: Brain Parenchyma: No midline shift, mass effect, parenchymal hemorrhage,or evidence of acute territorial infarct. Ventricular System and Extra-Axial Spaces: Similar prominent ventricles.No extra-axial fluid collections. Basal cisterns are patent. Nohydrocephalus. Osseous and Extracranial Structures: No calvarial fracture. No significantparanasal sinus disease. Right supraorbital/palpebral swelling withoutunderlying fracture. No intraorbital hematoma. IMPRESSION: 1. No acute intracranial findings. 2. Left periorbital swelling/small hematoma without underlying fracture. ATTESTATION: I, Memo Martins as teaching physician, have reviewed theimages for this case and if necessary edited the report originally createdby Aparna Hall MD. Ashlie Barron PA-C IMG CT HEAD/NECK Final Resul t * (ABNORMAL) Lipid panel (05/21/2024 7:24 AM EDT) HDL 55 mg/dL [facility] Comment: Interpretation <40 mg/dL: Low HDL cholesterol (major risk factor for CHD) Greater than or equal to 60 mg/dL: High HDL cholesterol ( negative risk factor for CHD) HDL - cholesterol is affected by a number of factors, e.g. smoking, excerise, hormones, sex and age. CHOLESTEROL 134 0 - 240 mg/dL [facility] TRIGLYCERIDES 46 30 - 160 mg/dL [facility] LDL 70 50 - 129 mg/dL [facility] Comment: LDL levels in terms of risk for coronary heart disease: <100 mg/dL: Optimal 100-129 mg/dL: Near or above optimal 130-159 mg/dL: Borderline high 160-189 mg/dL: High >190 mg/dL: Very High CARDIAC RISK RATIO 2.4(L) 3.4 - 5.0 C [facility] Blood 05/21/2024 7:24 AM EDT 05/21/2024 7:27 AM EDT us Rae Torres MD LAB BLOOD ORDERABLES Final Result [address] [address] * ENDOSCOPY, COLON (03/26/2020 7:20 AM EDT) Narrative Transcriptions Daisy Zabala MD - 03/26/2020 7:20 AM EDT Patient Name: Travis Pedraza Attending MD:: DAISY ZABALA MD Procedure Date: 03/26/2020 7:20 AM Date of : 1955 Age: 64 Admit Type: Outpatient Gender: Male Room: [place] [address] Referring MD: Sallie Uriostegui Exam Type: Colonoscopy Indications: High risk colon cancer surveillance: Personalhistory of colonic polyps, Last colonoscopy: February 2016 Medications: Propofol per Anesthesia Procedure: Informed consent was obtained from the patient after discussion of the indications, limitations, alternatives, benefits, and risks of the procedure. Risks specifically discussed include but are not limited to medication reactions, missed lesions, bleeding, perforation, or the need for emergentsurgery. Throughout the procedure, the patient's bloodpressure, pulse, end-tidal CO2, and oxygen saturations were monitored continuously. The Olympus adult variable colonoscope CF-[id number] #1was introduced through the anus and advanced to thececum, identified by appendiceal orifice and ileocecalvalve. The ileocecal valve, appendiceal orifice, and rectum were photographed. The colonoscopy was performed without difficulty. The patient tolerated theprocedure well. The quality of the bowel preparation was good. The bowel preparation used was GoLYTELY via splitdose instruction. Complications: No immediate complications. Estimated blood loss:None. Findings: The perianal and digital rectal examinations were normal. Pertinent negatives include normal prostate (size, shape, and consistency). The retroflexed view of the distal rectum and anal verge was normal and showed no anal or rectal abnormalities. A 12 mm polyp was found in the distal transversecolon. The polyp was pedunculated, very short stalk. Thepolyp was removed with a hot snare. Resection andretrieval were complete, fragmented polyp. The exam was otherwise without abnormality. Retroflexion in the right colon was performed. Impression: - The distal rectum and anal verge are normal on retroflexion view. - One 12 mm polyp in the distal transverse colon, removed with a hot snare. Resected and retrieved. - The examination was otherwise normal. Recommendation: - No aspirin, ibuprofen, naproxen, or other non-steroidal anti-inflammatory drugs for 2 weeksafter polyp removal. - Repeat colonoscopy in 3 years for surveillance. DAISY ZABALA MD 03/26/2020 8:04:32 AM This report has been signed electronically. Number of Addenda: 0 Note Initiated On: 03/26/2020 7:20 AM Procedure Code(s): --- Professional --- 14060, Colonoscopy, flexible; with removal of tumor(s), polyp(s), or other lesion(s) by snare technique --- Technical --- 89788, Colonoscopy, flexible; with removal of tumor(s), polyp(s), or other lesion(s) by snare technique Diagnosis Code(s): --- Professional --- Z86.010, Personal history of colonic polyps D12.3, Benign neoplasm of transverse colon (hepatic flexure or splenic flexure) --- Technical --- Z86.010, Personal history of colonic polyps D12.3, Benign neoplasm of transverse colon (hepatic flexure or splenic flexure) CPT copyright 2018 [employer]. All rights reserved. The codes documented in this report are preliminary and upon sales host reviewmay be revised to meet current compliance requirements. Procedure Date: 03/26/2020 7:20:[address] [place] [address] Sallie Uriostegui DO GI PROCEDURE ORDERABLES Fi nal Result from Last 3 Months or Most Recently Relevant to Health Maintenance Insurance Exchange [employer] MEDICARE SUPPLEMENT MEDICARE PART A & B [facility] EXTENSION MEDICARE SUPPLEMENT MEDICARE PART A & [facility]ION MEDICARE SUPPLEMENT MEDICARE PART A & [place] [id number] [facility] MEDICARE SUPPLEMENT MEDICARE PART A & B [facility] MEDICARE SUPPLEMENT MEDICARE PART A & B [facility] MEDICARE SUPPLEMENT MEDICARE PART A & B [facility] EXTENSION MEDICARE SUPPLEMENT MEDICARE PART A & B [facility] SUPPLEMENT MEDICARE PART A & B [employer] [facility] MEDICARE SUPPLEMENT MEDICARE PART A & B Care Teams Plastic Technician Relationship Specialty Start Date End Date Rae Torres MD [address] [place] [address] [email or web address] PCP - General Internal Medicine 04/30/21 Michael Schofield MD [address] [facility] [place] [address] [email or web address] Historical LMR Provider 07/02/17 Mo Hernandez MD [address] [facility] Floor 1 [place] [address] [email or web address] Historical LMR Provider 07/02/17 Additional Source Comments The information contained in this document represents components of the legal health record. It is not the complete legal health record.[facility]
--- OUTSIDE RECORDS SUMMARY | 2025-05-27 13:59 | XMS_ITS | Encounter Summary ---
Author Organization [facility] Address [address] [facility] [address] [place] [address] Phone Care Team Providers Care Advertising Teacher Name Role Phone Michael Schofield MD Unavailable [phone] Mo Hernandez MD Unavailable [phone] Rae Torres MD Primary Care Provider Encounter Details Date Type Department Care Team (Late st Contact Info) Description 02/14/2025 Procedure Pass [facility], Ct Scan - [address] [address] Social History Tobacco Use Types Packs/Day Years [...] before we got money to buy more. Never True 02/14/2025 Within the past 6 months the food we bought just didn't last and we didn't have enough money to get more. Never True Residential Stability Answer Date Recor ded What is your housing situation today? I have dimitri murillo 02/14/2025 How many times have you move d in the past 12 months? Zero (I did not move) 02/14/2025 Paying for Meds Answer Date Recorded Do you have trouble paying for medicines? No 02/14/2025 Paying Utility Bills Answer Date Record ed Do you have trouble paying your heating or elect ricity bill? No 02/14/2025 Transportation Answer Date Recorded Has the lack of transportati on kept you from medical appointments or from getting medications? No 02/14/2025 Digital Access Answer Date Recorded No 02/14/2025 Yes 02/14/2025 Do you have reliable internet access at home? Ye s 02/14/2025 Do you have a device (e.g., phone, tablet, computer) with a working camera? Yes 02/14/2025 Intimate Partner Violence Answer Date R ecorded Are you denied basic needs s uch as food, clothing, or medical care? No 02/14/2025 In the past 12 months have y ou been in a relationship with a person who hurts, threatens, or tries to control you? No 02/14/2025 Are you denied basic needs s uch as food, clothing, or medical care? No 02/14/2025 In the past 12 months have y ou been in a relationship with a person who hurts, threatens, or tries to control you? No 02/14/2025 Sex and Gender Information Value Date Recorded Sex Assigned at Male 03/16/2020 8:36 AM EDT Legal Sex Male 9:58 PM EDT Gender Identity Male 03/16/2020 8:36 AM EDT Sexual Orientation Straight 02/14/2025 5: 32 AM EDT documented as of this encounter Functional Status * Calculated C-SSRS Risk Score (Lifetime/Recent) Answer Date of Assessment Author No Risk Indicated 02/14/2025 4:29 AM EDT Angelic Mckinnon RN * [place] Suicide Severity Rating Scale (Screener/Recent Self-Report) Question Answer Date of Assessment Author 1. Wish to be (Past 1 Month) No 025 4:29 AM EDT Angelic Mckinnon RN 2. Non-Specific Active Suici santiago Thoughts (Past 1 Month) No 02/14/2025 4:29 AM EDT Angelic Mckinnon RN 6. Suicidal Behavior (Lifetime) No 5 4:29 AM EDT Angelic Mckinnon RN documented as of this encounter Plan of Treatment Not on file documented as of this encounter Visit Diagnoses Not on filedocumented in this encounter Additional Health Concerns Assessment Noted Time PHQ-2 Depression Total Score: 0 09/21/19 21 9:01 AM EST documented as of this encounter Care Teams Advertising Teacher Relationship Specialty Start Date End Date Rae Torres MD [address] [place] [address] [email or web address] PCP - General Internal Medicine 04/30/21 Michael Schofield MD [address] [facility] [place] [address] [email or web address] Historical LMR Provider 07/02/17 Mo Hernandez MD [address] [facility] Floor 1 [place] [address] [email or web address] Historical LMR Provider 07/02/17 documented as of this encounter Additional Source Comments The information contained in this document represents components of the legal health record. It is not the complete legal health record.[facility]
--- OUTSIDE RECORDS SUMMARY | 2025-05-27 13:59 | XMS_ITS | Encounter Summary ---
Author Organization [facility] Address [address] [facility] [address] [place] [address] Phone Care Team Providers Care Wall And Floor Tiler Name Role Phone Michael Schofield MD Unavailable [phone] Mo Hernandez MD Unavailable Rae Torres MD Primary Care Provider Encounter Details Date Type Department Care Team (Late st Contact Info) Description 08/01/2024 Procedure Pass [facility], Ct Scan - [address] [address] Social History Tobacco Use Types Packs/Day Years [...] 08/01/2024 12:36 PM Ashlie Salazar RN * [place] Suicide Severity Rating Scale (Screener/Recent Self-Report) Question [...] documented as of this encounter Care Teams Wall And Floor Tiler Relationship Specialty Start Date End Date Rae Torres MD [address] [place] [address] PCP - General Internal Medicine 04/30/21 Michael Schofield MD [address] [place] [address], [address] [place] [address] Historical LMR Provider 07/02/17 Mo Hernandez MD [address] [facility] Floor 1 [place] [address] [email or web address] Historical LMR Provider 07/02/17 documented as of this encounter Additional Source Comments The information contained in this document represents components of the legal health record. It is not the complete legal health record.[facility]
--- OUTSIDE RECORDS SUMMARY | 2025-05-27 13:59 | XMS_ITS | Encounter Summary ---
Author Organization [facility] Address [address] [facility] [address] [place] [address] Phone Care Team Providers Care Welt Insole Channeler Name Role Phone Mo Hernandez MD Primary Care Provide r Anderson Rachel MD Unavailable [phone] Pat Almodovar MD Unavailable [phone] Christen Wheeler NP Unavailable Addie Correia DPM Unavailable Unavailable Michael Schofield MD Unavailable [phone] Mo Hernandez MD Unavailable [phone] Ryne Diaz MD Unavailable [phone] Sallie Uriostegui DO Primary Care Provider + [phone] Harrison Lew MD Primary Care Provider [phone] Rae Torres MD Primary Care Provider [phone] Reason for Referral * Physical Therapy (Routine) - Closed Specialty Diagnoses / Procedures Referred By Mame t Referred To Contact Physical Therapy Diagnoses Encounter for rehabilitation Back Pain/Parkinsons Procedures Evaluate & Treat System, Provider Not In, PhD [facility] [id number] [place] [address] Phone: tel: Referral ID Status Reason Start Date Expiration Date Visits Re quested Visits Authorized [id number] Closed 10/11/2017 12/08/2017 13 13 Encounter Details Date Type Department Care Team (Latest Contact Info) Description 10/05/2017 Transcribe Orders [facility] 4 [place] [address] Lidya Umanzor MD [address] [place] [address] Encounter for rehabilitation (Primary Dx) Social History Tobacco Use Types Packs/Day Years Used Date Smoking Tobacco: Never Smokeless Tobacco: Never Sex and Gender Information Value Date Recorded Sex Assigned at Male 03/16/2020 8:36 AM EDT Legal Sex Male 9:58 PM EDT Gender Identity Male 03/16/2020 8:36 AM EDT Sexual Orientation Straight 02/14/2025 5: 32 AM EDT documented as of this encounter Plan of Treatment Not on file documented as of this encounter Procedures Procedure Name Priority Date/Time Associated Diagnosis Comments AMB REFERRAL TO [facility] PHYSICAL THERAPY Routine 10/11/2017 9:24 PM EST Encounter for rehabilitation documented in this encounter Results * Ambulatory referral to [facility] Physical Therapy (10/11/2017 9:24 PM EST) us Provider Not In System PhD AMB [facility] REFERRALS Fin al Result documented in this encounter Visit Diagnoses Diagnosis Encounter for rehabilitation- Primary documented in this encounter Additional Health Concerns Infection Onset Date Last Indicated Resolved Time CoV-Risk 12/14/2021 12/15/2021 12/26/2021 1:21 AM EDT CoV-Risk 03/02/2022 03/02/2022 03/03/2022 8:22 AM EDT COVID-19 03/02/2022 03/02/2022 03/23/2022 1:23 AM EDT Assessment Noted Time PHQ-2 Depression Total Score: 0 08/29/20 9:02 AM EST documented as of this encounter Care Teams Welt Insole Channeler Relationship Specialty Start Date End Date Mo Hernandez MD [email or web address] PCP - General 10/19/17 1/3/19 Sallie Uriostegui DO [address] [place] [address] [email or web address] PCP - General 09/14/18 01/14/21 Harrison Lew MD [address] [place] [address], [address] [place] [address] [email or web address] PCP - General Internal Medicine 01/15/21 04/29/21 Rae Torres MD [address] [place] [address] [email or web address] PCP - General Internal Medicine 04/30/21 Anderson Rachel MD [address] [place] [address], [address] [place] [address] [email or web address] Historical LMR Provider 07/02/17 09/18/21 Pat Almodovar MD [address] [place] [address] [email or web address] Historical LMR Provider 07/02/17 09/18/21 Christen Wheeler NP [address] [place] [address] 2_[place] [address] [email or web address] Historical LMR Provider 07/02/17 09/18/21 Addie Correia DPM [address] [place] [address] Historical LMR Provider 07/02/1709/18/21 Michael Schofield MD [address] [place] [address] [address] [place] [address] [email or web address] Historical LMR Provider 07/02/17 Mo Hernandez MD [address] [facility] Floor 1 [place] [address] [email or web address] Historical LMR Provider 07/02/17 Ryne Diaz MD [address] [place] [address] Historical LMR Provider 07/02/17 2 documented as of this encounter Additional Source Comments The information contained in this document represents components of the legal health record. It is not the complete legal health record.[facility]
--- OUTSIDE RECORDS SUMMARY | 2025-05-27 13:59 | XMS_ITS | Encounter Summary ---
Author Organization [facility] Address [address] [facility] [address] [place] [address] Phone Care Team Providers Care Community Development Planner Name Role Phone Michael Schofield MD Unavailable [phone] Mo Hernandez MD Unavailable Rae Torres MD Primary Care Provider Encounter Details Date Type Department Care Team (Latest Contact Info) Description 07/18/2024 Transcribe Orders Virtual Department [address] [place] [address] Christa Vaughn, TANK CALIBRATOR [address] [place] [phone] [email or web address] Cervicalgia (Primary Dx) Social History Tobacco Use Types [...] documented as of this encounter Visit Diagnoses Diagnosis Cervicalgia- Primary documented in this encounter Additional Health Concerns Assessment Noted Time PHQ-2 Depression Total Score: 0 09/21/19 21 9:01 AM EST documented as of this encounter Care Teams Community Development Planner Relationship Specialty Start Date End Date Rae Torres MD [address] [place] [address] [email or web address] PCP - General Internal Medicine 04/30/21 Michael Schofield MD [address] [facility] [place] [address] [email or web address] Historical LMR Provider 07/02/17 Mo Hernandez MD [address] [facility] Floor 1 [place] [address] [email or web address] Historical LMR Provider 07/02/17 documented as of this encounter Additional Source Comments The information contained in this document represents components of the legal health record. It is not the complete legal health record.[facility]
--- OUTSIDE RECORDS SUMMARY | 2025-05-27 13:59 | XMS_ITS | Encounter Summary ---
Author Organization [facility] Address [address] [facility] [address] [place] [address] Phone Care Team Providers Care Securities Supervisor Name Role Phone Michael Schofield MD Unavailable [phone] Mo Hernandez MD Unavailable [phone] Rae Torres MD Primary Care Provider [phone] Encounter Details Date Type Department Care Team (Late st Contact Info) Description 03/11/2025 Procedure Pass [facility], Ct Scan - [address] [address] Social History Tobacco Use Types Packs/Day Years [...] 4:31 PM EDT Venus Anne RN * [place] Suicide Severity Rating Scale (Screener/Recent Self-Report) Question [...] documented as of this encounter Care Teams Securities Supervisor Relationship Specialty Start Date End Date Rae Torres MD [address] [place] [address] [email or web address] PCP - General Internal Medicine 04/30/21 Michael Schofield MD [address] [facility] [place] [address] [email or web address] Historical LMR Provider 07/02/17 Mo Hernandez MD [address] [facility] Floor 1 [place] [address] [email or web address] Historical LMR Provider 07/02/17 documented as of this encounter Additional Source Comments The information contained in this document represents components of the legal health record. It is not the complete legal health record.[facility]
--- OUTSIDE RECORDS SUMMARY | 2025-05-27 13:59 | XMS_ITS | Encounter Summary ---
Author Organization [facility] Address [address] [facility] [address] [place] [address] Phone Care Team Providers Care Broadcast Director Operations Name Role Phone Michael Schofield MD Unavailable [phone] Mo Hernandez MD Unavailable [phone] Rae Torres MD Primary Care Provider Encounter Details Date Type Department Care Team (Late st Contact Info) Description 02/14/2025 Procedure Pass [facility], Ct Scan - [address] [address] Social History Tobacco Use Types Packs/Day Years [...] 4:29 AM EDT Angelic Mckinnon RN * [place] Suicide Severity Rating Scale (Screener/Recent Self-Report) Question [...] documented as of this encounter Care Teams Broadcast Director Operations Relationship Specialty Start Date End Date Rae Torres MD [address] [place] [address] [email or web address] PCP - General Internal Medicine 04/30/21 Michael Schofield MD [address] [facility] [place] [address] [email or web address] Historical LMR Provider 07/02/17 Mo Hernandez MD [address] [facility] Floor 1 [place] [address] [email or web address] Historical LMR Provider 07/02/17 documented as of this encounter Additional Source Comments The information contained in this document represents components of the legal health record. It is not the complete legal health record.[facility]
--- OUTSIDE RECORDS SUMMARY | 2025-05-27 13:59 | XMS_ITS | Encounter Summary ---
Author Organization [facility] Address [address] [facility] [address] [place] [address] Phone Care Team Providers Care Economic Analyst Name Role Phone Mo Hernandez MD Primary Care Provide r Anderson Rachel MD Unavailable [phone] Pat Almodovar MD Unavailable [phone] Christen Wheeler NP Unavailable Addie Correia DPM Unavailable Unavailable Michael Schofield MD Unavailable [phone] Mo Hernandez MD Unavailable [phone] Ryne Diaz MD Unavailable [phone] Sallie Uriostegui DO Primary Care Provider + [phone] Harrison Lew MD Primary Care Provider [phone] Rae Torres MD Primary Care Provider [phone] Reason for Referral * Physical Therapy (Elective) - Closed Specialty Diagnoses / Procedures Referred By Mame santiago Referred To Contact Physical Therapy Diagnoses Encounter for rehabilitation Back Pain Procedures Evaluate & Treat System, Provider Not In, PhD [id number] [place] [address] Phone: tel: Referral ID Status Reason Start Date Expiration Date Visits Re quested Visits Authorized [id number] Closed 09/25/2018 03/25/2019 16 16 Encounter Details Date Type Department Care Team (Latest Contact Info) Description 08/20/2018 Transcribe Orders [facility] Rehabilitation Services 4 [place] [address] Liyda Umanzor MD [address] [place] [address] Encounter for rehabilitation (Primary Dx) Social History [...] Date/Time Associated Diagnosis Comments AMB REFERRAL TO [facility] PHYSICAL THERAPY Routine 09/25/2018 6:02 PM EST Encounter for rehabilitation documented in this encounter Results * Ambulatory referral to [facility] Physical Therapy (09/25/2018 6:02 PM EST) Provider Not In System PhD AMB [facility] REFERRALS Fin al Result documented in this [...] documented as of this encounter Care Teams Economic Analyst Relationship Specialty Start Date End Date Mo Hernandez MD [email or web address] PCP - General 06/29/17 09/13/18 Sallie Uriostegui DO [address] [place] [address] [email or web address] PCP - General 09/14/18 01/14/21 Harrison Lew MD [address] [place] [address], [address] [place] [address] [email or web address] PCP - General Internal Medicine 01/15/21 04/29/21 Rae Torres MD [address] [place] [address] [email or web address] PCP - General Internal Medicine 04/30/21 Anderson Rachel MD [address] [place] [address], [address] [place] [address] [email or web address] Historical LMR Provider 07/02/17 09/18/21 Pat Almodovar MD [address] [place] [address] [email or web address] Historical LMR Provider 07/02/17 09/18/21 Christen Wheeler NP [address] [place] [address] 2_[place] [address] [email or web address] Historical LMR Provider 07/02/17 09/18/21 Addie Correia DPM [address] [place] [address] Historical LMR Provider 07/02/1709/18/21 Michael Schofield MD [address] [place] [address], [address] [place] [address] [email or web address] Historical LMR Provider 07/02/17 Mo Hernandez MD [address] [facility] Floor 1 [place] [address] [email or web address] Historical LMR Provider 07/02/17 Ryne Diaz MD [address] [place] [address] Historical LMR Provider 07/02/17 2 documented as of this encounter Additional Source Comments The information contained in this document represents components of the legal health record. It is not the complete legal health record.[facility]
--- OUTSIDE RECORDS SUMMARY | 2025-05-27 13:59 | XMS_ITS | Encounter Summary ---
Author Organization [facility] Address [address] [facility] [address] [place] [address] Phone Care Team Providers Care Rock Wool Insulator Name Role Phone Michael Schofield MD Unavailable [phone] Mo Hernandez MD Unavailable [phone] Rae Torres MD Primary Care Provider Encounter Details Date Type Department Care Team (Late st Contact Info) Description 03/12/2025 Procedure Pass [facility], Ct Scan - [address] [address] Social History Tobacco Use Types Packs/Day Years [...] 4:31 PM EDT Venus Anne RN * [place] Suicide Severity Rating Scale (Screener/Recent Self-Report) Question Answer Date of Assessment Author 1. Wish to be (Past 1 Month) No 03/12/2025 4:31 PM EDT Azul Austin RN 2. Non-Specific Active Suici santiago Thoughts (Past 1 Month) No 03/12/2025 4:31 PM EDT Ruby Austni RN 6. Suicidal Behavior (Lifetime) No 4:31 PM EDT Venus Austin RN documented as of this encounter Plan of Treatment Not on file documented as of this encounter Visit Diagnoses Not on filedocumented in this encounter Additional Health Concerns Assessment Noted Time PHQ-2 Depression Total Score: 0 09/21/19 21 9:01 AM EST documented as of this encounter Care Teams Rock Wool Insulator Relationship Specialty Start Date End Date Rae Torres MD 15 [place] [address] [email or web address] PCP - General Internal Medicine 04/30/21 Michael Schofield MD [address] [facility], [address] [place] [address] [email or web address] Historical LMR Provider 07/02/17 Mo Hernandez MD 22 [facility] Floor 1 [place] [address] [email or web address] Historical LMR Provider 07/02/17 documented as of this encounter Additional Source Comments The information contained in this document represents components of the legal health record. It is not the complete legal health record.[facility]
--- OUTSIDE RECORDS SUMMARY | 2025-05-27 13:59 | XMS_ITS | Encounter Summary ---
Author Organization [facility] Address [address] [facility] [address] [place] [address] Phone Care Team Providers Care Dining Room Attendant Name Role Phone Michael Schofield MD Unavailable [phone] Mo Hernandez MD Unavailable Rae Torres MD Primary Care Provider Encounter Details Date Type Department Care Team (Late st Contact Info) Description 05/26/2023 Procedure Pass [facility] [address] [place], [place] [id number] Social History Tobacco Use Types Packs/Day Years [...] documented as of this encounter Care Teams Dining Room Attendant Relationship Specialty Start Date End Date Rae Torres MD 15 [place] [address] [email or web address] PCP - General Internal Medicine 04/30/21 Michael Schofield MD [address] [facility], [address] [place] [address] [email or web address] Historical LMR Provider 07/02/17 Mo Hernandez MD [address] [facility] Floor 1 [place] [address] [email or web address] Historical LMR Provider 07/02/17 documented as of this encounter Additional Source Comments The information contained in this document represents components of the legal health record. It is not the complete legal health record.[facility]
--- OUTSIDE RECORDS SUMMARY | 2025-05-27 13:59 | XMS_ITS | Encounter Summary ---
Author Organization [facility] Address [address] [facility] [address] [place] [address] Phone Care Team Providers Care Doctor'S Assistant Name Role Phone Michael Schofield MD Unavailable [phone] Mo Hernandez MD Unavailable Rae Torres MD Primary Care Provider Reason for Referral * MRI/CAT Scan - Closed Specialty Diagnoses / Procedures Referred By Contac t Referred To Contact Radiology Diagnoses Persistent cough Procedures CT Chest Rae Torres MD 15 [place] [address] Phone: tel: fax: [email or web address] Referral ID Status Reason Start Date Expiration Date Visits Re quested Visits Authorized [id number] Closed 11/25/2022 11/25/2023 1 1 Encounter Details Date Type Department Care Team (Late st Contact Info) Description 11/25/2022 Transcribe Orders Virtual Department 30 [place] [address] Rae Torres MD [address] [place] [address] [email or web address] Persistent cough (Primary Dx) Social History Tobacco Use Types [...] documented as of this encounter Results * CT CHEST WITHOUT CONTRAST (12/07/2022 8:18 AM EDT) Anatomical Region Laterality Modality Chest Computed Tomogra phy 12/08/2022 11:4 7 AM EDT Impressions 12/08/2022 12:53 PM EDT 1. Scattered lung nodules measuring up to [address] follow-up in 12 months if the patient is at high risk for lung cancer. Narrative 12/08/2022 12:[address] CHEST WITHOUT CONTRAST TECHNIQUE: Multidetector CT of the chest was performed without intravenous contrast using tailored dose modulation. COMPARISON: None FINDINGS: Devices/Tubes/Lines: None. Lungs: 4 mm ill-defined nodule in the right lower lobe (4:169) and 2 mm right lower lobe nodule (4:163). Scattered tiny calcified granulomas. No definite nodule corresponding to 4 mm nodular opacity visualized on prior radiograph, likely summation artifact. Pleura: No pleural effusion or pneumothorax. Mediastinum: No thyroid nodules. Heart and pericardium are normal. Severe amount of coronary calcifications. Lymph Nodes: No enlarged supraclavicular, axillary, mediastinal, or hilar lymph nodes. Upper Abdomen: No abnormality detected in the visualized upper abdomen. Absence of intravenous contrast limits sensitivity for detecting solid organ findings. Chest Wall: No chest wall mass. Bones: No suspicious lytic or blastic lesions. Procedure Note Yudi Quevedo MD - 12/08/2022 CT CHEST WITHOUT CONTRAST TECHNIQUE: Multidetector CT of the chest was performed without intravenouscontrast using tailored dose modulation. COMPARISON: None FINDINGS: Devices/Tubes/Lines: None. Lungs: 4 mm ill-defined nodule in the right lower lobe (4:169) and 2 mmright lower lobe nodule (4:163). Scattered tiny calcified granulomas. Nodefinite nodule corresponding to 4 mm nodular opacity visualized on priorradiograph, likely summation artifact. Pleura: No pleural effusion or pneumothorax. Mediastinum: No thyroid nodules. Heart and pericardium are normal. Severeamount of coronary calcifications. Lymph Nodes: No enlarged supraclavicular, axillary, mediastinal, or hilarlymph nodes. Upper Abdomen: No abnormality detected in the visualized upper abdomen.Absence of intravenous contrast limits sensitivity for detecting solidorgan findings. Chest Wall: No chest wall mass. Bones: No suspicious lytic or blastic lesions. IMPRESSION: 1. Scattered lung nodules measuring up to 4 mm. Recommend Chest CTfollow-up in 12 months if the patient is at high risk for lung cancer. Rae Torres MD IMG CT CHEST Final Resul t documented in this encounter Visit Diagnoses Diagnosis Persistent cough- Primary Persistent cough documented in this encounter Additional Health Concerns Assessment Noted Time PHQ-2 Depression Total Score: 0 09/21/19 21 9:01 AM EST documented as of this encounter Care Teams Doctor'S Assistant Relationship Specialty Start Date End Date Rae Torres MD [address] [place] [address] [email or web address] PCP - General Internal Medicine 04/30/21 Michael Schofield MD [address] [facility], [address] [place] [address] Historical LMR Provider 07/02/17 Mo Hernandez MD [address] [facility] Floor 1 [place] [address] [email or web address] Historical LMR Provider 07/02/17 documented as of this encounter Additional Source Comments The information contained in this document represents components of the legal health record. It is not the complete legal health record.[facility]
--- OUTSIDE RECORDS SUMMARY | 2025-05-27 13:59 | XMS_ITS | Encounter Summary ---
Author Organization [facility] Address [address] [facility] [address] [place] [address] Phone Care Team Providers Care Asset Coordinator Name Role Phone Michael Schofield MD Unavailable [phone] Mo Hernandez MD Unavailable [phone] Rae Torres MD Primary Care Provider Encounter Details Date Type Department Care Team (Late st Contact Info) Description 11/25/2022 Procedure Pass [facility], Ct Scan - [address] [address] Social History Tobacco Use Types Packs/Day Years [...] documented as of this encounter Care Teams Asset Coordinator Relationship Specialty Start Date End Date Rae Torres MD [address] [place] [address] [email or web address] PCP - General Internal Medicine 04/30/21 Michael Schofield MD [address] [place] [address], [address] [place] [address] [email or web address] Historical LMR Provider 07/02/17 Mo Hernandez MD [address] [facility] Floor 1 [place] [address] [email or web address] Historical LMR Provider 07/02/17 documented as of this encounter Additional Source Comments The information contained in this document represents components of the legal health record. It is not the complete legal health record.[facility]
--- OUTSIDE RECORDS SUMMARY | 2025-05-27 13:59 | XMS_ITS | Encounter Summary ---
Author Organization [facility] Address [address] [facility] [address] [place] [address] Phone Care Team Providers Care Douper Name Role Phone Michael Schofield MD Unavailable [phone] Mo Hernandez MD Unavailable Rae Torres MD Primary Care Provider Encounter Details Date Type Department Care Team (Latest Contact Info) Description 11/21/2022 Transcribe Orders Virtual Department 30 [place] [address] Samantha Galarza PA [address] [facility] [place] [address] [email or web address] Pulmonary nodule (Primary Dx) Social History Tobacco Use Types [...] as of this encounter Plan of Treatment Scheduled Orders Name Type Priority Associated Diagnoses Orde r Schedule XR Chest Imaging Routine Pulmonary nodule Expected: 11/21/2022, Expires: 11/22/2023 documented as of this encounter Visit Diagnoses Diagnosis Pulmonary nodule- Primary Other diseases of lung, not elsewhere classified documented in this encounter Additional Health Concerns Assessment Noted Time PHQ-2 Depression Total Score: 0 09/21/19 21 9:01 AM EST documented as of this encounter Care Teams Douper Relationship Specialty Start Date End Date Rae Torres MD 15 [place] [address] [email or web address] PCP - General Internal Medicine 04/30/21 Michael Schofield MD [address] [facility], [address] [place] [address] [email or web address] Historical LMR Provider 07/02/17 Mo Hernandez MD 22 [facility] Floor 1 [place] [address] [email or web address] Historical LMR Provider 07/02/17 documented as of this encounter Additional Source Comments The information contained in this document represents components of the legal health record. It is not the complete legal health record.[facility]
--- OUTSIDE RECORDS SUMMARY | 2025-05-27 13:59 | XMS_ITS | Encounter Summary ---
Author Organization [facility] Address [address] [facility] [address] [place] [address] Phone Care Team Providers Care Events Assistant Name Role Phone Michael Schofield MD Unavailable [phone] Mo Hernandez MD Unavailable [phone] Rae Torres MD Primary Care Provider Encounter Details Date Type Department Care Team (Late st Contact Info) Description 07/17/2024 Procedure Pass [facility], Ct Scan - [address] [address] Social History Tobacco Use Types Packs/Day Years [...] Date of Assessment Author No Risk Indicated 07/17/2024 3:51 PM Jazmyn Hobbs RN * [place] Suicide Severity Rating Scale (Screener/Recent Self-Report) Question Answer Date of Assessment Author 1. Wish to be (Past 1 Month) No 024 3:51 PM Jazmyn Hobbs RN 2. Non-Specific Active Suici santiago Thoughts (Past 1 Month) No 07/17/2024 3:51 PM Jazmyn Hobbs RN 6. Suicidal Behavior (Lifetime) No 3:51 PM Jazmyn Hobbs RN documented as of this encounter Plan of Treatment Not on file documented as of this encounter Visit Diagnoses Not on filedocumented in this encounter Additional Health Concerns Assessment Noted Time PHQ-2 Depression Total Score: 0 09/21/19 21 9:01 AM EST documented as of this encounter Care Teams Events Assistant Relationship Specialty Start Date End Date Rae Torres MD [address] [place] [address] [email or web address] PCP - General Internal Medicine 04/30/21 Michael Schofield MD [address] [facility] [place] [address] [email or web address] Historical LMR Provider 07/02/17 Mo Hernandez MD [address] [facility] Floor 1 [place] [address] [email or web address] Historical LMR Provider 07/02/17 documented as of this encounter Additional Source Comments The information contained in this document represents components of the legal health record. It is not the complete legal health record.[facility]
--- OUTSIDE RECORDS SUMMARY | 2025-05-27 14:00 | XMS_ITS | Encounter Summary ---
Author Organization [facility] Address [address] [facility] [address] [place] [address] Phone Care Team Providers Care Animal Keeper Name Role Phone Anderson Rachel MD Unavailable [phone] Pat Almodovar MD Unavailable [phone] Christen Wheeler NP Unavailable Addie Correia DPM Unavailable Unavailable Michael Schofield MD Unavailable [phone] Mo Hernandez MD Unavailable [phone] Ryne Diaz MD Unavailable [phone] Sallie Uriostegui DO Primary Care Provider + [phone] Harrison Lew MD Primary Care Provider [phone] Rae Torres MD Primary Care Provider [phone] Encounter Details Date Type Department Care Team (Latest Contact Info) Description 02/26/2019 Transcribe Orders [facility] Laboratory [address] [place] [address] Sallie Uriostegui, [address] [place] [address] [email or web address] Hyperglycemia; Hyperlipidemia, unspecified hyperlipidemia type; Chronic fatigue Social History Tobacco Use Types Packs/Day Years [...] Procedure Name Priority Date/Time Associated Diagnosis Comments COMPREHENSIVE METABOLIC PANEL Routine 02/26/2019 7:05 AM EDT Chronic fatigue CBC Routine 02/26/2019 7:05 AM EDT Chronic fatigue HEMOGLOBIN A1C Routine 02/26/2019 7:05 AM EDT Hyperglycemia LIPID PANEL Routine 02/26/2019 7:05 AM EDT Hyperlipidemia, unspecified hyperlipidemia type documented in this encounter Results * CBC (02/26/2019 7:05 AM EDT) WBC 7.45 3.40 - 11.20 K/uL [facility] RBC 5.46 4.50 - 5.50 M/uL [facility] HGB 15.9 13.0 - 17.0 g/dL [facility] HCT 47.5 40.0 - 51.0 % [facility] PLT 263 130 - 400 K/uL [facility] MCV 87.0 79.0 - 98.0 fL [facility] MCH 29.1 27.0 - 34.8 pg [facility] MCHC 33.5 31.5 - 36.0 g/dL [facility] RDW 12.7 10.8 - 14.6 % [facility] MPV 9.7 9.4 - 12.4 [facility] NRBC 0.00 0.00 /100 WBCs [facility] ABSOLUTE NRBC 0.00 0.00 K/uL [facility] Blood 02/26/2019 7:05 AM EDT 02/26/2019 7:07 AM EDT Sallie Uriostegui DO LAB BLOOD ORDERABLES Final Result [address] [address] * (ABNORMAL) Comprehensive metabolic panel (02/26/2019 7:05 AM EDT) SODIUM 137 133 - 146 mmol/L [facility] POTASSIUM 4.6 3.3 - 5.1 mmol/L [facility] CHLORIDE 98 96 - 108 mmol/L [facility] CO2 30 21 - 35 mmol/L [facility] BUN 17 6 - 19 mg/dL [facility] CREATININE 0.90 0.5 - 1.5 mg/dL [facility] GLUCOSE 108(H) 70 - 99 mg/dL [facility] ALBUMIN 4.3 3.9 - 4.8 g/dL [facility] TOTAL PROTEIN 7.6 6.5 - 8.0 g/dL [facility] CALCIUM 9.7 8.4 - 10.3 mg/dL [facility] ALKALINE PHOSPHATASE 97 39 - 117 U/L [facility] TOTAL BILIRUBIN 1.0 0.0 - 1.2 mg/dL [facility] AST 17 0 - 37 U/L [facility] ALT 15 0 - 40 U/L [facility] GLOBULIN 3.3 1 - 4.8 g/dL [facility] EGFR 89 >59 mL/min/1.7 3m2 [facility] Comment:If patient is black, multiply result by 1.159. Estimated glomerular filtration rate calculated using the CKD-EPI equation. ANION GAP 14 10 - 20 mmol/L [facility] Blood 02/26/2019 7:05 AM EDT 02/26/2019 7:07 AM EDT Sallie Uriostegui DO LAB BLOOD ORDERABLES Final Result [address] [address] * (ABNORMAL) Lipid panel (02/26/2019 7:05 AM EDT) HDL 48 mg/dL [facility] Comment: Interpretation <40 mg/dL: Low HDL cholesterol (major risk factor for CHD) Greater than or equal to 60 mg/dL: High HDL cholesterol ( negative risk factor for CHD) HDL - cholesterol is affected by a number of factors, e.g. smoking, excerise, hormones, sex and age. CHOLESTEROL 137 0 - 240 mg/dL [facility] TRIGLYCERIDES 71 30 - 160 mg/dL [facility] LDL 75 50 - 129 mg/dL [facility] Comment: LDL levels in terms of risk for coronary heart disease: <100 mg/dL: Optimal 100-129 mg/dL: Near or above optimal 130-159 mg/dL: Borderline high 160-189 mg/dL: High >190 mg/dL: Very High CARDIAC RISK RATIO 2.9(L) 3.4 - 5.0 C [facility] Blood 02/26/2019 7:05 AM EDT 02/26/2019 7:07 AM EDT Sallie Uriostegui DO LAB BLOOD ORDERABLES Final Result Performing Organization Address [facility] Co de Phone Number [address] [address] * Hemoglobin A1c (02/26/2019 7:05 AM EDT) HEMOGLOBIN A1C 5.8 4.3 - 5.8 % [facility] Blood 02/26/2019 7:05 AM EDT 02/26/2019 7:07 AM EDT Sallie Uriostegui DO LAB BLOOD ORDERABLES Final Result Performing Organization Address [facility] Co de Phone Number [address] [address] documented in this encounter Visit Diagnoses Diagnosis Hyperglycemia Other abnormal glucose Hyperlipidemia, unspecified hyperlipidemia type Chronic fatigue Other malaise and fatigue documented in this encounter Additional Health Concerns Infection Onset Date Last Indicated Resolved Time CoV-Risk 12/14/2021 12/15/2021 12/26/2021 1:21 AM EDT CoV-Risk 03/02/2022 03/02/2022 03/03/2022 8:22 AM EDT COVID-19 03/02/2022 03/02/2022 03/23/2022 1:23 AM EDT Assessment Noted Time PHQ-2 Depression Total Score: 0 08/31/20 18 1:35 PM EST documented as of this encounter Care Teams Animal Keeper Relationship Specialty Start Date End Date Sallie Uriostegui DO [address] [place] [address] [email or web address] PCP - General 09/14/18 01/14/21 Harrison Lew MD [address] [place] [address], [address] [place] [address] [email or web address] PCP - General Internal Medicine 01/15/21 04/29/21 Rae Torres MD [address] [place] [address] [email or web address] PCP - General Internal Medicine 04/30/21 Anderson Rachel MD [address] [place] [address] [address] [place] [address] [email or web address] Historical LMR Provider 07/02/17 09/18/21 Pat Almodovar MD [address] [place] [address] [email or web address] Historical LMR Provider 07/02/17 09/18/21 Christen Wheeler NP [address] [place] [address] 2_[place] [address] [email or web address] Historical LMR Provider 07/02/17 09/18/21 CorreiaAddie DPM [address] [place] [address] Historical LMR Provider 07/02/1709/18/21 Michael Schofield MD [address] [facility] [place] [address] [email or web address] Historical LMR Provider 07/02/17 Mo Hernandez MD [address] [facility] Floor 1 [place] [address] [email or web address] Historical LMR Provider 07/02/17 Ryne Diaz MD [address] [place] [address] Historical LMR Provider 07/02/17 2 documented as of this encounter Additional Source Comments The information contained in this document represents components of the legal health record. It is not the complete legal health record.[facility]
--- OUTSIDE RECORDS SUMMARY | 2025-05-27 14:00 | XMS_ITS | Encounter Summary ---
Author Organization [facility] Address [address] [facility] [address] [place] [address] Phone Care Team Providers Care Bush Hog Operator Name Role Phone Michael Schofield MD Unavailable [phone] Mo Hernandez MD Unavailable Rae Torres MD Primary Care Provider Encounter Details Date Type Department Care Team (Late st Contact Info) Description 10/16/2023 Ancillary Orders [facility], X-Ray - [address] [id number] Rae Torres MD [address] [place] [address] [id number] [email or web address] Right knee pain, unspecified chronicity (Primary Dx); Left knee pain, unspecified chronicity Social History Tobacco Use Types Packs/Day Years [...] as of this encounter Results * XR KNEE 4 OR MORE VIEWS (BILATERAL) (10/16/2023 4:36 PM EST) Anatomical Region Laterality Modality Knee Bilateral, Knee Right, Knee Left Computed Radiography 10/17/2023 11:3 5 AM EST Impressions 10/17/2023 11:37 AM EST Mild quadriceps enthesopathy. No significant arthritic change apparent. Narrative 10/17/2023 11:37 AM EST XR KNEE 4 OR MORE VIEWS (BILATERAL) Referring clinician's provided indication for this examination in Epic: Pain COMPARISON: None FINDINGS: Left Knee: No acute fracture or subluxation. Joint spaces preserved in width. Articular surfaces smooth. No opaque loose joint body. No gross suprapatellar effusion. Upper pole patellar spurring at the quadriceps insertion point. Right Knee: No acute fracture or subluxation. Joint spaces preserved in width. Articular surfaces are smooth. No gross suprapatellar effusion. No opaque loose joint body. Upper pole patellar spurring at the quadriceps insertion point. Procedure Note Reji Villalta MD - 10/17/2023 XR KNEE 4 OR MORE VIEWS (BILATERAL) Referring clinician's provided indication for this examination in Epic:Pain COMPARISON: None FINDINGS: Left Knee: No acute fracture or subluxation. Joint spaces preserved inwidth. Articular surfaces smooth. No opaque loose joint body. No grosssuprapatellar effusion. Upper pole patellar spurring at the quadricepsinsertion point. Right Knee: No acute fracture or subluxation. Joint spaces preserved inwidth. Articular surfaces are smooth. No gross suprapatellar effusion. Noopaque loose joint body. Upper pole patellar spurring at the quadricepsinsertion point. IMPRESSION: Mild quadriceps enthesopathy. No significant arthritic change apparent. us Rae Torres MD IMG XR LOWER EXTREMITY Marie l Result documented in this encounter Visit Diagnoses Diagnosis Right knee pain, unspecified chronicity Right knee pain, unspecified chronicity- Primary Left knee pain, unspecified chronicity documented in this encounter Additional Health Concerns Assessment Noted Time PHQ-2 Depression Total Score: 0 09/21/19 9:01 AM EST documented as of this encounter Care Teams Bush Hog Operator Relationship Specialty Start Date End Date Rae Torres MD [address] [place] [address] [email or web address] PCP - General Internal Medicine 04/30/21 Michael Schofield MD [address] [facility] [place] [address] [email or web address] Historical LMR Provider 07/02/17 Mo Hernandez MD [address] [facility] Floor 1 [place] [address] [email or web address] Historical LMR Provider 07/02/17 documented as of this encounter Additional Source Comments The information contained in this document represents components of the legal health record. It is not the complete legal health record.[facility]
--- OUTSIDE RECORDS SUMMARY | 2025-05-27 14:00 | XMS_ITS | Clinical Summary ---
Author Organization [facility] Address [address] [place] [address] Care Team Providers Care Is Technician Name Role Phone Rae Torres Primary [...] CT Lung Cancer Screening (Baseline) 12/08/2023 12/07/2022 Alcohol/Substance Use Screening 09/11/2024 Depression Screening and Follow-Up 09/11/2024 Health Care Proxy Review 09/11/2024 Social Drivers of Health Annual Screening 09/11/2024 Pneumococcal Vaccine: 50+ Years (3 of 3 - PCV20 or PCV21) 09/16/2024 09/16/2019, 06/05/2014 COVID-19 Vaccine (5 - season) 2025 06/30/2022, 07/08/2021, 12/01/2020, Additional history exists Influenza Vaccine (#1) 2025 2, 07/16/2021, 05/07/2020, Additional history exists DTaP,Tdap,and Td Vaccines (3 - Td or Tdap) 05/20/2032 05/20/2022, 12/13/2013, 03/30/2005 Zoster Vaccines Completed 06/11/2021, 02/09, 07/08/2014 Hepatitis B Vaccines Aged Out No long er eligible based on patient's age to complete this topic Insurance MEDICARE [facility] Care Teams Is Technician Relationship Specialty Start Date End Date Rae Torres [address] [place] [address] PCP - General Internal Medicine 11/24/21
--- OUTSIDE RECORDS SUMMARY | 2025-05-27 14:00 | XMS_ITS | Encounter Summary ---
Author Organization [facility] Address [address] [facility] [address] [place] [address] Phone Care Team Providers Care Dump Motor Operator Name Role Phone Anderson Rachel MD Unavailable [phone] Pat Almodovar MD Unavailable [phone] Christen Wheeler NP Unavailable Addie Correia DPM Unavailable Unavailable Michael Schofield MD Unavailable [phone] Mo Hernandez MD Unavailable [phone] Ryne Diaz MD Unavailable Sallie Uriostegui DO Primary Care Provider Harrison Lew MD Primary Care Provider [phone] Rae Torres MD Primary Care Provider [phone] Encounter Details Date Type Department Care Team (Late st Contact Info) Description 06/27/2019 Transcribe Orders [facility] [address] [place] [address] Lidya Umanzor MD [address] [place] [address] Social History Tobacco Use Types Packs/Day Years [...] documented as of this encounter Care Teams Dump Motor Operator Relationship Specialty Start Date End Date Sallie Uriostegui DO [address] [place] [address] [email or web address] PCP - General 09/14/18 01/14/21 Harrison Lew MD [address] [place] [address], [address] [place] [address] PCP - General Internal Medicine 01/15/21 04/29/21 Rae Torres MD [address] [place] [address] PCP - General Internal Medicine 04/30/21 Anderson Rachel MD [address] [place] [address], [address] [place] [address] Historical LMR Provider 07/02/17 09/18/21 Pat Almodovar MD [address] [place] [address] [email or web address] Historical LMR Provider 07/02/17 09/18/21 Christen Wheeler, KANCHAN [address] [place] [address] 2_[place] [address] [email or web address] Historical LMR Provider 07/02/17 09/18/21 Addie Correia DPM [address] [place] [address] Historical LMR Provider 07/02/1709/18/21 Michael Schofield MD [address] [facility] [place] [address] [email or web address] Historical LMR Provider 07/02/17 Mo Hernandez MD [address] [facility] Floor 1 [place] [address] [email or web address] Historical LMR Provider 07/02/17 Ryne Diaz MD [address] [place] [address] Historical LMR Provider 07/02/17 2 documented as of this encounter Additional Source Comments The information contained in this document represents components of the legal health record. It is not the complete legal health record.[facility]
--- OUTSIDE RECORDS SUMMARY | 2025-05-27 14:00 | XMS_ITS | Encounter Summary ---
Author Organization [facility] Address [address] [facility] [address] [place] [address] Phone Care Team Providers Care Modeling Teacher Name Role Phone Michael Schofield MD Unavailable [phone] Mo Hernandez MD Unavailable [phone] Rae Torres MD Primary Care Provider [phone] Reason for Referral * MRI/CAT Scan - Closed Specialty Diagnoses / Procedures Referred By Contkori t Referred To Contact Radiology Diagnoses Pulmonary nodule Procedures CT Chest Rae Torres MD [address] [place] [address] Phone: tel: fax: [email or web address] Referral ID Status Reason Start Date Expiration Date Visits Re quested Visits Authorized [id number] Closed 05/28/2024 05/28/2025 1 1 Encounter Details Date Type Department Care Team (Late st Contact Info) Description 05/28/2024 Transcribe Orders Virtual Department [address] [place] [address] Rae Torres MD [address] [place] [address] [email or web address] Pulmonary nodule (Primary Dx) Social History Tobacco [...] encounter Results * CT CHEST WITHOUT CONTRAST (07/16/2024 2:35 PM EST) Anatomical Region Laterality Modality Chest Computed Tomogra phy 07/18/2024 8:01 AM EST Impressions 07/18/2024 8:07 AM EST Similar scattered sub-5 mm pulmonary nodules. No definite new pulmonary nodules demonstrated. No further imaging follow-up recommended per Fleischner Society guidelines given greater than 12 month stability. Narrative 07/18/2024 8:[address] CHEST WITHOUT CONTRAST Referring clinician's provided indication for this examination in Epic: Outside Radiology Order; pulmonary nodule TECHNIQUE: Multidetector CT of the chest was performed without intravenous contrast using tailored dose modulation. COMPARISON: CT CHEST WITHOUT CONTRAST FINDINGS: Devices/Tubes/Lines: None. Lungs: There is a similar thin-walled cyst at the left upper lobe. There is a similar 4 mm ill-defined right lower lobe pulmonary nodule and 5:200). A 2 mm right lower lobe nodule is also similar (5:192). Additional scattered 1 to 2 mm nodules are also unchanged (5:129 and 250). No definite new pulmonary nodules demonstrated. No focal consolidation. The central airways are clear. Pleura: No pleural effusion or pneumothorax. Mediastinum: Mild atherosclerotic calcification of the aorta. No thyroid nodules. The heart is similar in size. There is no pericardial effusion. Moderate amount of coronary calcifications. Lymph Nodes: No enlarged supraclavicular, axillary, mediastinal, or hilar lymph nodes within limitations in the absence of intravenous contrast. Upper Abdomen: No abnormality detected in the visualized upper abdomen. Absence of intravenous contrast limits sensitivity for detecting solid organ findings. Chest Wall: No chest wall mass. Bones: Multilevel degenerative changes of the spine. No destructive osseous lesions. Procedure Note Pamela Saenz MD - 07/18/2024 CT CHEST WITHOUT CONTRAST Referring clinician's provided indication for this examination in Epic:Outside Radiology Order; pulmonary nodule TECHNIQUE: Multidetector CT of the chest was performed without intravenouscontrast using tailored dose modulation. COMPARISON: CT CHEST WITHOUT CONTRAST FINDINGS: Devices/Tubes/Lines: None. Lungs: There is a similar thin-walled cyst at the left upper lobe. Thereis a similar 4 mm ill-defined right lower lobe pulmonary nodule and5:200). A 2 mm right lower lobe nodule is also similar (5:192). Additionalscattered 1 to 2 mm nodules are also unchanged (5:129 and 250). Nodefinite new pulmonary nodules demonstrated. No focal consolidation. Thecentral airways are clear. Pleura: No pleural effusion or pneumothorax. Mediastinum: Mild atherosclerotic calcification of the aorta. No thyroidnodules. The heart is similar in size. There is no pericardial effusion.Moderate amount of coronary calcifications. Lymph Nodes: No enlarged supraclavicular, axillary, mediastinal, or hilarlymph nodes within limitations in the absence of intravenous contrast. Upper Abdomen: No abnormality detected in the visualized upper abdomen.Absence of intravenous contrast limits sensitivity for detecting solidorgan findings. Chest Wall: No chest wall mass. Bones: Multilevel degenerative changes of the spine. No destructiveosseous lesions. IMPRESSION: Similar scattered sub-5 mm pulmonary nodules. No definite new pulmonarynodules demonstrated. No further imaging follow-up recommended perFleischner Society guidelines given greater than 12 month stability. Rae Torres MD IMG CT CHEST Final Resul t documented in this encounter Visit Diagnoses Diagnosis Pulmonary nodule- Primary Other diseases of lung, not elsewhere classified Pulmonary nodule Other diseases of lung, not elsewhere classified documented in this encounter Additional Health Concerns Assessment Noted Time PHQ-2 Depression Total Score: 0 09/21/19 21 9:01 AM EST documented as of this encounter Care Teams Modeling Teacher Relationship Specialty Start Date End Date Rae Torres MD [address] [place] [address] [email or web address] PCP - General Internal Medicine 04/30/21 Michael Schofield MD [address] [facility] [place] [address] [email or web address] Historical LMR Provider 07/02/17 Mo Hernandez MD [address] [facility] Floor 1 [place] [address] [email or web address] Historical LMR Provider 07/02/17 documented as of this encounter Additional Source Comments The information contained in this document represents components of the legal health record. It is not the complete legal health record.[facility]
--- OUTSIDE RECORDS SUMMARY | 2025-05-27 14:00 | XMS_ITS | Encounter Summary ---
Author Organization [facility] Address [address] [facility] [address] [place] [address] Phone Care Team Providers Care Round Boner Name Role Phone Michael Schofield MD Unavailable [phone] Mo Hernandez MD Unavailable Rae Torres MD Primary Care Provider Encounter Details Date Type Department Care Team (Late st Contact Info) Description 10/16/2023 Ancillary Orders [facility], X-Ray - [address] [id number] Rae Torres MD [address] [place] [address] [phone] [email or web address] Right knee pain, unspecified chronicity (Primary Dx); [...] as of this encounter Visit Diagnoses Diagnosis Right knee pain, unspecified chronicity- Primary Left knee pain, unspecified chronicity documented in this encounter Additional Health Concerns Assessment Noted Time PHQ-2 Depression Total Score: 0 09/21/19 21 9:01 AM EST documented as of this encounter Care Teams Round Boner Relationship Specialty Start Date End Date Rae Torres MD [address] [place] [address] [email or web address] PCP - General Internal Medicine 04/30/21 Michael Schofield MD [address] [facility] [place] [address] [email or web address] Historical LMR Provider 07/02/17 Mo Hernandez MD [address] [facility] Floor 1 [place] [address] [email or web address] Historical LMR Provider 07/02/17 documented as of this encounter Additional Source Comments The information contained in this document represents components of the legal health record. It is not the complete legal health record.[facility]
== END 2025-05-27 11:31 | disposition home or self-care (01) ==
LOC: HO.HSMS 10:35
PROVIDERS: PCP Internal Medicine; Visit Provider Psychiatry & Neurology Neurology
DX: G20.B1 Parkinson's disease with dyskinesia, without mention of fluctuations (principal); I95.1 Orthostatic hypotension; K59.09 Other constipation; G47.52 REM sleep behavior disorder
CPT/HCPCS: 99214

== ENCOUNTER 2025-06-16 10:52 | Outpatient (AMB) | payer MEDICARE, OTHER, SELFPAY ==
[2025-06-16 10:55] VITALS: O2SAT 97
--- NOTE | 2025-06-16 10:55 | MHC.OFFVIS ---
Vital Signs 06/16/25 10:55 Pulse Oximetry (%) 97 Oxygen Delivery Method Room Air Intake Visit Reasons: Follow up Intake Note: Follow up Parkinson's disease with dyskinesia, orthostatic HTN and constipation Principal Archaeologist Required: No Accompanied by: sister and daughter Allergies Penicillins Adverse Reaction (Mild, Verified 06/16/25 11:00) Hives HPI Comments Details: 69 year-old male calls for follow-up of his Parkinson's disease orthostatic hypotension and insomnia, halluicnations. He is sleeping better with less nocturia sinc eh started gemteza. He still has hallucinations when he wakes up at night milder than before since nuplazid was started .He has insight and does not agitate him His urologist has started on med to help with urinary frequency and urgency. He has a family member caretaker 3 nights a week, who helps with shower. No major falls.Minor falls when tired and during transfer, No dizziness. He denies any syncope. He is on sinemet 25/100 1 tab 6- times a day. 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 he reports cognitive issues- some confusion usually in the mornings. History form last visit- He had a fall 4 week ago - when he got up from the chair and fell. his thinks he lost balance when he turned.but she is not sure if he passed out or fell and then passed out after he hit his head.He was seen at [facility] and transferred to [facility] - was kept for observation and was discharged I increased his Droxidopa to 400mg tid He had another fall 1 week after at the Dentist after cleaning when he stood up and came to the office manager receptionist he passed out . He was admitted at [facility].He is worse in the morning - wakes up between 4am and 10 am - misses his & am dose when he wakes up . [facility] Medical History Knee pain, right Parkinson's disease with dyskinesia REM behavioral disorder Constipation Orthostatic hypotension Parkinson's disease Bronchitis Asthma Hyperlipidemia HTN (hypertension) Family History Family/Other HTN (hypertension) Diabetes Mother Diabetes HTN (hypertension) Social History Household Members: Spouse Alcohol intake: never Patient Tobacco Use Status: Never used Tobacco Physical Exam Vital Signs: Last Vital Signs Pulse Ox 97 06/16/25 10:55 Oxygen Delivery Method Room Air 06/16/25 10:55 Const General: cooperative, healthy appearing and no acute distress Orientation/consciousness: patient oriented x3 HEENT Head: Yes normal to inspection Neck Other: mild antecollis and restricted range of motion Neuro Other: Mild decreased blink and facial expression Voice- hypophonia, stuttering , dysprosody No tremors, mild dyskinesia Fine Finger movements - mild decreased mehran R>L Alternating hand movements - decreased mehran Hand movements - decreased mehran Foot taps- decreased mehran No cog wheel rigidity gait - stooped, smaller stride General: patient oriented x3 and no focal motor deficits Cranial nerves: Yes CN's II-XII intact bilaterally, Yes Bilaterally intact EOM present, Yes Normal facial strength present and Yes Midline tongue present Motor exam (neuro): 5/5 motor strength present throughout Coordination: edygeg-qk-cyhl test normal Assessment & Plan Assessment & Plan (1) Parkinson's disease with dyskinesia: Code(s): G20.B1 - Parkinson's disease with dyskinesia, without mention of fluctuations Category: Medical Qualifiers: Fluctuating manifestations: without fluctuating manifestations Qualified Code(s): G20.B1 - Parkinson's disease with dyskinesia, without mention of fluctuations (2) Orthostatic hypotension: Code(s): I95.1 - Orthostatic hypotension Category: Medical (3) Constipation: Code(s): K59.00 - Constipation, unspecified Category: Medical Qualifiers: Constipation type: other constipation type Qualified Code(s): K59.09 - Other constipation (4) REM behavioral disorder: Code(s): G47.52 - REM sleep behavior disorder Category: Medical Plan Continue Nuplazid 34mg qd Sinemet 25/100 tablet 1 tab at 6 times a day rasagiline 1 mg q.d.. northera 600mg tid Florinef 0.1mg qam Continue lactulose as needed for constipation , with miralax, metamucil , dulcolax consider adding quetiapine Hold Mirtazapine Transport wheel chair Medications: New [Transport Wheel Chair] As directed 1 ea 0RF G20.B1 - Parkinson's disease with dyskinesia, without mention of fluctuations Coding Level of Care Code Est Pt Level 4 (31390) Complex EM visit Add On G2211 Diagnoses Parkinson's disease with dyskinesia without fluctuating manifestations G20.B1 Fluctuating manifestations: without fluctuating manifestations Orthostatic hypotension I95.1 Other constipation K59.09 Constipation type: other constipation type REM behavioral disorder G47.52
--- OUTSIDE RECORDS SUMMARY | 2025-06-16 13:10 | XMS_ITS | Encounter Summary ---
Author Organization [facility] Address [address] [facility] [address] [place] [address] Phone Care Team Providers Care Tool Tender Name Role Phone Anderson Rachel MD Unavailable [phone] Pat Almodovar MD Unavailable [phone] Christen Wheeler NP Unavailable [phone] Addie Correia DPM Unavailable Unavailable Michael Schofield MD Unavailable [phone] Mo Hernandez MD Unavailable [phone] Ryne Diaz MD Unavailable [phone] Sallie Uriostegui DO Primary Care Provider [phone] Harrison Lew MD Primary Care Provider [phone] Rae Torres MD Primary Care Provider [phone] Reason for Referral * Physical Therapy (Elective) - Closed Specialty Diagnoses / Procedures Referred By Contac t Referred To Contact Physical Therapy Diagnoses Encounter for rehabilitation Parkinsons/ Low Back - Les Weakness Procedures Evaluate & Treat Lidya Umanzor MD Phone: tel: fax: [address] [address] Phone: tel: Referral ID Status Reason Start Date Expiration Date Visits Re quested Visits Authorized [id number] Closed 07/03/2019 09/10/2019 16 16 Encounter Details Date Type Department Care Team (Latest Contact Info) Description 06/27/2019 Transcribe Orders [facility] [address] [place] [address] Lidya Umanzor MD [address] [place] [address] Encounter for rehabilitation (Primary Dx) Social History [...] Date/Time Associated Diagnosis Comments AMB REFERRAL TO [facility] PHYSICAL THERAPY Routine 07/03/2019 5:23 PM EDT Encounter for rehabilitation documented in this encounter Results * Ambulatory referral to [facility] Physical Therapy (07/03/2019 5:23 PM EDT) Lidya Umanzor MD AMB [facility] REFERRALS Final Result documented in [...] documented as of this encounter Care Teams Tool Tender Relationship Specialty Start Date End Date Sallie Uriostegui DO [address] [place] [address] [email or web address] PCP - General 09/14/18 01/14/21 Harrison Lew MD [address] [place] [address], [address] [place] [address] [email or web address] PCP - General Internal Medicine 01/15/21 04/29/21 Rae Torres MD [address] [place] [email or web address] PCP - General Internal Medicine 04/30/21 Anderson Rachel MD [address] [place] [address], [address] [place] [address] [email or web address] Historical LMR Provider 07/02/17 09/18/21 Pat Almodovar MD [address] [place] [address] [email or web address] Historical LMR Provider 07/02/17 09/18/21 Christen Wheeler NP [address] [place] [address] 2_[place] [address] [email or web address] Historical LMR Provider 07/02/17 09/18/21 Addie Correia DPM [address] [place] [address] [place] [address] Historical LMR Provider 07/02/1709/18/21 Michael Schofield MD [address] [place] [address], [address] [place] [address] [email or web address] Historical LMR Provider 07/02/17 Mo Hernandez MD [address] [facility] 1 [place] [address] [email or web address] Historical LMR Provider 07/02/17 Ryne Diaz MD [address] [place] [address] Historical LMR Provider 07/02/17 2 documented as of this encounter Additional Source Comments The information contained in this document represents components of the legal health record. It is not the complete legal health record.[facility]
--- OUTSIDE RECORDS SUMMARY | 2025-06-16 13:11 | XMS_ITS | Encounter Summary ---
Author Organization [facility] Address [address] [facility] [address] [place] [address] Phone Care Team Providers Care Starch And Prosize Mixer Name Role Phone Michael Schofield MD Unavailable [phone] Mo Hernandez MD Unavailable Rae Torres MD Primary Care Provider Encounter Details Date Type Department Care Team (Late st Contact Info) Description 07/17/2024 Procedure Pass [facility], Ct Scan - [address] [address] Social History Tobacco Use Types Packs/Day Years [...] 07/17/2024 3:51 PM Jazmyn Hobbs RN * [place] Suicide Severity Rating Scale (Screener/Recent Self-Report) Question [...] documented as of this encounter Care Teams Starch And Prosize Mixer Relationship Specialty Start Date End Date Rae Torres MD [address] [place] [address] [email or web address] PCP - General Internal Medicine 04/30/21 Michael Schofield MD [address] [facility], [address] [place] [address] [email or web address] Historical LMR Provider 07/02/17 Mo Hernandez MD [address] [facility] Floor 1 [place] [address] [email or web address] Historical LMR Provider 07/02/17 documented as of this encounter Additional Source Comments The information contained in this document represents components of the legal health record. It is not the complete legal health record.[facility]
--- OUTSIDE RECORDS SUMMARY | 2025-06-16 13:11 | XMS_ITS | Encounter Summary ---
Author Organization [facility] Address [address] [facility] [address] [place] [address] Phone Care Team Providers Care Retail Stocker Name Role Phone Michael Schofield MD Unavailable [phone] Mo Hernandez MD Unavailable [phone] Rae Torres MD Primary Care Provider Encounter Details Date Type Department Care Team (Late st Contact Info) Description 11/09/2024 Procedure Pass [facility], Ct Scan - [address] [address] Social History Tobacco Use Types Packs/Day Years [...] 11/09/2024 8:23 PM Samira Sanchez RN * [place] Suicide Severity Rating Scale (Screener/Recent Self-Report) Question [...] documented as of this encounter Care Teams Retail Stocker Relationship Specialty Start Date End Date Rae Torres MD [address] [place] [address] PCP - General Internal Medicine 04/30/21 Michael Schofield MD [address] [place] [address], [address] [place] [address] Historical LMR Provider 07/02/17 Mo Hernandez MD 22 [facility] 1 [place] [address] [email or web address] Historical LMR Provider 07/02/17 documented as of this encounter Additional Source Comments The information contained in this document represents components of the legal health record. It is not the complete legal health record.[facility]
--- OUTSIDE RECORDS SUMMARY | 2025-06-16 13:11 | XMS_ITS | Encounter Summary ---
Author Organization [facility] Address [address] [facility] [address] [place] [address] Phone Care Team Providers Care Indoor Landscape Architect Name Role Phone Michael Schofield MD Unavailable [phone] Mo Hernandez MD Unavailable [phone] Rae Torres MD Primary Care Provider [phone] Encounter Details Date Type Department Care Team (Late st Contact Info) Description 11/09/2024 Procedure Pass [facility], Ct Scan - [address] [address] Social History Tobacco Use Types Packs/Day Years [...] 11/09/2024 8:23 PM Samira Sanchez RN * [place] Suicide Severity Rating Scale (Screener/Recent Self-Report) Question [...] documented as of this encounter Care Teams Indoor Landscape Architect Relationship Specialty Start Date End Date Rae Torres MD [address] [place] [address] PCP - General Internal Medicine 04/30/21 Michael Schofield MD [address] [place] [address], [address] [place] [address] Historical LMR Provider 07/02/17 Mo Hernandez MD 22 [facility] 1 [place] [address] [email or web address] Historical LMR Provider 07/02/17 documented as of this encounter Additional Source Comments The information contained in this document represents components of the legal health record. It is not the complete legal health record.[facility]
--- OUTSIDE RECORDS SUMMARY | 2025-06-16 13:11 | XMS_ITS | Encounter Summary ---
Author Organization [facility] Address [address] [facility] [address] [place] [address] Phone Care Team Providers Care Investigation Manager Name Role Phone Michael Schofield MD Unavailable [phone] Mo Hernandez MD Unavailable [phone] Rae Torres MD Primary Care Provider [phone] Encounter Details Date Type Department Care Team (Late st Contact Info) Description 03/11/2025 Procedure Pass [facility], Ct Scan - [address] [address] Social History Tobacco Use Types Packs/Day Years [...] 4:31 PM EDT Venus Anne RN * [place] Suicide Severity Rating Scale (Screener/Recent Self-Report) Question Answer Date of Assessment Author 1. Wish to be (Past 1 Month) No 03/12/2025 4:31 PM EDT zAul [place] RN 2. Non-Specific Active Suici santiago [...] documented as of this encounter Care Teams Investigation Manager Relationship Specialty Start Date End Date Rae Torres MD 15 [place] [address] [email or web address] PCP - General Internal Medicine 04/30/21 Michael Schofield MD [address] [facility], [address] [place] [address] [email or web address] Historical LMR Provider 07/02/17 Mo Hernandez MD 22 [facility] Floor 1 [place] [address] [email or web address] Historical LMR Provider 07/02/17 documented as of this encounter Additional Source Comments The information contained in this document represents components of the legal health record. It is not the complete legal health record.[facility]
--- OUTSIDE RECORDS SUMMARY | 2025-06-16 13:11 | XMS_ITS | Encounter Summary ---
Author Organization [facility] Address [address] [facility] [address] [place] [address] Phone Care Team Providers Care Gas Shovel Operator Name Role Phone Michael Schofield MD Unavailable [phone] Mo Hernandez MD Unavailable Rae Torres MD Primary Care Provider Encounter Details Date Type Department Care Team (Late st Contact Info) Description 12/14/2021 Transcribe Orders Virtual Department 30 [place], [place] [id number] Rae Torres MD [address] [place] [phone] [email or web address] Cough (Primary Dx) Social History Tobacco Use [...] be available within 24 to 48 hrs. [facility] Symptomatic? YES [facility] Other 12/15/2021 12:3 8 PM EDT 12/15/2021 2:07 PM EDT us Rae Torres MD BODY FLUIDS AND STOOLS GLENN LEVINE Final Result [facility] [address] [place] [address] [facility] [address] [place] [address] documented in this encounter Visit Diagnoses Diagnosis [...] documented as of this encounter Care Teams Gas Shovel Operator Relationship Specialty Start Date End Date Rae Torres MD [address] [place] [address] [email or web address] PCP - General Internal Medicine 04/30/21 Michael Schofield MD 22 [facility], [address] [place] [address] [email or web address] Historical LMR Provider 07/02/17 Mo Hernandez MD 22 [facility] Floor 1 [place] [address] [email or web address] Historical LMR Provider 07/02/17 documented as of this encounter Additional Source Comments The information contained in this document represents components of the legal health record. It is not the complete legal health record.[facility]
--- OUTSIDE RECORDS SUMMARY | 2025-06-16 13:11 | XMS_ITS | Encounter Summary ---
Author Organization [facility] Address [address] [facility] [address] [place] [address] Phone Care Team Providers Care Store Manager Name Role Phone Mo Hernandez MD Primary Care Provide r Anderson Rachel MD Unavailable [phone] Pat Almodovar MD Unavailable [phone] Christen Wheeler NP Unavailable Addie Correia DPM Unavailable Unavailable Michael Schofield MD Unavailable [phone] Mo Hernandez MD Unavailable [phone] Ryne Diaz MD Unavailable [phone] Sallie Uriostegui DO Primary Care Provider [phone] Harrison Lew MD Primary Care Provider [phone] Rae Torres MD Primary Care Provider [phone] Reason for Referral * Physical Therapy (Routine) - Closed Specialty Diagnoses / Procedures Referred By Mame t Referred To Contact Physical Therapy Diagnoses Encounter for rehabilitation Back Pain/Parkinsons Procedures Evaluate & Treat System, Provider Not In, [facility] [id number] [place] [address] Phone: tel: Referral ID Status Reason Start Date Expiration Date Visits Re quested Visits Authorized [id number] Closed 10/11/2017 12/08/2017 13 13 Encounter Details Date Type Department Care Team (Latest Contact Info) Description 10/05/2017 Transcribe Orders [facility] 4 [place] [address] Lidya Umanzor MD [address] [place] [address] Encounter for rehabilitation (Primary Dx) Social History [...] Date/Time Associated Diagnosis Comments AMB REFERRAL TO [facility] PHYSICAL THERAPY Routine 10/11/2017 9:24 PM EST Encounter for rehabilitation documented in this encounter Results * Ambulatory referral to [facility] Physical Therapy (10/11/2017 9:24 PM EST) us Provider Not In System PhD AMB [facility] REFERRALS Fin al Result documented in [...] documented as of this encounter Care Teams Store Manager Relationship Specialty Start Date End Date Mo Hernandez MD [email or web address] PCP - General 10/19/17 1/3/19 Sallie Uriostegui DO [address] [place] [address] [email or web address] PCP - General 09/14/18 01/14/21 Harrison Lew MD [address] [place] [address], [address] [place] [address] [email or web address] PCP - General Internal Medicine 01/15/21 04/29/21 Rae Torres MD [address] [place] [address] [email or web address] PCP - General Internal Medicine 04/30/21 Anderson Rachel MD [address] [place] [address], [address] [place] [address] [email or web address] Historical LMR Provider 07/02/17 09/18/21 Pat Almodovar MD [address] [place] [address] [email or web address] Historical LMR Provider 07/02/17 09/18/21 Christen [place] NP [address] [place] [address] 2_[place] [address] [email or web address] Historical LMR Provider 07/02/17 09/18/21 Addie Correia DPM [address] [place] [address] Historical LMR Provider 07/02/1709/18/21 Michael Schofield MD [address] [place] [address] [address] [place] [address] [email or web address] Historical LMR Provider 07/02/17 Mo Hernandez MD [address] [facility] Floor 1 [place] [address] [email or web address] Historical LMR Provider 07/02/17 Ryne [place] MD [address] [place] [address] Historical LMR Provider 07/02/17 2 documented as of this encounter Additional Source Comments The information contained in this document represents components of the legal health record. It is not the complete legal health record.[facility]
--- OUTSIDE RECORDS SUMMARY | 2025-06-16 13:11 | XMS_ITS | Encounter Summary ---
Author Organization [facility] Address [address] [facility] [address] [place] [address] Phone Care Team Providers Care Qa Automation Architect Name Role Phone Michael Schofield MD Unavailable [phone] Mo Hernandez MD Unavailable Rae Torres MD Primary Care Provider Encounter Details Date Type Department Care Team (Late st Contact Info) Description 05/28/2024 Procedure Pass [facility], Ct Scan - [address] [address] Social History Tobacco Use Types Packs/Day Years [...] documented as of this encounter Care Teams Qa Automation Architect Relationship Specialty Start Date End Date Rae Torres MD [address] [place] [email or web address] PCP - General Internal Medicine 04/30/21 Michael Schofield MD 22 [facility], [address] [place] [address] [email or web address] Historical LMR Provider 07/02/17 Mo Hernandez MD 22 [facility] Floor 1 [place] [address] [email or web address] Historical LMR Provider 07/02/17 documented as of this encounter Additional Source Comments The information contained in this document represents components of the legal health record. It is not the complete legal health record.[facility]
--- OUTSIDE RECORDS SUMMARY | 2025-06-16 13:11 | XMS_ITS | Encounter Summary ---
Author Organization [facility] Address [address] [facility] [address] [place] [address] Phone Care Team Providers Care Cane Flume Watchman Name Role Phone Michael Schofield MD Unavailable [phone] Mo Hernandez MD Unavailable [phone] Rae Torres MD Primary Care Provider Encounter Details Date Type Department Care Team (Late st Contact Info) Description 11/09/2024 Procedure Pass [facility], Ct Scan - [address] [address] Social History Tobacco Use Types Packs/Day Years [...] 11/09/2024 8:23 PM Samira Sanchez RN * [place] Suicide Severity Rating Scale (Screener/Recent Self-Report) Question [...] documented as of this encounter Care Teams Cane Flume Watchman Relationship Specialty Start Date End Date Rae Torres MD [address] [place] [address] PCP - General Internal Medicine 04/30/21 Michael Schofield MD [address] [place] [address], [address] [place] [address] Historical LMR Provider 07/02/17 Mo Hernandez MD 22 [facility] 1 [place] [address] [email or web address] Historical LMR Provider 07/02/17 documented as of this encounter Additional Source Comments The information contained in this document represents components of the legal health record. It is not the complete legal health record.[facility]
--- OUTSIDE RECORDS SUMMARY | 2025-06-16 13:11 | XMS_ITS | Encounter Summary ---
Author Organization [facility] Address [address] [facility] [address] [place] [address] Phone Care Team Providers Care Lotus Notes Administrator Name Role Phone Michael Schofield MD Unavailable [phone] Mo Hernandez MD Unavailable Rae Torres MD Primary Care Provider Encounter Details Date Type Department Care Team (Latest Contact Info) Description 07/18/2024 Transcribe Orders Virtual Department 30 [place] [address] Christa Vaughn, PLANNING INTERN [address] [place] [phone] [email or web address] Cervicalgia (Primary Dx) Social History Tobacco Use [...] documented as of this encounter Care Teams Lotus Notes Administrator Relationship Specialty Start Date End Date Rae Torres MD 15 [place] [address] [email or web address] PCP - General Internal Medicine 04/30/21 Michael Schofield MD [address] [facility], [address] [place] [address] [email or web address] Historical LMR Provider 07/02/17 Mo Hernandez MD 22 [facility] Floor 1 [place] [address] [email or web address] Historical LMR Provider 07/02/17 documented as of this encounter Additional Source Comments The information contained in this document represents components of the legal health record. It is not the complete legal health record.[facility]
--- OUTSIDE RECORDS SUMMARY | 2025-06-16 13:11 | XMS_ITS | Encounter Summary ---
Author Organization [facility] Address [address] [facility] [address] [place] [address] Phone Care Team Providers Care Sanitation Engineer Name Role Phone Michael Schofield MD Unavailable [phone] Mo Hernandez MD Unavailable [phone] Rae Torres MD Primary Care Provider Encounter Details Date Type Department Care Team (Late st Contact Info) Description 02/14/2025 Procedure Pass [facility], Ct Scan - [address] [address] Social History Tobacco Use Types Packs/Day Years [...] 4:29 AM EDT Angelic Mckinnon RN * [place] Suicide Severity Rating Scale (Screener/Recent Self-Report) Question [...] documented as of this encounter Care Teams Sanitation Engineer Relationship Specialty Start Date End Date Rae Torres MD [address] [place] [address] [email or web address] PCP - General Internal Medicine 04/30/21 Michael Schofield MD [address] [facility], [address] [place] [address] [email or web address] Historical LMR Provider 07/02/17 Mo Hernandez MD 22 [facility] Floor 1 [place] [address] [email or web address] Historical LMR Provider 07/02/17 documented as of this encounter Additional Source Comments The information contained in this document represents components of the legal health record. It is not the complete legal health record.[facility]
--- OUTSIDE RECORDS SUMMARY | 2025-06-16 13:11 | XMS_ITS | Encounter Summary ---
Author Organization [facility] Address [address] [facility] [address] [place] [address] Phone Care Team Providers Care Porcelain Enamel Installer Name Role Phone Michael Schofield MD Unavailable [phone] Mo Hernandez MD Unavailable [phone] Rae Torres MD Primary Care Provider Encounter Details Date Type Department Care Team (Late st Contact Info) Description 03/12/2025 Procedure Pass [facility], Ct Scan - [address] [address] Social History Tobacco Use Types Packs/Day Years [...] 4:31 PM EDT Venus Anne RN * [place] Suicide Severity Rating Scale (Screener/Recent Self-Report) Question [...] documented as of this encounter Care Teams Porcelain Enamel Installer Relationship Specialty Start Date End Date Rae Torres MD 15 [place] [address] [email or web address] PCP - General Internal Medicine 04/30/21 Michael Schofield MD [address] [facility] [place] [address] [email or web address] Historical LMR Provider 07/02/17 Mo Hernandez MD [address] [facility] Floor 1 [place] [address] [email or web address] Historical LMR Provider 07/02/17 documented as of this encounter Additional Source Comments The information contained in this document represents components of the legal health record. It is not the complete legal health record.[facility]
--- OUTSIDE RECORDS SUMMARY | 2025-06-16 13:11 | XMS_ITS | Encounter Summary ---
Author Organization [facility] Address [address] [facility] [address] [place] [address] Phone Care Team Providers Care Jute Bag Clipper Name Role Phone Michael Schofield MD Unavailable [phone] Mo Hernandez MD Unavailable [phone] Rae Torres MD Primary Care Provider Encounter Details Date Type Department Care Team (Late st Contact Info) Description 03/12/2025 Procedure Pass [facility], Ct Scan - [address] [address] Social History Tobacco Use Types Packs/Day Years [...] 4:31 PM EDT Venus Anne RN * [place] Suicide Severity Rating Scale (Screener/Recent Self-Report) Question [...] documented as of this encounter Care Teams Jute Bag Clipper Relationship Specialty Start Date End Date Rae Torres MD 15 [place] [address] [email or web address] PCP - General Internal Medicine 04/30/21 Michael Schofield MD 22 [facility], [address] [place] [address] [email or web address] Historical LMR Provider 07/02/17 Mo Hernandez MD 22 [facility] Floor 1 [place] [address] [email or web address] Historical LMR Provider 07/02/17 documented as of this encounter Additional Source Comments The information contained in this document represents components of the legal health record. It is not the complete legal health record.[facility]
--- OUTSIDE RECORDS SUMMARY | 2025-06-16 13:11 | XMS_ITS | Encounter Summary ---
Author Organization [facility] Address [address] [facility] [address] [place] [address] Phone Care Team Providers Care Data Lead Name Role Phone Michael Schofield MD Unavailable [phone] Mo Hernandez MD Unavailable Rae Torres MD Primary Care Provider Encounter Details Date Type Department Care Team (Late st Contact Info) Description 08/01/2024 Procedure Pass [facility], Ct Scan - [address] [address] Social History Tobacco Use Types Packs/Day Years [...] 08/01/2024 12:36 PM Ashlie Salazar RN * [place] Suicide Severity Rating Scale (Screener/Recent Self-Report) Question [...] documented as of this encounter Care Teams Data Lead Relationship Specialty Start Date End Date Rae Torres MD [address] [place] [address] PCP - General Internal Medicine 04/30/21 Michael Schofield MD [address] [place] [address], [address] [place] [address] Historical LMR Provider 07/02/17 Mo Hernandez MD 22 [facility] Floor 1 [place] [address] [email or web address] Historical LMR Provider 07/02/17 documented as of this encounter Additional Source Comments The information contained in this document represents components of the legal health record. It is not the complete legal health record.[facility]
--- OUTSIDE RECORDS SUMMARY | 2025-06-16 13:11 | XMS_ITS | Encounter Summary ---
Author Organization [facility] Address [address] [facility] [address] [place] [address] Phone Care Team Providers Care Supervisor [place] Name Role Phone Michael Schofield MD Unavailable [phone] Mo Hernandez MD Unavailable [phone] Rae Torres MD Primary Care Provider [phone] Encounter Details Date Type Department Care Team (Late st Contact Info) Description 02/14/2025 Procedure Pass [facility], Ct Scan - [address] [address] Social History Tobacco Use Types Packs/Day Years [...] 4:29 AM EDT Angelic Mckinnon RN * [place] Suicide Severity Rating Scale (Screener/Recent Self-Report) Question [...] documented as of this encounter Care Teams Supervisor [place] Relationship Specialty Start Date End Date Rae Torres MD [address] [place] [email or web address] PCP - General Internal Medicine 04/30/21 Michael Schofield MD [address] [facility] [place] [address] [email or web address] Historical LMR Provider 07/02/17 Mo Hernandez MD [address] [facility] Floor 1 [place] [address] [email or web address] Historical LMR Provider 07/02/17 documented as of this encounter Additional Source Comments The information contained in this document represents components of the legal health record. It is not the complete legal health record.[facility]
--- OUTSIDE RECORDS SUMMARY | 2025-06-16 13:11 | XMS_ITS | Encounter Summary ---
Author Organization [facility] Address [address] [facility] [address] [place] [address] Phone Care Team Providers Care Digital Marketing Associate Name Role Phone Michael Schofield MD Unavailable [phone] Mo Hernandez MD Unavailable Rae Torres MD Primary Care Provider Encounter Details Date Type Department Care Team (Late st Contact Info) Description 08/01/2024 Procedure Pass [facility], Ct Scan - [address] [address] Social History Tobacco Use Types Packs/Day Years [...] 08/01/2024 12:36 PM Ashlie Salazar RN * [place] Suicide Severity Rating Scale (Screener/Recent Self-Report) Question [...] documented as of this encounter Care Teams Digital Marketing Associate Relationship Specialty Start Date End Date Rae Torres MD [address] [place] [address] PCP - General Internal Medicine 04/30/21 Michael Schofield MD [address] [place] [address], [address] [place] [address] Historical LMR Provider 07/02/17 Mo Hernandez MD 22 [facility] Floor 1 [place] [address] [email or web address] Historical LMR Provider 07/02/17 documented as of this encounter Additional Source Comments The information contained in this document represents components of the legal health record. It is not the complete legal health record.[facility]
--- OUTSIDE RECORDS SUMMARY | 2025-06-16 13:11 | XMS_ITS | Encounter Summary ---
Author Organization [facility] Address [address] [facility] [address] [place] [address] Phone Care Team Providers Care Mat Cleaning Machine Operator Name Role Phone Anderson Rachel MD Unavailable [phone] Pat Almodovar MD Unavailable [phone] Christen Wheeler NP Unavailable [phone] Addie Correia DPM Unavailable Unavailable Michael Schofield MD Unavailable [phone] oM Hernandez MD Unavailable [phone] Ryne Diaz MD Unavailable [phone] Sallie Uriostegui DO Primary Care Provider + [phone] Harrison Lew MD Primary Care Provider [phone] Rae Torres MD Primary Care Provider [phone] Encounter Details Date Type Department Care Team (Late st Contact Info) Description 03/26/2020 Procedure Pass [facility]oscopy Admitting Dept Virtual Department 30 [place], [place] [id number] Social History Tobacco Use Types Packs/Day Years [...] documented as of this encounter Care Teams Mat Cleaning Machine Operator Relationship Specialty Start Date End Date Sallie Uriostegui DO [address] [place] [address] [email or web address] PCP - General 09/14/18 01/14/21 Harrison Lew MD [address] [place] [address], [address] [address] PCP - General Internal Medicine 01/15/21 04/29/21 Rae Torres MD [address] [place] [address] PCP - General Internal Medicine 04/30/21 Anderson Rachel MD [address] [place] [address], [address] [address] [email or web address] Historical LMR Provider 07/02/17 09/18/21 Pat Almodovar MD [address] [place] [address] [email or web address] Historical LMR Provider 07/02/17 09/18/21 Christen Wheeler NP [address] [place] [address] [facility] [address] [email or web address] Historical LMR Provider 07/02/17 09/18/21 Addie Correia DPM [address] [place] [address] Historical LMR Provider 07/02/1709/18/21 Michael Schofield MD [address] [place] [address], [address] [place] [address] [email or web address] Historical LMR Provider 07/02/17 Mo Hernandez MD 22 [facility] Floor 1 [place] [address] [email or web address] Historical LMR Provider 07/02/17 Ryne Diaz MD [address] [place] [address] Historical LMR Provider 07/02/17 2 documented as of this encounter Additional Source Comments The information contained in this document represents components of the legal health record. It is not the complete legal health record.[facility]
--- OUTSIDE RECORDS SUMMARY | 2025-06-16 13:12 | XMS_ITS | Encounter Summary ---
Author Organization [facility] Address [address] [facility] [address] [place] [address] Phone Care Team Providers Care Screening Representative Name Role Phone Michael Schofield MD Unavailable [phone] Mo Hernandez MD Unavailable Rae Torres MD Primary Care Provider Encounter Details Date Type Department Care Team (Late st Contact Info) Description 10/16/2023 Ancillary Orders [facility], X-Ray - [address] [id number] Rae Torres MD [address] [place] [id number] [email or web address] Right knee pain, unspecified chronicity (Primary Dx); [...] documented as of this encounter Care Teams Screening Representative Relationship Specialty Start Date End Date Rae Torres MD 15 [place] [address] [email or web address] PCP - General Internal Medicine 04/30/21 Michael Schofield MD [address] [facility], [address] [place] [address] [email or web address] Historical LMR Provider 07/02/17 Mo Hernandez MD [address] [facility] Floor 1 [place] [address] [email or web address] Historical LMR Provider 07/02/17 documented as of this encounter Additional Source Comments The information contained in this document represents components of the legal health record. It is not the complete legal health record.[facility]
--- OUTSIDE RECORDS SUMMARY | 2025-06-16 13:12 | XMS_ITS | Encounter Summary ---
Author Organization [facility] Address [address] [facility] [address] [place] [address] Phone Care Team Providers Care Dye Room Helper Name Role Phone Michael Schofield MD Unavailable [phone] Mo Hernandez MD Unavailable Rae Torres MD Primary Care Provider Encounter Details Date Type Department Care Team (Latest Contact Info) Description 03/02/2022 Transcribe Orders Virtual Department 30 [place] [address] Samantha Galarza PA [address] [place] [address] [email or web address] Encounter for laboratory testing for COVID-19 virus [...] be available within 24 to 48 hrs. [facility] Symptomatic? YES [facility] Other 03/02/2022 1:02 PM EDT 03/02/2022 1:53 PM EDT us Samantha WATERS BODY FLUIDS AND STOOLS ORDERABL ES Final Result [facility] [address] [place] [address] [facility] [address] [place] [address] documented in this encounter Visit Diagnoses Diagnosis Encounter for laboratory testing for COVID-19 virus- Primary documented in this encounter Additional Health Concerns Infection Onset Date Last Indicated Resolved Time CoV-Risk 03/02/2022 03/02/2022 03/03/2022 8:22 AM EDT COVID-19 03/02/2022 03/02/2022 03/23/2022 1:23 AM EDT Assessment Noted Time PHQ-2 Depression Total Score: 0 09/21/19 21 9:01 AM EST documented as of this encounter Care Teams Dye Room Helper Relationship Specialty Start Date End Date Rae Torres MD [address] [place] [address] [email or web address] PCP - General Internal Medicine 04/30/21 Michael Schofield MD [address] [facility], [address] [place] [address] [email or web address] Historical LMR Provider 07/02/17 Mo Hernandez MD 22 [facility] Floor 1 [place] [address] [email or web address] Historical LMR Provider 07/02/17 documented as of this encounter Additional Source Comments The information contained in this document represents components of the legal health record. It is not the complete legal health record.[facility]
--- OUTSIDE RECORDS SUMMARY | 2025-06-16 13:12 | XMS_ITS | Encounter Summary ---
Author Organization [facility] Address [address] [facility] [address] [place] [address] Phone Care Team Providers Care Typesetter Apprentice Name Role Phone Michael Schofield MD Unavailable [phone] Mo Hernandez MD Unavailable Rae Torres MD Primary Care Provider Encounter Details Date Type Department Care Team (Late st Contact Info) Description 11/25/2022 Procedure Pass [facility], Ct Scan - [address] [address] Social History Tobacco Use Types Packs/Day Years [...] documented as of this encounter Care Teams Typesetter Apprentice Relationship Specialty Start Date End Date Rae Torres MD [address] [place] [address] [email or web address] PCP - General Internal Medicine 04/30/21 Michael Schofield MD [address] [place] [address], [address] [place] [address] [email or web address] Historical LMR Provider 07/02/17 Mo Hernandez MD 22 [facility] Floor 1 [place] [address] [email or web address] Historical LMR Provider 07/02/17 documented as of this encounter Additional Source Comments The information contained in this document represents components of the legal health record. It is not the complete legal health record.[facility]
--- OUTSIDE RECORDS SUMMARY | 2025-06-16 13:12 | XMS_ITS | Encounter Summary ---
Author Organization [facility] Address [address] [facility] [address] [place] [address] Phone Care Team Providers Care Therapist Speech Name Role Phone Michael Schofield MD Unavailable [phone] Mo Hernandez MD Unavailable [phone] Rae Torres MD Primary Care Provider [phone] Reason for Referral * MRI/CAT Scan - Closed Specialty Diagnoses / Procedures Referred By Contkori t Referred To Contact Radiology Diagnoses Pulmonary nodule Procedures CT Chest Rae Torres MD [address] [place] [address] Phone: tel: fax: [email or web address] Referral ID Status Reason Start Date Expiration Date Visits Re quested Visits Authorized [id number] Closed 05/28/2024 05/28/2025 1 1 Encounter Details Date Type Department Care Team (Late st Contact Info) Description 05/28/2024 Transcribe Orders Virtual Department 30 [place] [address] Rae Torres MD [address] [place] [address] [email or web address] Pulmonary nodule (Primary Dx) Social History Tobacco [...] No destructive osseous lesions. Procedure Note Pamela Sanez MD - 07/18/2024 CT CHEST WITHOUT CONTRAST [...] documented as of this encounter Care Teams Therapist Speech Relationship Specialty Start Date End Date Rae Torres MD [address] [place] [address] [email or web address] PCP - General Internal Medicine 04/30/21 Michael Schofield MD 22 [facility] [place] [address] [email or web address] Historical LMR Provider 07/02/17 Mo Hernandez MD 22 [facility] Floor 1 [place] [address] [email or web address] Historical LMR Provider 07/02/17 documented as of this encounter Additional Source Comments The information contained in this document represents components of the legal health record. It is not the complete legal health record.[facility]
--- OUTSIDE RECORDS SUMMARY | 2025-06-16 13:12 | XMS_ITS | Encounter Summary ---
Author Organization [facility] Address [address] [facility] [address] [place] [address] Phone Care Team Providers Care Fabricator Artificial Breast Name Role Phone Michael Schofield MD Unavailable [phone] Mo Hernandez MD Unavailable [phone] Rae Torres MD Primary Care Provider [phone] Encounter Details Date Type Department Care Team (Latest Contact Info) Description 11/21/2022 Transcribe Orders Virtual Department 30 [place] [address] Samantha Galarza PA [address] [facility] [place] [address] [email or web address] Pulmonary nodule (Primary Dx) Social History Tobacco [...] documented as of this encounter Care Teams Fabricator Artificial Breast Relationship Specialty Start Date End Date Rae Torres MD 15 [place] [address] [email or web address] PCP - General Internal Medicine 04/30/21 Michael Schofield MD 22 [facility], [address] [place] [address] [email or web address] Historical LMR Provider 07/02/17 Mo Hernandez MD [address] [facility] Floor 1 [place] [address] [email or web address] Historical LMR Provider 07/02/17 documented as of this encounter Additional Source Comments The information contained in this document represents components of the legal health record. It is not the complete legal health record.[facility]
--- OUTSIDE RECORDS SUMMARY | 2025-06-16 13:12 | XMS_ITS | Encounter Summary ---
Author Organization [facility] Address [address] [facility] [address] [place] [address] Phone Care Team Providers Care Fagot Heater Helper Name Role Phone Michael Schofield MD Unavailable [phone] Mo Hernandez MD Unavailable Rae Torres MD Primary Care Provider Encounter Details Date Type Department Care Team (Late st Contact Info) Description 07/18/2023 Procedure Pass [facility] Endoscopy Admitting Dept Virtual Department 30 [place], [place] [phone] Social History Tobacco Use Types Packs/Day Years [...] documented as of this encounter Care Teams Fagot Heater Helper Relationship Specialty Start Date End Date Rae Torres MD [address] [place] [address] [email or web address] PCP - General Internal Medicine 04/30/21 Michael Schofield MD [address] [facility] [place] [address] [email or web address] Historical LMR Provider 07/02/17 Mo Hernandez MD [address] [facility] Floor 1 [place] [address] [email or web address] Historical LMR Provider 07/02/17 documented as of this encounter Additional Source Comments The information contained in this document represents components of the legal health record. It is not the complete legal health record.[facility]
--- OUTSIDE RECORDS SUMMARY | 2025-06-16 13:12 | XMS_ITS | Clinical Summary ---
Author Organization [facility] Address [address] [place] [address] Phone Care Team Providers Care Director Title Name Role Phone Michael Schofield MD Unavailable [phone] Mo Hernandez MD Unavailable Rae Torres MD [...] breakfast. 90 tablet 1 1 Active ID-droxidopa ([id number]) 200 mg Cap capsule Take 200 mg [...] Encounters Date Type Department Care Team Description 05/29/2025 12:52 PM EDT - 05/29/2025 11:59 PM EDT Hospital Encounter [facility] [address] [place] [address] Rae Torres MD Discharge Disposition: Home or Self Care 05/29/2025 Transcribe Orders [facility] [address] [place] [address] Rae Torres MD Mixed hyperlipidemia (Primary Dx); Parkinson's disease, unspecified whether dyskinesia present, unspecified whether manifestations fluctuate from Last 3 Months Immunizations Immunization Administration [...] Hx and SMOKELESS TOBACCO SCREENING 03/10/2026 03/10/2025 COLONOSCOPY 03/26/2030 03/26/2020 COLORECTAL CANCER SCREENING 03/26/2030 LIPID PANEL 05/29/2030 05/29/2025, 05/12, 12/12/2023, Additional history exists Adult Td,Tdap Booster 05/20/2032 05/20/2022 , 12/13/2013, [...] Procedure Name Priority Date/Time Associated Diagnosis Comments URINALYSIS WITH SEDIMENT Routine 05/29/2025 1:15 PM EDT Mixed hyperlipidemia Parkinson's disease, unspecified whether dyskinesia present, unspecified whether manifestations fluctuate COMPREHENSIVE METABOLIC PANEL Routine 05/29/2025 1:02 PM EDT Mixed hyperlipidemia Parkinson's disease, unspecified whether dyskinesia present, unspecified whether manifestations fluctuate LIPID PANEL Routine 05/29/2025 1:02 PM EDT Mixed hyperlipidemia TSH WITH REFLEX Routine 05/29/2025 1:02 PM EDT Mixed hyperlipidemia Parkinson's disease, unspecified whether dyskinesia present, unspecified whether manifestations fluctuate CBC Routine 05/29/2025 1:02 PM EDT Mixed hyperlipidemia Parkinson's disease, unspecified whether dyskinesia present, unspecified whether manifestations fluctuate VITAMIN B12 Routine 05/29/2025 1:02 PM EDT Mixed hyperlipidemia Parkinson's disease, unspecified whether dyskinesia present, unspecified whether manifestations fluctuate 25-OH VITAMIN D Routine 05/29/2025 1:02 PM EDT Mixed hyperlipidemia Parkinson's disease, unspecified whether dyskinesia present, unspecified whether manifestations fluctuate ENDOSCOPY, COLON 03/26/2020 7:20 AM EDT from Last 3 Months or Most Recently Relevant to Health Maintenance Results * (ABNORMAL) URINALYSIS WITH SEDIMENT (05/29/2025 1:15 PM EDT) WBC 0-4(A) NONE SEEN /hpf [facility] RBC 0-2(A) NONE SEEN /hpf [facility] URINE EPITHELIAL NONE SEEN NONE SEEN [facility] MUCUS Trace(A) NONE SEEN /hpf [facility] BACTERIA NONE SEEN NONE SEEN /hpf [facility] CRYSTALS 1+ [facility] Comment: Calcium Oxalate Trace AMORPHOUS COLOR Yellow Yellow [facility] CLARITY Clear [facility] GLUCOSE Negative Negative [facility] BILI Negative Negative [facility] KETONES Trace(A) Negative [facility] SPECIFIC GRAVITY 1.015 1.005 - 1.030 [facility] BLOOD Negative Negative [facility] PH 7.0 5.0 - 8.0 [facility] Protein-UA Negative Negative [facility] NITRITE Negative Negative [facility] Leukocyte esterase, ur Negative Negative [facility] Urine (Urine) 05/29/2025 1:1 5 PM EDT 05/29/2025 1:30 PM EDT us Rae Torres MD URINE ORDERABLES Final Resu lt Performing Organization Address City/State/[facility] Co de Phone Number [address] [address] * (ABNORMAL) Comprehensive metabolic panel (05/29/2025 1:02 PM EDT) SODIUM 139 133 - 146 mmol/L [facility] POTASSIUM 3.7 3.3 - 5.1 mmol/L [facility] CHLORIDE 100 96 - 108 mmol/L [facility] CO2 27 21 - 35 mmol/L [facility] BUN 15 6 - 19 mg/dL [facility] CREATININE 0.70 0.5 - 1.5 mg/dL [facility] GLUCOSE 116(H) 70 - 99 mg/dL [facility] ALBUMIN 4.6 3.9 - 4.8 g/dL [facility] TOTAL PROTEIN 7.2 6.5 - 8.0 g/dL [facility] CALCIUM 9.3 8.4 - 10.3 mg/dL [facility] ALKALINE PHOSPHATASE 114 39 - 117 U/L [facility] TOTAL BILIRUBIN 0.7 0.0 - 1.2 mg/dL [facility] AST 15 0 - 37 U/L [facility] ALT 6 0 - 40 U/L [facility] GLOBULIN 2.6 1 - 4.8 g/dL [facility] EGFR 99 >59 mL/min/1.7 3m2 [facility] Comment:Estimated glomerular filtration rate calculated using the CKD-EPI refit equation. ANION GAP 16 10 - 20 mmol/L [facility] Blood 05/29/2025 1:02 PM EDT 05/29/2025 1:07 PM EDT us Rae Torres MD LAB BLOOD ORDERABLES Final Result Performing Organization Address [facility]/ZIP Co de Phone Number [address] [address] * TSH with reflex (05/29/2025 1:02 PM EDT) TSH 1.66 0.27 - 4.20 uIU/mL [facility] Blood 05/29/2025 1:02 PM EDT 05/29/2025 1:07 PM EDT us Rae Torres MD LAB BLOOD ORDERABLES Final Result Performing Organization Address [facility]/ZIP Co de Phone Number [address] [address] * (ABNORMAL) 25-OH vitamin D (05/29/2025 1:02 PM EDT) 25 OH VIT D (TOTAL) 25(L) 30 - 60 ng/mL [facility] Blood 05/29/2025 1:02 PM EDT 05/29/2025 1:07 PM EDT us Rae Torres MD LAB BLOOD ORDERABLES Final Result Performing Organization Address City/[facility]/ZIP Co de Phone Number [address] [place] [address] * CBC (05/29/2025 1:02 PM EDT) WBC 5.16 4.00 - 11.00 K/uL [facility] RBC 5.19 4.50 - 5.90 M/uL [facility] HGB 14.6 13.5 - 17.5 g/dL [facility] HCT 43.8 41.0 - 53.0 % [facility] PLT 243 150 - 450 K/uL [facility] MCV 84.4 80.0 - 100.0 fL [facility] MCH 28.1 27.0 - 31.0 pg [facility] MCHC 33.3 32.0 - 36.0 g/dL [facility] RDW 12.4 11.5 - 14.5 % [facility] MPV 9.8 8.4 - 12.0 fL [facility] NRBC 0.00 0.00 /100 WBCs [facility] ABSOLUTE NRBC 0.00 0.00 K/uL [facility] Blood 05/29/2025 1:02 PM EDT 05/29/2025 1:07 PM EDT Rae Torres MD LAB BLOOD ORDERABLES Final Result [address] [address] * (ABNORMAL) Vitamin B12 (05/29/2025 1:02 PM EDT) VITAMIN B12 <150(L) 232 - 1245 pg/mL [facility] Blood 05/29/2025 1:02 PM EDT 05/29/2025 1:07 PM EDT Rae Torres MD LAB BLOOD ORDERABLES Final Result [address] [address] * (ABNORMAL) Lipid panel (05/29/2025 1:02 PM EDT) HDL 56 mg/dL [facility] Comment: Interpretation <40 mg/dL: Low HDL cholesterol (major risk factor for CHD) Greater than or equal to 60 mg/dL: High HDL cholesterol ( negative risk factor for CHD) HDL - cholesterol is affected by a number of factors, e.g. smoking, excerise, hormones, sex and age. CHOLESTEROL 132 0 - 240 mg/dL [facility] TRIGLYCERIDES 75 30 - 160 mg/dL [facility] LDL 61 50 - 129 mg/dL [facility] Comment: LDL levels in terms of risk for coronary heart disease: <100 mg/dL: Optimal 100-129 mg/dL: Near or above optimal 130-159 mg/dL: Borderline high 160-189 mg/dL: High >190 mg/dL: Very High CARDIAC RISK RATIO 2.4(L) 3.4 - 5.0 C [facility] Blood 05/29/2025 1:02 PM EDT 05/29/2025 1:07 PM EDT us Rae Torres MD LAB BLOOD ORDERABLES Final Result [address] [phone] * ENDOSCOPY, COLON (03/26/2020 7:20 AM EDT) Narrative Transcriptions Daisy Calvo MD - 03/26/2020 7:20 AM EDT Patient Name: Travis Johnson MD:: DAISY CALVO MD Procedure Date: 03/26/2020 7:20 AM Date of : 1955 Age: 64 Admit Type: Outpatient Gender: Male Room: [facility] Referring MD: Sallie Uriostegui Exam Type: Colonoscopy [...] monitored continuously. The Olympus adult variable colonoscope [id number] #1was introduced through the anus and advanced [...] colonoscopy in 3 years for surveillance. DAISY CALVO MD 03/26/2020 8:04:32 AM This report has been signed electronically. Number of Addenda: 0 Note Initiated On: 03/26/2020 7:20 AM Procedure Code(s): --- Professional --- 39515, Colonoscopy, flexible; with removal of tumor(s), polyp(s), or other lesion(s) by snare technique --- Technical --- 47792, Colonoscopy, flexible; with removal of tumor(s), polyp(s), or other lesion(s) by snare technique Diagnosis Code(s): --- Professional --- Z86.010, Personal history of colonic polyps D12.3, Benign neoplasm of transverse colon (hepatic flexure or splenic flexure) --- Technical --- Z86.010, Personal history of colonic polyps D12.3, Benign neoplasm of transverse colon (hepatic flexure or splenic flexure) CPT copyright 2018 [employer]. All rights reserved. The codes documented in this report are preliminary and upon risk reduction counselor reviewmay be revised to meet current compliance requirements. Procedure Date: 03/26/2020 7:20:[address] [place] [address] Sallie Uriostegui DO GI PROCEDURE ORDERABLES Fi nal Result from Last 3 Months or Most Recently Relevant to Health Maintenance Insurance [employer] MEDICARE SUPPLEMENT MEDICARE PART A & B [facility] [place] [id number] MEDICARE PART A & B Member Subscriber Plan / Payer (Ef fective 2021-Present) Name:MiloTravis Member ID:[id number] Relation to Subscriber:Self Name:MiloTravis Subscriber ID:[id number] Payer ID:[id number] Group ID:Not on file Type:Medicare Address: [employer] [address] [place] [id number] [employer] [facility] EXTENSION MEDICARE SUPPLEMENT MEDICARE PART A & B [email or web address] MEDICARE SUPPLEMENT MEDICARE PART A & B [facility] [employer] MEDICARE SUPPLEMENT MEDICARE PART A & B [facility] EXTENSION MEDICARE SUPPLEMENT MEDICARE PART A & B [facility] MEDICARE SUPPLEMENT MEDICARE PART A & B [facility] MEDICARE SUPPLEMENT MEDICARE PART A & B [facility] EXTENSION MEDICARE SUPPLEMENT MEDICARE PART A & B Care Teams Director Title Relationship Specialty Start Date End Date Rae Torres MD [address] [place] [address] [email or web address] PCP - General Internal Medicine 04/30/21 Michael Schofield MD [address] [facility] [place] [address] [email or web address] Historical LMR Provider 07/02/17 Mo Hernandez MD [address] [facility] Floor 1 [place] [address] [email or web address] Historical LMR Provider 07/02/17 Additional Source Comments The information contained in this document represents components of the legal health record. It is not the complete legal health record.[facility]
--- OUTSIDE RECORDS SUMMARY | 2025-06-16 13:12 | XMS_ITS | Encounter Summary ---
Author Organization [facility] Address [address] [place] [address] Phone Care Team Providers Care Visitor Services Technician Name Role Phone Michael Schofield MD Unavailable [phone] Mo Hernandez MD Unavailable [phone] Rae Torres MD Primary Care Provider [phone] Encounter Details Date Type Department Care Team (Late st Contact Info) Description 10/16/2023 Ancillary Orders [facility], X-Ray - [address] [phone] Rae Torres MD [address] [place] [phone] [email or web address] Right knee pain, unspecified chronicity (Primary Dx); [...] documented as of this encounter Care Teams Visitor Services Technician Relationship Specialty Start Date End Date Rae Torres MD [address] [place] [address] [email or web address] PCP - General Internal Medicine 04/30/21 Michael Schofield MD [address] [facility] [place] [address] [email or web address] Historical LMR Provider 07/02/17 Mo Hernandez MD [address] [facility] Floor 1 [place] [address] [email or web address] Historical LMR Provider 07/02/17 documented as of this encounter Additional Source Comments The information contained in this document represents components of the legal health record. It is not the complete legal health record.[facility]
--- OUTSIDE RECORDS SUMMARY | 2025-06-16 13:12 | XMS_ITS | Encounter Summary ---
Author Organization [facility] Address [address] [place] [address] Phone Care Team Providers Care Formulation Scientist Name Role Phone Michael Schofield MD Unavailable [phone] Mo Hernandez MD Unavailable Rae Torres MD Primary Care Provider Encounter Details Date Type Department Care Team (Late st Contact Info) Description 11/15/2022 Ancillary Orders [facility] [address] [place] [address] Samantha Galarza PA [address] [place] [address] [email or web address] Social History Tobacco Use Types Packs/Day Years [...] documented as of this encounter Care Teams Formulation Scientist Relationship Specialty Start Date End Date Rae Torres MD [address] [place] [address] [email or web address] PCP - General Internal Medicine 04/30/21 Michael Schofield MD [address] [facility] [place] [address] [email or web address] Historical LMR Provider 07/02/17 Mo Hernandez MD [address] [facility] [address] 1 [place] [address] [email or web address] Historical LMR Provider 07/02/17 documented as of this encounter Additional Source Comments The information contained in this document represents components of the legal health record. It is not the complete legal health record.[facility]
--- OUTSIDE RECORDS SUMMARY | 2025-06-16 13:12 | XMS_ITS | Encounter Summary ---
Author Organization [facility] Address [address] [place] [address] Phone Care Team Providers Care Naumkeag Operator Name Role Phone Michael Schofield MD Unavailable [phone] Mo Hernandez MD Unavailable [phone] Rae Torres MD Primary Care Provider Reason for Referral * MRI/CAT Scan - Closed Specialty Diagnoses / Procedures Referred By Contac t Referred To Contact Radiology Diagnoses Persistent cough Procedures CT Chest Rae Torres MD [address] [place] [address] Phone: tel: fax: [email or web address] Referral ID Status Reason Start Date Expiration Date Visits Re quested Visits Authorized [id number] Closed 11/25/2022 11/25/2023 1 1 Encounter Details Date Type Department Care Team (Late st Contact Info) Description 11/25/2022 Transcribe Orders Virtual Department [address] [place] [address] Rae Torres MD [address] [place] [address] [email or web address] Persistent cough (Primary Dx) Social History Tobacco [...] documented as of this encounter Care Teams Naumkeag Operator Relationship Specialty Start Date End Date Rae Torres MD [address] [place] [address] [email or web address] PCP - General Internal Medicine 04/30/21 Michael Schofield MD [address] [facility] [place] [address] Historical LMR Provider 07/02/17 Mo Hernandez MD [address] [facility] Floor 1 [place] [address] [email or web address] Historical LMR Provider 07/02/17 documented as of this encounter Additional Source Comments The information contained in this document represents components of the legal health record. It is not the complete legal health record.[facility]
--- OUTSIDE RECORDS SUMMARY | 2025-06-16 13:12 | XMS_ITS | Encounter Summary ---
Author Organization [facility] Address [address] [place] [address] Phone Care Team Providers Care Thai Masseur Name Role Phone Michael Schofield MD Unavailable [phone] Mo Hernandez MD Unavailable Rae Torres MD Primary Care Provider [phone] Encounter Details Date Type Department Care Team (Late st Contact Info) Description 11/15/2022 Ancillary Orders [facility] - [address] [address] Samantha Galarza PA [address] [place] [address] [email or web address] Social History Tobacco Use Types [...] documented as of this encounter Care Teams Thai Masseur Relationship Specialty Start Date End Date Rae Torres MD [address] [place] [phone] [email or web address] PCP - General Internal Medicine 04/30/21 Michael Schofield MD [address] [place] [address], [address] [place] [address] [email or web address] Historical LMR Provider 07/02/17 Mo Hernandez MD [address] [facility] Floor 1 [place] [address] [email or web address] Historical LMR Provider 07/02/17 documented as of this encounter Additional Source Comments The information contained in this document represents components of the legal health record. It is not the complete legal health record.[facility]
--- OUTSIDE RECORDS SUMMARY | 2025-06-16 13:12 | XMS_ITS | Clinical Summary ---
Author Organization [facility] Address [address] [place] [address] Care Team Providers Care Shredder Operator Name Role Phone Rae Torres Primary Care [...] age to complete this topic Insurance MEDICARE [facility] Care Teams Shredder Operator Relationship Specialty Start Date End Date Rae Torres [address] [place] [address] PCP - General Internal Medicine 11/24/21
--- OUTSIDE RECORDS SUMMARY | 2025-06-16 13:12 | XMS_ITS | Encounter Summary ---
Author Organization [facility] Address [address] [place] [address] Phone Care Team Providers Care Nurse Special Name Role Phone Michael Schofield MD Unavailable [phone] Mo Hernandez MD Unavailable Rae Torres MD Primary Care Provider [phone] Encounter Details Date Type Department Care Team (Late st Contact Info) Description 05/26/2023 Procedure Pass Non-Invasive Cardiology [address] [place], [place] [phone] Social History Tobacco Use Types Packs/Day Years [...] documented as of this encounter Care Teams Nurse Special Relationship Specialty Start Date End Date Rae Torres MD [address] [place] [address] [email or web address] PCP - General Internal Medicine 04/30/21 Michael Schofield MD [address] [facility] [place] [address] [email or web address] Historical LMR Provider 07/02/17 Mo Hernandez MD [address] [facility] Floor 1 [place] [address] [email or web address] Historical LMR Provider 07/02/17 documented as of this encounter Additional Source Comments The information contained in this document represents components of the legal health record. It is not the complete legal health record.[facility]
--- OUTSIDE RECORDS SUMMARY | 2025-06-16 13:13 | XMS_ITS | Encounter Summary ---
Author Organization [facility] Address [address] [facility] [address] [place] [address] Phone Care Team Providers Care Chess Instructor Name Role Phone Anderson Rachel MD Unavailable [phone] Pat Almodovar MD Unavailable [phone] Christen Wheeler NP Unavailable Addie Correia DPM Unavailable Unavailable Michael Schofield MD Unavailable [phone] Mo Hernandez MD Unavailable [phone] Ryne Diaz MD Unavailable Sallie Uriostegui DO Primary Care Provider Harrison Lew MD Primary Care Provider [phone] Rae Torres MD Primary Care Provider [phone] Encounter Details Date Type Department Care Team (Late st Contact Info) Description 06/27/2019 Transcribe Orders [facility] [address] [place] [address] Lidya Umanzor MD [address] [place] [address] Social History Tobacco Use Types Packs/Day Years [...] documented as of this encounter Care Teams Chess Instructor Relationship Specialty Start Date End Date Sallie Uriostegui DO [address] [place] [address] [email or web address] PCP - General 09/14/18 01/14/21 Harrison Lew MD [address] [place] [address], [address] [place] [address] PCP - General Internal Medicine 01/15/21 04/29/21 Rae Torres MD [address] [place] [address] PCP - General Internal Medicine 04/30/21 Anderson Rachel MD [address] [place] [address], [address] [place] [address] Historical LMR Provider 07/02/17 09/18/21 Pat Almodovar MD [address] [place] [address] [email or web address] Historical LMR Provider 07/02/17 09/18/21 Christen Wheeler, KANCHAN [address] [place] [address] 2[address] [address] [email or web address] Historical LMR Provider 07/02/17 09/18/21 Addie Correia DPM [address] [place] [address] Historical LMR Provider 07/02/1709/18/21 Michael Schofield MD [address] [facility] [place] [address] [email or web address] Historical LMR Provider 07/02/17 Mo Hernandez MD [address] [facility] Floor 1 [place] [address] [email or web address] Historical LMR Provider 07/02/17 Ryne Diaz MD [address] [place] [address] Historical LMR Provider 07/02/17 2 documented as of this encounter Additional Source Comments The information contained in this document represents components of the legal health record. It is not the complete legal health record.[facility]
--- OUTSIDE RECORDS SUMMARY | 2025-06-16 13:13 | XMS_ITS | Encounter Summary ---
Author Organization [facility] Address [address] [place] [address] Phone Care Team Providers Care Veterinary Pathologist Name Role Phone Anderson Rachel MD Unavailable [phone] Pat Almodovar MD Unavailable [phone] Christen Wheeler NP Unavailable Addie Correia DPM Unavailable Unavailable Michael Schofield MD Unavailable [phone] Mo Hernandez MD Unavailable [phone] Ryne Diaz MD Unavailable [phone] Sallie Uriostegui DO Primary Care Provider [phone] Harrison Lew MD Primary Care Provider [phone] Rae Torres MD Primary Care Provider [phone] Encounter Details Date Type Department Care Team (Latest Contact Info) Description 02/26/2019 Transcribe Orders [facility] Laboratory [address] [place] [address] Sallie Uriostegui, [address] [place] [address] [email or web address] Hyperglycemia; Hyperlipidemia, unspecified hyperlipidemia type; Chronic fatigue [...] EDT) WBC 7.45 3.40 - 11.20 K/uL [facility] RBC 5.46 4.50 - 5.50 M/uL [facility] HGB 15.9 13.0 - 17.0 g/dL [facility] HCT 47.5 40.0 - 51.0 % [facility] PLT 263 130 - 400 K/uL [facility] MCV 87.0 79.0 - 98.0 fL [facility] MCH 29.1 27.0 - 34.8 pg [facility] MCHC 33.5 31.5 - 36.0 g/dL [facility] RDW 12.7 10.8 - 14.6 % [facility] MPV 9.7 9.4 - 12.4 [facility] NRBC 0.00 0.00 /100 WBCs [facility] ABSOLUTE NRBC 0.00 0.00 K/uL [facility] Blood 02/26/2019 7:05 AM EDT 02/26/2019 7:07 AM EDT Sallie Uriostegui DO LAB BLOOD ORDERABLES Final Result [address] [address] * (ABNORMAL) Comprehensive metabolic panel (02/26/2019 7:05 AM EDT) SODIUM 137 133 - 146 mmol/L [facility] POTASSIUM 4.6 3.3 - 5.1 mmol/L [facility] CHLORIDE 98 96 - 108 mmol/L [facility] CO2 30 21 - 35 mmol/L [facility] BUN 17 6 - 19 mg/dL [facility] CREATININE 0.90 0.5 - 1.5 mg/dL [facility] GLUCOSE 108(H) 70 - 99 mg/dL [facility] ALBUMIN 4.3 3.9 - 4.8 g/dL [facility] TOTAL PROTEIN 7.6 6.5 - 8.0 g/dL [facility] CALCIUM 9.7 8.4 - 10.3 mg/dL [facility] ALKALINE PHOSPHATASE 97 39 - 117 U/L [facility] TOTAL BILIRUBIN 1.0 0.0 - 1.2 mg/dL [facility] AST 17 0 - 37 U/L [facility] ALT 15 0 - 40 U/L [facility] GLOBULIN 3.3 1 - 4.8 g/dL [facility] EGFR 89 >59 mL/min/1.7 3m2 [facility] Comment:If patient is black, multiply result by 1.159. Estimated glomerular filtration rate calculated using the CKD-EPI equation. ANION GAP 14 10 - 20 mmol/L [facility] Blood 02/26/2019 7:05 AM EDT 02/26/2019 7:07 AM EDT Sallie Uriostegui DO LAB BLOOD ORDERABLES Final Result [address] [address] * (ABNORMAL) Lipid panel (02/26/2019 7:05 AM [...] age. CHOLESTEROL 137 0 - 240 mg/dL [facility] TRIGLYCERIDES 71 30 - 160 mg/dL [facility] LDL 75 50 - 129 mg/dL [facility] Comment: LDL levels in terms of risk for coronary heart disease: <100 mg/dL: Optimal 100-129 mg/dL: Near or above optimal 130-159 mg/dL: Borderline high 160-189 mg/dL: High >190 mg/dL: Very High CARDIAC RISK RATIO 2.9(L) 3.4 - 5.0 C [facility] Blood 02/26/2019 7:05 AM EDT 02/26/2019 7:07 AM EDT Sallie Uriostegui DO LAB BLOOD ORDERABLES Final Result Performing Organization Address [facility] Co de Phone Number [address] [address] * Hemoglobin A1c (02/26/2019 7:05 AM EDT) HEMOGLOBIN A1C 5.8 4.3 - 5.8 % [facility] Blood 02/26/2019 7:05 AM EDT 02/26/2019 7:07 AM EDT Sallie Uriostegui DO LAB BLOOD ORDERABLES Final Result Performing Organization Address [facility] Co de Phone Number [address] [address] documented in this encounter Visit Diagnoses Diagnosis [...] documented as of this encounter Care Teams Veterinary Pathologist Relationship Specialty Start Date End Date Sallie Uriostegui DO [address] [place] [address] [email or web address] PCP - General 09/14/18 01/14/21 Harrison Lew MD [address] [place] [address], [address] [place] [address] [email or web address] PCP - General Internal Medicine 01/15/21 04/29/21 Rae Torres MD [address] [place] [address] [email or web address] PCP - General Internal Medicine 04/30/21 Anderson Rachel MD [address] [place] [address] [address] [place] [address] [email or web address] Historical LMR Provider 07/02/17 09/18/21 Pat Almodovar MD [address] [place] [address] [email or web address] Historical LMR Provider 07/02/17 09/18/21 Christen Wheeler NP [address] [place] [address] 2[facility] [address] [email or web address] Historical LMR Provider 07/02/17 09/18/21 CorreiaAddie DPM [address] [place] [address] Historical LMR Provider 07/02/1709/18/21 Michael Schofield MD [address] [facility] [place] [address] [email or web address] Historical LMR Provider 07/02/17 Mo Hernandez MD [address] Floor 1 [place] [address] [email or web address] Historical LMR Provider 07/02/17 Ryne Diaz MD [address] [place] [address] Historical LMR Provider 07/02/17 2 documented as of this encounter Additional Source Comments The information contained in this document represents components of the legal health record. It is not the complete legal health record.[facility]
== END 2025-06-16 11:35 | disposition home or self-care (01) ==
LOC: HO.HSMS 10:53
PROVIDERS: PCP Internal Medicine; Visit Provider Psychiatry & Neurology Neurology
DX: G20.B1 Parkinson's disease with dyskinesia, without mention of fluctuations (principal); I95.1 Orthostatic hypotension; K59.09 Other constipation; G47.52 REM sleep behavior disorder
CPT/HCPCS: 99214; G2211

== ENCOUNTER → 2025-06-16 10:52 | Outpatient (BNVA) | payer MEDICARE, OTHER, SELFPAY | PROVIDERS: PCP Internal Medicine; Visit Provider Psychiatry & Neurology Neurology | DX: G20.B1 Parkinson's disease with dyskinesia, without mention of fluctuations (principal); I95.1 Orthostatic hypotension; K59.09 Other constipation; G47.52 REM sleep behavior disorder | CPT/HCPCS: 99212 ==

== ENCOUNTER 2025-08-05 15:41 | Outpatient (AMB) | payer MEDICARE, OTHER, SELFPAY ==
[2025-08-05 15:41] VITALS: BP 140/94; PULSE 90; O2SAT 98; BMI 22.6
--- NOTE | 2025-08-05 15:41 | A.OFFVIS_ITS ---
Vital Signs 08/05/25 15:41 Height 5 ft 11 in Weight 162 lb 2 oz BMI 22.6 BP 140/94 H Blood Pressure Location Rt brachial Position Sitting Pulse 90 Pulse Source Pulse Oximeter Pulse Oximetry (%) 98 Oxygen Delivery Method Room Air Intake Visit Reasons: Follow up OK PER MD Intake Note: Follow up Parkinson's disease with dyskinesia, without mention of fluctuations, orthostatic hypotension, constipation, REM behavioral and sleep disorder Immigration Case Manager Required: No Accompanied by: Spouse and daughter Allergies Penicillins Adverse Reaction (Mild, Verified 08/05/25 15:41) Hives HPI Comments Details: 70 year-old male calls for follow-up of his Parkinson's disease orthostatic hypotension and insomnia, hallucinations. He is sleeping better with less nocturia since he started gemteza. He had 1 bad fall and fractured his left orbit .Surgery was not needed. He still has falls even with a walker . He is not sure if it is more in AM He forgets to use the walker and usually the falls are when he terry snot use his walker. He has lot of freezing episodes and he falls. He feels dizzy before falling. He is confused at nights and thinks he is not at home. He stopped clonazepam because of bed wetting. He still has hallucinations when he wakes up at night milder. .He has insight and does not agitate him His urologist has started on med to help with urinary frequency and urgency. He has a jig bore operator 3 nights a week, who helps with shower. He denies any syncope. He is on sinemet 25/100 1 tab 6- times a day. He is on Droxidopa to 600mg tid Rasagiline 1mg qd he is dependent in most ADLs.His keeps an eye on him He has a MACHINE TOOL TECHNICIAN INSTRUCTOR - 3 hrs in the morning and 3 nights a week.No recent falls He has slowed down a lot now. he reports cognitive issues- some confusion usually in the mornings. History form last visit- He had a fall 4 week ago - when he got up from the chair and fell. his thinks he lost balance when he turned.but she is not sure if he passed out or fell and then passed out after he hit his head.He was seen at [facility] and transferred to [facility] - was kept for observation and was discharged I increased his Droxidopa to 400mg tid He had another fall 1 week after at the Dentist after cleaning when he stood up and came to the airline lounge receptionist he passed out . He was admitted at [facility].He is worse in the morning - wakes up between 4am and 10 am - misses his & am dose when he wakes up . [facility] Medical History Knee pain, right Parkinson's disease with dyskinesia REM behavioral disorder Constipation Orthostatic hypotension Parkinson's disease Bronchitis Asthma Hyperlipidemia HTN (hypertension) Family History Family/Other HTN (hypertension) Diabetes Mother Diabetes HTN (hypertension) Social History Household Members: Spouse Alcohol intake: never Patient Tobacco Use Status: Never used Tobacco Physical Exam Vital Signs: Last Vital Signs Pulse 90 08/05/25 15:41 BP 140/94 H 08/05/25 15:41 Pulse Ox 98 08/05/25 15:41 Oxygen Delivery Method Room Air 08/05/25 15:41 BMI result Body Mass Index 22.6 Const General: cooperative, healthy appearing and no acute distress Orientation/consciousness: patient oriented x3 HEENT Head: Yes normal to inspection Neck Other: mild antecollis and restricted range of motion Neuro Other: Mild decreased blink and facial expression Voice- hypophonia, stuttering , dysprosody No tremors, mild dyskinesia Fine Finger movements - mild decreased mehran R>L Alternating hand movements - decreased mehran Hand movements - decreased mehran Foot taps- decreased mehran No cog wheel rigidity gait - stooped, smaller stride General: patient oriented x3 and no focal motor deficits Cranial nerves: Yes CN's II-XII intact bilaterally, Yes Bilaterally intact EOM present, Yes Normal facial strength present and Yes Midline tongue present Motor exam (neuro): 5/5 motor strength present throughout Coordination: [id number] test normal Assessment & Plan Assessment & Plan (1) Parkinson's disease with dyskinesia: Comment: ? DLBD Code(s): G20.B1 - Parkinson's disease with dyskinesia, without mention of fluctuations Category: Medical Qualifiers: Fluctuating manifestations: without fluctuating manifestations Qualified Code(s): G20.B1 - Parkinson's disease with dyskinesia, without mention of fluctuations (2) Orthostatic hypotension: Code(s): I95.1 - Orthostatic hypotension Category: Medical (3) Constipation: Code(s): K59.00 - Constipation, unspecified Category: Medical Qualifiers: Constipation type: other constipation type Qualified Code(s): K59.09 - Other constipation (4) REM behavioral disorder: Code(s): G47.52 - REM sleep behavior disorder Category: Medical Plan Continue Nuplazid 34mg qd Sinemet 25/100 tablet 1 tab at 6 times a day rasagiline 1 mg q.d.. northera 600mg tid Florinef 0.1mg qam Continue lactulose as needed for constipation , with miralax, metamucil , dulcolax consider adding quetiapine Hold Mirtazapine Transport wheel chair restart clonazepam 0.125mg qhs will consider adding quetiapine 12.5- 25 mg qhs he is on a waiting list for Assisted Living facility Coding Level of Care Code Complex visit Add On G2211 Diagnoses Parkinson's disease with dyskinesia without fluctuating manifestations G20.B1 Fluctuating manifestations: without fluctuating manifestations Orthostatic hypotension I95.1 Other constipation K59.09 Constipation type: other constipation type REM behavioral disorder G47.52
--- OUTSIDE RECORDS SUMMARY | 2025-08-05 19:09 | XMS_ITS | Encounter Summary ---
Author Organization [facility] Address [address] [place] [address] Phone Care Team Providers Care Station Chief Name Role Phone Michael Schofield MD Unavailable [phone] Mo Hernandez MD Unavailable Rae Torres MD Primary Care Provider [phone] Encounter Details Date Type Department Care Team (Late st Contact Info) Description 05/28/2024 Procedure Pass [facility], Ct Scan - [address] [address] Social History Tobacco Use Types Packs/Day Years [...] documented as of this encounter Care Teams Station Chief Relationship Specialty Start Date End Date Rae Torres MD [address] [place] [address] [email or web address] PCP - General Internal Medicine 04/30/21 Michael Schofield MD [address] [facility] [address] [facility] [place] [address] [email or web address] Historical LMR Provider 07/02/17 Mo Hernandez MD [address] [address] [facility] [address] 1 [place] [address] [email or web address] Historical LMR Provider 07/02/17 documented as of this encounter Additional Source Comments The information contained in this document represents components of the legal health record. It is not the complete legal health record.[facility]
--- OUTSIDE RECORDS SUMMARY | 2025-08-05 19:09 | XMS_ITS | Encounter Summary ---
Author Organization [facility] Address [address] [place] [address] Phone Care Team Providers Care Sugar House Supervisor Name Role Phone Michael Schofield MD Unavailable [phone] Mo Hernandez MD Unavailable [phone] Rae Torres MD Primary Care Provider [phone] Encounter Details Date Type Department Care Team (Late st Contact Info) Description 03/12/2025 Procedure Pass [facility], Ct Scan - [address] [address] Social History Tobacco Use Types Packs/Day Years [...] 4:31 PM EDT Venus Anne RN * [place] Suicide Severity Rating Scale (Screener/Recent Self-Report) Question Answer Date of Assessment Author 1. Wish to be (Past 1 Month) No 03/12/2025 4:31 PM EDT Azul Austin RN 2. Non-Specific Active Suici santiago Thoughts (Past 1 Month) No 03/12/2025 4:31 PM EDT Ruby Austin RN 6. Suicidal Behavior (Lifetime) No 4:31 PM EDT Vensu Austin RN documented as of this encounter Plan of Treatment Not on file documented as of this encounter Visit Diagnoses Not on filedocumented in this encounter Additional Health Concerns Assessment Noted Time PHQ-2 Depression Total Score: 0 09/21/19 21 9:01 AM EST documented as of this encounter Care Teams Sugar House Supervisor Relationship Specialty Start Date End Date Rae Torres MD [address] [place] [address] [email or web address] PCP - General Internal Medicine 04/30/21 Michael Schofield MD [address] [facility] [place] [address] [email or web address] Historical LMR Provider 07/02/17 Mo Hernandez MD [address] [facility] [address] 1 [place] [address] [email or web address] Historical LMR Provider 07/02/17 documented as of this encounter Additional Source Comments The information contained in this document represents components of the legal health record. It is not the complete legal health record.[facility]
--- OUTSIDE RECORDS SUMMARY | 2025-08-05 19:09 | XMS_ITS | Encounter Summary ---
Author Organization [facility] Address [address] [place] [address] Phone Care Team Providers Care Experimental Machinist Name Role Phone Michael Schofield MD Unavailable [phone] Mo Hernandez MD Unavailable [phone] Rae Torres MD Primary Care Provider Encounter Details Date Type Department Care Team (Late st Contact Info) Description 11/09/2024 Procedure Pass [facility], Ct Scan - [address] [address] Social History Tobacco Use Types Packs/Day Years [...] 11/09/2024 8:23 PM Samira Sanchez RN * [place] Suicide Severity Rating Scale (Screener/Recent Self-Report) Question [...] documented as of this encounter Care Teams Experimental Machinist Relationship Specialty Start Date End Date Rae Torres MD [address] [place] [address] PCP - General Internal Medicine 04/30/21 Michael Schofield MD [address] [place] [address], [address] [place] [address] Historical LMR Provider 07/02/17 Mo Hernandez MD [address] [facility] 1 [place] [address] [email or web address] Historical LMR Provider 07/02/17 documented as of this encounter Additional Source Comments The information contained in this document represents components of the legal health record. It is not the complete legal health record.[facility]
--- OUTSIDE RECORDS SUMMARY | 2025-08-05 19:09 | XMS_ITS | Encounter Summary ---
Author Organization [facility] Address [address] [place] [address] Phone Care Team Providers Care Yeast Stacker Name Role Phone Michael Schofield MD Unavailable [phone] Mo Hernandez MD Unavailable Rae Torres MD Primary Care Provider Encounter Details Date Type Department Care Team (Latest Contact Info) Description 07/18/2024 Transcribe Orders Virtual Department [address] [place] [address] Christa Vaughn, STRADDLE CARRIER OPERATOR [address] [place] [phone] [email or web address] Cervicalgia (Primary Dx) Social History Tobacco Use [...] documented as of this encounter Care Teams Yeast Stacker Relationship Specialty Start Date End Date Rae Torres MD [address] [place] [address] [email or web address] PCP - General Internal Medicine 04/30/21 Michael Schofield MD [address] [facility] [place] [address] [email or web address] Historical LMR Provider 07/02/17 Mo Hernandez MD [address] [facility] [address] 1 [place] [address] [email or web address] Historical LMR Provider 07/02/17 documented as of this encounter Additional Source Comments The information contained in this document represents components of the legal health record. It is not the complete legal health record.[facility]
--- OUTSIDE RECORDS SUMMARY | 2025-08-05 19:09 | XMS_ITS | Encounter Summary ---
Author Organization [facility] Address [address] [place] [address] Phone Care Team Providers Care Kennel Staff Member Name Role Phone Michael Schofield MD Unavailable [phone] Mo Hernandez MD Unavailable [phone] Rae Torres MD Primary Care Provider Encounter Details Date Type Department Care Team (Late st Contact Info) Description 02/14/2025 Procedure Pass [facility], Ct Scan - [address] [address] Social History Tobacco Use Types Packs/Day Years [...] 4:29 AM EDT Angelic Mckinnon RN * [place] Suicide Severity Rating Scale (Screener/Recent Self-Report) Question [...] documented as of this encounter Care Teams Kennel Staff Member Relationship Specialty Start Date End Date Rae Torres MD [address] [place] [address] [email or web address] PCP - General Internal Medicine 04/30/21 Michael Schofield MD [address] [facility] [place] [address] [email or web address] Historical LMR Provider 07/02/17 Mo Hernandez MD [address] [facility] [address] 1 [place] [address] [email or web address] Historical LMR Provider 07/02/17 documented as of this encounter Additional Source Comments The information contained in this document represents components of the legal health record. It is not the complete legal health record.[facility]
--- OUTSIDE RECORDS SUMMARY | 2025-08-05 19:09 | XMS_ITS | Encounter Summary ---
Author Organization [facility] Address [address] [facility] [address] [place] [address] Phone Care Team Providers Care Golf Range Attendant Name Role Phone Michael Schofield MD Unavailable [phone] Mo Hernandez MD Unavailable [phone] Rae Torres MD Primary Care Provider Encounter Details Date Type Department Care Team (Late st Contact Info) Description 11/09/2024 Procedure Pass [facility], Ct Scan - [address] [address] Social History Tobacco Use Types Packs/Day Years [...] 11/09/2024 8:23 PM Samira Sanchez RN * [place] Suicide Severity Rating Scale (Screener/Recent Self-Report) Question [...] documented as of this encounter Care Teams Golf Range Attendant Relationship Specialty Start Date End Date Rae Torres MD [address] [place] [address] PCP - General Internal Medicine 04/30/21 Michael Schofield MD [address] [place] [address], [address] [place] [address] Historical LMR Provider 07/02/17 Mo Hernandez MD [address] [facility] 1 [place] [address] [email or web address] Historical LMR Provider 07/02/17 documented as of this encounter Additional Source Comments The information contained in this document represents components of the legal health record. It is not the complete legal health record.[facility]
--- OUTSIDE RECORDS SUMMARY | 2025-08-05 19:09 | XMS_ITS | Encounter Summary ---
Author Organization [facility] Address [address] [address] [place] [address] Phone Care Team Providers Care Manager Hair Name Role Phone Michael Schofield MD Unavailable [phone] Mo Hernandez MD Unavailable [phone] Rae Torres MD Primary Care Provider Encounter Details Date Type Department Care Team (Late st Contact Info) Description 03/12/2025 Procedure Pass [facility], Ct Scan - [address] [address] Social History Tobacco Use Types Packs/Day Years [...] 4:31 PM EDT Venus Anne RN * [place] Suicide Severity Rating Scale (Screener/Recent Self-Report) Question [...] documented as of this encounter Care Teams Manager Hair Relationship Specialty Start Date End Date Rae Torres MD [address] [place] [address] [email or web address] PCP - General Internal Medicine 04/30/21 Michael Schofield MD [address] [facility] [place] [address] [email or web address] Historical LMR Provider 07/02/17 Mo Hernandez MD [address] [facility] [address] 1 [place] [address] [email or web address] Historical LMR Provider 07/02/17 documented as of this encounter Additional Source Comments The information contained in this document represents components of the legal health record. It is not the complete legal health record.[facility]
--- OUTSIDE RECORDS SUMMARY | 2025-08-05 19:09 | XMS_ITS | Encounter Summary ---
Author Organization [facility] Address [address] [place] [address] Phone Care Team Providers Care Early Years Teacher Name Role Phone Michael Schofield MD Unavailable [phone] Mo Hernandez MD Unavailable [phone] Rae Torres MD Primary Care Provider Encounter Details Date Type Department Care Team (Late st Contact Info) Description 11/09/2024 Procedure Pass [facility], Ct Scan - [address] [address] Social History Tobacco Use Types Packs/Day Years [...] 11/09/2024 8:23 PM Samira Sanchez RN * [place] Suicide Severity Rating Scale (Screener/Recent Self-Report) Question [...] documented as of this encounter Care Teams Early Years Teacher Relationship Specialty Start Date End Date Rae Torres MD [address] [place] [address] PCP - General Internal Medicine 04/30/21 Michael Schofield MD [address] [place] [address], [address] [place] [address] Historical LMR Provider 07/02/17 Mo Hernandez MD 22 [facility] 1 [place] [address] [email or web address] Historical LMR Provider 07/02/17 documented as of this encounter Additional Source Comments The information contained in this document represents components of the legal health record. It is not the complete legal health record.[facility]
--- OUTSIDE RECORDS SUMMARY | 2025-08-05 19:09 | XMS_ITS | Encounter Summary ---
Author Organization [facility] Address [address] [place] [address] Phone Care Team Providers Care Photographic Intelligence Officer Name Role Phone Michael Schofield MD Unavailable [phone] Mo Hernandez MD Unavailable Rae Torres MD Primary Care Provider Encounter Details Date Type Department Care Team (Late st Contact Info) Description 07/17/2024 Procedure Pass [facility], Ct Scan - [address] [address] Social History Tobacco Use Types Packs/Day Years Used Date Smoking Tobacco: Former Cigarettes Q uit: 1980 Smokeless Tobacco: Never Alcohol Use Standard Drinks/Week Comments Yes 1 (1 standard drink = 0.6 oz pur e alcohol) socially Education Answer Date Recorded Are you interested in more education? Not on edle e 01/06/2023 Are you concerned about learning? [...] 07/17/2024 3:51 PM Jazmyn Hobbs RN * [place] Suicide Severity Rating Scale (Screener/Recent Self-Report) Question [...] documented as of this encounter Care Teams Photographic Intelligence Officer Relationship Specialty Start Date End Date Rae Torres MD [address] [place] [address] [email or web address] PCP - General Internal Medicine 04/30/21 Michael Schofield MD [address] [facility], [address] [place] [address] [email or web address] Historical LMR Provider 07/02/17 Mo Hernandez MD 22 [facility] Floor 1 [place] [address] [email or web address] Historical LMR Provider 07/02/17 documented as of this encounter Additional Source Comments The information contained in this document represents components of the legal health record. It is not the complete legal health record.[facility]
--- OUTSIDE RECORDS SUMMARY | 2025-08-05 19:09 | XMS_ITS | Encounter Summary ---
Author Organization [facility] Address [address] [place] [address] Phone Care Team Providers Care Career Development Associate Name Role Phone Michael Schofield MD Unavailable [phone] Mo Hernandez MD Unavailable [phone] Rae Torres MD Primary Care Provider Encounter Details Date Type Department Care Team (Late st Contact Info) Description 08/01/2024 Procedure Pass [facility], Ct Scan - [address] [address] Social History Tobacco Use Types Packs/Day Years [...] 08/01/2024 12:36 PM Ashlie Salazar RN * [place] Suicide Severity Rating Scale (Screener/Recent Self-Report) Question [...] documented as of this encounter Care Teams Career Development Associate Relationship Specialty Start Date End Date Rae Torres MD [address] [place] [address] PCP - General Internal Medicine 04/30/21 Michael Schofield MD [address] [place] [address], [address] [place] [address] Historical LMR Provider 07/02/17 Mo Hernandez MD 22 [facility] Floor 1 [place] [address] [email or web address] Historical LMR Provider 07/02/17 documented as of this encounter Additional Source Comments The information contained in this document represents components of the legal health record. It is not the complete legal health record.[facility]
--- OUTSIDE RECORDS SUMMARY | 2025-08-05 19:09 | XMS_ITS | Encounter Summary ---
Author Organization [facility] Address [address] [place] [address] Phone Care Team Providers Care Integration Manager Name Role Phone Michael Schofield MD Unavailable [phone] Mo Hernandez MD Unavailable [phone] Rae Torres MD Primary Care Provider Encounter Details Date Type Department Care Team (Late st Contact Info) Description 02/14/2025 Procedure Pass [facility], Ct Scan - [address] [address] Social History Tobacco Use Types Packs/Day Years [...] 4:29 AM EDT Angelic Mckinnon RN * [place] Suicide Severity Rating Scale (Screener/Recent Self-Report) Question [...] documented as of this encounter Care Teams Integration Manager Relationship Specialty Start Date End Date Rae Torres MD [address] [place] [email or web address] PCP - General Internal Medicine 04/30/21 Michael Schofield MD [address] [facility], [address] [place] [address] [email or web address] Historical LMR Provider 07/02/17 Mo Hernandez MD 22 [facility] Floor 1 [place] [address] [email or web address] Historical LMR Provider 07/02/17 documented as of this encounter Additional Source Comments The information contained in this document represents components of the legal health record. It is not the complete legal health record.[facility]
--- OUTSIDE RECORDS SUMMARY | 2025-08-05 19:09 | XMS_ITS | Encounter Summary ---
Author Organization [facility] Address [address] [place] [address] Phone Care Team Providers Care Practice Support Specialist Name Role Phone Michael Schofield MD Unavailable [phone] Mo Hernandez MD Unavailable Rae Torres MD Primary Care Provider Encounter Details Date Type Department Care Team (Late st Contact Info) Description 08/01/2024 Procedure Pass [facility], Ct Scan - [address] [address] Social History Tobacco Use Types Packs/Day Years [...] 08/01/2024 12:36 PM Ashlie Salazar RN * [place] Suicide Severity Rating Scale (Screener/Recent Self-Report) Question [...] documented as of this encounter Care Teams Practice Support Specialist Relationship Specialty Start Date End Date Rae Torres MD [address] [place] [address] PCP - General Internal Medicine 04/30/21 Michael Schofield MD [address] [place] [address], [address] [place] [address] Historical LMR Provider 07/02/17 Mo Hernandez MD [address] [facility] Floor 1 [place] [address] [email or web address] Historical LMR Provider 07/02/17 documented as of this encounter Additional Source Comments The information contained in this document represents components of the legal health record. It is not the complete legal health record.[facility]
--- OUTSIDE RECORDS SUMMARY | 2025-08-05 19:09 | XMS_ITS | Encounter Summary ---
Author Organization [facility] Address [address] [place] [address] Phone Care Team Providers Care Electric Motor Tester Name Role Phone Anderson Rachel MD Unavailable [phone] Pat Almodovar MD Unavailable [phone] Christen Wheeler NP Unavailable Addie Correia DPM Unavailable Unavailable Michael Schofield MD Unavailable [phone] Mo Hernandez MD Unavailable [phone] Ryne Diaz MD Unavailable [phone] Sallie Uriostegui DO Primary Care Provider [phone] Harrison Lew MD Primary Care Provider [phone] Rae Torres MD Primary Care Provider [phone] Encounter Details Date Type Department Care Team (Late st Contact Info) Description 03/26/2020 Procedure Pass [facility] Admitting Dept Virtual Department 30 [place], [place] [id number] Social History Tobacco Use Types Packs/Day Years [...] documented as of this encounter Care Teams Electric Motor Tester Relationship Specialty Start Date End Date Sallie Uriostegui DO [address] [place] [address] [email or web address] PCP - General 09/14/18 01/14/21 Harrison Lew MD [address] [place] [address], [address] [address] PCP - General Internal Medicine 01/15/21 04/29/21 Rae Torres MD [address] [place] [address] PCP - General Internal Medicine 04/30/21 Anderson Rachel MD [address] [place] [address], [address] [address] [email or web address] Historical LMR Provider 07/02/17 09/18/21 Pat Almodovar MD [address] [place] [address] Historical LMR Provider 07/02/17 09/18/21 Christen Wheeler NP [address] [place] [address] 2[facility] [address] [email or web address] Historical LMR Provider 07/02/17 09/18/21 Addie Correia DPM [address] [place] [address] Historical LMR Provider 07/02/1709/18/21 Michael Schofield MD [address] [place] [address], [address] [place] [address] [email or web address] Historical LMR Provider 07/02/17 Mo Hernandez MD [address] [facility] Floor 1 [place] [address] [email or web address] Historical LMR Provider 07/02/17 Ryne Diaz MD [address] [place] [address] Historical LMR Provider 07/02/17 2 documented as of this encounter Additional Source Comments The information contained in this document represents components of the legal health record. It is not the complete legal health record.[facility]
--- OUTSIDE RECORDS SUMMARY | 2025-08-05 19:09 | XMS_ITS | Encounter Summary ---
Author Organization [facility] Address [address] [place] [address] Phone Care Team Providers Care Gasoline Tester Name Role Phone Anderson Rachel MD Unavailable [phone] Pat Almodovar MD Unavailable [phone] Christen Wheeler NP Unavailable Addie Correia DPM Unavailable Unavailable Michael Schofield MD Unavailable [phone] Mo Hernandez MD Unavailable [phone] Ryne Diaz MD Unavailable [phone] Sallie Uriostegui DO Primary Care Provider + [phone] Harrison Lew MD Primary Care Provider [phone] Rae Torres MD Primary Care Provider [phone] Reason for Referral * Physical Therapy (Elective) - Closed Specialty Diagnoses / Procedures Referred By Contac t Referred To Contact Physical Therapy Diagnoses Encounter for rehabilitation Parkinsons/ Low Back - Les Weakness Procedures Evaluate & Treat Lidya Umanzor MD Phone: tel: fax: [address] [address] Phone: tel: Referral ID Status Reason Start Date Expiration Date Visits Re quested Visits Authorized [id number] Closed 07/03/2019 09/10/2019 16 16 Encounter Details Date Type Department Care Team (Latest Contact Info) Description 06/27/2019 Transcribe Orders [facility] 4 [place] [address] Lidya Umanzor MD [address] [place] [address] Encounter for rehabilitation (Primary Dx) Social History [...] Date/Time Associated Diagnosis Comments AMB REFERRAL TO [facility] PHYSICAL THERAPY Routine 07/03/2019 5:23 PM EDT Encounter for rehabilitation documented in this encounter Results * Ambulatory referral to [facility] Physical Therapy (07/03/2019 5:23 PM EDT) Lidya Umanzor MD AMB [facility] REFERRALS Final Result documented in this encounter [...] documented as of this encounter Care Teams Gasoline Tester Relationship Specialty Start Date End Date Sallie Uriostegui DO 9 [place] [address] [email or web address] PCP - General 09/14/18 01/14/21 Harrison Lew MD [address] [place] [address], [address] [place] [address] [email or web address] PCP - General Internal Medicine 01/15/21 04/29/21 Rae Torres MD [address] [place] [address] [email or web address] PCP - General Internal Medicine 04/30/21 Anderson Rachel MD [address] [place] [address], [address] [place] [address] [email or web address] Historical LMR Provider 07/02/17 09/18/21 Pat Almodovar MD [address] [place] [address] [email or web address] Historical LMR Provider 07/02/17 09/18/21 Christen Wheeler NP [address] [place] [address] 2[place] [address] [email or web address] Historical LMR Provider 07/02/17 09/18/21 Addie Correia DPM [address] [place] [address] [place] [address] Historical LMR Provider 07/02/1709/18/21 Michael Schofield MD [address] [place] [address], [address] [place] [address] [email or web address] Historical LMR Provider 07/02/17 Mo Hernandez MD 22 [facility] 1 [place] [address] [email or web address] Historical LMR Provider 07/02/17 Ryne Diaz MD [address] [place] [address] Historical LMR Provider 07/02/17 2 documented as of this encounter Additional Source Comments The information contained in this document represents components of the legal health record. It is not the complete legal health record.[facility]
--- OUTSIDE RECORDS SUMMARY | 2025-08-05 19:10 | XMS_ITS | Encounter Summary ---
Author Organization [facility] Address [address] [place] [address] Phone Care Team Providers Care Hospital Chaplain Name Role Phone Michael Schofield MD Unavailable [phone] Mo Hernandez MD Unavailable Rae Torres MD Primary Care Provider [phone] Encounter Details Date Type Department Care Team (Late st Contact Info) Description 11/25/2022 Procedure Pass [facility], Ct Scan - [address] [address] Social History Tobacco Use Types Packs/Day Years [...] documented as of this encounter Care Teams Hospital Chaplain Relationship Specialty Start Date End Date Rae Torres MD [address] [place] [address] [email or web address] PCP - General Internal Medicine 04/30/21 Michael Schofield MD [address] [place] [address], [address] [place] [address] [email or web address] Historical LMR Provider 07/02/17 Mo Hernandez MD 22 [facility] Floor 1 [place] [address] [email or web address] Historical LMR Provider 07/02/17 documented as of this encounter Additional Source Comments The information contained in this document represents components of the legal health record. It is not the complete legal health record.[facility]
--- OUTSIDE RECORDS SUMMARY | 2025-08-05 19:10 | XMS_ITS | Encounter Summary ---
Author Organization [facility] Address [address] [place] [address] Phone Care Team Providers Care Wire Taper Name Role Phone Michael Schofield MD Unavailable [phone] Mo Hernandez MD Unavailable Rae Torres MD Primary Care Provider Reason for Referral * MRI/CAT Scan - Closed Specialty Diagnoses / Procedures Referred By Contkori t Referred To Contact Radiology Diagnoses Pulmonary nodule Procedures CT Chest Rae Torres MD 15 [place] [address] Phone: tel: fax: [email or web address] Referral ID Status Reason Start Date Expiration Date Visits Re quested Visits Authorized [id number] Closed 05/28/2024 05/28/2025 1 1 Encounter Details Date Type Department Care Team (Late st Contact Info) Description 05/28/2024 Transcribe Orders Virtual Department 30 [place] [address] Rae Torres MD 15 [place] [address] [email or web address] Pulmonary nodule (Primary Dx) Social History Tobacco [...] No destructive osseous lesions. Procedure Note Pamela Saezn MD - 07/18/2024 CT CHEST WITHOUT CONTRAST [...] documented as of this encounter Care Teams Wire Taper Relationship Specialty Start Date End Date Rae Torres MD 15 [place] [address] [email or web address] PCP - General Internal Medicine 04/30/21 Michael Schofield MD [address] [facility], [address] [place] [address] [email or web address] Historical LMR Provider 07/02/17 Mo Hernandez MD [address] [facility] Floor 1 [place] [address] [email or web address] Historical LMR Provider 07/02/17 documented as of this encounter Additional Source Comments The information contained in this document represents components of the legal health record. It is not the complete legal health record.[facility]
--- OUTSIDE RECORDS SUMMARY | 2025-08-05 19:10 | XMS_ITS | Clinical Summary ---
Author Organization [facility] Address [address] [place] [address] Phone Care Team Providers Care Plate [place] Hand Name Role Phone Michael Schofield MD Unavailable [phone] Mo Hernandez MD Unavailable Rae Torres [...] breakfast. 90 tablet 1 1 Active ID-droxidopa ([id number]) 200 mg Cap capsule Take 200 mg [...] Encounters Date Type Department Care Team Description 07/10/2025 8:06 PM EDT - 07/11/2025 1:06 AM EDT Emergency [facility] [address] [place] [id number] Discharge Disposition: Short Term Hospital 07/10/2025 Procedure [facility], Ct Scan - [address] [address] 07/10/2025 Procedure [facility], Ct Scan - [address] [address] 05/29/2025 12:52 PM EDT - 05/29/2025 11:59 PM EDT Hospital Encounter [facility] [address] [place] [id number] Rae Torres MD Discharge Disposition: Home or Self Care 05/29/2025 Transcribe Orders [facility] [address] [place] [id number] Rae oTrres MD Mixed hyperlipidemia (Primary Dx); Parkinson's disease, [...] money to get more. Unable to assess 07/11/2025 Residential Stability Answer Date Recor ded What is your housing situation today? Unable to assess 07/11/2025 How many times have you moved in the past 12 mon ths? Unable to assess 07/11/2025 Paying for Meds Answer Date Recorded Do you have trouble paying for medicines? Unable to assess 07/11/2025 Paying Utility Bills Answer Date Record ed Do you have trouble paying y our heating or electricity bill? Unable to assess 07/11/2025 Transportation Answer Date Recorded Has the lack of transportati on kept you from medical appointments or from getting medications? Unable to assess 07/11/2025 Digital Access Answer Date Recorded No 07/11/2025 No 07/11/2025 Do you have reliable internet access at home? Un able to assess 07/11/2025 Do you have a device (e.g., phone, tablet, computer) with a working camera? Unable to assess 07/11/2025 Intimate Partner Violence Answer Date R ecorded Are you denied basic needs s uch as food, clothing, or medical care? No 07/10/2025 In the past 12 months have y ou been in a relationship with a person who hurts, threatens, or tries to control you? No 07/10/2025 Are you denied basic needs s uch as food, clothing, or medical care? No 07/10/2025 In the past 12 months have y ou been in a relationship with a person who hurts, threatens, or tries to control you? No 07/10/2025 Sex and Gender Information Value Date Recorded Sex Assigned at Male 03/16/2020 8:36 AM EDT Legal Sex Male 9:58 PM EDT Gender Identity Male 03/16/2020 8:36 AM EDT Sexual Orientation Straight 02/14/2025 5: 32 AM EDT Last Filed Vital Signs Vital Sign Reading Time Taken Comments Blood Pressure 153/97 07/10/2025 11:53 PM EDT Pulse 92 07/10/2025 11:53 PM EDT Temperature 36.5 C (97.7 F) 07/10/2025 11:53 PM EDT Respiratory Rate 16 07/10/2025 11:53 PM EDT Oxygen Saturation 100% 07/10/2025 11:53 PM EDT Inhaled Oxygen Concentration - - Weight 74.8 kg (165 lb) 07/10/2025 8:21 PM EDT Height 180.3 cm (5' 11 ) 07/10/2025 8:21 PM EDT Body Mass Index 23.01 07/10/2025 8:21 PM EDT Plan of Treatment Health Maintenance [...] Procedure Name Priority Date/Time Associated Diagnosis Comments BASIC METABOLIC PANEL (BMP) STAT 07/10/2025 8:41 PM EDT CBC AND DIFFERENTIAL STAT 07/10/2025 8:41 PM EDT POCT GLUCOSE Routine 07/10/2025 8:21 PM EDT ECG 12-LEAD STAT 07/10/2025 8:[address] CERVICAL SPINE WITHOUT CONTRAST Routine 07/10/2025 8:[address] HEAD WITHOUT CONTRAST Routine 07/10/2025 8:12 PM EDT URINALYSIS WITH SEDIMENT Routine 05/29/2025 1:15 PM EDT Mixed hyperlipidemia Parkinson's disease, unspecified whether dyskinesia present, unspecified whether manifestations fluctuate COMPREHENSIVE METABOLIC PANEL (CMP) Routine 05/29/2025 1:02 PM EDT Mixed hyperlipidemia [...] Relevant to Health Maintenance Results * (ABNORMAL) CBC and differential (07/10/2025 8:41 PM EDT) WBC 10.15 4.00 - 11.00 K/uL [facility] RBC 4.99 4.50 - 5.90 M/uL [facility] HGB 14.2 13.5 - 17.5 g/dL [facility] HCT 41.4 41.0 - 53.0 % [facility] PLT 238 150 - 450 K/uL [facility] MCV 83.0 80.0 - 100.0 fL [facility] MCH 28.5 27.0 - 31.0 pg [facility] MCHC 34.3 32.0 - 36.0 g/dL [facility] RDW 12.8 11.5 - 14.5 % [facility] MPV 9.0 8.4 - 12.0 fL [facility] NRBC 0.00 0.00 /100 WBCs [facility] ABSOLUTE NRBC 0.00 0.00 K/uL [facility] DIFF METHOD Auto [facility] NEUTS 77.2(H) 48.0 - 76.0 % [facility] LYMPHS 10.7(L) 18.0 - 41.0 % [facility] MONOS 10.1 4.0 - 11.0 % [facility] EOS 1.2 0.0 - 5.0 % [facility] BASOS 0.4 0.0 - 1.5 % [facility] Granulocytes, immature (%) 0.4 0.0 - 0.9 % [facility] ABSOLUTE NEUTS 7.83(H) 1.92 - 7.60 K/uL [facility] ABSOLUTE LYMPHS 1.09 0.72 - 4.10 K/uL [facility] ABSOLUTE MONOS 1.03 0.16 - 1.10 K/uL [facility] ABSOLUTE EOS 0.12 0.00 - 0.50 K/uL [facility] ABSOLUTE BASOS 0.04 0.00 - 0.15 K/uL [facility] Granulocytes, immature 0.04 0.00 - 0.09 K/uL [facility] Blood 07/10/2025 8:41 PM EDT 07/10/2025 8:44 PM EDT us Anil Mustafa PA-C LAB BLOOD BKR ORDERABLES Fin al Result Performing Organization Address City/State/[facility] Co de Phone Number [address] [address] * (ABNORMAL) Basic metabolic panel (07/10/2025 8:41 PM EDT) SODIUM 137 133 - 146 mmol/L [facility] CHLORIDE 99 96 - 108 mmol/L [facility] POTASSIUM 3.8 3.3 - 5.1 mmol/L [facility] CO2 27 21 - 35 mmol/L [facility] BUN 20(H) 6 - 19 mg/dL [facility] CREATININE 0.70 0.5 - 1.5 mg/dL [facility] GLUCOSE 131(H) 70 - 99 mg/dL [facility] CALCIUM 9.2 8.4 - 10.3 mg/dL [facility] EGFR 99 >59 mL/min/1.7 3m2 [facility] Comment:Estimated glomerular filtration rate calculated using the CKD-EPI refit equation. ANION GAP 15 10 - 20 mmol/L [facility] Blood 07/10/2025 8:41 PM EDT 07/10/2025 8:44 PM EDT us Anil Mustafa PA-C LAB BLOOD BKR ORDERABLES Fin al Result Performing Organization Address City/[facility]/ZIP Co de Phone Number [address] [address] * (ABNORMAL) POCT Glucose (07/10/2025 8:21 PM EDT) Glucose, POCT 112(H) 70 - 100 mg/dL [facility] 07/10/2025 8:21 PM EDT 07/10/2025 8:23 PM EDT us Unknown Unknown MD POINT OF CARE TEST ORDERABLES Final Result Performing Organization Address [facility] Co de Phone Number [address] [address] * ECG 12-LEAD (07/10/2025 8:20 PM EDT) Ventricular Rate EKG/MIN 91 BPM [facility] Atrial Rate 91 BPM [facility] NM Interval 164 ms [facility] QRS Duration 84 ms [facility] QT Interval 368 ms [facility] QTC Interval 452 ms [facility] P Mobile 79 degrees [facility] R Wave Mobile -4 degrees [facility] T Wave Mobile 30 degrees [facility] 07/10/2025 8:20 PM EDT 07/11/2025 2:16 PM EDT Narrative [facility] - 07/11/2025 2:16 PM EDT Sinus rhythm with Premature atrial complexes Otherwise normal ECG When compared with ECG of 12-Mar-2025 05:54, No significant change was found Confirmed by Chele Jaime ([id number]) on 07/11/2025 2:16:02 PM us Jose Hou MD ECG ORDERABLES Final Re sult [facility] * CT CERVICAL SPINE WITHOUT CONTRAST (07/10/2025 8:12 PM EDT) MGB IMG LEGAL STENOGRAPHER COMMENT Multiple acute right facial fractures [facility] Anatomical Region Laterality Modality C-spine Computed Tomogra phy 07/10/2025 9:55 PM EDT Impressions 07/10/2025 10:34 PM EDT 1. No acute intracranial findings. 2. Acute comminuted fractures of the lateral and anterior west of the right maxillary sinus extending into the orbital floor with involvement of the infraorbital canal. Additional age-indeterminate lobe possibly acute nondisplaced fracture of the lateral right orbital wall. 3. Posttraumatic right maxillary hemosinus and right periorbital hematoma. 4. No acute fracture or traumatic malalignment of the cervical spine. A clinically significant result was initiated on 07/10/2025 10:01 PM, Message ID [id number]. ATTESTATION: I, Dr. Eder Watt as teaching physician, have reviewed the images for this case and if necessary edited the report originally created by Quinn Mann. Narrative 07/10/2025 10:[address] CERVICAL SPINE WITHOUT CONTRAST, CT HEAD WITHOUT CONTRAST Referring clinician's provided indication for this examination in Epic: * Neck trauma (Age >= 65y) TECHNIQUE: CTs of the head and cervical spine were performed without intravenous contrast using tailored dose modulation techniques. Images were reconstructed in the axial, coronal, and sagittal planes. COMPARISON: CT head and cervical spine from March 12, 2025 FINDINGS: HEAD: Brain Parenchyma: No midline shift, mass effect, parenchymal hemorrhage, or evidence of acute territorial infarct. Hypodensities in the periventricular white matter, likely a manifestation of chronic small vessel disease. Ventricular System and Extra-Axial Spaces: No extra-axial fluid collections. Basal cisterns are patent. No hydrocephalus. Osseous and Extracranial Structures: Acute comminuted fracture of the lateral and anterior west of the right maxillary sinus extending into the right orbital floor involving the right infraorbital canal. Additional age-indeterminate though possibly acute nondisplaced fracture of the right lateral orbital wall. No CT evidence of extraocular muscle entrapment. There is partial opacification of the right maxillary sinus with air-fluid level, likely hemosinus. Right periorbital/infraorbital hematoma without postseptal extension. CERVICAL SPINE: Alignment and Vertebrae: No traumatic malalignment. Vertebral bodies and posterior elements are intact. Mild multilevel facet arthropathy. Discs and Endplates: Multilevel intervertebral disc space narrowing with reactive endplate changes and osteophytic spurring. Multilevel calcifications along the anterior longitudinal ligament. Other Findings: No prevertebral soft tissue thickening. Heterogeneous appearance of the thyroid with subcentimeter nodularity. Bilateral lung apices are clear. Procedure Note Eder Watt MD - 07/10/2025 CT CERVICAL SPINE WITHOUT CONTRAST, CT HEAD WITHOUT CONTRAST Referring clinician's provided indication for this examination in Epic: *Neck trauma (Age >= 65y) TECHNIQUE: CTs of the head and cervical spine were performed withoutintravenous contrast using tailored dose modulation techniques. Imageswere reconstructed in the axial, coronal, and sagittal planes. COMPARISON: CT head and cervical spine from March 12, 2025 FINDINGS: HEAD: Brain Parenchyma: No midline shift, mass effect, parenchymal hemorrhage,or evidence of acute territorial infarct. Hypodensities in theperiventricular white matter, likely a manifestation of chronic smallvessel disease. Ventricular System and Extra-Axial Spaces: No extra-axial fluidcollections. Basal cisterns are patent. No hydrocephalus. Osseous and Extracranial Structures: Acute comminuted fracture of thelateral and anterior west of the right maxillary sinus extending into theright orbital floor involving the right infraorbital canal. Additionalage-indeterminate though possibly acute nondisplaced fracture of the rightlateral orbital wall. No CT evidence of extraocular muscle entrapment.There is partial opacification of the right maxillary sinus with air-fluidlevel, likely hemosinus. Right periorbital/infraorbital hematoma withoutpostseptal extension. CERVICAL SPINE: Alignment and Vertebrae: No traumatic malalignment. Vertebral bodies andposterior elements are intact. Mild multilevel facet arthropathy. Discs and Endplates: Multilevel intervertebral disc space narrowing withreactive endplate changes and osteophytic spurring. Multilevelcalcifications along the anterior longitudinal ligament. Other Findings: No prevertebral soft tissue thickening. Heterogeneousappearance of the thyroid with subcentimeter nodularity. Bilateral lungapices are clear. IMPRESSION: 1. No acute intracranial findings. 2. Acute comminuted fractures of the lateral and anterior west of theright maxillary sinus extending into the orbital floor with involvement ofthe infraorbital canal. Additional age-indeterminate lobe possibly acutenondisplaced fracture of the lateral right orbital wall. 3. Posttraumatic right maxillary hemosinus and right periorbitalhematoma. 4. No acute fracture or traumatic malalignment of the cervical spine. A clinically significant result was initiated on 07/10/2025 10:01 PM,Message ID [id number]. ATTESTATION: I, Dr. Eder Watt as teaching physician, have reviewed theimages for this case and if necessary edited the report originally createdby Quinn Mann. Anil Mustafa PA-C [facility] CT XSPECIALTY ORDERABLES Final Result * CT HEAD WITHOUT CONTRAST (07/10/2025 8:12 PM EDT) [facility] IM LEGAL STENOGRAPHER COMMENT Multiple acute right facial fractures [facility] Anatomical Region Laterality Modality Head Computed Tomogra phy 07/10/2025 9:55 PM EDT Impressions 07/10/2025 10:34 PM EDT 1. No acute intracranial findings. 2. Acute comminuted fractures of the lateral and anterior west of the right maxillary sinus extending into the orbital floor with involvement of the infraorbital canal. Additional age-indeterminate lobe possibly acute nondisplaced fracture of the lateral right orbital wall. 3. Posttraumatic right maxillary hemosinus and right periorbital hematoma. 4. No acute fracture or traumatic malalignment of the cervical spine. A clinically significant result was initiated on 07/10/2025 10:01 PM, Message ID [id number]. ATTESTATION: I, Dr. Eder Watt as teaching physician, have reviewed the images for this case and if necessary edited the report originally created by Quinn Mann. Narrative 07/10/2025 10:[address] CERVICAL SPINE WITHOUT CONTRAST, CT HEAD WITHOUT CONTRAST Referring clinician's provided indication for this examination in [facility]: * Neck trauma (Age >= 65y) TECHNIQUE: CTs of the head and cervical spine were performed without intravenous contrast using tailored dose modulation techniques. Images were reconstructed in the axial, coronal, and sagittal planes. COMPARISON: CT head and cervical spine from March 12, 2025 FINDINGS: HEAD: Brain Parenchyma: No midline shift, mass effect, parenchymal hemorrhage, or evidence of acute territorial infarct. Hypodensities in the periventricular white matter, likely a manifestation of chronic small vessel disease. Ventricular System and Extra-Axial Spaces: No extra-axial fluid collections. Basal cisterns are patent. No hydrocephalus. Osseous and Extracranial Structures: Acute comminuted fracture of the lateral and anterior west of the right maxillary sinus extending into the right orbital floor involving the right infraorbital canal. Additional age-indeterminate though possibly acute nondisplaced fracture of the right lateral orbital wall. No CT evidence of extraocular muscle entrapment. There is partial opacification of the right maxillary sinus with air-fluid level, likely hemosinus. Right periorbital/infraorbital hematoma without postseptal extension. CERVICAL SPINE: Alignment and Vertebrae: No traumatic malalignment. Vertebral bodies and posterior elements are intact. Mild multilevel facet arthropathy. Discs and Endplates: Multilevel intervertebral disc space narrowing with reactive endplate changes and osteophytic spurring. Multilevel calcifications along the anterior longitudinal ligament. Other Findings: No prevertebral soft tissue thickening. Heterogeneous appearance of the thyroid with subcentimeter nodularity. Bilateral lung apices are clear. Procedure Note Eder Watt MD - 07/10/2025 CT CERVICAL SPINE WITHOUT CONTRAST, CT HEAD WITHOUT CONTRAST Referring clinician's provided indication for this examination in [facility]: *Neck trauma (Age >= 65y) TECHNIQUE: CTs of the head and cervical spine were performed withoutintravenous contrast using tailored dose modulation techniques. Imageswere reconstructed in the axial, coronal, and sagittal planes. COMPARISON: CT head and cervical spine from March 12, 2025 FINDINGS: HEAD: Brain Parenchyma: No midline shift, mass effect, parenchymal hemorrhage,or evidence of acute territorial infarct. Hypodensities in theperiventricular white matter, likely a manifestation of chronic smallvessel disease. Ventricular System and Extra-Axial Spaces: No extra-axial fluidcollections. Basal cisterns are patent. No hydrocephalus. Osseous and Extracranial Structures: Acute comminuted fracture of thelateral and anterior west of the right maxillary sinus extending into theright orbital floor involving the right infraorbital canal. Additionalage-indeterminate though possibly acute nondisplaced fracture of the rightlateral orbital wall. No CT evidence of extraocular muscle entrapment.There is partial opacification of the right maxillary sinus with air-fluidlevel, likely hemosinus. Right periorbital/infraorbital hematoma withoutpostseptal extension. CERVICAL SPINE: Alignment and Vertebrae: No traumatic malalignment. Vertebral bodies andposterior elements are intact. Mild multilevel facet arthropathy. Discs and Endplates: Multilevel intervertebral disc space narrowing withreactive endplate changes and osteophytic spurring. Multilevelcalcifications along the anterior longitudinal ligament. Other Findings: No prevertebral soft tissue thickening. Heterogeneousappearance of the thyroid with subcentimeter nodularity. Bilateral lungapices are clear. IMPRESSION: 1. No acute intracranial findings. 2. Acute comminuted fractures of the lateral and anterior west of theright maxillary sinus extending into the orbital floor with involvement ofthe infraorbital canal. Additional age-indeterminate lobe possibly acutenondisplaced fracture of the lateral right orbital wall. 3. Posttraumatic right maxillary hemosinus and right periorbitalhematoma. 4. No acute fracture or traumatic malalignment of the cervical spine. A clinically significant result was initiated on 07/10/2025 10:01 PM,Message ID [id number]. ATTESTATION: I, Dr. Eder Watt as teaching physician, have reviewed theimages for this case and if necessary edited the report originally createdby Quinn Mann. us Anil Mustafa PA-C IMG CT HEAD/NECK Final Resul t * (ABNORMAL) URINALYSIS WITH SEDIMENT (05/29/2025 1:15 PM EDT) WBC 0-4(A) NONE SEEN /hpf [facility] RBC 0-2(A) NONE SEEN /hpf [facility] URINE EPITHELIAL NONE SEEN NONE SEEN [facility] MUCUS Trace(A) NONE SEEN /hpf [facility] BACTERIA NONE SEEN NONE SEEN /hpf [facility] CRYSTALS 1+ [facility] Comment: Calcium Oxalate Trace AMORPHOUS COLOR Yellow Yellow [facility] CLARITY Clear [facility] GLUCOSE Negative Negative [facility] BILI Negative Negative [facility] KETONES Trace(A) Negative [facility] SPECIFIC GRAVITY 1.015 1.005 - 1.030 [facility] BLOOD Negative Negative [facility] PH 7.0 5.0 - 8.0 [facility] Protein-UA Negative Negative [facility] NITRITE Negative Negative [facility] Leukocyte esterase, ur Negative Negative [facility] Urine (Urine) 05/29/2025 1:1 5 PM EDT 05/29/2025 1:30 PM EDT Rae Torres MD LAB URINE ORDERABLES Final Result Performing Organization Address City/State/[facility] Co de Phone Number [facility] [address] [place] [address] * (ABNORMAL) Comprehensive metabolic panel (05/29/2025 1:02 PM EDT) SODIUM 139 133 - 146 mmol/L [facility] POTASSIUM 3.7 3.3 - 5.1 mmol/L [facility] CHLORIDE 100 96 - 108 mmol/L [facility] CO2 27 21 - 35 mmol/L [facility] BUN 15 6 - 19 mg/dL [facility] CREATININE 0.70 0.5 - 1.5 mg/dL [facility] GLUCOSE 116(H) 70 - 99 mg/dL [facility] ALBUMIN 4.6 3.9 - 4.8 g/dL [facility] TOTAL PROTEIN 7.2 6.5 - 8.0 g/dL [facility] CALCIUM 9.3 8.4 - 10.3 mg/dL [facility] ALKALINE PHOSPHATASE 114 39 - 117 U/L [facility] TOTAL BILIRUBIN 0.7 0.0 - 1.2 mg/dL [facility] AST 15 0 - 37 U/L [facility] ALT 6 0 - 40 U/L [facility] GLOBULIN 2.6 1 - 4.8 g/dL [facility] EGFR 99 >59 mL/min/1.7 3m2 [facility] Comment:Estimated glomerular filtration rate calculated using the CKD-EPI refit equation. ANION GAP 16 10 - 20 mmol/L [facility] Blood 05/29/2025 1:02 PM EDT 05/29/2025 1:07 PM EDT us Rae Torres MD LAB BLOOD BKR ORDERABLES Fi nal Result Performing Organization Address City/[facility]/ZIP Co de Phone Number [address] [address] * TSH with reflex (05/29/2025 1:02 PM EDT) TSH 1.66 0.27 - 4.20 uIU/mL [facility] Blood 05/29/2025 1:02 PM EDT 05/29/2025 1:07 PM EDT us Rae Torres MD LAB BLOOD BKR ORDERABLES Fi nal Result Performing Organization Address [facility]/ZIP Co de Phone Number [address] [address] * (ABNORMAL) 25-OH vitamin D (05/29/2025 1:02 PM EDT) 25 OH VIT D (TOTAL) 25(L) 30 - 60 ng/mL [facility] Blood 05/29/2025 1:02 PM EDT 05/29/2025 1:07 PM EDT us Rae Torres MD LAB BLOOD BKR ORDERABLES Fi nal Result Performing Organization Address City/[facility]/ZIP Co de Phone Number [address] [address] * CBC (05/29/2025 1:02 PM EDT) WBC 5.16 4.00 - 11.00 K/uL [facility] RBC 5.19 4.50 - 5.90 M/uL [facility] HGB 14.6 13.5 - 17.5 g/dL [facility] HCT 43.8 41.0 - 53.0 % [facility] PLT 243 150 - 450 K/uL [facility] MCV 84.4 80.0 - 100.0 fL [facility] MCH 28.1 27.0 - 31.0 pg [facility] MCHC 33.3 32.0 - 36.0 g/dL [facility] RDW 12.4 11.5 - 14.5 % [facility] MPV 9.8 8.4 - 12.0 [facility] NRBC 0.00 0.00 /100 WBCs [facility] ABSOLUTE NRBC 0.00 0.00 K/uL [facility] Blood 05/29/2025 1:02 PM EDT 05/29/2025 1:07 PM EDT Rae Torres MD LAB BLOOD BKR ORDERABLES Fi nal Result Performing Organization Address City/[facility]/ZIP Co de Phone Number [address] [address] * (ABNORMAL) Vitamin B12 (05/29/2025 1:02 PM EDT) VITAMIN B12 <150(L) 232 - 1245 pg/mL [facility] Blood 05/29/2025 1:02 PM EDT 05/29/2025 1:07 PM EDT Rae Torres MD LAB BLOOD BKR ORDERABLES Fi nal Result Performing Organization Address [facility]/ZIP Co de Phone Number [address] [address] * (ABNORMAL) Lipid panel (05/29/2025 1:02 PM EDT) HDL 56 mg/dL [facility] Comment: Interpretation <40 mg/dL: Low HDL cholesterol (major risk factor for CHD) Greater than or equal to 60 mg/dL: High HDL cholesterol ( negative risk factor for CHD) HDL - cholesterol is affected by a number of factors, e.g. smoking, excerise, hormones, sex and age. CHOLESTEROL 132 0 - 240 mg/dL [facility] TRIGLYCERIDES 75 30 - 160 mg/dL [facility] LDL 61 50 - 129 mg/dL [facility] Comment: LDL levels in terms of risk for coronary heart disease: <100 mg/dL: Optimal 100-129 mg/dL: Near or above optimal 130-159 mg/dL: Borderline high 160-189 mg/dL: High >190 mg/dL: Very High CARDIAC RISK RATIO 2.4(L) 3.4 - 5.0 [facility] Blood 05/29/2025 1:02 PM EDT 05/29/2025 1:07 PM EDT us Rae Torres MD LAB BLOOD BKR ORDERABLES Fi nal Result [facility] [address] [place] [address] * ENDOSCOPY, COLON (03/26/2020 7:20 AM EDT) Narrative Transcriptions Daisy Calvo MD - 03/26/2020 7:20 AM EDT Patient Name: Travis Johnson MD:: DAISY CALVO MD Procedure Date: 03/26/2020 7:20 AM Date of : 1955 Age: 64 Admit Type: Outpatient Gender: Male Room: [facility] 05 Referring MD: Sallie Uriostegui Exam Type: Colonoscopy [...] monitored continuously. The Olympus adult variable colonoscope [id number] #1was introduced through the anus and advanced [...] 7:20 AM Procedure Code(s): --- Professional --- 60396, Colonoscopy, flexible; with removal of tumor(s), polyp(s), or other lesion(s) by snare technique --- Technical --- 90874, Colonoscopy, flexible; with removal of tumor(s), polyp(s), or other lesion(s) by snare technique Diagnosis Code(s): --- Professional --- Z86.010, Personal history of colonic polyps D12.3, Benign neoplasm of transverse colon (hepatic flexure or splenic flexure) --- Technical --- Z86.010, Personal history of colonic polyps D12.3, Benign neoplasm of transverse colon (hepatic flexure or splenic flexure) CPT copyright 2018 [employer]. All rights reserved. The codes documented in this report are preliminary and upon eligibility consultant reviewmay be revised to meet current compliance requirements. Procedure Date: 03/26/2020 7:20:[address] [place] [address] Sallie Uriostegui DO GI PROCEDURE ORDERABLES Fi nal Result from Last 3 Months or Most Recently Relevant to Health Maintenance Insurance [employer] EXTENSION MEDICARE SUPPLEMENT MEDICARE PART A & B Member Subscriber Plan / Payer (Ef fective 2021-Present) Name:PrinceTravis desai Member ID:[id number] Relation to Subscriber:Self Name:Travis Pedraza Subscriber ID:[id number] Payer ID:[id number] Group ID:Not on file Type:Medicare Address: [facility] [employer]UM[employer] [address] [place] [phone] [employer] EXTENSION MEDICARE SUPPLEMENT MEDICARE PART A & B [employer] [facility] MEDICARE SUPPLEMENT MEDICARE PART A & B [employer] EXTENSION MEDICARE SUPPLEMENT MEDICARE PART A & B [employer] MEDICARE SUPPLEMENT MEDICARE PART A & B [facility] EXTENSION MEDICARE SUPPLEMENT MEDICARE PART A & B [facility] EXTENSION MEDICARE SUPPLEMENT MEDICARE PART A & B [facility] MEDICARE SUPPLEMENT MEDICARE PART A & B [facility] EXTENSION MEDICARE SUPPLEMENT MEDICARE PART A & B Care Teams Plate Mill Hand Relationship Specialty Start Date End Date Rae Torres MD [address] [place] [address] [email or web address] PCP - General Internal Medicine 04/30/21 Michael Schofield MD 22 [facility], [address] [place] [address] Historical LMR Provider 07/02/17 Mo Hernandez MD 22 [facility] Floor 1 [place] [address] [email or web address] Historical LMR Provider 07/02/17 Additional Source Comments The information contained in this document represents components of the legal health record. It is not the complete legal health record.[facility]
--- OUTSIDE RECORDS SUMMARY | 2025-08-05 19:10 | XMS_ITS | Encounter Summary ---
Author Organization [facility] Address [address] [facility] [address] [place] [address] Phone Care Team Providers Care Transaction Advisory Services Manager Name Role Phone Michael Schofield MD Unavailable [phone] Mo Hernandez MD Unavailable [phone] Rae Torres MD Primary Care Provider Encounter Details Date Type Department Care Team (Late st Contact Info) Description 07/18/2023 Procedure Pass [facility] Endoscopy Admitting Dept Virtual Department 30 [place], [place] [id number] Social History Tobacco Use Types Packs/Day Years [...] documented as of this encounter Care Teams Transaction Advisory Services Manager Relationship Specialty Start Date End Date Rae Torres MD [address] [place] [address] [email or web address] PCP - General Internal Medicine 04/30/21 Michael Schofield MD [address] [facility], [address] [place] [address] [email or web address] Historical LMR Provider 07/02/17 Mo Hernandez MD [address] [facility] Floor 1 [place] [address] [email or web address] Historical LMR Provider 07/02/17 documented as of this encounter Additional Source Comments The information contained in this document represents components of the legal health record. It is not the complete legal health record.[facility]
--- OUTSIDE RECORDS SUMMARY | 2025-08-05 19:10 | XMS_ITS | Encounter Summary ---
Author Organization [facility] Address [address] [place] [address] Phone Care Team Providers Care Head Of Science Name Role Phone Anderson Rachel MD Unavailable [phone] Pat Almodovar MD Unavailable [phone] Christen Wheeler NP Unavailable Addie Correia DPM Unavailable Unavailable Michael Schofield MD Unavailable [phone] Mo Hernandez MD Unavailable [phone] Ryne Diaz MD Unavailable [phone] Sallie Uriostegui DO Primary Care Provider + [phone] Harrison Lew MD Primary Care Provider + [phone] Rae Torres MD Primary Care Provider [phone] Encounter Details Date Type Department Care Team (Latest Contact Info) Description 02/26/2019 Transcribe Orders [facility] Phleb Main 30 [place] [address] Sallie Uriostegui, 9 [place], [place] [id number] [email or web address] Hyperglycemia; Hyperlipidemia, unspecified hyperlipidemia type; Chronic fatigue [...] Date/Time Associated Diagnosis Comments COMPREHENSIVE METABOLIC PANEL (CMP) Routine 02/26/2019 7:05 AM EDT Chronic fatigue CBC Routine 02/26/2019 7:05 AM EDT Chronic fatigue HEMOGLOBIN A1C Routine 02/26/2019 7:05 AM EDT Hyperglycemia LIPID PANEL Routine 02/26/2019 7:05 AM EDT Hyperlipidemia, unspecified hyperlipidemia type documented in this encounter Results * CBC (02/26/2019 7:05 AM EDT) WBC 7.45 3.40 - 11.20 K/uL [facility] RBC 5.46 4.50 - 5.50 M/uL [facility] HGB 15.9 13.0 - 17.0 g/dL [facility] HCT 47.5 40.0 - 51.0 % [facility] PLT 263 130 - 400 K/uL [facility] MCV 87.0 79.0 - 98.0 fL [facility] MCH 29.1 27.0 - 34.8 pg [facility] MCHC 33.5 31.5 - 36.0 g/dL [facility] RDW 12.7 10.8 - 14.6 % [facility] MPV 9.7 9.4 - 12.4 fl [facility] NRBC 0.00 0.00 /100 WBCs [facility] ABSOLUTE NRBC 0.00 0.00 K/uL [facility] Blood 02/26/2019 7:05 AM EDT 02/26/2019 7:07 AM EDT Sallie Uriostegui DO LAB BLOOD BKR ORDERABLES F inal Result [address] [address] * (ABNORMAL) Comprehensive metabolic panel (02/26/2019 7:05 AM EDT) SODIUM 137 133 - 146 mmol/L [facility] POTASSIUM 4.6 3.3 - 5.1 mmol/L [facility] CHLORIDE 98 96 - 108 mmol/L [facility] CO2 30 21 - 35 mmol/L [facility] BUN 17 6 - 19 mg/dL [facility] CREATININE 0.90 0.5 - 1.5 mg/dL [facility] GLUCOSE 108(H) 70 - 99 mg/dL [facility] ALBUMIN 4.3 3.9 - 4.8 g/dL [facility] TOTAL PROTEIN 7.6 6.5 - 8.0 g/dL [facility] CALCIUM 9.7 8.4 - 10.3 mg/dL [facility] ALKALINE PHOSPHATASE 97 39 - 117 U/L [facility] TOTAL BILIRUBIN 1.0 0.0 - 1.2 mg/dL [facility] AST 17 0 - 37 U/L [facility] ALT 15 0 - 40 U/L [facility] GLOBULIN 3.3 1 - 4.8 g/dL [facility] EGFR 89 >59 mL/min/1.7 3m2 [facility] Comment:If patient is black, multiply result by 1.159. Estimated glomerular filtration rate calculated using the CKD-EPI equation. ANION GAP 14 10 - 20 mmol/L [facility] Blood 02/26/2019 7:05 AM EDT 02/26/2019 7:07 AM EDT Sallie Uriostegui DO LAB BLOOD BKR ORDERABLES F inal Result [address] [address] * (ABNORMAL) Lipid panel (02/26/2019 7:05 AM EDT) HDL 48 mg/dL [facility] Comment: Interpretation <40 mg/dL: Low HDL cholesterol (major risk factor for CHD) Greater than or equal to 60 mg/dL: High HDL cholesterol ( negative risk factor for CHD) HDL - cholesterol is affected by a number of factors, e.g. smoking, excerise, hormones, sex and age. CHOLESTEROL 137 0 - 240 mg/dL [facility] TRIGLYCERIDES 71 30 - 160 mg/dL [facility] LDL 75 50 - 129 mg/dL [facility] Comment: LDL levels in terms of risk for coronary heart disease: <100 mg/dL: Optimal 100-129 mg/dL: Near or above optimal 130-159 mg/dL: Borderline high 160-189 mg/dL: High >190 mg/dL: Very High CARDIAC RISK RATIO 2.9(L) 3.4 - 5.0 C [facility] Blood 02/26/2019 7:05 AM EDT 02/26/2019 7:07 AM EDT Sallie Uriostegui DO LAB BLOOD BKR ORDERABLES F inal Result Performing Organization Address [facility]/ZIP Co de Phone Number [address] [address] * Hemoglobin A1c (02/26/2019 7:05 AM EDT) HEMOGLOBIN A1C 5.8 4.3 - 5.8 % [facility] Blood 02/26/2019 7:05 AM EDT 02/26/2019 7:07 AM EDT Sallie Uriostegui DO LAB BLOOD BKR ORDERABLES F inal Result Performing Organization Address City/[facility]/ZIP Co de Phone Number [address] [address] documented in this encounter Visit Diagnoses Diagnosis [...] documented as of this encounter Care Teams Head Of Science Relationship Specialty Start Date End Date Sallie Uriostegui DO [address] [place] [address] [email or web address] PCP - General 09/14/18 01/14/21 Harrison Lew MD [address] [place] [address] [email or web address] PCP - General Internal Medicine 01/15/21 04/29/21 Rae Torres MD [address] [place] [email or web address] PCP - General Internal Medicine 04/30/21 Anderson Rachel MD [address] [place] [address] [address] [place] [address] [email or web address] Historical LMR Provider 07/02/17 09/18/21 Pat Almodovar MD [address] [place] [address] [email or web address] Historical LMR Provider 07/02/17 09/18/21 Christen Wheeler NP [address] [place] [address] 2_[place] [address] [email or web address] Historical LMR Provider 07/02/17 09/18/21 Addie Correia DPM 22 [place] [address] Historical LMR Provider 07/02/1709/18/21 Michael Schofield MD 22 [facility] [place] [address] [email or web address] Historical LMR Provider 07/02/17 Mo Hernandez MD 22 [facility] Floor 1 [place] [address] [email or web address] Historical LMR Provider 07/02/17 Ryne Diaz MD [address] [place] [address] Historical LMR Provider 07/02/17 2 documented as of this encounter Additional Source Comments The information contained in this document represents components of the legal health record. It is not the complete legal health record.[facility]
--- OUTSIDE RECORDS SUMMARY | 2025-08-05 19:10 | XMS_ITS | Clinical Summary ---
Author Organization [facility] Address [address] [place] [address] Care Team Providers Care Press Secretary Name Role Phone Rae Torres Primary Care [...] years old and patients) (1 - Risk 50-74 years 1-dose series) 2003 CT Lung Cancer Screening (Baseline) 12/08/2023 12/07/2022 Alcohol/Substance Use Screening 09/11/2024 Depression Screening and Follow-Up 09/11/2024 Fall Risk Screening 09/11/2024 Health Care Proxy Review 09/11/2024 Social Drivers of Health Annual Screening 09/11/2024 Pneumococcal Vaccine: 50+ Years (3 of 3 - PCV20 or PCV21) 09/16/2024 09/16/2019, 06/05/2014 Influenza Vaccine (#1) 2025 2, 07/16/2021, 05/07/2020, Additional history exists COVID-19 Vaccine ( season) 2025 06/30/2022, 07/08/2021, 12/01/2020, Additional history exists DTaP,Tdap,and Td Vaccines (3 - Td or Tdap) 05/20/2032 05/20/2022, 12/13/2013, 03/30/2005 Zoster Vaccines Completed 06/11/2021, 02/09, 07/08/2014 Hepatitis B Vaccines Aged Out No long er eligible based on patient's age to complete this topic Insurance MEDICARE [facility] Care Teams Press Secretary Relationship Specialty Start Date End Date Rae Torres [address] [place] [address] PCP - General Internal Medicine 11/24/21
--- OUTSIDE RECORDS SUMMARY | 2025-08-05 19:10 | XMS_ITS | Encounter Summary ---
Author Organization [facility] Address [address] [facility] [address] [place] [address] Phone Care Team Providers Care Farm Operations Manager Name Role Phone Michael Schofield MD Unavailable [phone] Mo Hernandez MD Unavailable [phone] Rae Torres MD Primary Care Provider [phone] Encounter Details Date Type Department Care Team (Late st Contact Info) Description 03/11/2025 Procedure Pass [facility], Ct Scan - [address] [address] Social History Tobacco Use Types Packs/Day Years [...] 4:31 PM EDT Venus Anne RN * [place] Suicide Severity Rating Scale (Screener/Recent Self-Report) Question [...] documented as of this encounter Care Teams Farm Operations Manager Relationship Specialty Start Date End Date Rae Torres MD [address] [place] [address] [email or web address] PCP - General Internal Medicine 04/30/21 Michael Schofield MD [address] [facility], [address] [place] [address] [email or web address] Historical LMR Provider 07/02/17 Mo Hernandez MD [address] [facility] Floor 1 [place] [address] [email or web address] Historical LMR Provider 07/02/17 documented as of this encounter Additional Source Comments The information contained in this document represents components of the legal health record. It is not the complete legal health record.[facility]
--- OUTSIDE RECORDS SUMMARY | 2025-08-05 19:10 | XMS_ITS | Encounter Summary ---
Author Organization [facility] Address [address] [facility] [address] [place] [address] Phone Care Team Providers Care Teleprinter Name Role Phone Michael Schofield MD Unavailable [phone] Mo Hernandez MD Unavailable Rae Torres MD Primary Care Provider Encounter Details Date Type Department Care Team (Latest Contact Info) Description 11/21/2022 Transcribe Orders Virtual Department 30 [place] [address] Samantha Galarza PA [address] [facility] [place] [place] [address] [email or web address] Pulmonary nodule (Primary Dx) Social History Tobacco [...] documented as of this encounter Care Teams Teleprinter Relationship Specialty Start Date End Date Rae Torres MD 15 [place] [address] [email or web address] PCP - General Internal Medicine 04/30/21 Michael Schofield MD 22 [facility] [place] [address] [email or web address] Historical LMR Provider 07/02/17 Mo Hernandez MD 22 [facility] Floor 1 [place] [address] [email or web address] Historical LMR Provider 07/02/17 documented as of this encounter Additional Source Comments The information contained in this document represents components of the legal health record. It is not the complete legal health record.[facility]
--- OUTSIDE RECORDS SUMMARY | 2025-08-05 19:10 | XMS_ITS | Encounter Summary ---
Author Organization [facility] Address [address] [facility] [address] [place] [address] Phone Care Team Providers Care Lacing Presser Name Role Phone Michael Schofield MD Unavailable [phone] Mo Hernandez MD Unavailable Rae Torres MD Primary Care Provider Encounter Details Date Type Department Care Team (Late st Contact Info) Description 11/15/2022 Ancillary Orders [facility], [address] [address] Samantha Galarza PA [address] [place] [address] [email or web address] cough Social History Tobacco Use Types [...] documented as of this encounter Care Teams Lacing Presser Relationship Specialty Start Date End Date Rae Torres MD [address] [place] [address] [id number] [email or web address] PCP - General Internal Medicine 04/30/21 Michael Schofield MD [address] [place] [address], [address] [place] [address] [email or web address] Historical LMR Provider 07/02/17 Mo Hernandez MD 22 [facility] Floor 1 [place] [address] [email or web address] Historical LMR Provider 07/02/17 documented as of this encounter Additional Source Comments The information contained in this document represents components of the legal health record. It is not the complete legal health record.[facility]
--- OUTSIDE RECORDS SUMMARY | 2025-08-05 19:10 | XMS_ITS | Encounter Summary ---
Author Organization [facility] Address [address] [place] [address] Phone Care Team Providers Care Gm Mobile Name Role Phone Michael Schofield MD Unavailable [phone] Mo Hernandez MD Unavailable Rae Torres MD Primary Care Provider Reason for Referral * MRI/CAT Scan - Closed Specialty Diagnoses / Procedures Referred By Contac t Referred To Contact Radiology Diagnoses Persistent cough Procedures CT Chest Rae Torres MD 15 [place] [address] Phone: tel: fax: [email or web address] Referral ID Status Reason Start Date Expiration Date Visits Re quested Visits Authorized [id number] Closed 11/25/2022 11/25/2023 1 1 Encounter Details Date Type Department Care Team (Late st Contact Info) Description 11/25/2022 Transcribe Orders Virtual Department 30 [place] [address] Rae Torres MD 15 [place] [address] [email or web address] Persistent cough (Primary Dx) Social History Tobacco [...] documented as of this encounter Care Teams Gm Mobile Relationship Specialty Start Date End Date Rae Torres MD [address] [place] [email or web address] PCP - General Internal Medicine 04/30/21 Michael Schofield MD [address] [facility], [address] [place] [address] Historical LMR Provider 07/02/17 Mo Hernandez MD [address] [facility] Floor 1 [place] [address] [email or web address] Historical LMR Provider 07/02/17 documented as of this encounter Additional Source Comments The information contained in this document represents components of the legal health record. It is not the complete legal health record.[facility]
--- OUTSIDE RECORDS SUMMARY | 2025-08-05 19:10 | XMS_ITS | Encounter Summary ---
Author Organization [facility] Address [address] [facility] [address] [place] [address] Phone Care Team Providers Care Belt Fixer Name Role Phone Mo Hernandez MD Primary Care Provide r Anderson Rachel MD Unavailable [phone] Pat Almodovar MD Unavailable [phone] Christen Wheeler NP Unavailable Addie Correia DPM Unavailable Unavailable Michael Schofield MD Unavailable [phone] Mo Hernandez MD Unavailable [phone] Ryne Diaz MD Unavailable [phone] Sallie Uriostegui DO Primary Care Provider + [phone] Harrison Lew MD Primary Care Provider [phone] Rae Torres MD Primary Care Provider [phone] Reason for Referral * Physical Therapy (Routine) - Closed Specialty Diagnoses / Procedures Referred By Mame t Referred To Contact Physical Therapy Diagnoses Encounter for rehabilitation Back Pain/Parkinsons Procedures Evaluate & Treat System, Provider Not In, [facility] [id number] [place] [address] Phone: tel: Referral ID Status Reason Start Date Expiration Date Visits Re quested Visits Authorized [id number] Closed 10/11/2017 12/08/2017 13 13 Encounter Details Date Type Department Care Team (Latest Contact Info) Description 10/05/2017 Transcribe Orders [facility] 4 [place] [address] Lidya Umanzor MD [address] [place] [address] Encounter for rehabilitation (Primary Dx) Social History [...] Date/Time Associated Diagnosis Comments AMB REFERRAL TO [facility] PHYSICAL THERAPY Routine 10/11/2017 9:24 PM EST Encounter for rehabilitation documented in this encounter Results * Ambulatory referral to [facility] Physical Therapy (10/11/2017 9:24 PM EST) us Provider Not In System PhD AMB [facility] REFERRALS Fin al Result documented in [...] documented as of this encounter Care Teams Belt Fixer Relationship Specialty Start Date End Date Mo Hernandez MD [email or web address] PCP - General 10/19/17 1/3/19 Sallie Uriostegui DO [address] [place] [address] [email or web address] PCP - General 09/14/18 01/14/21 Harrison Lew MD [address] [place] [address], [address] [place] [address] [email or web address] PCP - General Internal Medicine 01/15/21 04/29/21 Rae Torres MD [address] [place] [email or web address] PCP - General Internal Medicine 04/30/21 Anderson Rachel MD [address] [place] [address], [address] [place] [address] [email or web address] Historical LMR Provider 07/02/17 09/18/21 Pat Almodovar MD [address] [place] [address] [email or web address] Historical LMR Provider 07/02/17 09/18/21 Christen Wheeler NP [address] [place] [address] 2_[place] [address] [email or web address] Historical LMR Provider 07/02/17 09/18/21 Addie Correia DPM [address] [place] [address] Historical LMR Provider 07/02/1709/18/21 Michael Schofield MD [address] [place] [address] [address] [place] [address] [email or web address] Historical LMR Provider 07/02/17 Mo Hernandez MD [address] [facility] Floor 1 [place] [address] [email or web address] Historical LMR Provider 07/02/17 Ryne Diaz MD [address] [place] [address] Historical LMR Provider 07/02/17 2 documented as of this encounter Additional Source Comments The information contained in this document represents components of the legal health record. It is not the complete legal health record.[facility]
--- OUTSIDE RECORDS SUMMARY | 2025-08-05 19:10 | XMS_ITS | Encounter Summary ---
Author Organization [facility] Address [address] [facility] [address] [place] [address] Phone Care Team Providers Care Security Screener Name Role Phone Mo Hernandez MD Primary Care Provide r Anderson Rachel MD Unavailable [phone] Pat Almodovar MD Unavailable [phone] Christen [place] NP Unavailable Addie Correia DPM Unavailable Unavailable Michael Schofield MD Unavailable [phone] Mo Hernandez MD Unavailable [phone] Ryne Diaz MD Unavailable [phone] Sallie Uriostegui DO Primary Care Provider + [phone] Harrison Lew MD Primary Care Provider [phone] Rae Torres MD Primary Care Provider [phone] Reason for Referral * Physical Therapy (Elective) - Closed Specialty Diagnoses / Procedures Referred By Mame santiago Referred To Contact Physical Therapy Diagnoses Encounter for rehabilitation Back Pain Procedures Evaluate & Treat System, Provider Not In, PhD [id number] [place] [address] Phone: tel: Referral ID Status Reason Start Date Expiration Date Visits Re quested Visits Authorized [id number] Closed 09/25/2018 03/25/2019 16 16 Encounter Details Date Type Department Care Team (Latest Contact Info) Description 08/20/2018 Transcribe Orders [facility] [address] [place] [address] Lidya Umanzor MD [address] [place] [address] Encounter for rehabilitation (Primary Dx) Social History [...] Date/Time Associated Diagnosis Comments AMB REFERRAL TO [facility] PHYSICAL THERAPY Routine 09/25/2018 6:02 PM EST Encounter for rehabilitation documented in this encounter Results * Ambulatory referral to [facility] Physical Therapy (09/25/2018 6:02 PM EST) Provider Not In System PhD AMB [facility] REFERRALS Fin al Result documented in [...] documented as of this encounter Care Teams Security Screener Relationship Specialty Start Date End Date Mo Hernandez MD [email or web address] PCP - General 06/29/17 09/13/18 Sallie Uriostegui DO [address] [place] [address] [email or web address] PCP - General 09/14/18 01/14/21 Harrison Lew MD [address] [place] [address], [address] [place] [address] [email or web address] PCP - General Internal Medicine 01/15/21 04/29/21 Rae Torres MD [address] [place] [address] [email or web address] PCP - General Internal Medicine 04/30/21 Anderson Rachel MD [address] [place] [address], [address] [place] [address] [email or web address] Historical LMR Provider 07/02/17 09/18/21 Pat Almodovar MD [address] [place] [address] [email or web address] Historical LMR Provider 07/02/17 09/18/21 Christen [place] NP [address] [place] [address] 2_[place] [address] [email or web address] Historical LMR Provider 07/02/17 09/18/21 Addie Correia DPM [address] [place] [address] Historical LMR Provider 07/02/1709/18/21 Michael Schofield MD [address] [place] [address], [address] [place] [address] [email or web address] Historical LMR Provider 07/02/17 Mo Hernandez MD [address] [facility] Floor 1 [place] [address] [email or web address] Historical LMR Provider 07/02/17 Ryne Diaz MD [address] [place] [address] Historical LMR Provider 07/02/17 2 documented as of this encounter Additional Source Comments The information contained in this document represents components of the legal health record. It is not the complete legal health record.[facility]
--- OUTSIDE RECORDS SUMMARY | 2025-08-05 19:10 | XMS_ITS | Encounter Summary ---
Author Organization [facility] Address [address] [facility] [address] [place] [address] Phone Care Team Providers Care Director Phone Name Role Phone Michael Schofield MD Unavailable [phone] Mo Hernandez MD Unavailable Rea Torres MD Primary Care Provider Encounter Details Date Type Department Care Team (Latest Contact Info) Description 03/02/2022 Transcribe Orders Virtual Department 30 [place] [address] Samantha Galarza PA [address] [place] [address] [email or web address] Encounter for laboratory testing for COVID-19 virus [...] be available within 24 to 48 hrs. [facility] Symptomatic? YES [facility] Other 03/02/2022 1:02 PM EDT 03/02/2022 1:53 PM EDT us Samantha [facility] GENERAL ORDERABLES Final Re sult [facility] [address] [place] [address] [facility] [address] [place] [address] documented in this encounter Visit Diagnoses Diagnosis Encounter for laboratory testing for COVID-19 virus- Primary documented in this encounter Additional Health Concerns Infection Onset Date Last Indicated Resolved Time CoV-Risk 03/02/2022 03/02/2022 03/03/2022 8:22 AM EDT COVID-19 03/02/2022 03/02/2022 03/23/2022 1:23 AM EDT Assessment Noted Time PHQ-2 Depression Total Score: 0 09/21/19 21 9:01 AM EST documented as of this encounter Care Teams Director Phone Relationship Specialty Start Date End Date Rae Torres MD [address] [place] [address] [email or web address] PCP - General Internal Medicine 04/30/21 Michael Schofield MD 22 [facility], [address] [place] [address] [email or web address] Historical LMR Provider 07/02/17 Mo Hernandez MD [address] [facility] Floor 1 [place] [address] [email or web address] Historical LMR Provider 10/22/17 documented as of this encounter Additional Source Comments The information contained in this document represents components of the legal health record. It is not the complete legal health record.[facility]
--- OUTSIDE RECORDS SUMMARY | 2025-08-05 19:10 | XMS_ITS | Encounter Summary ---
Author Organization [facility] Address [address] [facility] [address] [place] [address] Phone Care Team Providers Care Die Casting Machine Operator Name Role Phone Michael Schofield MD Unavailable [phone] Mo Hernanedz MD Unavailable [phone] Rae Torres MD Primary Care Provider Encounter Details Date Type Department Care Team (Late st Contact Info) Description 07/10/2025 Procedure Pass [facility], Ct Scan - [address] [address] Social History Tobacco Use Types Packs/Day Years [...] Date of Assessment Author No Risk Indicated 07/10/2025 8:24 PM EDT Trav Martínez RN * [place] Suicide Severity Rating Scale (Screener/Recent Self-Report) Question Answer Date of Assessment Author 1. Wish to be (Past 1 Month) No 07/10/2025 8:24 PM EDT Trav Martínez RN 2. Non-Specific Active Suicidal Thoughts (Past 1 Month) No 07/10/2025 8:24 PM EDT Trav Martínez RN 6. Suicidal Behavior (Lifetime) No 07/10/2025 8:24 PM EDT Trav Martínez RN documented as of this encounter Plan of Treatment Not on file documented as of this encounter Visit Diagnoses Not on filedocumented in this encounter Additional Health Concerns Assessment Noted Time PHQ-2 Depression Total Score: 0 09/21/19 21 9:01 AM EST documented as of this encounter Care Teams Die Casting Machine Operator Relationship Specialty Start Date End Date Rae Torres MD [address] [place] [address] [email or web address] PCP - General Internal Medicine 04/30/21 Michael Schofield MD [address] [facility] [place] [address] [email or web address] Historical LMR Provider 07/02/17 Mo Hernandez MD [address] [facility] Floor 1 [place] [address] [email or web address] Historical LMR Provider 07/02/17 documented as of this encounter Additional Source Comments The information contained in this document represents components of the legal health record. It is not the complete legal health record.[facility]
--- OUTSIDE RECORDS SUMMARY | 2025-08-05 19:10 | XMS_ITS | Encounter Summary ---
Author Organization [facility] Address [address] [facility] [address] [place] [address] Phone Care Team Providers Care Telecommunications Line Installer Name Role Phone Anderson Rachel MD Unavailable [phone] Pat Almodovar MD Unavailable [phone] Christen [place] NP Unavailable Addie Correia DPM Unavailable Unavailable Michael Schofield MD Unavailable [phone] Mo Hernandez MD Unavailable [phone] Ryne Diaz MD Unavailable Sallie Uriostegui DO Primary Care Provider [place] Lew MD Primary Care Provider [phone] Rae Torres MD Primary Care Provider [phone] Encounter Details Date Type Department Care Team (Late st Contact Info) Description 06/27/2019 Transcribe Orders [facility] Rehabilitation Services [address] [place] [address] Lidya Umanzor MD [address] [place] [address] Social History Tobacco Use Types Packs/Day Years [...] documented as of this encounter Care Teams Telecommunications Line Installer Relationship Specialty Start Date End Date Sallie Uriostegui DO [address] [place] [address] [email or web address] PCP - General 09/14/18 01/14/21 Harrison Lew MD [address] [place] [address], [address] [place] [address] PCP - General Internal Medicine 01/15/21 04/29/21 Rae Torres MD [address] [place] [address] PCP - General Internal Medicine 04/30/21 Anderson Rachel MD [address] [place] [address], [address] [place] [address] Historical LMR Provider 07/02/17 09/18/21 Pat Almodovar MD [address] [place] [address] [email or web address] Historical LMR Provider 07/02/17 09/18/21 Christen [place], KANCHAN [address] [place] [address] 2_[place] [address] [email or web address] Historical LMR Provider 07/02/17 09/18/21 Addie Correia DPM [address] [place] [address] Historical LMR Provider 07/02/1709/18/21 Michael Schofield MD [address] [facility] [place] [address] [email or web address] Historical LMR Provider 07/02/17 Mo Hernandez MD [address] [facility] Floor 1 [place] [address] [email or web address] Historical LMR Provider 07/02/17 Ryne Diaz MD [address] [place] [address] Historical LMR Provider 07/02/17 2 documented as of this encounter Additional Source Comments The information contained in this document represents components of the legal health record. It is not the complete legal health record.[facility]
--- OUTSIDE RECORDS SUMMARY | 2025-08-05 19:10 | XMS_ITS | Encounter Summary ---
Author Organization [facility] Address [address] [facility] [address] [place] [address] Phone Care Team Providers Care Insurance Actuary Name Role Phone Michael Schofield MD Unavailable [phone] Mo Hernandez MD Unavailable [phone] Rae Torres MD Primary Care Provider [phone] Encounter Details Date Type Department Care Team (Late st Contact Info) Description 07/10/2025 Procedure Pass [facility], Ct Scan - [address] [address] Social History Tobacco Use Types Packs/Day Years [...] 8:24 PM EDT Trav Martínez RN * [place] Suicide Severity Rating Scale (Screener/Recent Self-Report) Question [...] documented as of this encounter Care Teams Insurance Actuary Relationship Specialty Start Date End Date Rae Torres MD [address] [place] [address] [email or web address] PCP - General Internal Medicine 04/30/21 Michael Schofield MD [address] [facility], [address] [place] [address] [email or web address] Historical LMR Provider 07/02/17 Mo Hernandez MD [address] [facility] Floor 1 [place] [address] [email or web address] Historical LMR Provider 07/02/17 documented as of this encounter Additional Source Comments The information contained in this document represents components of the legal health record. It is not the complete legal health record.[facility]
--- OUTSIDE RECORDS SUMMARY | 2025-08-05 19:10 | XMS_ITS | Encounter Summary ---
Author Organization [facility] Address [address] [facility] [address] [place] [address] Phone Care Team Providers Care Human Resource Professional Name Role Phone Michael Schofield MD Unavailable [phone] Mo Hernandez MD Unavailable Rae Torres MD Primary Care Provider Encounter Details Date Type Department Care Team (Late st Contact Info) Description 11/15/2022 Ancillary Orders [facility] Main [address] [place] [address] Samantha Galarza PA [address] [place] [address] [email or web address] Social History Tobacco Use Types Packs/Day Years [...] documented as of this encounter Care Teams Human Resource Professional Relationship Specialty Start Date End Date Rae Torres MD [address] [place] [address] [email or web address] PCP - General Internal Medicine 04/30/21 Michael Schofield MD [address] [facility], [address] [place] [address] [email or web address] Historical LMR Provider 07/02/17 Mo Hernandez MD [address] [facility] Floor 1 [place] [address] [email or web address] Historical LMR Provider 07/02/17 documented as of this encounter Additional Source Comments The information contained in this document represents components of the legal health record. It is not the complete legal health record.[facility]
--- OUTSIDE RECORDS SUMMARY | 2025-08-05 19:10 | XMS_ITS | Encounter Summary ---
Author Organization [facility] Address [address] [facility] [address] [place] [address] Phone Care Team Providers Care Director Oncology Name Role Phone Michael Schofield MD Unavailable [phone] Mo Hernandez MD Unavailable Rae Torres MD Primary Care Provider [phone] Encounter Details Date Type Department Care Team (Late st Contact Info) Description 12/14/2021 Transcribe Orders Virtual Department 30 [place], [place] [phone] Rae Torres MD [address] [place] [address] [email or web address] Cough (Primary Dx) Social History Tobacco Use [...] be available within 24 to 48 hrs. [facility] Symptomatic? YES [facility] Other 12/15/2021 12:3 8 PM EDT 12/15/2021 2:07 PM EDT us Rae Torres MD LAB GENERAL ORDERABLES Marie manriquez Result [facility] [address] [place] [address] [facility] [address] [place] [address] documented in this encounter Visit Diagnoses Diagnosis [...] as of this encounter Care Teams Director Oncology Relationship Specialty Start Date End Date Rae Torres MD [address] [place] [address] [email or web address] PCP - General Internal Medicine 04/30/21 Michael Schofield MD [address] [facility] [place] [address] [email or web address] Historical LMR Provider 07/02/17 Mo Hernandez MD 22 [facility] Floor 1 [place] [address] [email or web address] Historical LMR Provider 07/02/17 documented as of this encounter Additional Source Comments The information contained in this document represents components of the legal health record. It is not the complete legal health record.[facility]
--- OUTSIDE RECORDS SUMMARY | 2025-08-05 19:10 | XMS_ITS | Encounter Summary ---
Author Organization [facility] Address [address] [facility] [address] [place] [address] Phone Care Team Providers Care Operating Room Registered Nurse Name Role Phone Michael Schofield MD Unavailable [phone] Mo Hernandez MD Unavailable Rae Torres MD Primary Care Provider Encounter Details Date Type Department Care Team (Late st Contact Info) Description 10/16/2023 Ancillary Orders [facility], X-Ray - [address] [phone] Rae Torres MD [address] [place] [address] [phone] [email or web address] Right knee pain, unspecified chronicity (Primary [...] documented as of this encounter Care Teams Operating Room Registered Nurse Relationship Specialty Start Date End Date Rae Torres MD 15 [place] [address] [email or web address] PCP - General Internal Medicine 04/30/21 Michael Schofield MD [address] [facility] [place] [address] [email or web address] Historical LMR Provider 07/02/17 Mo Hernandez MD [address] [facility] Floor 1 [place] [address] [email or web address] Historical LMR Provider 07/02/17 documented as of this encounter Additional Source Comments The information contained in this document represents components of the legal health record. It is not the complete legal health record.[facility]
--- OUTSIDE RECORDS SUMMARY | 2025-08-05 19:10 | XMS_ITS | Encounter Summary ---
Author Organization [facility] Address [address] [facility] [address] [place] [address] Phone Care Team Providers Care Phlebotomist Prn Name Role Phone Michael Schofield MD Unavailable [phone] Mo Hernandez MD Unavailable Rae Torres MD Primary Care Provider Encounter Details Date Type Department Care Team (Late st Contact Info) Description 10/16/2023 Ancillary Orders [facility], X-Ray - [address] [phone] Rae Torres MD [address] [place] [address] [phone] [email or web address] Right knee pain, unspecified [...] documented as of this encounter Care Teams Phlebotomist Prn Relationship Specialty Start Date End Date Rae Torres MD [address] [place] [email or web address] PCP - General Internal Medicine 04/30/21 Michael Schofield MD [address] [facility] [place] [address] [email or web address] Historical LMR Provider 07/02/17 Mo Hernandez MD [address] [facility] Floor 1 [place] [address] [email or web address] Historical LMR Provider 07/02/17 documented as of this encounter Additional Source Comments The information contained in this document represents components of the legal health record. It is not the complete legal health record.[facility]
--- OUTSIDE RECORDS SUMMARY | 2025-08-05 19:10 | XMS_ITS | Encounter Summary ---
Author Organization [facility] Address [address] [facility] [address] [place] [address] Phone Care Team Providers Care Shoe Repairer Name Role Phone Michael Schofield MD Unavailable [phone] Mo Hernandez MD Unavailable Rae Torres MD Primary Care Provider [phone] Encounter Details Date Type Department Care Team (Late st Contact Info) Description 05/26/2023 Procedure Pass Non-Invasive Cardiology [address] [place], [place] [id number] Social History Tobacco Use Types Packs/Day Years [...] 8:36 AM EDT Sexual Orientation Straight 02/14/2025 5 :32 AM EDT documented as of this encounter Plan of Treatment Not on file documented as of this encounter Visit Diagnoses Not on filedocumented in this encounter Additional Health Concerns Assessment Noted Time PHQ-2 Depression Total Score: 0 09/21/19 21 9:01 AM EST documented as of this encounter Care Teams Shoe Repairer Relationship Specialty Start Date End Date Rae Torres MD [address] [place] [address] [email or web address] PCP - General Internal Medicine 04/30/21 Michael Schofield MD [address] [facility], [address] [place] [address] [email or web address] Historical LMR Provider 07/02/17 Mo [place] MD [address] [facility] Floor 1 [place] [address] [email or web address] Historical LMR Provider 07/02/17 documented as of this encounter Additional Source Comments The information contained in this document represents components of the legal health record. It is not the complete legal health record.[facility]
== END 2025-08-06 09:38 | disposition home or self-care (01) ==
PROVIDERS: PCP Internal Medicine; Visit Provider Psychiatry & Neurology Neurology
DX: G20.B1 Parkinson's disease with dyskinesia, without mention of fluctuations (principal); I95.1 Orthostatic hypotension; K59.09 Other constipation; G47.52 REM sleep behavior disorder
CPT/HCPCS: 99213; G2211

== ENCOUNTER → 2025-08-05 15:41 | Outpatient (BNVA) | payer MEDICARE, OTHER, SELFPAY | PROVIDERS: PCP Internal Medicine; Visit Provider Psychiatry & Neurology Neurology | DX: G20.B1 Parkinson's disease with dyskinesia, without mention of fluctuations (principal); G47.52 REM sleep behavior disorder; I95.1 Orthostatic hypotension; K59.09 Other constipation | CPT/HCPCS: 99212 ==